=== PATIENT | female | born 1950 | race Caucasian/White ===

== ENCOUNTER → 2018-05-23 15:34 | Outpatient (CLI) | payer MEDICARE, OTHER, SELFPAY ==
--- NOTE | 2018-05-23 15:44 | RAD_ITS ---
STUDY: X-RAY CHEST REASON FOR EXAM: Female, 68 years old. Cough. Chest tightness since pneumonia in November. TECHNIQUE: PA and lateral views of the chest. COMPARISON: March 22, 2015. FINDINGS: The lungs are hyperexpanded. There is linear scarring versus atelectasis along the horizontal fissure. There is a stable scar in the lingula. No new infiltrate or mass is seen. There is no demonstrated pleural abnormality. Normal size heart. Normal mediastinum and subha. Normal visualized pulmonary arteries. Normal visualized aortic arch and descending thoracic aorta. Normal visualized thoracic spine. Normal visualized ribs, clavicles, and shoulders. There is no demonstrated abnormality of the visualized soft tissue structures of the upper abdomen. RAD/Chest PA and Lateral IMPRESSION: Atelectasis versus scarring along the horizontal fissure. There is no other change from March 22, 2015. Electronically Signed: Willie Fisher DO at 8:52 EDT Tel [phone], Service support ,
[2018-05-23 17:31] LABS: Absolute Lymphocyte Count 2.42 X10^3/ul (0.83-4.51); Absolute Neutrophil Count 5.6 X10^3/uL (2.0-7.7); Basophil# 0.03 X10^3/uL; Basophil% 0.3 % (0-1); Eosinophil# 0.29 X10^3/uL; Eosinophils% 3.2 % (0-5); Hematocrit 42.1 % (37-47); Hemoglobin 14.3 g/dl (12.0-15.0); Lymphocyte # 2.42 X10^3/ul (4.0); Lymphocyte % 26.5 % (19-41); Mean Corpuscular Hgb 32.9 pg (27.0-32.0); Mean Platelet Vol. 9.6 fl (6.2-12.0); Monocyte# 0.72 X10^3/uL; Monocyte% 7.9 % (0-10); Neutrophil # 5.64 X10^3/uL (2.7-7.7); Neutrophil % 61.9 % (47-70); Platelet Count 327 K/mm3 (150-450); RBC Distribution Width CV 12.9 % (11.6-14.6); RBC Distribution Width SD 44.8 fl (35.1-43.9); Red Blood Count 4.34 M/mm3 (4.2-5.4); White Blood Count 9.1 K/mm3 (4.4-11.0)
[2018-05-23 17:39] LABS: POSITIVE COUNT NO; POSITIVE DIFFERENTIAL NO; POSITIVE MORPHOLOGY NO
[2018-05-23 17:52] LABS: Anion Gap 6 (5-15); BUN 14 mg/dL (7-18); BUN/Creat Ratio 19.3 RATIO (10-20); Calcium,Total 9.2 mg/dL (8.5-10.1); Chloride 108 mmol/L (98-107); Creatinine, Serum 0.72 mg/dL (0.55-1.02); EST Glomerular Filtration Rate 84 mL/min (>60); Est Glom Filt Rate - Afr Amer 102 mL/min (>60); Glucose 93 mg/dL (74-106); Potassium 4.3 mmol/L (3.5-5.1); Sodium Level 140 mmol/L (136-145)
== END ==
LOC: MFPLAB 15:36 → MTRAD 15:40
PROVIDERS: Family Provider Family Medicine; PCP Family Medicine; Visit Provider Family Medicine
DX: Z01.818 Encounter for other preprocedural examination (principal)
CPT/HCPCS: 36415; 71046; 80048; 85025

== ENCOUNTER → 2018-05-30 08:57 | Outpatient (CLI) | payer MEDICARE, OTHER, SELFPAY ==
--- NOTE | 2018-05-30 09:03 | RAD_ITS ---
STUDY: X-RAY - ESOPHAGUS (BARIUM SWALLOW) WITH FLUOROSCOPY REASON FOR EXAM: Female, 68 years old. Lump in throat. TECHNIQUE: 18 view(s) of the esophagus were obtained following swallowing of barium. FLUOROSCOPY TIME (if supplied): (0:30) minutes/seconds COMPARISON: None. FINDINGS: There is no demonstrated esophageal foreign body. There is no demonstrated stricture or mucosal abnormality. Normal gastroesophageal junction, without a demonstrated hiatal hernia. The patient ingested a 12 mm tablet of barium without difficult. Normal visualized aortic arch and descending thoracic aorta. Thickening of the right minor fissure and increased markings at the right lung base. There are diffuse degenerative changes of the visualized thoracic spine. RAD/Esophagus Only IMPRESSION: Normal plain film x-ray examination (barium swallow) of the esophagus. Electronically Signed: Emanuel Escobedo MD at 12:28 EDT Tel [phone], Service support ,
== END ==
PROVIDERS: Family Provider Family Medicine; PCP Family Medicine; Visit Provider Family Medicine
DX: R13.10 Dysphagia, unspecified (principal)
CPT/HCPCS: 74220

== ENCOUNTER 2018-06-21 08:21 | Day surgery (SDC) | payer MEDICARE, OTHER, SELFPAY ==
--- NOTE | 2018-06-17 12:08 | RAD_ITS ---
STUDY: X-RAY CHEST REASON FOR EXAM: Female, 68 years old. Preoperative clearance. TECHNIQUE: PA and lateral views of the chest. COMPARISON: Comparison is made with prior study dated May 23, 2018. FINDINGS: Elevation of the right hemidiaphragm. Increased linear markings at the lung bases. This has progressed as compared to prior study and is suggestive bibasilar atelectasis superimposed on scarring. There is also evidence of blunting of both costophrenic angles. Normal size heart. Normal mediastinum and subha. Normal visualized pulmonary arteries. There is atherosclerotic calcification of the aortic arch with tortuosity. There is demineralization of the osseous structures. Normal visualized ribs, clavicles, and shoulders. There is no demonstrated abnormality of the visualized soft tissue structures of the upper abdomen. RAD/Chest PA and Lateral IMPRESSION: Progressive increased markings at the lung bases suggestive of atelectasis superimposed on scarring. Blunting of both costophrenic angles. Electronically Signed: Emanuel Escobedo MD at 12:42 EDT Tel [phone], Service support ,
[2018-06-17 12:32] LABS: Anion Gap 7 (5-15); BUN 16 mg/dL (7-18); BUN/Creat Ratio 20.2 RATIO (10-20); Calcium,Total 9.9 mg/dL (8.5-10.1); Chloride 102 mmol/L (98-107); Creatinine, Serum 0.79 mg/dL (0.55-1.02); EST Glomerular Filtration Rate 76 mL/min (>60); Est Glom Filt Rate - Afr Amer 92 mL/min (>60); Glucose 115 mg/dL (74-106); Potassium 4.3 mmol/L (3.5-5.1); Sodium Level 136 mmol/L (136-145)
[2018-06-21] VITALS (13 sets, daily range): BP systolic 126–178; BP diastolic 74–105; PULSE 67–83; RESP 16–24; TEMP 36.3–36.9; O2SAT 89–100; BMI 32.3
--- NOTE | 2018-06-21 08:30 | EKG12_ITS ---
Test Reason : PRE OP Blood Pressure : / mmHG Vent. Rate : 073 BPM Atrial Rate : 073 BPM P-R Int : 178 ms QRS Dur : 084 ms QT Int : 382 ms P-R-T Axes : 018 072 050 degrees QTc Int : 420 ms Sinus rhythm with Fusion complexes Otherwise normal ECG When compared with ECG of 22-MAR-2015 11:21, Fusion complexes are now Present Confirmed by HERIBERTO COON ([id number]), visual effects editor EREN PEREZ ([id number]) on 06/23/2018 12:33:05 PM Referred By: Dimas Davidson Confirmed By:HERIBERTO COON
--- NOTE | 2018-06-21 11:07 | PCM.DC ---
You will use the following diet at home:: No restrictions Discharge Activity: Return to Normal Activity Call your doctor if your incision/area has: Increased Pain/ Swelling Allergies/Adverse Reactions: Allergies Sulfa (Sulfonamide Antibiotics) Allergy (Verified 06/17/18 11:44) Hives Medications to take at Discharge Albuterol Inhaler [Ventolin Hfa (SP)] 2 puff INHALATION Q6H PRN PRN 06/17/18 Azithromycin [Zithromax Z-Lorenzo] 250 mg PO UD 06/17/18 Calcium Carb/Mag Ox/Zinc Sulf [Aaanljx-Dlbtwvpzk-Vzga Tablet] 1 each PO BID 06/17/18 Cholecalciferol (Vitamin D3) [Vitamin D3] 10,000 unit PO DAILY 06/17/18 Fluticasone 0.05% [Flonase Nasal [place]] 1 spray NASAL BID 06/17/18 Gabapentin [Neurontin] 300 mg PO BID 06/17/18 Glucosamine Sulf/Chondroitin A [Glucosamine-Chondroitin Cap] 1 each PO DAILY 06/17/18 Guaifenesin [Mucinex] 600 mg PO BID 06/17/18 Multivitamin [Multiple Vitamins] 1 each PO DAILY 06/17/18 [place]-3 Fatty Acids/Fish Oil [Fish Oil 1,000 mg Capsule] 1 each PO DAILY 06/17/18 Vitamin B Complex 1 each PO DAILY 06/17/18 Vitamin E 400 unit PO DAILY 06/17/18 Primary Care Physician: Lai Meadows MD [Primary Care Provider] - Test Results: Test results from this visit will be discussed in further detail at your follow-up appointment, if applicable. Please Follow Up With: Allan Davidson MD When: 2 weeks
--- NOTE | 2018-06-21 11:09 | PCM.OPRPT ---
Problem List (1) Vocal cord paralysis, unilateral complete Status: Acute Report of Operation Date of Procedure: 06/21/18 Pre-Operative Diagnosis: right vocal cord immobility Post-Operative Diagnosis: right vocal cord immobility Surgery/Procedure Performed:: right vocal cord injection with the operative telescope Type of Anesthesia:: General Description of Procedure: on the day of the procedure, after appropriate informed consent was obtained, the patient was brought to the operating room and placed in supine position on the operating table. she was placed under general endotracheal anesthesia by the anesthesiologist. the endotracheal tube was secured, the eyes were taped. the table was rotated 90 degrees toward the surgeon. the fiona laryngoscope was first used with a tooth guard. given the patient's dentition and inability to depress the mandible adequately, a good view of the mid and anterior cords could not be obtained. the dido laryngoscope was used and the same problems arose. i did not want to put significant pressure on her incisors. at this time, given her aspiration symptoms, it was deemed necessary to attempt an injection using the glide scope. a good view was obtained and the injection needle for prolaryn plus was bent in the same fashion as a transoral office injection. the needle was inserted just lateral to the right true cord at the junction of the anterior 2/3 and posterior 1/3 in the paraglottic space. 0.6cc of prolaryn plus was used. it was difficult to obtain a great view given secretions and the resolution of the glide scope, but significant bulk of the right cord was acheived. the patient was awoken from anesthesia and transferred to the PACU in stable condition.
== END 2018-06-21 14:02 | disposition home or self-care (01) ==
LOC: SDC 08:23 → AC 08:23
PROVIDERS: Family Provider Family Medicine; PCP Family Medicine; Visit Provider Otolaryngology
PROC: (CPT 31571; principal; 2018-06-21 09:50)
DX: J38.01 Paralysis of vocal cords and larynx, unilateral (principal); R22.1 Localized swelling, mass and lump, neck; Z87.891 Personal history of nicotine dependence
CPT/HCPCS: 00320; 31571; 36415; 71046; 80048; 93005; 94640; J7120; J2405

== ENCOUNTER → 2018-06-22 13:41 | Outpatient (CLI) | payer MEDICARE, OTHER, SELFPAY ==
--- NOTE | 2018-06-22 13:43 | CT_ITS ---
STUDY: CT SOFT TISSUE NECK WITH CONTRAST REASON FOR EXAM: Female, 68 years old. Immobile right vocal cord. RADIATION DOSAGE (If Supplied By Facility): CTDIvol = ( 12.05 ) mGy, DLP = ( 347.61 ) mGycm TECHNIQUE: The patient was scanned in a multi-detector CT scanner. High resolution transaxial imaging was performed following intravenous administration of 100ML ml of Isovue 300 contrast material. Sagittal and coronal images were reconstructed. Individualized dose optimization techniques were used for this CT. COMPARISON: Barium esophagram 05/30/2018. X-ray chest 06/17/2018. FINDINGS: Apical lungs: Clear. Apical thoracic cage: Normal. Apical thoracic body wall soft tissues: Normal. Superior mediastinum and supraclavicular: Extensive lymphadenopathy. Tracheal, prevascular change, extending upward through the thoracic inlet, right greater than left supraclavicular. The largest lymph node in the superior mediastinum adjacent to the trachea and esophagus measures approximately 30 x 17 mm. The largest lymph node in the thoracic inlet likely represents multiple confluent lymph nodes, spanning approximately 4.5 x 3.4 cm. The largest right-sided supraclavicular lymph node lying just anterior to the subclavian vessels measures approximately 2.4 x 2.5 cm, and another adjacent 1.9 x 2.7 cm. Left supraclavicular, a few lymph nodes, the largest of which measure about 13 mm and 15 mm respectively. There is asymmetric thickening of the anterior and right-sided wall of the esophagus at the thoracic inlet, difficult to discern if this represents intimately adjacent enlarged lymph nodes or true esophageal wall thickening. There is a complex heterogeneously hypoechoic lesion involving the entirety of the thyroid isthmus, the medial portions of the left gland, and much of the right gland inferior pole and mid polar, sparing the apex, highly suspicious for neoplasia. Larynx: There is dense calcification within the right-sided false vocal cord, mild asymmetry in the cords. This could potentially reflect cord paralysis and could involve the recurrent laryngeal nerve due to the mediastinal and supraclavicular lymphadenopathy. Nasopharynx and oropharynx: Normal. Cervical soft tissues: A few shotty lymph nodes cervical chains, jugulodigastric, not pathologically enlarged. Normal submandibular and parotid glands. Facial soft tissues: Unremarkable. Sinuses: Clear. Craniofacial osseous structures: Normal. Cervical spine: Moderate degenerative disc disease C4-C5, C5-C6 without significant stenosis. Vasculature: Unremarkable. CT/Soft Tissue Neck WITH Contrast IMPRESSION: Thyroid mass. Biopsy recommended. Biopsy of adjacent supraclavicular lymph nodes is also recommended. Extensive superior mediastinal lymphadenopathy, extensive right supraclavicular lymphadenopathy, with more mild left supraclavicular lymphadenopathy. Asymmetry of the vocal folds/cords with dense chronic ossifications involving the right fold. The asymmetry may reflect focal cord paralysis in the setting of recurrent laryngeal nerve involvement in the malignant neoplastic process of the superior mediastinum and supraclavicular soft tissues. Asymmetric thickening along the wall of the proximal esophagus at the thoracic inlet may reflect intimately adjacent enlarged lymph nodes rather than true esophageal wall thickening. It is difficult to discern on this study. Follow-up CT chest with contrast is recommended for further characterization. Electronically Signed: Gutierrez Vidal, at 17:21 EDT Tel , Service support ,
== END ==
PROVIDERS: Family Provider Family Medicine; PCP Family Medicine; Visit Provider Otolaryngology
DX: J38.00 Paralysis of vocal cords and larynx, unspecified (principal)
CPT/HCPCS: 70491

== ENCOUNTER → 2018-07-07 09:13 | Outpatient (CLI) | payer MEDICARE, OTHER, SELFPAY ==
--- NOTE | 2018-07-07 | IMM_PTH ---
PATIENT: CRISTOPHER SOSA LOC: LAB U#:[id number] AGE/SX: 75/F ROOM: RE07/07/[address]: Dr. Daniel Davidson MD : 1950 BED: DIS: SPEC #: [id number] RECD: 07/08/18 12:52 STATUS: SU REQ #: [id number] BRITTA: 07/07/18 00:[address]: Daniel Davidson DEPT: IMMUNOHISTOCHEMISTRY RECD BY: Elinor Vee ENTERED: 07/08/18 12:53 SP TYPE: IMMUNO OTHR DR: Dr. Lai Meadows MD Tissues: Supraclavicular region of neck Procedures: RCC (add) NAPSIN A (add) CK20 (add) CK5-6 (add) CK7 (add) CK8 (add) HEP PAR (add) WY (add) TTF1 (add) P40 (add) ER (initial) PHYSICIAN & INSTITUTION [address] [address] SPECIMEN INFORMATION: Tissue Source: Right supraclavicular mass Clinical Info: Right supraclavicular mass Specimen Number: [id number] CPT code: 67860, 45077 x10 METHODOLOGY: Deparaffinized sections of prefer/formalin-fixed tissue or PAP/DQ stained slides are incubated with monoclonal/polyclonal antibodies/oligonucleotide probes. Localization is made via biotin free immunoperoxidase method. Appropriate controls are performed and reacted as expected. Results on target cell population are indicated in the following table: RESULTS: ANTIBODY / CLONE RESULT ER (6F11) negative WY (1E2) negative CK7 (OV-TL12/30) negative CK8 (32recmB72) negative CK20 (KS20.8) negative TTF-1 (8G7G3/1) negative Napsin A (Rabbit Polyclonal) negative HepPar (OCh1E5) negative RCC (PN-15) negative CK5-6 (D5 & 1684) positive P40 (BC28) positive These tests were developed and their performance characteristics determined by [facility]. They may not have been cleared or approved by the U.S. Food and Drug Administration. The FDA has determined that such clearance or approval is not necessary. INTERPRETATION: Right supraclavicular mass, FNA: Consistent with metastatic non-small cell carcinoma, favor squamous cell carcinoma. Clinical correlation necessary. LEONARDA:gt 07/11/18 Case has been reviewed in consultation with Dr. Gaitan who concurs with the above diagnosis. IDC:AM
--- NOTE | 2018-07-07 | ASPOS_PTH ---
PATIENT: CRISTOPHER SOSA LOC: LAB U#:[id number] AGE/SX: 75/F ROOM: RE07/07/[address]: Dr. Daniel Davidson MD : 1950 BED: DIS: SPEC #: [id number] RECD: 07/07/18 10:51 STATUS: SU KATE #: [id number] BRITTA: 07/07/18 00:[address]: Daniel Davidson DEPT: CYTOLOGY RECD BY: Gutierrez Gamboa ENTERED: 07/07/18 10:52 SP TYPE: ASP HERE OTHR DR: Dr. Lai Meadows MD Tissues: Supraclavicular region of neck Procedures: Pap Stain (control) Surgery Specimen Level IV Diff Quik Stain (control) Cell Block Cytology Other Fine Needle Asp on Site HEADER OPERATION: FNA right supraclavicular mass PRE-OP DIAGNOSIS: Right supraclavicular mass TISSUE SUBMITTED: Right supraclavicular mass, smear and fluid for cytology and cell block (4 DQ, 2?pap) DIAGNOSIS CYTOLOGY Right supraclavicular mass, FNA (smears and cell block): Consistent with metastatic non-small cell carcinoma, favor squamous cell carcinoma. See comment. LEONARDA:gt 07/08/18 COMMENT The specimen is evaluated at the time of FNA by Dr. Gaitan. Immediate Evaluation = Positive for malignant cells, consistent with non-small cell carcinoma. Immunohistochemistry ([id number]) supports the above diagnosis. Lymph node tissue is not identified in the submitted specimen. Clinical correlation and appropriate follow up are necessary. Case has been reviewed in consultation with Dr. Gaitan who concurs with the above diagnosis. IDC:AM CYTOLOGY STUDY Slides are reviewed. CYTOLOGY GROSS Received is 0.2 ml of reddish fluid labeled with the patient's name, and designated right supraclavicular mass. Four imprints and two paps are made from the submitted fluid and the rest is added to CytoLyt for cell block preparation. Submitted for cytology study. / AM:gt 07/07/18 TC:0 CPT: 21874, 01344, 28755, 33705 ADDENDUM ADDENDUM ADDENDUM ADDENDUM ADDENDUM ADDENDUM ADDENDUM 08/02/2018 10:28 ADDENDUM 08/02/2018 10:28 ADDENDUM 08/02/2018 10:28 ADDENDUM 08/02/2018 10:28 ADDENDUM 08/02/2018 10:28 PD-L1 (KEYTRUDA) [facility] INTERPRETATION: No expression Tumor proportion score: 0% Please see complete report in e-chart or EMR for complete details
== END ==
PROVIDERS: Family Provider Family Medicine; PCP Family Medicine; Visit Provider Otolaryngology
DX: R22.1 Localized swelling, mass and lump, neck (principal)
CPT/HCPCS: 10021; 88161; 88305; 88341; 88342

== ENCOUNTER → 2018-07-18 10:21 | Outpatient (CLI) | payer MEDICARE, OTHER, SELFPAY | PROVIDERS: Family Provider Family Medicine; PCP Family Medicine; Visit Provider Otolaryngology | DX: C77.0 Secondary and unspecified malignant neoplasm of lymph nodes of head, face and neck (principal); C80.1 Malignant (primary) neoplasm, unspecified | CPT/HCPCS: 78815; A9552 ==

== ENCOUNTER 2018-08-03 20:42 | Emergency (ER) | payer MEDICARE, OTHER, SELFPAY ==
[2018-08-03 20:43] VITALS: BP 132/75; PULSE 98; RESP 20; TEMP 36.3; O2SAT 92; BMI 32.4
--- NOTE | 2018-08-03 23:07 | EKG12_ITS ---
Test Reason : NAUSEA Blood Pressure : / mmHG Vent. Rate : 086 BPM Atrial Rate : 086 BPM P-R Int : 172 ms QRS Dur : 094 ms QT Int : 352 ms P-R-T Axes : 016 052 055 degrees QTc Int : 421 ms Normal sinus rhythm Normal ECG Confirmed by HERIBERTO COON ([id number]), marketing editor EREN PEREZ ([id number]) on 08/09/2018 1:37:38 PM Referred By: ALEX Confirmed By:HERIBERTO COON
[2018-08-03] MEDS: Ondansetron 4 MG/2 ML Vial IV (23:32)
[2018-08-03] MEDS: 0.9% Normal Saline 1,000 ML 1000 ML IV (23:32)
[2018-08-03 23:44] LABS: Absolute Lymphocyte Count 0.67 X10^3/ul (0.83-4.51); Absolute Neutrophil Count 7.6 X10^3/uL (2.0-7.7); Basophil# 0.02 X10^3/uL; Basophil% 0.2 % (0-1); Eosinophil# 0.07 X10^3/uL; Eosinophils% 0.8 % (0-5); Hematocrit 40.4 % (37-47); Lymphocyte # 0.67 X10^3/ul (4.0); Lymphocyte % 7.5 % (19-41); Mean Corp Hgb Conc 34.7 g/gl (32-36); Mean Corpuscular Hgb 33.5 pg (27.0-32.0); Mean Corpuscular Volume 96.7 fL (81-99); Monocyte# 0.63 X10^3/uL; Neutrophil # 7.57 X10^3/uL (2.7-7.7); Neutrophil % 84.3 % (47-70); Platelet Count 336 K/mm3 (150-450); RBC Distribution Width CV 12.2 % (11.6-14.6); RBC Distribution Width SD 41.9 fl (35.1-43.9); Red Blood Count 4.18 M/mm3 (4.2-5.4)
[2018-08-03 23:45] LABS: POSITIVE COUNT NO; POSITIVE DIFFERENTIAL NO; POSITIVE MORPHOLOGY NO
[2018-08-03] MEDS: traMADol 50 MG Tablet PO (23:49)
[2018-08-03 23:51] LABS: ALB/GLOB Ratio 0.8 RATIO (0.9-2.4); AST(SGOT) 30 U/L (15-37); Alanine Aminotransfer ALT/SGPT 80 U/L (13-56); Albumin, Serum 3.3 g/dL (3.2-5.0); Alkaline Phosphatase 77 U/L (45-117); Anion Gap 8 (5-15); BUN 7 mg/dL (7-18); BUN/Creat Ratio 10.5 RATIO (10-20); Calcium,Total 9.1 mg/dL (8.5-10.1); Chloride 97 mmol/L (98-107); Creatinine, Serum 0.67 mg/dL (0.55-1.02); EST Glomerular Filtration Rate 93 mL/min (>60); Est Glom Filt Rate - Afr Amer 112 mL/min (>60); Globulin 4.2 g/dL (2.2-4.2); Glucose 126 mg/dL (74-106); Lipase 118 U/L (73-393); Potassium 4.3 mmol/L (3.5-5.1); Protein, Total 7.5 g/dL (6.4-8.2); Sodium Level 131 mmol/L (136-145)
[2018-08-04 00:34] LABS: Bacteria 0 SEEN /hpf (None Seen); Red Blood Cells-Urine 0 SEEN /hpf (0-5); Squamous Epithelial Cells - UA 0 SEEN /hpf (5-10); White Blood Cells 0 SEEN /hpf (0-5)
[2018-08-04 00:35] LABS: Color, Urine Yellow (Yellow); Glucose, Dipstick Normal (Normal); Ketone-Dipstick 50 mg/dl (Negative); Leukocyte Esterase-Dipstick 100 /ul (Negative); Nitrite-Dipstick Negative (Negative); Occult Blood-Urine Negative /ul (Negative); Protein-Dipstick 15 mg/dl (Negative); Urine Bilirubin Dipstick Negative (Negative); Urine Clarity Clear (Clear); Urine Urobilinogen Normal (Normal); Urine pH 6.5 (5.0 - 8.0)
[2018-08-04 00:45] LABS: Mucous, Urine 2+ /hpf (<or=2+)
[2018-08-04] MEDS: proMETHazine 25 MG/ML Syringe 12.5 MG IV (00:51)
[2018-08-04 01:28] VITALS: BP 152/79; PULSE 83; RESP 16; O2SAT 96
--- NOTE | 2018-08-04 02:17 | ED.VISSUMM ---
- ER Visit Summary Date of Service: 08/04/18 Chief Complaint: [Nausea and dry heaves] History of Present Illness: The patient is a 68 F [presents the emergency department complaint of nausea and dry heaves that started earlier today. Patient has not actually had any emesis, up but has had dry heaves. She denies any diarrhea. She denies any chest pain or shortness of breath. She has had some mild epigastric discomfort. Patient currently being treated for lung cancer and is undergoing radiation therapy. Patient's not had a fever. She denies urinary symptoms. She denies any new medications.] Physical Examination: [HEENT-PERRLA, EOMI. Cranial nerves II through XII grossly intact. TMs clear. Mucous membranes moist. No adenopathy. Cardiovascular-regular rate and rhythm without murmur or ectopy Lungs-clear to auscultation, chest wall stable without crepitus or subcu emphysema Abdomen-normoactive bowel sounds, soft. Patient has some mild epigastric tenderness to palpation. There is no rebound, rigidity, or perineal signs. Extremities-intact ?4, normal range of motion, normal pulses, atraumatic] Test Results: [EKG obtained on arrival shows sinus rhythm with a ventricular rate of 86 bpm with no acute ST segment changes. CBC with differential obtained was unremarkable. Chemistries unremarkable. LFTs unremarkable. Lipase was normal. Urinalysis was normal. Troponin was less than 0.015.] Emergency Department Course and Treatment: [Patient was given IV fluids and given Zofran for nausea. Patient continued to complain of nausea and was given Phenergan 12.5 mg IV. Patient did feel significantly improved after treatment and she no longer complains of abdominal pain. Patient was able to fall asleep. Patient was able to tolerate p.o. fluids.] Treatment Plan: [Patient will be given a prescription for Phenergan. Patient advised to push fluids. Patient follow-up with primary care physician 3-5 days.] Disposition: [Discharged home in stable condition] Impression: [Nausea-etiology uncertain] This note was generated with [facility] software. It may contain incorrect words, spelling, and punctuation that were not noted in review of the chart prior to signing ED Disposition - Plan for ED Patient: Chief Complaint: Nausea/Vomiting Referrals: Lai Meadows MD [Primary Care Provider] -
--- NOTE | 2018-08-04 02:19 | ED.DEP ---
ED Disposition - Plan for ED Patient: Chief Complaint: Nausea/Vomiting Instructions: ED Nausea Vomiting Prescriptions: proMETHazine tablet [Phenergan] 25 mg PO Q6H PRN PRN #10 tab PRN Reason: Nausea Referrals: Lai Meadows MD [Primary Care Provider] - 3-5 Days
[2018-08-04] MEDS: proMETHazine 25 MG Tablet PO (02:30)
[2018-08-04 02:40] VITALS: BP 148/84; PULSE 90; RESP 16; O2SAT 89
--- NOTE | 2018-08-04 02:41 | ED.RN ---
PT GIVEN WRITTEN AND VERBAL DISCHARGE INSTRUCTIONS, HOME PACK AND HOME GOING PRESCRIPTIONS. PT EDUCATED ON MEDICATION AND INSTRUCTIONS AND VERBALIZES UNDERSTANDING. PT IV D/C AND COVERED WITH 2X2 GAUZE DRESSING. PT PULSE OX 89% ON RA. PT REPORTS THAT SHE DOES NOT WEAR HOME 02 AND THAT SHE DOES NOT FEEL SOB. PT HAS FOLLOW UP WITH ONCOLOGIST LATER THIS AM. DR. GALICIA INFORMED AND CLEARED PT FOR DISCHARGE. PT AMBULATES OUT OF DEPT WITH .
== END 2018-08-04 02:43 | disposition home or self-care (01) ==
LOC: ED 23:43
PROVIDERS: Emergency Provider Emergency Medicine; Family Provider Family Medicine; PCP Family Medicine
DX: R11.0 Nausea (principal); C34.90 Malignant neoplasm of unspecified part of unspecified bronchus or lung; Z87.891 Personal history of nicotine dependence; Z79.899 Other long term (current) drug therapy
CPT/HCPCS: 80053; 81001; 83605; 83690; 84484; 85025; 93005; 96361; 96374; 96375; 99283; J7030; A4216; J2405

== ENCOUNTER 2018-08-09 22:32 | Emergency (ER) | payer MEDICARE, OTHER, SELFPAY ==
[2018-08-09 22:34] VITALS: BP 132/78; PULSE 113; RESP 18; TEMP 37.5; O2SAT 92; BMI 31.1
--- NOTE | 2018-08-09 22:39 | ED.VISSUMM ---
- ER Visit Summary Date of Service: 08/09/18 Chief Complaint: Nausea, vomiting, abdominal pain History of Present Illness: The patient is a 68 F with history of lung cancer who is undergoing radiation presents with nausea and vomiting. Patient had her treatment today. She states a few hours later, she began have a lot of burning in her mid chest. She has been nauseated with a few bouts of vomiting. She states she has a difficult time eating because of pain in her throat. She was diagnosed with radiation esophagitis. She has been taking Magic mouthwash mix, and states it does help, but then the pain comes back. She denies any fevers or chills. She denies any shortness of breath over baseline. She states that she gets a lot of abdominal cramping and is having dry heaves. The patient was actually seen here for the same complaints just about a week ago after her last treatment. Physical Examination: Vital signs reviewed General: Well-nourished, well-developed Head: Normocephalic, atraumatic Eyes: Pupils equal and reactive, extraocular muscles intact Neck, supple, no lymphadenopathy Heart: Regular rate and rhythm Respiratory: No distress, clear bilaterally Abdomen: Soft, nontender, nondistended, no peritoneal signs Back: Nontender Extremities: Nontender, no edema, no cords Skin: Normal color no rash Neuro: Alert and oriented, no focal or lateralizing deficits Test Results: [] Emergency Department Course and Treatment: The patient presents with nausea, vomiting, and burning her throat status post radiation. She is Wilfredo been diagnosed with radiation esophagitis. In review, the patient had very similar presentation about a week ago. IV was established. She was given fluids, Zofran, morphine. She had improvement of her pain but still had mild nausea. Her labs are relatively unremarkable. The patient was given IV Phenergan. On reevaluation she is resting comfortably. Her nausea had abated. She is able to drink without issue. At this time, due to the patient is safe for outpatient therapy. She is comfortable this plan of care. She does have follow-up in place with her oncologist. She was counseled on concerning symptoms and reasons to return. Treatment Plan: [] Disposition: Discharge Impression: 1. Nausea and vomiting 2. Radiation esophagitis This note was generated with [employer] software. It may contain incorrect words, spelling, and punctuation that were not noted in review of the chart prior to signing ED Disposition - Plan for ED Patient: Disposition: Home or Assisted Living Chief Complaint: Nausea/Vomiting Instructions: ED Nausea Vomiting Referrals: Lai Meadows MD [Primary Care Provider] -
[2018-08-09] MEDS: Morphine 4 MG/ML Syringe IV (22:53)
[2018-08-09] MEDS: 0.9% Normal Saline 1,000 ML 1000 ML IV (22:53)
[2018-08-09] MEDS: Ondansetron 4 MG/2 ML Vial IV (22:53)
[2018-08-09 23:14] LABS: Absolute Lymphocyte Count 0.54 X10^3/ul (0.83-4.51); Absolute Neutrophil Count 7.3 X10^3/uL (2.0-7.7); Basophil# 0.03 X10^3/uL; Basophil% 0.3 % (0-1); Eosinophil# 0.13 X10^3/uL; Eosinophils% 1.5 % (0-5); Hematocrit 45.6 % (37-47); Hemoglobin 15.4 g/dl (12.0-15.0); Lymphocyte # 0.54 X10^3/ul (4.0); Lymphocyte % 6.2 % (19-41); Mean Corp Hgb Conc 33.8 g/gl (32-36); Mean Corpuscular Hgb 32.5 pg (27.0-32.0); Mean Corpuscular Volume 96.2 fL (81-99); Mean Platelet Vol. 9.1 fl (6.2-12.0); Monocyte# 0.69 X10^3/uL; Neutrophil # 7.26 X10^3/uL (2.7-7.7); Neutrophil % 83.9 % (47-70); Platelet Count 259 K/mm3 (150-450); RBC Distribution Width CV 12.7 % (11.6-14.6); RBC Distribution Width SD 44.8 fl (35.1-43.9); Red Blood Count 4.74 M/mm3 (4.2-5.4); White Blood Count 8.7 K/mm3 (4.4-11.0)
[2018-08-09 23:18] LABS: Differential Indicated SCAN CRITERIA MET; POSITIVE COUNT NO; POSITIVE DIFFERENTIAL YES; POSITIVE MORPHOLOGY NO
[2018-08-09 23:26] LABS: ALB/GLOB Ratio 0.8 RATIO (0.9-2.4); AST(SGOT) 43 U/L (15-37); Alanine Aminotransfer ALT/SGPT 116 U/L (13-56); Albumin, Serum 3.2 g/dL (3.2-5.0); Alkaline Phosphatase 78 U/L (45-117); Anion Gap 11 (5-15); BUN 16 mg/dL (7-18); BUN/Creat Ratio 17.7 RATIO (10-20); Calcium,Total 8.9 mg/dL (8.5-10.1); Chloride 96 mmol/L (98-107); EST Glomerular Filtration Rate 66 mL/min (>60); Est Glom Filt Rate - Afr Amer 79 mL/min (>60); Estimated Creatinine Clearance 52.34 ml/min; Globulin 4.2 g/dL (2.2-4.2); Glucose 154 mg/dL (74-106); Lipase 78 U/L (73-393); Potassium 4.2 mmol/L (3.5-5.1); Protein, Total 7.4 g/dL (6.4-8.2); Sodium Level 130 mmol/L (136-145)
[2018-08-10] MEDS: proMETHazine 25 MG/ML Syringe 12.5 MG IV (00:10)
[2018-08-10 01:32] VITALS: BP 119/76; PULSE 84; RESP 22; O2SAT 97
--- NOTE | 2018-08-10 01:33 | ED.RN ---
THIS NURSE REVIEWED D/C INSTRUCTIONS WITH PT. PT VERBALIZED UNDERSTANDING OF INSTRUCTIONS. IV D/C. IV CATHETER INTACT. PT TOLERATED WELL. PT DENIES FURTHER NEEDS OR QUESTIONS AT THIS TIME. PT AMBULATES FROM ROOM ON OWN WITHOUT ASSISTANCE FROM STAFF
== END 2018-08-10 01:34 | disposition home or self-care (01) ==
LOC: ED 23:00
PROVIDERS: Emergency Provider Emergency Medicine; Family Provider Family Medicine; PCP Family Medicine
DX: R11.2 Nausea with vomiting, unspecified (principal); K20.8 Other esophagitis; C34.90 Malignant neoplasm of unspecified part of unspecified bronchus or lung; Z87.891 Personal history of nicotine dependence
CPT/HCPCS: 80053; 83690; 85025; 96374; 96375; 99285; J7030; A4216; J2405

== ENCOUNTER 2018-08-11 13:06 | Inpatient (IN) | payer MEDICARE, OTHER, SELFPAY ==
[2018-08-11 13:07] VITALS: BP 117/76; PULSE 93; RESP 20; TEMP 37.3; O2SAT 94; BMI 31.1
[2018-08-11] MEDS: Morphine 4 MG/ML Syringe IV ×3 (14:17→20:33)
[2018-08-11] MEDS: 0.9% Normal Saline 1,000 ML 150 ML IV ×2 (14:17→17:00)
[2018-08-11] MEDS: Ondansetron 4 MG/2 ML Vial IV (14:17)
[2018-08-11 14:22] LABS: Absolute Lymphocyte Count 0.68 X10^3/ul (0.83-4.51); Absolute Neutrophil Count 5.3 X10^3/uL (2.0-7.7); Basophil# 0.03 X10^3/uL; Basophil% 0.4 % (0-1); Eosinophil# 0.08 X10^3/uL; Eosinophils% 1.2 % (0-5); Hematocrit 40.9 % (37-47); Hemoglobin 13.9 g/dl (12.0-15.0); Lymphocyte # 0.68 X10^3/ul (4.0); Lymphocyte % 10.2 % (19-41); Mean Corpuscular Hgb 32.6 pg (27.0-32.0); Mean Corpuscular Volume 95.8 fL (81-99); Mean Platelet Vol. 8.8 fl (6.2-12.0); Neutrophil # 5.29 X10^3/uL (2.7-7.7); Neutrophil % 79.1 % (47-70); Platelet Count 251 K/mm3 (150-450); RBC Distribution Width CV 12.5 % (11.6-14.6); RBC Distribution Width SD 42.8 fl (35.1-43.9); Red Blood Count 4.27 M/mm3 (4.2-5.4); White Blood Count 6.7 K/mm3 (4.4-11.0)
[2018-08-11 14:23] LABS: POSITIVE COUNT NO; POSITIVE DIFFERENTIAL NO; POSITIVE MORPHOLOGY NO
[2018-08-11 14:56] LABS: AST(SGOT) 44 U/L (15-37); Alanine Aminotransfer ALT/SGPT 124 U/L (13-56); Albumin, Serum 2.7 g/dL (3.2-5.0); Alkaline Phosphatase 77 U/L (45-117); Anion Gap 7 (5-15); BUN 11 mg/dL (7-18); BUN/Creat Ratio 17.5 RATIO (10-20); Bilirubin, Direct 0.17 mg/dL (0.00-0.30); Calcium,Total 8.4 mg/dL (8.5-10.1); Chloride 100 mmol/L (98-107); Creatinine, Serum 0.63 mg/dL (0.55-1.02); EST Glomerular Filtration Rate 99 mL/min (>60); Est Glom Filt Rate - Afr Amer 120 mL/min (>60); Globulin 4.2 g/dL (2.2-4.2); Glucose 106 mg/dL (74-106); Lipase 66 U/L (73-393); Protein, Total 6.9 g/dL (6.4-8.2); Sodium Level 134 mmol/L (136-145)
--- NOTE | 2018-08-11 15:30 | ED.DCSUM_ITS ---
- ER Visit Summary Date of Service: 08/11/18 Chief Complaint: Nausea and vomiting History of Present Illness: The patient is a 68 F currently undergoing therapy for lung cancer. Patient had her last chemotherapy treatment on August 09. She has problems with nausea, vomiting, and radiation esophagitis. Patient was seen in the ED earlier this week. She has been getting IV fluids and the oncologist office for the past 2 days, but not making significant improvement in her symptoms. I spoke Dr. Luna who asked the patient be admitted for pain control as well as nystatin swish and swallow. Physical Examination: Vital signs significant only for temperature 99.1. Patient sitting upright in bed. She appears uncomfortable but no acute distress. Head neck examination reveals dry mucous membranes. Heart is regular rate and rhythm. Lung sounds are clear. Abdomen is soft with focal tenderness in epigastrium. There is no guarding or rebound. Hypoactive bowel sounds are noted throughout. Test Results: CBC reveals normal white count with 79% neutrophils. Chemistry studies normal. LFTs revealed ALT of 124 and AST of 44. Lipase is normal. Emergency Department Course and Treatment: Patient is given IV fluids, morphine , Zofran. She was discussed with hospitalist for admission. Treatment Plan: [] Disposition: Admit Impression: 1. Nausea vomiting 2. Radiation esophagitis This note was generated with [employer] dictation software. It may contain incorrect words, spelling, and punctuation that were not noted in review of the chart prior to signing ED Disposition - Plan for ED Patient: Chief Complaint: Nausea/Vomiting Referrals: Lai Meadows MD [Primary Care Provider] -
--- NOTE | 2018-08-11 15:44 | PCM.HP.STD ---
Problem List (1) Radiation-induced esophagitis Status: Acute (2) Metastatic primary lung cancer Status: Chronic Qualifiers: Laterality: unspecified laterality Qualified Code(s): C34.90 - Malignant neoplasm of unspecified part of unspecified bronchus or lung (3) History of tobacco use Status: Chronic (4) Obesity (BMI 30.0-34.9) Status: Chronic History of Present Illness Date of Admission: 08/11/18 Chief Complaint: Poor intake, odynophagia The patient is a 68 y/o F w/ PMHx: Former Tobacco use (Cigarette-->cigar 5/day, quit 03/2017), Daily EtOH 1-2 drink consumption, Obesity who presents to the [facility] ED on 08/11/18 with history of ongoing radiation treatments for metastatic non-small cell carcinoma of the lung most recent radiation treatment this past Wednesday, #10 of 10 with ongoing progressively worsening odynophagia, inability to take oral pills as well as medications and unable to eat with outpatient oncology office IV fluid administration intermittently without improvement. Patient was referred to the emergency room per her oncologist, Dr. Luna secondary to her ongoing severe pain and inability to tolerate any oral intake. In the emergency room workup included T 99.1, heart rate 87, BP 140/83, respiratory rate 13, 95% on room air, CBC with WBC 6.7, hemoglobin 13.9, platelet 251, CMP with sodium 134, AST/ALT 44/124, lipase 66. In the ED patient administered normal saline, Zofran, morphine 4 mg IV x1. In the emergency room upon evaluation patient with increased respiratory rate and desaturations into the low 90s on supplemental oxygen. She denies wearing home oxygen and states that she has had dyspnea, worse with exertion since diagnosis of her lung cancer. Past Medical History Past Medical History (Chronic Problems): Chronic Problems Metastatic primary lung cancer (Chronic) History of tobacco use (Chronic) Obesity (BMI 30.0-34.9) (Chronic) Allergies Sulfa (Sulfonamide Antibiotics) Allergy (Verified 08/11/18 13:09) Hives Home Medications: Ambulatory Orders Medication Instructions Recorded Albuterol Inhaler [Ventolin Hfa 2 puff INHALATION Q6H PRN PRN 06/17/18 (SP)] Calcium Carb/Mag Ox/Zinc Sulf 1 each PO BID 06/17/18 [Wehjbqr-Acguwjfsg-Jryj Tablet] Cholecalciferol (Vitamin D3) 10,000 unit PO DAILY 06/17/18 [Vitamin D3] Fluticasone 0.05% [Flonase Nasal 1 spray NASAL BID 06/17/18 [place]] Gabapentin [Neurontin] 300 mg PO BID 06/17/18 Glucosamine Sulf/Chondroitin A 1 capsule PO DAILY 06/17/18 [Glucosamine-Chondroitin Cap] Multivitamin [Multiple Vitamins] 1 each PO DAILY 06/17/18 [place]-3 Fatty Acids/Fish Oil [Fish 1 each PO DAILY 06/17/18 Oil 1,000 mg Capsule] Vitamin B Complex 1 capsule PO DAILY 06/17/18 Vitamin E 400 unit PO DAILY 06/17/18 proMETHazine tablet [Phenergan] 25 mg PO Q6H PRN PRN #10 tab 08/04/18 traMADol [Ultram] 50 mg PO Q6H PRN PRN 08/11/18 Surgical History: - - Lymph node biopsy, lumbar back surgery with hardware, tonsillectomy, bilateral tubal ligation. 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 Tobacco Use: Non-smoker Alcohol: Occasional - Patient notes 1-2 cocktail drinks after work daily. Drugs: None - *Family History Maternal History Items: - - Patient notes a maternal family history of hypertension, bladder cancer as well as lung cancer with tobacco use history. Paternal History Items: - - Patient notes a paternal family history of colon cancer. Review of Systems Constitutional: Reports: Anorexia, Malaise, Weakness, Fatigue. Denies: Chills, Fever, Weight Change HEENT: Reports: Difficulty Swallowing, Dysphasia. Denies: Head Aches, Sinus Congestion, Sinus Drainage Cardiovascular: Denies: Chest Pain, Palpitations Respiratory: Reports: Shortness of Breath, Shortness of breath at rest, Shortness of breath upon exertion. Denies: Cough, Sputum production Gastrointestinal: Reports: Abdominal Pain, Melena. Denies: Nausea, Vomiting Genitourinary: Denies: Dysuria Musculoskeletal: Denies: Joint Pain, Joint Tenderness Skin: Denies: Rash, Wounds Neurological: Denies: Numbness, Tingling, Focal weakness Psychiatric: Denies: Anxiety, Depression, Homicidal Ideations, Suicidal Ideations Hematologic/ Lymphatic: Denies: Easy Bruising, Easy Bleeding VTE Information - Inpt Only VTE Present on Admission: No VTE Mechan Device Prophylaxis: SCD's VTE Pharm Prophylaxis ordered?: Yes Patient Problems: Active and Suspected Problems Radiation-induced esophagitis (Acute) Subjective: Seated upright in the ED bed, mildly uncomfortable appearing with increased respiratory rate. Objective: Physical Examination: General: awake, alert, oriented x 3 and cooperative, seated upright in the ED bed in no apparent distress but does have mildly increased RR rate, notes chronic with lung CA dx. Skin: normal color, turgor, no icterus, cyanosis. HEENT: AT/NC, EOMI, PERRLA, dry MM, no carotid bruits or JVD noted. Lungs: Diminished BS BL, > R base specifically, increased RR, no rales, ronchi or wheezing. Heart: Regular rate and rhythm; no gallop, rub audible. Abdomen: soft, obese, NTTP, ND, normal BS, no HSM. Extremities: no cyanosis, clubbing, or edema. Neurological: patient awake, alert, oriented x 3; cognitive function intact; pupils equally reactive to light and accomodation; cranial nerves II-XII grossly normal, moving all 4 extremities, no focal deficits, strength moderately globally decreased secondary to acute presentation. Psychiatric: affect appears fatigued, no acute evidence of depressive or anxiety feelings. - Physical Exam Vital Signs Temp Pulse Resp BP Pulse Ox 99.1 F 93 20 H 117/76 94 08/11/18 13:07 08/11/18 13:07 08/11/18 13:07 08/11/18 13:07 08/11/18 13:07 Oxygen Delivery Method Room Air Weight: 187 lb Body Mass Index (BMI) 31.1 Laboratory Tests Past 24 Hrs 08/11/18 08/11/18 14:10 14:10 WBC 6.7 RBC 4.27 Hgb 13.9 Hct 40.9 MCV 95.8 MCH 32.6 H MCHC 34.0 RDW 12.5 RDW Differential 42.8 Plt Count 251 MPV 8.8 Immature Gran % (Auto) 0.100 Neut % (Auto) 79.1 H Lymph % (Auto) 10.2 L [place] % (Auto) 9.0 Eos % (Auto) 1.2 Baso % (Auto) 0.4 Absolute Neuts (auto) 5.3 Absolute Lymphs (auto) 0.68 L Total Counted Not Reportable Sodium 134 L Potassium 4.0 Chloride 100 Carbon Dioxide 27.0 Anion Gap 7 BUN 11 Creatinine 0.63 Estim Creat Clear Calc 47.10 Est GFR (MDRD) Af Amer 120 Est GFR (MDRD) Non-Af 99 BUN/Creatinine Ratio 17.5 Glucose 106 Calcium 8.4 L Total Bilirubin 0.40 Direct Bilirubin 0.17 AST 44 H ALT 124 H Alkaline Phosphatase 77 Total Protein 6.9 Albumin 2.7 L Globulin 4.2 Lipase 66 L Assessment/Plan All Active Problems Vocal cord paralysis, unilateral complete (Acute) Radiation-induced esophagitis (Acute) The patient is a 68 y/o F w/ PMHx: Former Tobacco use, Daily EtOH 1-2 drink consumption, Obesity who presents to the [facility] ED on 08/11/18 with history of ongoing radiation treatments for metastatic non-small cell carcinoma of the lung most recent radiation treatment this past Wednesday, # with ongoing progressively worsening odynophagia, inability to take oral pills as well as medications and unable to eat with outpatient oncology office IV fluid administration intermittently without improvement. (1) Odynophagia, poor oral intake, dehydration suspected secondary to Radiation Esophagitis: Will admit to MS, maintain on IVFs, initiate oral PRN viscous lidocaine, administer IV toradol x 5 to assist w/ inflammation, PRN morphine, scheduled oral nystatin, once improving allow clears if able to tolerate and advance as able, nutrition consulted. Dr. Luna consulted. Given acute presentation will defer consultation with surgery but will need to be considered for endoscopy to also evaluate for complications for radiation, i.e. strictures. Mag, Phos pending. (2) Dyspnea, Worse w/ Exertion w/ Suspected Chronic COPD: Ongoing, worsening w/ radiation treatment, increased RR upon evaluation, diminished BS BL, > R base, pending CXR PA and Lateral, Supplemental Oxygen, ATC duoneb, PRN albuterol, HOB, IS. (3) Metastatic Lung Cancer: Metastatic non-small cell carcinoma of the lung to regional lymph nodes, now completed 09/07 radiation treatments w/ next step possible chemotherapy route versus trial route, Dr. Luna consulted and will evaluate patient, mag and phos pending. (4) Daily EtOH Intake: Notes 1-2 cocktails daily following work, but less recently with start of treatments. Mag, phos pending. (5) Former Tobacco Abuse: Encouraged continued cessation. (6) GERD: IV PPI. (7) Obesity: Once oral intake improved and clinically improved, encourage lifestyle changes. (8) DVT Prophylaxis: SCDs, lovenox. Code Visit OBSV E&M: [id number] Initial observation care L3
--- NOTE | 2018-08-11 15:49 | HP.PCM_ITS ---
Problem List (1) Radiation-induced esophagitis Status: Acute (2) Metastatic primary lung cancer Status: Chronic Qualifiers: Laterality: unspecified laterality Qualified Code(s): C34.90 - Malignant neoplasm of unspecified part of unspecified bronchus or lung (3) History of tobacco use Status: Chronic (4) Obesity (BMI 30.0-34.9) Status: Chronic History of Present Illness Date of Admission: 08/11/18 Chief Complaint: Poor intake, odynophagia The patient is a 68 y/o F w/ PMHx: Former Tobacco use (Cigarette-->cigar 5/day, quit 03/2017), Daily EtOH 1-2 drink consumption, Obesity who presents to the [facility] ED on 08/11/18 with history of ongoing radiation treatments for metastatic non- small cell carcinoma of the lung most recent radiation treatment this past Wednesday, #10 of 10 with ongoing progressively worsening odynophagia, inability to take oral pills as well as medications and unable to eat with outpatient oncology office IV fluid administration intermittently without improvement. Patient was referred to the emergency room per her oncologist, Dr. Luna secondary to her ongoing severe pain and inability to tolerate any oral intake. In the emergency room workup included T 99.1, heart rate 87, BP 140/83, respiratory rate 13, 95% on room air, CBC with WBC 6.7, hemoglobin 13.9, platelet 251, CMP with sodium 134, AST/ALT 44/124, lipase 66. In the ED patient administered normal saline, Zofran, morphine 4 mg IV x1. In the emergency room upon evaluation patient with increased respiratory rate and desaturations into the low 90s on supplemental oxygen. She denies wearing home oxygen and states that she has had dyspnea, worse with exertion since diagnosis of her lung cancer. Past Medical History Past Medical History (Chronic Problems): Chronic Problems Metastatic primary lung cancer (Chronic) History of tobacco use (Chronic) Obesity (BMI 30.0-34.9) (Chronic) Allergies Sulfa (Sulfonamide Antibiotics) Allergy (Verified 08/11/18 13:09) Hives Home Medications: Ambulatory Orders Medication Instructions Recorded Albuterol Inhaler [Ventolin Hfa 2 puff INHALATION Q6H PRN PRN 06/17/18 (SP)] Calcium Carb/Mag Ox/Zinc Sulf 1 each PO BID 06/17/18 [Tfewmtm-Bmgrulfkw-Wovz Tablet] Cholecalciferol (Vitamin D3) 10,000 unit PO DAILY 06/17/18 [Vitamin D3] Fluticasone 0.05% [Flonase Nasal 1 spray NASAL BID 06/17/18 [place]] Gabapentin [Neurontin] 300 mg PO BID 06/17/18 Glucosamine Sulf/Chondroitin A 1 capsule PO DAILY 06/17/18 [Glucosamine-Chondroitin Cap] Multivitamin [Multiple Vitamins] 1 each PO DAILY 06/17/18 [place]-3 Fatty Acids/Fish Oil [Fish 1 each PO DAILY 06/17/18 Oil 1,000 mg Capsule] Vitamin B Complex 1 capsule PO DAILY 06/17/18 Vitamin E 400 unit PO DAILY 06/17/18 proMETHazine tablet [Phenergan] 25 mg PO Q6H PRN PRN #10 tab 08/04/18 traMADol [Ultram] 50 mg PO Q6H PRN PRN 08/11/18 Surgical History: - - Lymph node biopsy, lumbar back surgery with hardware, tonsillectomy, bilateral tubal ligation. 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 Tobacco Use: Non-smoker Alcohol: Occasional - Patient notes 1-2 cocktail drinks after work daily. Drugs: None - *Family History Maternal History Items: - - Patient notes a maternal family history of hypertension, bladder cancer as well as lung cancer with tobacco use history. Paternal History Items: - - Patient notes a paternal family history of colon cancer. Review of Systems Constitutional: Reports: Anorexia, Malaise, Weakness, Fatigue. Denies: Chills, Fever, Weight Change HEENT: Reports: Difficulty Swallowing, Dysphasia. Denies: Head Aches, Sinus Congestion, Sinus Drainage Cardiovascular: Denies: Chest Pain, Palpitations Respiratory: Reports: Shortness of Breath, Shortness of breath at rest, Shortness of breath upon exertion. Denies: Cough, Sputum production Gastrointestinal: Reports: Abdominal Pain, Melena. Denies: Nausea, Vomiting Genitourinary: Denies: Dysuria Musculoskeletal: Denies: Joint Pain, Joint Tenderness Skin: Denies: Rash, Wounds Neurological: Denies: Numbness, Tingling, Focal weakness Psychiatric: Denies: Anxiety, Depression, Homicidal Ideations, Suicidal Ideations Hematologic/ Lymphatic: Denies: Easy Bruising, Easy Bleeding VTE Information - Inpt Only VTE Present on Admission: No VTE Mechan Device Prophylaxis: SCD's VTE Pharm Prophylaxis ordered?: Yes Patient Problems: Active and Suspected Problems Radiation-induced esophagitis (Acute) Subjective: Seated upright in the ED bed, mildly uncomfortable appearing with increased respiratory rate. Objective: Physical Examination: General: awake, alert, oriented x 3 and cooperative, seated upright in the ED bed in no apparent distress but does have mildly increased RR rate, notes chronic with lung CA dx. Skin: normal color, turgor, no icterus, cyanosis. HEENT: AT/NC, EOMI, PERRLA, dry MM, no carotid bruits or JVD noted. Lungs: Diminished BS BL, > R base specifically, increased RR, no rales, ronchi or wheezing. Heart: Regular rate and rhythm; no gallop, rub audible. Abdomen: soft, obese, NTTP, ND, normal BS, no HSM. Extremities: no cyanosis, clubbing, or edema. Neurological: patient awake, alert, oriented x 3; cognitive function intact; pupils equally reactive to light and accomodation; cranial nerves II-XII grossly normal, moving all 4 extremities, no focal deficits, strength moderately globally decreased secondary to acute presentation. Psychiatric: affect appears fatigued, no acute evidence of depressive or anxiety feelings. - Physical Exam Vital Signs Temp Pulse Resp BP Pulse Ox 99.1 F 93 20 H 117/76 94 08/11/18 13:07 08/11/18 13:07 08/11/18 13:07 08/11/18 13:07 08/11/18 13:07 Oxygen Delivery Method Room Air Weight: 187 lb Body Mass Index (BMI) 31.1 Laboratory Tests Past 24 Hrs 08/11/18 08/11/18 14:10 14:10 WBC 6.7 RBC 4.27 Hgb 13.9 Hct 40.9 MCV 95.8 MCH 32.6 H MCHC 34.0 RDW 12.5 RDW Differential 42.8 Plt Count 251 MPV 8.8 Immature Gran % (Auto) 0.100 Neut % (Auto) 79.1 H Lymph % (Auto) 10.2 L [place] % (Auto) 9.0 Eos % (Auto) 1.2 Baso % (Auto) 0.4 Absolute Neuts (auto) 5.3 Absolute Lymphs (auto) 0.68 L Total Counted Not Reportable Sodium 134 L Potassium 4.0 Chloride 100 Carbon Dioxide 27.0 Anion Gap 7 BUN 11 Creatinine 0.63 Estim Creat Clear Calc 47.10 Est GFR (MDRD) Af Amer 120 Est GFR (MDRD) Non-Af 99 BUN/Creatinine Ratio 17.5 Glucose 106 Calcium 8.4 L Total Bilirubin 0.40 Direct Bilirubin 0.17 AST 44 H ALT 124 H Alkaline Phosphatase 77 Total Protein 6.9 Albumin 2.7 L Globulin 4.2 Lipase 66 L Assessment/Plan All Active Problems Vocal cord paralysis, unilateral complete (Acute) Radiation-induced esophagitis (Acute) The patient is a 68 y/o F w/ PMHx: Former Tobacco use, Daily EtOH 1-2 drink consumption, Obesity who presents to the [facility] ED on 08/11/18 with history of ongoing radiation treatments for metastatic non-small cell carcinoma of the lung most recent radiation treatment this past Wednesday, # with ongoing progressively worsening odynophagia, inability to take oral pills as well as medications and unable to eat with outpatient oncology office IV fluid administration intermittently without improvement. (1) Odynophagia, poor oral intake, dehydration suspected secondary to Radiation Esophagitis: Will admit to MS, maintain on IVFs, initiate oral PRN viscous lidocaine, administer IV toradol x 5 to assist w/ inflammation, PRN morphine, scheduled oral nystatin, once improving allow clears if able to tolerate and advance as able, nutrition consulted. Dr. Luna consulted. Given acute presentation will defer consultation with surgery but will need to be considered for endoscopy to also evaluate for complications for radiation, i.e. strictures. Mag, Phos pending. (2) Dyspnea, Worse w/ Exertion w/ Suspected Chronic COPD: Ongoing, worsening w/ radiation treatment, increased RR upon evaluation, diminished BS BL, > R base, pending CXR PA and Lateral, Supplemental Oxygen, ATC duoneb, PRN albuterol, HOB , IS. (3) Metastatic Lung Cancer: Metastatic non-small cell carcinoma of the lung to regional lymph nodes, now completed 09/07 radiation treatments w/ next step possible chemotherapy route versus trial route, Dr. Luna consulted and will evaluate patient, mag and phos pending. (4) Daily EtOH Intake: Notes 1-2 cocktails daily following work, but less recently with start of treatments. Mag, phos pending. (5) Former Tobacco Abuse: Encouraged continued cessation. (6) GERD: IV PPI. (7) Obesity: Once oral intake improved and clinically improved, encourage lifestyle changes. (8) DVT Prophylaxis: SCDs, lovenox. Code Visit OBSV E&M: [id number] Initial observation care L3
[2018-08-11 15:53] VITALS: BP 140/83; PULSE 87; RESP 13; O2SAT 95
[2018-08-11 16:00] VITALS: O2SAT 76
[2018-08-11 16:14] VITALS: O2SAT 94
--- NOTE | 2018-08-11 16:22 | US_ITS ---
STUDY: ABDOMINAL ULTRASOUND - RIGHT UPPER QUADRANT REASON FOR VISIT: Female, 68 years old. Abnormal labs. TECHNIQUE: Ultrasound evaluation of the right upper quadrant was performed with real-time and static foster-scale imaging. TECHNICAL QUALITY: Adequate. COMPARISON: None. FINDINGS: Liver: The liver measures 19.4 cm. There is normal echogenicity of the liver. The bile ducts are within normal limits. There is hepatic color flow. The direction of portal flow is hepatopetal. There is no demonstrated mass lesion. Gallbladder: Normal distended gallbladder. The gallbladder wall measures 2 mm. There is a negative sonographic Lane's sign. There is no pericholecystic fluid. Mild dependent sludge is noted. Common Bile Duct (C.B.D.): The common bile duct measures 4 mm. Pancreas: Demonstrated portions of the pancreas are unremarkable. The tail is poorly seen. Right Kidney: Normal size of the right kidney. The right kidney measures 9.5 x 5 x 4.9 cm. Normal renal cortex. The right cortex measures 1.8 cm. There is no demonstrated renal mass or cyst. There is no right hydronephrosis. US/Liver IMPRESSION: 1. Gallbladder sludge. No evidence of acute cholecystitis. Electronically Signed: Bhavana Rosen MD at 19:21 EDT Tel , Service support ,
[2018-08-11 16:38] VITALS: BMI 31.4
[2018-08-11 16:57] VITALS: BP 138/95; PULSE 85; RESP 22; TEMP 37.1; O2SAT 97
[2018-08-11] MEDS: 0.9% Normal Saline 1,000 ML 999 ML IV (17:00)
[2018-08-11] MEDS: proMETHazine 25 MG/ML Syringe 12.5 MG IV (17:00)
[2018-08-11 17:48] LABS: ALB/GLOB Ratio 0.7 RATIO (0.9-2.4); AST(SGOT) 49 U/L (15-37); Alanine Aminotransfer ALT/SGPT 112 U/L (13-56); Albumin, Serum 2.3 g/dL (3.2-5.0); Alkaline Phosphatase 65 U/L (45-117); Anion Gap 7 (5-15); BUN 10 mg/dL (7-18); BUN/Creat Ratio 22.5 RATIO (10-20); Calcium,Total 7.6 mg/dL (8.5-10.1); Chloride 104 mmol/L (98-107); Creatinine, Serum 0.44 mg/dL (0.55-1.02); EST Glomerular Filtration Rate 149 mL/min (>60); Est Glom Filt Rate - Afr Amer 180 mL/min (>60); Globulin 3.4 g/dL (2.2-4.2); Glucose 98 mg/dL (74-106); Magnesium 1.9 mg/dL (1.6-2.6); Phosphorus 2.4 mg/dL (2.5-4.9); Protein, Total 5.7 g/dL (6.4-8.2); Sodium Level 137 mmol/L (136-145)
--- NOTE | 2018-08-11 18:20 | RAD_ITS ---
STUDY: X-RAY CHEST REASON FOR EXAM: Female, 68 years old. SOB. History of lung cancer status post radiation. TECHNIQUE: PA and lateral views. COMPARISON: 06/17/2018. 05/23/2018. FINDINGS: Mild fibrotic changes are noted in the right suprahilar region and right lung base. These appear new compared to the prior studies. In the appropriate clinical setting, these are consistent with post radiation changes. The lungs are otherwise clear. Normal size heart. Normal mediastinum and subha. Normal visualized pulmonary arteries. Normal visualized aortic arch and descending thoracic aorta. Normal visualized thoracic spine. Normal visualized ribs, clavicles, and shoulders. There is no demonstrated abnormality of the visualized soft tissue structures of the upper abdomen. RAD/Chest PA and Lateral IMPRESSION: 1. Mild fibrotic changes on the right. If the patient has received radiation to the right hilar region, this may represent post radiation scarring. Otherwise, pneumonia or recurrence should be considered. Electronically Signed: Bhavana Rosen MD at 18:46 EDT Tel , Service support ,
[2018-08-11] MEDS: NYSTATIN 500,000 UNIT/5 ML UDC 500000 UNIT PO (21:03)
[2018-08-11] MEDS: Ketorolac 30 MG/ML Syringe IV (21:03)
[2018-08-11 22:00] VITALS: BP 135/79; PULSE 102; RESP 20; TEMP 37.3; O2SAT 96
[2018-08-12] VITALS (10 sets, daily range): BP systolic 112–131; BP diastolic 64–79; PULSE 78–84; RESP 16–24; TEMP 36.7–37.2; O2SAT 96–99
[2018-08-12] MEDS: Morphine 4 MG/ML Syringe IV ×5 (00:28→20:53)
[2018-08-12] MEDS: 0.9% Normal Saline 1,000 ML 150 ML IV ×2 (00:30→08:17)
[2018-08-12] MEDS: Ketorolac 30 MG/ML Syringe IV ×2 (05:14→13:56)
[2018-08-12] MEDS: proMETHazine 25 MG/ML Syringe 12.5 MG IV (05:15)
[2018-08-12] MEDS: Albuterol 2.5 MG/3 ML VIAL.NEB. INHALATION (05:53)
[2018-08-12 06:12] LABS: Absolute Lymphocyte Count 0.86 X10^3/ul (0.83-4.51); Absolute Neutrophil Count 4.7 X10^3/uL (2.0-7.7); Basophil# 0.03 X10^3/uL; Basophil% 0.5 % (0-1); Eosinophils% 3.2 % (0-5); Hematocrit 37.4 % (37-47); Hemoglobin 12.3 g/dl (12.0-15.0); Lymphocyte # 0.86 X10^3/ul (4.0); Lymphocyte % 13.6 % (19-41); Mean Corp Hgb Conc 32.9 g/gl (32-36); Mean Corpuscular Hgb 32.5 pg (27.0-32.0); Mean Corpuscular Volume 98.9 fL (81-99); Mean Platelet Vol. 9.1 fl (6.2-12.0); Monocyte# 0.58 X10^3/uL; Monocyte% 9.1 % (0-10); Neutrophil # 4.65 X10^3/uL (2.7-7.7); Neutrophil % 73.3 % (47-70); Platelet Count 219 K/mm3 (150-450); RBC Distribution Width CV 12.8 % (11.6-14.6); RBC Distribution Width SD 45.4 fl (35.1-43.9); Red Blood Count 3.78 M/mm3 (4.2-5.4); White Blood Count 6.3 K/mm3 (4.4-11.0)
[2018-08-12 06:28] LABS: POSITIVE COUNT NO; POSITIVE DIFFERENTIAL NO; POSITIVE MORPHOLOGY NO
--- NOTE | 2018-08-12 09:10 | CON.PCM_ITS ---
- Problem List (1) Radiation-induced esophagitis Status: Acute (2) Metastatic primary lung cancer Status: Chronic Qualifiers: Laterality: right Qualified Code(s): C34.91 - Malignant neoplasm of unspecified part of right bronchus or lung Consult Referring Physician: Pedro Subjective Chief Complaint: n/v History of Present Illness: Diagnoses: 1) metastatic non-small cell lung cancer, squamous histology 2) radiation esophagitis ? HPI:~The patient is a 68 yo female with a previous unremarkable PMH. ? Previously smoked ~1 ppd for about 50 years. Last few years prior to presentation had smoked about 5 cigarellos daily. ? She'd~been undergoing workup for vocal cord dysfunction and neck pain. ? CT neck: Superior mediastinum and supraclavicular: Extensive lymphadenopathy. Tracheal, prevascular change, extending upward through the thoracic inlet, right greater than left supraclavicular. The largest lymph node in the superior mediastinum adjacent to the trachea and esophagus measures approximately 30 x 17 mm. The largest lymph node in the thoracic inlet likely represents multiple confluent lymph nodes, spanning approximately 4.5 x 3.4 cm. The largest right-sided supraclavicular lymph node lying just anterior to the subclavian vessels measures approximately 2.4 x 2.5 cm, and another adjacent 1.9 x 2.7 cm. Left supraclavicular, a few lymph nodes, the largest of which measure about 13 mm and 15 mm respectively. ? There is asymmetric thickening of the anterior and right-sided wall of the esophagus at the thoracic inlet, difficult to discern if this represents intimately adjacent enlarged lymph nodes or true esophageal wall thickening. ? There is a complex heterogeneously hypoechoic lesion involving the entirety of the thyroid isthmus, the medial portions of the left gland, and much of the right gland inferior pole and mid polar, sparing the apex, highly suspicious for neoplasia. ? Larynx: There is dense calcification within the right-sided false vocal cord, mild asymmetry in the cords. This could potentially reflect cord paralysis and could involve the recurrent laryngeal nerve due to the mediastinal and supraclavicular lymphadenopathy. ? Nasopharynx and oropharynx: Normal. ? Cervical soft tissues: A few shotty lymph nodes cervical chains, jugulodigastric, not pathologically enlarged. Normal submandibular and parotid glands. ? Facial soft tissues: Unremarkable. ? Sinuses: Clear. ? Craniofacial osseous structures: Normal. ? Cervical spine: Moderate degenerative disc disease C4-C5, C5-C6 without significant stenosis. ? Vasculature: Unremarkable. ? IMPRESSION: Thyroid mass. Biopsy recommended. Biopsy of adjacent supraclavicular lymph nodes is also recommended. Extensive superior mediastinal lymphadenopathy, extensive right supraclavicular lymphadenopathy, with more mild left supraclavicular lymphadenopathy. Asymmetry of the vocal folds/cords with dense chronic ossifications involving the right fold. The asymmetry may reflect focal cord paralysis in the setting of recurrent laryngeal nerve involvement in the malignant neoplastic process of the superior mediastinum and supraclavicular soft tissues. Asymmetric thickening along the wall of the proximal esophagus at the thoracic inlet may reflect intimately adjacent enlarged lymph nodes rather than true esophageal wall thickening. It is difficult to discern on this study. Follow-up CT chest with contrast is recommended for further characterization. ? PET 07/18/2018: IMPRESSION: 1. ABNORMAL EXAMINATION INDICATIVE OF MALIGNANT VIABLE NEOPLASM. 2. Increased glucose concentration noted in the superior-subcarinal mediastinum, left thoracic perihilum and aorticopulmonary window, multifocal in presentation fulfills quantitative criteria for viable neoplasm. (Khalida et al, Journal of Clinical Oncology 16:2142, 1998). 3. Facilitated FDG uptake multifocally apparent in the anterior neck to include levels -VII extending to the right and left lobe of the thyroid gland, laryngeal structures and right supraclavicular region fulfills quantitative criteria for viable neoplasm. 4. The mild increase in glucose concentration demonstrated in the right hemithorax corresponding to pleural effusion does not fulfill quantitative criteria for viable neoplasm. (Carter, et al, Chest 122:1918, 2002). ? Biopsy FNA right supralevator lymph node: Right supraclavicular mass, FNA: ~ Consistent with metastatic non-small cell carcinoma, favor squamous cell carcinoma. Clinical correlation necessary. Completed palliative radiation for pain control right neck/superventricular region on Wednesday. began having throat pain last Wednesday. He has progressively worsened. Over the last 2 days she's had more nausea vomiting associated with epigastric pain and odynophagia in the upper part of the chest. She was not able to get down any fluids. She had 2 days of consecutive hydration in the office along with antiemetic therapy. Symptoms did not tumor control so she was admitted for further therapy. Past Medical History: Chronic Problems Metastatic primary lung cancer (Chronic) History of tobacco use (Chronic) Obesity (BMI 30.0-34.9) (Chronic) Past Medical/Surgical History: Past Medical History - Most Recent Inpatient Visit Past Medical History Start: 08/11/18 16: 38 Text: Status: Complete Freq: ONCE Protocol: Document 08/11/18 16:38 NOEL (Rec: 08/11/18 16:52 NOEL [id number]) BMI Required to complete PMH What is Patient's BMI 31.4 Past Medical History Unable History Recalled No Query Text:Pt Unable/Family Not Present Neurologic Medical History Hx Stroke/TIA No Hx Dementia/Alzheimer's No Hx Parkinson's Disease No Hx Seizures No Hx Multiple Sclerosis No Hx Migraines No Cardiac Medical History VTE Present on Admission No Hx of Deep Vein Thrombosis/VTE/PE No Hx Hypertension No Hx Chest Pain/Angina Yes: related to breathing difficulties since vocal cord inflammation Hx Heart Attack No Hx Cardiac Surgery/Stents/Etc. No Hx Heart Failure No Hx Pacemaker/AICD No Hx Irregular Heartbeat and/or Afib No: heart murmur Hx Anticoagulant Therapy No Query Text:(Coumadin, Aspirin, Plavix, Xarelto, etc.) Hx Pain in Legs when Walking/Leg Cramps Yes: feet cramps Respiratory Medical History Hx COPD No: prn inhaler for allergy symptoms Hx Emphysema No Hx Smoking Yes Smoking Status Former smoker Tobacco Use Non-smoker Hx Tobacco Use in last 12 months Yes Sent to [facility] Yes Hx Sleep Apnea No Do you snore loudly (louder than talking No or can be heard through closed doors)? Do you often feel tired/ fatigued/ No sleepy during daytime? Has anyone observed you stop breathing No during sleep? STOP Results Negative GI Medical History Hx Ulcer No Hx Hepatitis No Hx Cirrhosis No Hx GI Bleed No Hx Unplanned Weight Loss No Genitourinary Medical History Indwelling Catheter in Place on Arrival/ No Admission Hx Renal Disease No Musculoskeletal History Hx Arthritis Yes Hx Rheumatoid Arthritis No Endocrine Medical History Hx Diabetes No Hx Thyroid Disease No Hematologic Medical History Hx of Blood Transfusion No Hx of Transfusion in last 3 Months No Ever experience any problems with No transfusion(s)? Hx of Preganancy in last 3 Months N/A Nurse Filling Out Transfusion & RKARPER Questions: Date: 08/11/18 Time: 16:42 Psycho/Social Medical History Hx Depression Yes: no medications Hx Anxiety No Hx Alcohol Use Yes Hx Substance Use No Comments sometimes- wine sometimes a cocktail, sometimes a beer- states nothing recent d/t n/v Other Medical History Hx Blood Disorders No Hx Anemia No Hx Cancer Yes: LUNG CANCER Hx Drug Resistant Organism No Wound/Pressure Injury Present on Arrival No /Admission Query Text:If yes, chart assessment in Shift/Clinical Findings Central Line/PICC/VAD Present on Arrival No /Admission Antibiotics within last 7 days? No Risk for Readmission Number of Risk Factors 5 At Risk for Readmission Patient is At Risk For Readmission Patient is eligible for Call Back Y Maternal Family History: - - Patient notes a maternal family history of hypertension, bladder cancer as well as lung cancer with tobacco use history. Paternal Family History: - - Patient notes a paternal family history of colon cancer. - Social History Lives: Spouse/ Significant Other Smoking Status: Former smoker Tobacco Use: Non-smoker Alcohol: Occasional - Patient notes 1-2 cocktail drinks after work daily. Drugs: None Allergies/Adverse Reactions: Allergy/AdvReac Type Severity Reaction Status Date / Time Sulfa (Sulfonamide Allergy Hives Verified 08/11/18 13:09 Antibiotics) Review of Systems Respiratory: Reports: Cough, Shortness of Breath, Shortness of breath upon exertion Vital Signs Height 1.65 m Weight: 85.6 kg Weight in Pounds 188.7 lbs Pulse Ox 96 Temperature 98.8 F Pulse Rate 83 Respiratory Rate 18 Blood Pressure 126/66 Blood Pressure Position Semi-Fowlers - Physical Exam General: Alert, Oriented x3 Oropharynx:: Clear Neck:: - - diminishment in right supraclavicular lymph node mass Cardiac:: Regular rhythm Lungs: - - decreased air entry in all barajas. Particularly so right upper lobe. Subtle inspiratory wheezes. Abdomen:: - - tender in the epigastrium. Laboratory Data: Laboratory Tests 3 08/12/18 08/11/18 08/11/18 Range/Units 05:46 17:09 17:09 WBC 6.3 (4.4-11.0) K/mm3 RBC 3.78 L (4.2-5.4) M/mm3 Hgb 12.3 (12.0-15.0) g/dl Hct 37.4 (37-47) % MCV 98.9 (81-99) fL MCH 32.5 H (27.0-32.0) pg MCHC 32.9 (32-36) g/gl RDW 12.8 (11.6-14.6) % RDW Differential 45.4 H (35.1-43.9) fl Plt Count 219 (150-450) K/mm3 MPV 9.1 (6.2-12.0) fl Immature Gran % (Auto) 0.300 (0.0-0.9) % Neut % (Auto) 73.3 H (47-70) % Lymph % (Auto) 13.6 L (19-41) % Garza % (Auto) 9.1 (0-10) % Eos % (Auto) 3.2 (0-5) % Baso % (Auto) 0.5 (0-1) % Absolute Neuts (auto) 4.7 (2.0-7.7) X10^3/uL Absolute Lymphs (auto) 0.86 (0.83-4.51) X10^3/ul Total Counted Not Reportable Sodium 137 (136-145) mmol/L Potassium 4.0 (3.5-5.1) mmol/L Chloride 104 (98-107) mmol/L Carbon Dioxide 26.0 (21.0-32.0) mmol/L Anion Gap 7 (5-15) BUN 10 (7-18) mg/dL Creatinine 0.44 L (0.55-1.02) mg/dL Estim Creat Clear Calc 47.10 ml/min Est GFR (MDRD) Af Amer 180 (>60) mL/min Est GFR (MDRD) Non-Af 149 (>60) mL/min BUN/Creatinine Ratio 22.5 H (10-20) RATIO Glucose 98 (74-106) mg/dL Calcium 7.6 L (8.5-10.1) mg/dL Phosphorus 2.4 L (2.5-4.9) mg/dL Magnesium 1.9 (1.6-2.6) mg/dL Total Bilirubin 0.30 (0.20-1.00) mg/dL AST 49 H (15-37) U/L ALT 112 H (13-56) U/L Alkaline Phosphatase 65 (45-117) U/L Total Protein 5.7 L (6.4-8.2) g/dL Albumin 2.3 L (3.2-5.0) g/dL Globulin 3.4 (2.2-4.2) g/dL Albumin/Globulin Ratio 0.7 L (0.9-2.4) RATIO Diagnostic Data: Diagnostic Data Liver Ultrasound 08/11/18 16:22 IMPRESSION: 1. Gallbladder sludge. No evidence of acute cholecystitis. Electronically Signed: Bhavana Rosen MD at 19:21 EDT Tel , Service support , Chest X-Ray 08/11/18 18:20 IMPRESSION: 1. Mild fibrotic changes on the right. If the patient has received radiation to the right hilar region, this may represent post radiation scarring. Otherwise, pneumonia or recurrence should be considered. Electronically Signed: Bhavana Rosen MD at 18:46 EDT Tel , Service support , Assessment and Plan 1) Radiation esophagitis. Assessment: -Responding well to current pain medication. -She is able to get down more sips of water this morning. -Not able to eat as of yet. Plan: -Continue IV hydration. -Continue empiric nystatin swish and swallow. -Continue morphine sulfate via IV on an as-needed basis. -Continue to encourage oral intake. 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 -PD-L1 0% expression. Analysis done [facility] dated 07/28/2018. -KPS is 70%. -Presented her with standard option of chemotherapy/immunotherapy utilizing paclitaxel/carboplatin and pembrolizumab. -I previously presented her with the [id number]: Exploratory study of the biologic effects and biomarkers of nivolumab in combination with ipilimumab in subjects with treatment na?ve stage IV recurrent non-small cell lung cancer. Sponsored protocol ([id number]). Discussed the rationale and overall treatment schema. Plan: -Plan repeat bronchoscopy with biopsy for tumor tissue collection for research protocol at [facility] after discharge. Anticipate discharge home tomorrow she is able to get in a liquid diet. Medications: Prescriptions This Visit Medication Instructions Recorded traMADol [Ultram] 50 mg PO Q6H PRN PRN 08/11/18 Medications Added to Medication List This Visit Category Date Time Status MethylPREDNISolone [Solu-Medrol] Med 08/12/18 14:00 Active 40 mg IV Q8 Primary Care Provider: Lai Meadows Referring Provider:
[2018-08-12] MEDS: NYSTATIN 500,000 UNIT/5 ML UDC 500000 UNIT PO ×4 (09:42→20:53)
[2018-08-12] MEDS: Enoxaparin 40 MG/0.4 ML Syringe SC (10:01)
--- NOTE | 2018-08-12 10:02 | PCM.PN.HOSP ---
Patient Problems: Active and Suspected Problems Radiation-induced esophagitis (Acute) Subjective: Patient seen and examined. She was admitted with a complaint of worsening pain and difficulty with swallowing. She was referred to the emergency room by her oncologist. She has been having radiation treatment for recently diagnosed metastatic non-small cell carcinoma of the lung, and had her last radiation 3 days ago. She was also found to be hypoxic in [facility] ED with saturation in the low 90s, even with supplemental oxygen. Patient seen and examined. She still complains of shortness of breath but states the pain and difficulty with swallowing has improved after she was given oral lidocaine and nystatin. She denies any fever or chills and has cough which is nonproductive. She denies any chest pain, abdominal pain, diarrhea vomiting. 12 point review of systems otherwise negative. Labs and vitals reviewed. Vitals/I&O's: Vital Signs Temp Pulse Resp BP Pulse Ox 98.8 F 83 18 126/66 H 96 08/12/18 04:00 08/12/18 05:54 08/12/18 05:54 08/12/18 04:00 08/12/18 04:00 Oxygen Flow Rate (L/min) 2 Oxygen Delivery Method Nasal Cannula Weight: 188 lb 11.451 oz Body Mass Index (BMI) 31.4 Intake and Output for Last 24 Hours 08/10/18 08/11/18 08/12/18 23:59 23:59 23:59 Intake Total 2044 Balance 2044 General: Alert, Oriented x3, Cooperative, Lethargic, - - moderate distress HEENT: Atraumatic, PERRLA, EOMI, Normocephalic Oral: Moist Mucosa Neck: Supple, No JVD, Negative Carotid Bruits, No Nodes Lungs: - - on 3L of oxygen. Has coarse rhonchi and wheezing in all lung barajas. Breath sounds diminished in righ lower lung barajas, wth caorse crackles bibasally Cardiovascular: Regular rate, Regular Rhythm, Normal S1, Normal S2, No murmurs Abdomen: Bowel Sounds Present, Soft, Non Tender, Non-Distended, No Hepato-splenomegaly Extremities: No clubbing, No cyanosis, No edema, Capillary Refill Less than 3 Seconds Skin: No rashes, No breakdown Musculoskeletal: No Tenderness to Palpation of Joints or Extremities Lymphatic: No Cervical, Supraclavicular, or Inguinal Adenopathy Neurological: Cranial nerves II-XII grossly intact, Motor Exam 5/5 strength throughout Psych/Mental Status: Normal Affect, Appropriate, Alert and oriented to time, place, person, mood and affect Laboratory Results 08/11/18 17:09: Sodium 137, Potassium 4.0, Chloride 104, Carbon Dioxide 26.0, Anion Gap 7, BUN 10, Creatinine 0.44 L, Estim Creat Clear Calc 47.10, Est GFR (MDRD) Af Amer 180, Est GFR (MDRD) Non-Af 149, BUN/Creatinine Ratio 22.5 H, Glucose 98, Calcium 7.6 L, Magnesium 1.9, Total Bilirubin 0.30, AST 49 H, ALT 112 H, Alkaline Phosphatase 65, Total Protein 5.7 L, Albumin 2.3 L, Globulin 3.4, Albumin/Globulin Ratio 0.7 L 08/11/18 17:09: Phosphorus 2.4 L 08/11/18 17:09: Hepatitis A IgM Ab Pending, Hepatitis A Ab Total Pending, Hep Bs Antigen Pending, Hep B Core Total Ab Pending, Hep B Core IgM Ab Pending 08/12/18 05:46: WBC 6.3, RBC 3.78 L, Hgb 12.3, Hct 37.4, MCV 98.9, MCH 32.5 H, MCHC 32.9, RDW 12.8, RDW Differential 45.4 H, Plt Count 219, MPV 9.1, Immature Gran % (Auto) 0.300, Neut % (Auto) 73.3 H, Lymph % (Auto) 13.6 L, [place] % (Auto) 9.1, Eos % (Auto) 3.2, Baso % (Auto) 0.5, Absolute Neuts (auto) 4.7, Absolute Lymphs (auto) 0.86, Total Counted Not Reportable Current Medications Al Hydroxide/Mg Hydroxide (Mylanta Ii) 30 ml PO Q6H PRN PRN PRN Reason: Gastric burning Albuterol Sulfate (Ventolin Aerosols) 2.5 mg INHALATION Q2H PRN PRN PRN Reason: dyspnea, wheezing Last Admin: 08/12/18 05:53 Dose: 2.5 mg Albuterol/Ipratropium (Duoneb) 3 ml INHALATION Q4HWA.RT SHELBY Enoxaparin Sodium (Lovenox) 40 mg SC DAILY@1000 [facility] Last Admin: 08/12/18 10:01 Dose: 40 mg Sodium Chloride () 1,000 mls @ 150 mls/hr IV .Q6H40M [facility] Last Admin: 08/12/18 08:17 Dose: 150 mls/hr Pantoprazole Sodium 40 mg/ (Sodium Chloride) 110 mls @ 330 mls/hr IV Q12 [facility] Last Admin: 08/12/18 09:42 Dose: 330 mls/hr Ketorolac Tromethamine (Toradol) 30 mg IV Q8 [facility] Stop: 08/13/18 06:01 Last Admin: 08/12/18 05:14 Dose: 30 mg Lidocaine HCl (Xylocaine Viscous) 10 ml PO Q3H PRN PRN Reason: SORE THROAT Magnesium Hydroxide (Milk Of Magnesia) 30 ml PO DAILY PRN PRN PRN Reason: Constipation Methylprednisolone (Solu-Medrol) 40 mg IV Q8 [facility] Last Admin: 08/12/18 08:39 Dose: 40 mg Morphine Sulfate () 2 - 4 mg IV Q3H PRN PRN PRN Reason: PAIN Morphine Sulfate () 2 - 4 mg IV Q3H PRN PRN PRN Reason: PAIN Last Admin: 08/12/18 06:37 Dose: 4 mg Nystatin (Nystatin) 500,000 unit PO 4X/DAY [facility] Last Admin: 08/12/18 09:42 Dose: 500,000 unit Ondansetron HCl (Zofran) 4 mg IV Q8H PRN PRN PRN Reason: NAUSEA Promethazine HCl (Phenergan) 12.5 mg IV Q6H PRN PRN PRN Reason: NAUSEA/VOMITING Last Admin: 08/12/18 05:15 Dose: 12.5 mg Sodium Chloride () 5 - 30 ml IV UD PRN PRN Reason: SALINE FLUSH Medical Necessity - Tobacco Use Smoking Status: Former smoker Tobacco Use: Non-smoker Assessment/Plan All Active Problems Vocal cord paralysis, unilateral complete (Acute) Radiation-induced esophagitis (Acute) 1. Radiation esophagitis admitted with difficulty and pain drinking and eating. was dehydrated on admission symptoms improving with oral lidocaine and nystatin on IVF, oral viscous lidocaine continue nystatin swish and swallow. 2. Acute hypoxic reaspiratory failure due to radiation pneumonitis and COPD Oxygen at home. Requiring 3 L of oxygen to maintain saturation above 92%. He has diminished breath sounds in right lower lung base and coarse wheezing and rhonchi as well as crackles bilaterally. CXR: mild fibrotic changes in right suprahilar region and right lung base, which are new and consistent with post radiation changes. Started IV Solu-Medrol 40mg q8 and breathing treatments. 3. Metastatic nonsmall cell lung cancer has metastasised to regional lymph nodes and she has completed 10 radiation treatments. Next step is possibly chemotherapy. Oncology consulted. 4. Radiation pneumonitis: as documented under 2. Continue breathing treatments and steroids. Titrate oxygen to maintain saturation >92%. 5. GERD: on IV pantoprazole 6. Elevated liver enzymes AST and ALT were elevated. Liver ultrasound obtained showed liver measuring 19.4 cm with normal echogenicity of the liver and bile ducts within normal limits. No demonstrated mass lesion. Gallbladder normal with a wall measuring 2 mm and negative [address]ographic Lane sign no pericholecystic fluid. Mild dependent sludge noted. may be due to effects of cancer. patient currently asymptomatic; will continue to monitor DVT prophylaxis: lovenox Code status: full code This note was generated with Vionic dictation software. It may contain incorrect words, spelling, and punctuation that were not noted in checking the note before signing. Code Visit Inpatient E&M: 411[address] [facility] L3
--- NOTE | 2018-08-12 10:06 | PN_ITS ---
Patient Problems: Active and Suspected Problems Radiation-induced esophagitis (Acute) Subjective: Patient seen and examined. She was admitted with a complaint of worsening pain and difficulty with swallowing. She was referred to the emergency room by her oncologist. She has been having radiation treatment for recently diagnosed metastatic non-small cell carcinoma of the lung, and had her last radiation 3 days ago. She was also found to be hypoxic [facility] with saturation in the low 90s, even with supplemental oxygen. Patient seen and examined. She still complains of shortness of breath but states the pain and difficulty with swallowing has improved after she was given oral lidocaine and nystatin. She denies any fever or chills and has cough which is nonproductive. She denies any chest pain, abdominal pain, diarrhea vomiting. 12 point review of systems otherwise negative. Labs and vitals reviewed. Vitals/I&O's: Vital Signs Temp Pulse Resp BP Pulse Ox 98.8 F 83 18 126/66 H 96 08/12/18 04:00 08/12/18 05:54 08/12/18 05:54 08/12/18 04:00 08/12/18 04:00 Oxygen Flow Rate (L/min) 2 Oxygen Delivery Method Nasal Cannula Weight: 188 lb 11.451 oz Body Mass Index (BMI) 31.4 Intake and Output for Last 24 Hours 08/10/18 08/11/18 08/12/18 23:59 23:59 23:59 Intake Total 2044 Balance 2044 General: Alert, Oriented x3, Cooperative, Lethargic, - - moderate distress HEENT: Atraumatic, PERRLA, EOMI, Normocephalic Oral: Moist Mucosa Neck: Supple, No JVD, Negative Carotid Bruits, No Nodes Lungs: - - on 3L of oxygen. Has coarse rhonchi and wheezing in all lung barajas. Breath sounds diminished in righ lower lung barajas, wth caorse crackles bibasally Cardiovascular: Regular rate, Regular Rhythm, Normal S1, Normal S2, No murmurs Abdomen: Bowel Sounds Present, Soft, Non Tender, Non-Distended, No Hepato- splenomegaly Extremities: No clubbing, No cyanosis, No edema, Capillary Refill Less than 3 Seconds Skin: No rashes, No breakdown Musculoskeletal: No Tenderness to Palpation of Joints or Extremities Lymphatic: No Cervical, Supraclavicular, or Inguinal Adenopathy Neurological: Cranial nerves II-XII grossly intact, Motor Exam 5/5 strength throughout Psych/Mental Status: Normal Affect, Appropriate, Alert and oriented to time, place, person, mood and affect Laboratory Results 08/11/18 17:09: Sodium 137, Potassium 4.0, Chloride 104, Carbon Dioxide 26.0, Anion Gap 7, BUN 10, Creatinine 0.44 L, Estim Creat Clear Calc 47.10, Est GFR ( MDRD) Af Amer 180, Est GFR (MDRD) Non-Af 149, BUN/Creatinine Ratio 22.5 H, Glucose 98, Calcium 7.6 L, Magnesium 1.9, Total Bilirubin 0.30, AST 49 H, ALT 112 H, Alkaline Phosphatase 65, Total Protein 5.7 L, Albumin 2.3 L, Globulin 3.4 , Albumin/Globulin Ratio 0.7 L 08/11/18 17:09: Phosphorus 2.4 L 08/11/18 17:09: Hepatitis A IgM Ab Pending, Hepatitis A Ab Total Pending, Hep Bs Antigen Pending, Hep B Core Total Ab Pending, Hep B Core IgM Ab Pending 08/12/18 05:46: WBC 6.3, RBC 3.78 L, Hgb 12.3, Hct 37.4, MCV 98.9, MCH 32.5 H, MCHC 32.9, RDW 12.8, RDW Differential 45.4 H, Plt Count 219, MPV 9.1, Immature Gran % (Auto) 0.300, Neut % (Auto) 73.3 H, Lymph % (Auto) 13.6 L, [place] % (Auto) 9.1, Eos % (Auto) 3.2, Baso % (Auto) 0.5, Absolute Neuts (auto) 4.7, Absolute Lymphs (auto) 0.86, Total Counted Not Reportable Current Medications Al Hydroxide/Mg Hydroxide (Mylanta Ii) 30 ml PO Q6H PRN PRN PRN Reason: Gastric burning Albuterol Sulfate (Ventolin Aerosols) 2.5 mg INHALATION Q2H PRN PRN PRN Reason: dyspnea, wheezing Last Admin: 08/12/18 05:53 Dose: 2.5 mg Albuterol/Ipratropium (Duoneb) 3 ml INHALATION Q4HWA.RT [facility] Enoxaparin Sodium (Lovenox) 40 mg SC DAILY@1000 [facility] Last Admin: 08/12/18 10:01 Dose: 40 mg Sodium Chloride () 1,000 mls @ 150 mls/hr IV .Q6H40M [facility] Last Admin: 08/12/18 08:17 Dose: 150 mls/hr Pantoprazole Sodium 40 mg/ (Sodium Chloride) 110 mls @ 330 mls/hr IV Q12 [facility] Last Admin: 08/12/18 09:42 Dose: 330 mls/hr Ketorolac Tromethamine (Toradol) 30 mg IV Q8 [facility] Stop: 08/13/18 06:01 Last Admin: 08/12/18 05:14 Dose: 30 mg Lidocaine HCl (Xylocaine Viscous) 10 ml PO Q3H PRN PRN Reason: SORE THROAT Magnesium Hydroxide (Milk Of Magnesia) 30 ml PO DAILY PRN PRN PRN Reason: Constipation Methylprednisolone (Solu-Medrol) 40 mg IV Q8 [facility] Last Admin: 08/12/18 08:39 Dose: 40 mg Morphine Sulfate () 2 - 4 mg IV Q3H PRN PRN PRN Reason: PAIN Morphine Sulfate () 2 - 4 mg IV Q3H PRN PRN PRN Reason: PAIN Last Admin: 08/12/18 06:37 Dose: 4 mg Nystatin (Nystatin) 500,000 unit PO 4X/DAY [facility] Last Admin: 08/12/18 09:42 Dose: 500,000 unit Ondansetron HCl (Zofran) 4 mg IV Q8H PRN PRN PRN Reason: NAUSEA Promethazine HCl (Phenergan) 12.5 mg IV Q6H PRN PRN PRN Reason: NAUSEA/VOMITING Last Admin: 08/12/18 05:15 Dose: 12.5 mg Sodium Chloride () 5 - 30 ml IV UD PRN PRN Reason: SALINE FLUSH Medical Necessity - Tobacco Use Smoking Status: Former smoker Tobacco Use: Non-smoker Assessment/Plan All Active Problems Vocal cord paralysis, unilateral complete (Acute) Radiation-induced esophagitis (Acute) 1. Radiation esophagitis * admitted with difficulty and pain drinking and eating. * was dehydrated on admission * symptoms improving with oral lidocaine and nystatin * on IVF, oral viscous lidocaine * continue nystatin swish and swallow. * 2. Acute hypoxic reaspiratory failure due to radiation pneumonitis and COPD * Oxygen at home. Requiring 3 L of oxygen to maintain saturation above 92%. He has diminished breath sounds in right lower lung base and coarse wheezing and rhonchi as well as crackles bilaterally. * CXR: mild fibrotic changes in right suprahilar region and right lung base, which are new and consistent with post radiation changes. * Started IV Solu-Medrol 40mg q8 and breathing treatments. * * 3. Metastatic nonsmall cell lung cancer * has metastasised to regional lymph nodes and she has completed 10 radiation treatments. Next step is possibly chemotherapy. * Oncology consulted. 4. Radiation pneumonitis: as documented under 2. Continue breathing treatments and steroids. Titrate oxygen to maintain saturation >92%. 5. GERD: on IV pantoprazole 6. Elevated liver enzymes * AST and ALT were elevated. Liver ultrasound obtained showed liver measuring 19.4 cm with normal echogenicity of the liver and bile ducts within normal limits. No demonstrated mass lesion. Gallbladder normal with a wall measuring 2 mm and negative sonographic Lane sign no pericholecystic fluid. Mild dependent sludge noted. * may be due to effects of cancer. * patient currently asymptomatic; will continue to monitor * DVT prophylaxis: lovenox Code status: full code This note was generated with [employer] dictation software. It may contain incorrect words, spelling, and punctuation that were not noted in checking the note before signing. Code Visit Inpatient E&M: 61360 Subs Hosp L3
[2018-08-12] MEDS: Ipratropium/Albuterol Sulfate 3 ML AMPUL.NEB INHALATION ×3 (10:12→19:39)
[2018-08-12] MEDS: 0.9% NaCl Peripheral Flush Adult/Peds IV ×2 (10:13→10:44)
--- NOTE | 2018-08-12 10:21 | NURSING ---
0830 pt with mod distress noted in bed and rr 30. lungs more dim rt side and spo2 on 4l 98%. charge histotechnologist aware. pt sat up at bedside and fan to room. cps called for treatment and dr. cruz notified.
--- NOTE | 2018-08-12 10:22 | NURSING ---
pt given 1st dose iv solumedrol per new order. breathing slower since fan to room. pt reports that unable to lay on back and was half laying on it when got very sob. will monitor
--- NOTE | 2018-08-12 12:00 | CASEMGMT ---
TORITO HUNT Face to Face with patient for initial transition planning/care coordination assessment. RN GILBERT introduced self and role at [facility]. Patient lying in bed, alert and oriented. Patient willing to participate in assessment and is able to answer all questions appropriately. Care providers, pharmacy, and demographics verified. See link attached. Patient wishes to discharge home, denies need for home health at this time. Will monitor for need for home oxygen. Patient states she has no further needs or concerns at this time. CM to follow for discharge planning needs that may arise. Disposition Plan: Patient to discharge home with family support and follow-up plans in place. Will monitor for need for home oxygen and nebulizer. Sherin MARC, RN, CM
[2018-08-12] MEDS: Mag Hydrox/Al Hydrox/Simeth 30 ML UDC PO (14:01)
[2018-08-12] MEDS: 0.9% Normal Saline 1,000 ML 100 ML IV (15:29)
[2018-08-12] MEDS: Ondansetron 4 MG/2 ML Vial IV (20:54)
[2018-08-13] VITALS (9 sets, daily range): BP systolic 132–152; BP diastolic 76–96; PULSE 56–94; RESP 16–21; TEMP 36.6–37.1; O2SAT 97–98
[2018-08-13] MEDS: Ketorolac 30 MG/ML Syringe IV ×2 (01:57→05:07)
[2018-08-13] MEDS: 0.9% Normal Saline 1,000 ML 100 ML IV ×2 (02:05→13:39)
[2018-08-13] MEDS: Ipratropium/Albuterol Sulfate 3 ML AMPUL.NEB INHALATION ×3 (06:53→19:34)
--- NOTE | 2018-08-13 06:54 | CT_ITS ---
STUDY: CT CHEST WITHOUT CONTRAST REASON FOR EXAM: Female, 68 years old. Wheezing. History of shortness of breath RADIATION DOSAGE (If Supplied By Facility): CTDIvol = ( 20.05 ) mGy, DLP = ( 708.5 ) mGycm TECHNIQUE: Transaxial imaging was performed without the administration of intravenous contrast material. Individualized dose optimization techniques were used for this CT. COMPARISON: PET/CT dated 07/18/2018 FINDINGS: Lungs are adequately inflated. Right lower lobe and right middle lobe airspace disease is noted with small right effusion and right lower lobe consolidation. Mild diffuse interstitial edema is noted. There is no demonstrated pleural abnormality. There is mild cardiac enlargement. Grossly stable unenhanced appearance of numerous mediastinal and hilar lymph nodes which demonstrated FDG activity on recent PET/CT. Also noted is right supraclavicular lymphadenopathy. Normal unenhanced pulmonary arteries. Normal aorta arch and descending thoracic aorta. There are multi-level degenerative changes of the thoracic spine. There is no demonstrated abnormality of the visualized upper abdomen. CT/Chest without Contrast IMPRESSION: Right middle lower lobe airspace disease with consolidation and effusions. Mild interstitial edema. Cardiomegaly. Elevated right hemidiaphragm. Stable mediastinal and hilar lymphadenopathy Electronically Signed: Sergio Willis DO at 9:29 EDT Tel , Service support ,
--- NOTE | 2018-08-13 06:55 | PCM.PN.HOSP ---
Patient Problems: Active and Suspected Problems Radiation-induced esophagitis (Acute) Subjective: Extremely short of breath, notable wheezing, worse with any exertion with increased supplementation needs. Patient also notes ongoing discomfort and burning sensation in the throat as well as into the midsternal region but this improves with morphine administration. Patient states with current intervention she has been able to tolerate clear liquids and is amenable to transitioning to full liquid therapy. Given patient ongoing respiratory complaints obtain CT of the chest which was evaluated with pulmonary medicine via phone and agreed that at this time notable right-sided pleural effusion but given notable motion artifact difficult to assess for radiation pneumonitis. Discussed these findings and plan given ongoing symptoms to perform right-sided thoracentesis on Wednesday with continuation of IV steroids for acute on chronic COPD exacerbation in addition to possible radiation pneumonitis. Patient denies fevers, chills, nausea, emesis, abdominal pain, chest pain aside reflux sensation. Objective: Physical Examination: General: awake, alert, oriented x 3 and cooperative, seated upright in the bed, ongoing mildly increased RR rate, notes also reflux discomfort currently. Skin: normal color, turgor, no icterus, cyanosis. HEENT: AT/NC, EOMI, PERRLA, improved MMM. Lungs: Diminished BS BL, > R base, increased RR, no rales, ronchi or wheezing. Heart: Regular rate and rhythm; no gallop, rub audible. Abdomen: soft, obese, NTTP, ND, normal BS. Extremities: no cyanosis, clubbing, or edema. Neurological: patient awake, alert, oriented x 3; cognitive function intact; pupils equally reactive to light and accomodation; cranial nerves II-XII grossly normal, moving all 4 extremities, no focal deficits, strength moderately globally decreased secondary to acute presentation. Psychiatric: affect appears fatigued, no acute evidence of depressive or anxiety feelings. Vitals/I&O's: Vital Signs Temp Pulse Resp BP Pulse Ox 98.7 F 79 16 152/78 H 97 08/13/18 04:00 08/13/18 04:00 08/13/18 04:00 08/13/18 04:00 08/13/18 04:00 Oxygen Flow Rate (L/min) 4 Oxygen Delivery Method Nasal Cannula Intake and Output for Last 24 Hours 08/11/18 08/12/18 08/13/18 23:59 23:59 23:59 Intake Total 1187 / 5964 758 / 758 Output Total 225 / 225 Balance 1187 / 5734 533 / 533 Current Medications Al Hydroxide/Mg Hydroxide (Mylanta Ii) 30 ml PO Q6H PRN PRN PRN Reason: Gastric burning Last Admin: 08/12/18 14:01 Dose: 30 ml Albuterol Sulfate (Ventolin Aerosols) 2.5 mg INHALATION Q2H PRN PRN PRN Reason: dyspnea, wheezing Last Admin: 08/12/18 05:53 Dose: 2.5 mg Albuterol/Ipratropium (Duoneb) 3 ml INHALATION Q4HWA.RT [facility] Last Admin: 08/13/18 06:53 Dose: 3 ml Enoxaparin Sodium (Lovenox) 40 mg SC DAILY@1000 [facility] Last Admin: 08/12/18 10:01 Dose: 40 mg Pantoprazole Sodium 40 mg/ (Sodium Chloride) 110 mls @ 330 mls/hr IV Q12 [facility] Last Admin: 08/12/18 20:55 Dose: 330 mls/hr Sodium Chloride () 1,000 mls @ 100 mls/hr IV .Q10H [facility] Last Admin: 08/13/18 02:05 Dose: 100 mls/hr Lidocaine HCl (Xylocaine Viscous) 10 ml PO Q3H PRN PRN Reason: SORE THROAT Last Admin: 08/12/18 20:52 Dose: 10 ml Magnesium Hydroxide (Milk Of Magnesia) 30 ml PO DAILY PRN PRN PRN Reason: Constipation Methylprednisolone (Solu-Medrol) 40 mg IV Q8 [facility] Last Admin: 08/13/18 05:06 Dose: 40 mg Morphine Sulfate () 2 - 4 mg IV Q3H PRN PRN PRN Reason: PAIN Morphine Sulfate () 2 - 4 mg IV Q3H PRN PRN PRN Reason: PAIN Last Admin: 08/12/18 20:53 Dose: 4 mg Nystatin (Nystatin) 500,000 unit PO 4X/DAY [facility] Last Admin: 08/12/18 20:53 Dose: 500,000 unit Ondansetron HCl (Zofran) 4 mg IV Q8H PRN PRN PRN Reason: NAUSEA Last Admin: 08/12/18 20:54 Dose: 4 mg Promethazine HCl (Phenergan) 12.5 mg IV Q6H PRN PRN PRN Reason: NAUSEA/VOMITING Last Admin: 08/12/18 05:15 Dose: 12.5 mg Sodium Chloride () 5 - 30 ml IV UD PRN PRN Reason: SALINE FLUSH Last Admin: 08/12/18 10:44 Dose: 20 ml Medical Necessity - Tobacco Use Smoking Status: Former smoker Tobacco Use: Non-smoker Assessment/Plan All Active Problems Vocal cord paralysis, unilateral complete (Acute) Radiation-induced esophagitis (Acute) The patient is a 68 y/o F w/ PMHx: Former Tobacco use, Daily EtOH 1-2 drink consumption, Obesity who presents to the [facility] ED on 08/11/18 with history of ongoing radiation treatments for metastatic non-small cell carcinoma of the lung most recent radiation treatment this past Wednesday, #10 of 10 with ongoing progressively worsening odynophagia, inability to take oral pills as well as medications and unable to eat with outpatient oncology office IV fluid administration intermittently without improvement. (1) Odynophagia, poor oral intake, dehydration suspected secondary to Radiation Esophagitis: Will admit to [facility], maintain on IVFs, initiate oral PRN viscous lidocaine, administer IV toradol x 5 to assist w/ inflammation, PRN morphine, scheduled oral nystatin, once improving allow clears if able to tolerate and advance as able, nutrition consulted. Dr. Luna consulted. Given acute presentation will defer consultation with surgery but will need to be considered for endoscopy to also evaluate for complications for radiation, i.e. strictures. Mag 1.2, phos 2.4 w/ supplementation being administered. Dr. Luna noted amenable for discharge once patient able to take liquid diet. (2) Dyspnea, Worse w/ Exertion w/ Suspected Acute on Chronic COPD Exacerbation and possible Subacute Pneumonitis from recent Radiation: Ongoing, worsening w/ radiation treatment, increased RR upon evaluation, diminished BS BL, > R base, CXR w/ mild fibrotic changes on the right with suspected scarring possibly secondary to radiation. Patient w/ increased supplemental Oxygen, ATC duoneb, IV solumedrol initiated 08/12/18, PRN albuterol, HOB, IS. Given ongoing worsening symptoms, obtained high resolution CT chest and noted chronic appearing changes w/ notable motion artifact and notable R sided pleural effusion. Pending respiratory viral panel and sputum cx requested. If improved may consider discharge w/ outpatient thoracentesis but if ongoing dyspnea will plan 08/15/18 thoracentesis, suspect likely cancerous given history. (3) Metastatic Lung Cancer: Metastatic non-small cell carcinoma of the lung to regional lymph nodes, now completed 09/07 radiation treatments, mag and phos obtained with phos supplementation. Dr. Luna consulted and noted option of chemotherapy/immunotherapy utilizing paclitaxel/carboplatin and pembrolizumab versus [id number] which is an exploratory study of the biologic effects and biomarkers of nivolumab in combination with ipilimumab in subjects with treatment na?ve stage IV recurrent non-small cell lung cancer. Noted further plan for repeat bronchoscopy with biopsy for tumor tissue collection for research protocol at [facility] after discharge. As noted, CT chest and noted chronic appearing changes w/ notable motion artifact and notable R sided pleural effusion. If improved may consider discharge w/ outpatient thoracentesis but if ongoing dyspnea will plan 08/15/18 thoracentesis, suspect likely cancerous given history. (4) Daily EtOH Intake: Notes 1-2 cocktails daily following work, but less recently with start of treatments. Mag, phos pending. (5) Former Tobacco Abuse: Encouraged continued cessation. (6) GERD: IV PPI. (7) Obesity: Once oral intake improved and clinically improved, encourage lifestyle changes. (8) DVT Prophylaxis: SCDs, lovenox. Code Visit Inpatient E&M: 59694 [facility] Hosp L3
--- NOTE | 2018-08-13 07:02 | PN_ITS ---
Patient Problems: Active and Suspected Problems Radiation-induced esophagitis (Acute) Subjective: Extremely short of breath, notable wheezing, worse with any exertion with increased supplementation needs. Patient also notes ongoing discomfort and burning sensation in the throat as well as into the midsternal region but this improves with morphine administration. Patient states with current intervention she has been able to tolerate clear liquids and is amenable to transitioning to full liquid therapy. Given patient ongoing respiratory complaints obtain CT of the chest which was evaluated with pulmonary medicine via phone and agreed that at this time notable right-sided pleural effusion but given notable motion artifact difficult to assess for radiation pneumonitis. Discussed these findings and plan given ongoing symptoms to perform right-sided thoracentesis on Wednesday with continuation of IV steroids for acute on chronic COPD exacerbation in addition to possible radiation pneumonitis. Patient denies fevers, chills, nausea, emesis, abdominal pain, chest pain aside reflux sensation. Objective: Physical Examination: General: awake, alert, oriented x 3 and cooperative, seated upright in the bed, ongoing mildly increased RR rate, notes also reflux discomfort currently. Skin: normal color, turgor, no icterus, cyanosis. HEENT: AT/NC, EOMI, PERRLA, improved MMM. Lungs: Diminished BS BL, > R base, increased RR, no rales, ronchi or wheezing. Heart: Regular rate and rhythm; no gallop, rub audible. Abdomen: soft, obese, NTTP, ND, normal BS. Extremities: no cyanosis, clubbing, or edema. Neurological: patient awake, alert, oriented x 3; cognitive function intact; pupils equally reactive to light and accomodation; cranial nerves II-XII grossly normal, moving all 4 extremities, no focal deficits, strength moderately globally decreased secondary to acute presentation. Psychiatric: affect appears fatigued, no acute evidence of depressive or anxiety feelings. Vitals/I&O's: Vital Signs Temp Pulse Resp BP Pulse Ox 98.7 F 79 16 152/78 H 97 08/13/18 04:00 08/13/18 04:00 08/13/18 04:00 08/13/18 04:00 08/13/18 04:00 Oxygen Flow Rate (L/min) 4 Oxygen Delivery Method Nasal Cannula Intake and Output for Last 24 Hours 08/11/18 08/12/18 08/13/18 23:59 23:59 23:59 Intake Total 1187 / 5964 758 / 758 Output Total 225 / 225 Balance 1187 / 5791 533 / 533 Current Medications Al Hydroxide/Mg Hydroxide (Mylanta Ii) 30 ml PO Q6H PRN PRN PRN Reason: Gastric burning Last Admin: 08/12/18 14:01 Dose: 30 ml Albuterol Sulfate (Ventolin Aerosols) 2.5 mg INHALATION Q2H PRN PRN PRN Reason: dyspnea, wheezing Last Admin: 08/12/18 05:53 Dose: 2.5 mg Albuterol/Ipratropium (Duoneb) 3 ml INHALATION Q4HWA.RT [facility] Last Admin: 08/13/18 06:53 Dose: 3 ml Enoxaparin Sodium (Lovenox) 40 mg SC DAILY@1000 [facility] Last Admin: 08/12/18 10:01 Dose: 40 mg Pantoprazole Sodium 40 mg/ (Sodium Chloride) 110 mls @ 330 mls/hr IV Q12 [facility] Last Admin: 08/12/18 20:55 Dose: 330 mls/hr Sodium Chloride () 1,000 mls @ 100 mls/hr IV .Q10H [facility] Last Admin: 08/13/18 02:05 Dose: 100 mls/hr Lidocaine HCl (Xylocaine Viscous) 10 ml PO Q3H PRN PRN Reason: SORE THROAT Last Admin: 08/12/18 20:52 Dose: 10 ml Magnesium Hydroxide (Milk Of Magnesia) 30 ml PO DAILY PRN PRN PRN Reason: Constipation Methylprednisolone (Solu-Medrol) 40 mg IV Q8 [facility] Last Admin: 08/13/18 05:06 Dose: 40 mg Morphine Sulfate () 2 - 4 mg IV Q3H PRN PRN PRN Reason: PAIN Morphine Sulfate () 2 - 4 mg IV Q3H PRN PRN PRN Reason: PAIN Last Admin: 08/12/18 20:53 Dose: 4 mg Nystatin (Nystatin) 500,000 unit PO 4X/DAY [facility] Last Admin: 08/12/18 20:53 Dose: 500,000 unit Ondansetron HCl (Zofran) 4 mg IV Q8H PRN PRN PRN Reason: NAUSEA Last Admin: 08/12/18 20:54 Dose: 4 mg Promethazine HCl (Phenergan) 12.5 mg IV Q6H PRN PRN PRN Reason: NAUSEA/VOMITING Last Admin: 08/12/18 05:15 Dose: 12.5 mg Sodium Chloride () 5 - 30 ml IV UD PRN PRN Reason: SALINE FLUSH Last Admin: 08/12/18 10:44 Dose: 20 ml Medical Necessity - Tobacco Use Smoking Status: Former smoker Tobacco Use: Non-smoker Assessment/Plan All Active Problems Vocal cord paralysis, unilateral complete (Acute) Radiation-induced esophagitis (Acute) The patient is a 68 y/o F w/ PMHx: Former Tobacco use, Daily EtOH 1-2 drink consumption, Obesity who presents to the [facility] ED on 08/11/18 with history of ongoing radiation treatments for metastatic non-small cell carcinoma of the lung most recent radiation treatment this past Wednesday, #10 of 10 with ongoing progressively worsening odynophagia, inability to take oral pills as well as medications and unable to eat with outpatient oncology office IV fluid administration intermittently without improvement. (1) Odynophagia, poor oral intake, dehydration suspected secondary to Radiation Esophagitis: Will admit to [facility], maintain on IVFs, initiate oral PRN viscous lidocaine, administer IV toradol x 5 to assist w/ inflammation, PRN morphine, scheduled oral nystatin, once improving allow clears if able to tolerate and advance as able, nutrition consulted. Dr. Luna consulted. Given acute presentation will defer consultation with surgery but will need to be considered for endoscopy to also evaluate for complications for radiation, i.e. strictures. Mag 1.2, phos 2.4 w/ supplementation being administered. Dr. Luna noted amenable for discharge once patient able to take liquid diet. (2) Dyspnea, Worse w/ Exertion w/ Suspected Acute on Chronic COPD Exacerbation and possible Subacute Pneumonitis from recent Radiation: Ongoing, worsening w/ radiation treatment, increased RR upon evaluation, diminished BS BL, > R base, CXR w/ mild fibrotic changes on the right with suspected scarring possibly secondary to radiation. Patient w/ increased supplemental Oxygen, ATC duoneb, IV solumedrol initiated 08/12/18, PRN albuterol, HOB, IS. Given ongoing worsening symptoms, obtained high resolution CT chest and noted chronic appearing changes w/ notable motion artifact and notable R sided pleural effusion. Pending respiratory viral panel and sputum cx requested. If improved may consider discharge w/ outpatient thoracentesis but if ongoing dyspnea will plan 08/15/18 thoracentesis, suspect likely cancerous given history. (3) Metastatic Lung Cancer: Metastatic non-small cell carcinoma of the lung to regional lymph nodes, now completed 09/07 radiation treatments, mag and phos obtained with phos supplementation. Dr. Luna consulted and noted option of chemotherapy/immunotherapy utilizing paclitaxel/carboplatin and pembrolizumab versus [id number] which is an exploratory study of the biologic effects and biomarkers of nivolumab in combination with ipilimumab in subjects with treatment na?ve stage IV recurrent non-small cell lung cancer. Noted further plan for repeat bronchoscopy with biopsy for tumor tissue collection for research protocol at [facility] after discharge. As noted, CT chest and noted chronic appearing changes w/ notable motion artifact and notable R sided pleural effusion. If improved may consider discharge w/ outpatient thoracentesis but if ongoing dyspnea will plan 08/15/18 thoracentesis , suspect likely cancerous given history. (4) Daily EtOH Intake: Notes 1-2 cocktails daily following work, but less recently with start of treatments. Mag, phos pending. (5) Former Tobacco Abuse: Encouraged continued cessation. (6) GERD: IV PPI. (7) Obesity: Once oral intake improved and clinically improved, encourage lifestyle changes. (8) DVT Prophylaxis: SCDs, lovenox. Code Visit Inpatient E&M: 73961 [facility] Hosp L3
[2018-08-13] MEDS: Ondansetron 4 MG/2 ML Vial IV ×2 (07:15→16:30)
[2018-08-13 07:56] LABS: BUN 6 mg/dL (7-18); Creatinine, Serum 0.52 mg/dL (0.55-1.02); Glucose 141 mg/dL (74-106)
[2018-08-13 07:57] LABS: Anion Gap 7 (5-15); BUN/Creat Ratio 11.6 RATIO (10-20); Calcium,Total 8.3 mg/dL (8.5-10.1); Chloride 105 mmol/L (98-107); EST Glomerular Filtration Rate 125 mL/min (>60); Est Glom Filt Rate - Afr Amer 151 mL/min (>60); Potassium 4.3 mmol/L (3.5-5.1); Sodium Level 140 mmol/L (136-145)
[2018-08-13 08:08] LABS: Absolute Lymphocyte Count 0.46 X10^3/ul (0.83-4.51); Absolute Neutrophil Count 3.1 X10^3/uL (2.0-7.7); Basophil# 0.01 X10^3/uL; Basophil% 0.3 % (0-1); Hematocrit 37.3 % (37-47); Hemoglobin 12.1 g/dl (12.0-15.0); Lymphocyte # 0.46 X10^3/ul (4.0); Lymphocyte % 12.1 % (19-41); Mean Corp Hgb Conc 32.4 g/gl (32-36); Mean Corpuscular Hgb 31.8 pg (27.0-32.0); Mean Corpuscular Volume 97.9 fL (81-99); Mean Platelet Vol. 9.2 fl (6.2-12.0); Monocyte# 0.22 X10^3/uL; Monocyte% 5.8 % (0-10); Neutrophil # 3.12 X10^3/uL (2.7-7.7); Neutrophil % 81.8 % (47-70); Platelet Count 239 K/mm3 (150-450); RBC Distribution Width CV 12.6 % (11.6-14.6); RBC Distribution Width SD 45.4 fl (35.1-43.9); Red Blood Count 3.81 M/mm3 (4.2-5.4); White Blood Count 3.8 K/mm3 (4.4-11.0)
[2018-08-13 08:10] LABS: Differential Indicated SCAN CRITERIA MET; POSITIVE COUNT NO; POSITIVE DIFFERENTIAL YES; POSITIVE MORPHOLOGY NO
[2018-08-13 09:00] LABS: Differential Comment SCANNED
[2018-08-13] MEDS: Morphine 2 MG/ML Syringe IV (10:07)
[2018-08-13] MEDS: Mag Hydrox/Al Hydrox/Simeth 30 ML UDC PO (10:07)
[2018-08-13] MEDS: Na Biphos/Potassium Phosphate PACKET 1 PACKET PO ×3 (10:13→21:10)
[2018-08-13] MEDS: NYSTATIN 500,000 UNIT/5 ML UDC 500000 UNIT PO ×3 (10:14→21:10)
[2018-08-13] MEDS: Enoxaparin 40 MG/0.4 ML Syringe SC (10:14)
[2018-08-13] MEDS: Morphine 4 MG/ML Syringe IV ×3 (13:48→20:40)
[2018-08-13] MEDS: proMETHazine 25 MG/ML Syringe 12.5 MG IV (18:06)
[2018-08-13] MEDS: 0.9% NaCl Peripheral Flush Adult/Peds IV ×2 (18:08→20:41)
[2018-08-14] VITALS (9 sets, daily range): BP systolic 114–157; BP diastolic 57–86; PULSE 86–108; RESP 20–28; TEMP 36.6–36.9; O2SAT 96–99
[2018-08-14] MEDS: Morphine 4 MG/ML Syringe IV ×3 (00:07→07:30)
[2018-08-14] MEDS: 0.9% Normal Saline 1,000 ML 100 ML IV ×2 (00:08→10:54)
[2018-08-14] MEDS: 0.9% NaCl Peripheral Flush Adult/Peds IV ×7 (04:22→22:42)
[2018-08-14 06:46] LABS: Absolute Neutrophil Count 5.1 X10^3/uL (2.0-7.7); Basophil# 0.01 X10^3/uL; Basophil% 0.2 % (0-1); Hematocrit 37.4 % (37-47); Hemoglobin 12.3 g/dl (12.0-15.0); Lymphocyte % 10.7 % (19-41); Mean Corp Hgb Conc 32.9 g/gl (32-36); Mean Corpuscular Hgb 32.3 pg (27.0-32.0); Mean Corpuscular Volume 98.2 fL (81-99); Mean Platelet Vol. 9.2 fl (6.2-12.0); Monocyte# 0.66 X10^3/uL; Monocyte% 10.1 % (0-10); Neutrophil # 5.14 X10^3/uL (2.7-7.7); Neutrophil % 78.7 % (47-70); Platelet Count 334 K/mm3 (150-450); RBC Distribution Width CV 12.6 % (11.6-14.6); Red Blood Count 3.81 M/mm3 (4.2-5.4); White Blood Count 6.5 K/mm3 (4.4-11.0)
[2018-08-14 06:48] LABS: POSITIVE COUNT NO; POSITIVE DIFFERENTIAL NO; POSITIVE MORPHOLOGY NO
[2018-08-14] MEDS: Ipratropium/Albuterol Sulfate 3 ML AMPUL.NEB INHALATION (06:51)
[2018-08-14 06:52] LABS: International Normalized Ratio 1.2; Prothrombin Time (Protime)PT. 14.9 SECONDS (11.7-14.9)
[2018-08-14 07:05] LABS: ALB/GLOB Ratio 0.7 RATIO (0.9-2.4); AST(SGOT) 92 U/L (15-37); Alanine Aminotransfer ALT/SGPT 329 U/L (13-56); Albumin, Serum 2.5 g/dL (3.2-5.0); Alkaline Phosphatase 131 U/L (45-117); Anion Gap 5 (5-15); BUN 8 mg/dL (7-18); BUN/Creat Ratio 18.3 RATIO (10-20); Calcium,Total 7.8 mg/dL (8.5-10.1); Chloride 107 mmol/L (98-107); Creatinine, Serum 0.44 mg/dL (0.55-1.02); EST Glomerular Filtration Rate 151 mL/min (>60); Est Glom Filt Rate - Afr Amer 183 mL/min (>60); Globulin 3.7 g/dL (2.2-4.2); Glucose 137 mg/dL (74-106); Potassium 4.4 mmol/L (3.5-5.1); Protein, Total 6.2 g/dL (6.4-8.2); Sodium Level 139 mmol/L (136-145)
--- NOTE | 2018-08-14 07:24 | PCM.PN.HOSP ---
Patient Problems: Active and Suspected Problems Radiation-induced esophagitis (Acute) Subjective: Patient with increased work of breathing and increased wheezing since day prior. She also notes inability to tolerate transition from clears to full liquids with episode of emesis this morning. She also noting that she has not pooped in several days and filling near to bloating and some mild cramping abdominal discomfort. Patient also has been taking morphine nearly scheduled secondary to esophagitis discomfort but having less relief. Patient denies fevers, chills, chest pain. Objective: Physical Examination: General: awake, alert, oriented x 3 and cooperative, seated upright on the bedside, more fatigued appearing, despite recent events appears more calm than day prior, notes ongoing dyspnea, worsened in addition to nausea and emesis episodes this AM. Skin: normal color, turgor, no icterus, cyanosis. HEENT: AT/NC, EOMI, PERRLA, worsened, mildly dry MM. Lungs: Worsened BS, diffusely wheezing inspiratory and expiratory, improved effort despite current state, reduced R bases > L bases, no markedly noted rales or rhochi. Heart: Regular rate and rhythm; no gallop, rub audible. Abdomen: soft, obese, not marked TTP, mildly distended, decreased BS. Extremities: no cyanosis, clubbing, or edema. Neurological: patient awake, alert, oriented x 3; cognitive function intact; pupils equally reactive to light and accomodation; cranial nerves II-XII grossly normal, moving all 4 extremities, no focal deficits, strength remains, moderately globally decreased secondary to acute presentation. Psychiatric: affect appears fatigued, no acute evidence of depressive or anxiety feelings. Vitals/I&O's: Vital Signs Temp Pulse Resp BP Pulse Ox 98.2 F 86 20 H 130/79 H 97 08/14/18 02:40 08/14/18 02:40 08/14/18 02:40 08/14/18 02:40 08/14/18 02:40 Oxygen Flow Rate (L/min) 4 Oxygen Delivery Method Nasal Cannula Intake and Output for Last 24 Hours 08/12/18 08/13/18 08/14/18 23:59 23:59 23:59 Intake Total 1187 / 5964 2203 / 2203 2011 Output Total 1025 / 1025 1450 / 1450 Balance 1187 / 5714 1178 / 1178 562 / 562 Microbiology Past 72 Hours 08/13/18 09:28 Mucosa - Nasopharyngeal Respiratory Panel (PCR) - Final Laboratory Results 08/13/18 06:25: WBC 3.8 L, RBC 3.81 L, Hgb 12.1, Hct 37.3, MCV 97.9, MCH 31.8, MCHC 32.4, RDW 12.6, RDW Differential 45.4 H, Plt Count 239, MPV 9.2, Immature Gran % (Auto) 0.000, Neut % (Auto) 81.8 H, Lymph % (Auto) 12.1 L, [place] % (Auto) 5.8, Eos % (Auto) 0.0, Baso % (Auto) 0.3, Absolute Neuts (auto) 3.1, Absolute Lymphs (auto) 0.46 L, Total Counted Not Reportable, Differential Comment SCANNED 08/13/18 06:25: Sodium 140, Potassium 4.3, Chloride 105, Carbon Dioxide 28.0, Anion Gap 7, BUN 6 L, Creatinine 0.52 L, Estim Creat Clear Calc 47.10, Est GFR (MDRD) Af Amer 151, Est GFR (MDRD) Non-Af 125, BUN/Creatinine Ratio 11.6, Glucose 141 H, Calcium 8.3 L 08/14/18 06:15: WBC 6.5, RBC 3.81 L, Hgb 12.3, Hct 37.4, MCV 98.2, MCH 32.3 H, MCHC 32.9, RDW 12.6, RDW Differential 44.0 H, Plt Count 334, MPV 9.2, Immature Gran % (Auto) 0.300, Neut % (Auto) 78.7 H, Lymph % (Auto) 10.7 L, [place] % (Auto) 10.1 H, Eos % (Auto) 0.0, Baso % (Auto) 0.2, Absolute Neuts (auto) 5.1, Absolute Lymphs (auto) 0.70 L, Total Counted Not Reportable 08/14/18 06:15: Sodium 139, Potassium 4.4, Chloride 107, Carbon Dioxide 27.0, Anion Gap 5, BUN 8, Creatinine 0.44 L, Estim Creat Clear Calc 47.10, Est GFR (MDRD) Af Amer 183, Est GFR (MDRD) Non-Af 151, BUN/Creatinine Ratio 18.3, Glucose 137 H, Calcium 7.8 L, Total Bilirubin 0.30, AST 92 H, ALT 329 H, Alkaline Phosphatase 131 H, Total Protein 6.2 L, Albumin 2.5 L, Globulin 3.7, Albumin/Globulin Ratio 0.7 L 08/14/18 06:15: PT 14.9, INR 1.2, APTT 31.0 Current Medications Al Hydroxide/Mg Hydroxide (Mylanta Ii) 30 ml PO Q6H PRN PRN PRN Reason: Gastric burning Last Admin: 08/13/18 10:07 Dose: 30 ml Albuterol Sulfate (Ventolin Aerosols) 2.5 mg INHALATION Q2H PRN PRN PRN Reason: dyspnea, wheezing Last Admin: 08/12/18 05:53 Dose: 2.5 mg Albuterol/Ipratropium (Duoneb) 3 ml INHALATION Q4HWA.RT [facility] Last Admin: 08/14/18 06:51 Dose: 3 ml Enoxaparin Sodium (Lovenox) 40 mg SC DAILY@1000 [facility] Last Admin: 08/13/18 10:14 Dose: 40 mg Pantoprazole Sodium 40 mg/ (Sodium Chloride) 110 mls @ 330 mls/hr IV Q12 [facility] Last Admin: 08/13/18 21:15 Dose: 330 mls/hr Sodium Chloride () 1,000 mls @ 100 mls/hr IV .Q10H [facility] Last Admin: 08/14/18 00:08 Dose: 100 mls/hr Lidocaine HCl (Xylocaine Viscous) 10 ml PO Q3H PRN PRN Reason: SORE THROAT Last Admin: 08/13/18 07:14 Dose: 10 ml Magnesium Hydroxide (Milk Of Magnesia) 30 ml PO DAILY PRN PRN PRN Reason: Constipation Methylprednisolone (Solu-Medrol) 40 mg IV Q8 [facility] Last Admin: 08/14/18 06:46 Dose: 40 mg Morphine Sulfate () 2 - 4 mg IV Q3H PRN PRN PRN Reason: PAIN Last Admin: 08/13/18 10:07 Dose: 2 mg Morphine Sulfate () 2 - 4 mg IV Q3H PRN PRN PRN Reason: PAIN Last Admin: 08/14/18 04:21 Dose: 4 mg Nystatin (Nystatin) 500,000 unit PO 4X/DAY [facility] Last Admin: 08/13/18 21:10 Dose: 500,000 unit Ondansetron HCl (Zofran) 4 mg IV Q8H PRN PRN PRN Reason: NAUSEA Last Admin: 08/13/18 16:30 Dose: 4 mg Potassium Phos/Sodium Phos (Neutra-Phos Packet) 1 packet PO 4X/DAYCM [facility] Last Admin: 08/13/18 21:10 Dose: 1 packet Promethazine HCl (Phenergan) 12.5 mg IV Q6H PRN PRN PRN Reason: NAUSEA/VOMITING Last Admin: 08/13/18 18:06 Dose: 12.5 mg Sodium Chloride () 5 - 30 ml IV UD PRN PRN Reason: SALINE FLUSH Last Admin: 08/14/18 06:46 Dose: 10 ml Medical Necessity - Tobacco Use Smoking Status: Former smoker Tobacco Use: Non-smoker Assessment/Plan All Active Problems Vocal cord paralysis, unilateral complete (Acute) Radiation-induced esophagitis (Acute) The patient is a 68 y/o F w/ PMHx: Former Tobacco use, Daily EtOH 1-2 drink consumption, Obesity who presents to the [facility] ED on 08/11/18 with history of ongoing radiation treatments for metastatic non-small cell carcinoma of the lung most recent radiation treatment this past Wednesday, #10 of 10 with ongoing progressively worsening odynophagia, inability to take oral pills as well as medications and unable to eat with outpatient oncology office IV fluid administration intermittently without improvement. (1) Odynophagia, poor oral intake, dehydration suspected secondary to Radiation Esophagitis: Admitted to [facility], maintained on IVFs, initiated oral PRN viscous lidocaine but has been declining secondary to now worsened nausea and emesis, administered IV toradol x 5 to assist w/ inflammation, PRN morphine, scheduled oral nystatin, clears-->fulls trial given improvement 08/13/18, failed, will transition back to clears, nutrition following, Oncology following. Given acute presentation, deferred consultation with surgery but will need to be considered for endoscopy to also evaluate for complications for radiation at later date, i.e. strictures. Admission Mag 1.2, phos 2.4 w/ supplementation being administered. Dr. Luna noted amenable for discharge once patient able to take liquid diet; however, as noted planned thoracentesis Mauricio for R pleural effusion to assist w/ symptomatic dyspnea; however, may require earlier intervention per Pulmonary. Given worsened discomfort w/ fulls trial will alter pain regimen. Possibly constipation contributing, dulcolax [place] added. (2) Dyspnea, Worse w/ Exertion w/ Suspected Acute on Chronic COPD Exacerbation and possible Subacute Pneumonitis from recent Radiation: Ongoing, worsened w/ radiation treatment, admission evaluation w/ increased RR upon evaluation, diminished BS BL, > R base, CXR w/ mild fibrotic changes on the right with suspected scarring possibly secondary to radiation. Patient w/ increased supplemental Oxygen, ATC duoneb, IV solumedrol initiated 08/12/18, PRN albuterol, HOB, IS. CT chest and noted chronic appearing changes w/ notable motion artifact and notable R sided pleural effusion. Negative respiratory viral panel and sputum cx requested but none obtained. Plan 08/15/18 thoracentesis, suspect likely cancerous given history. 08/14/18 worsened status, more wheezing, remained on high dose steroids, aerosols, will trial albuterol serial x 3, Pulmonary evaluation being performed, repeat CXR ordered. Patient may benefit from thoracentesis today per Pulmonary if worsened effusion. (3) Metastatic Lung Cancer: Metastatic non-small cell carcinoma of the lung to regional lymph nodes, now completed 09/07 radiation treatments, mag and phos obtained with phos supplementation. Dr. Luna consulted and noted option of chemotherapy/immunotherapy utilizing paclitaxel/carboplatin and pembrolizumab versus [id number] which is an exploratory study of the biologic effects and biomarkers of nivolumab in combination with ipilimumab in subjects with treatment na?ve stage IV recurrent non-small cell lung cancer. Noted further plan for repeat bronchoscopy with biopsy for tumor tissue collection for research protocol at [facility] after discharge. As noted, CT chest and noted chronic appearing changes w/ notable motion artifact and notable R sided pleural effusion. Plan 08/15/18 thoracentesis;however, has noted may need earlier intervention per Pulmonary. (4) Elevated LFTs, Unclear Etiology, Possibly secondary to EtOH Intake Hx: Admission LFTs 44/124-->92/329, increasing, liver US w/ bladder sludge with no evidence of acute cholecystitis, unclear if possibly related to recent radiation treatments and metastatic CA, hepatitis panel pending. Oncology consulted, following. (5) Daily EtOH Intake: Notes 1-2 cocktails daily following work, but less recently with start of treatments. Mag normal, phos 2.4 with supplementation. (5) Former Tobacco Abuse: Encouraged continued cessation. (6) GERD: IV PPI. (7) Obesity: Encourage diet and lifestyle changes. (8) DVT Prophylaxis: SCDs, lovenox. Code Visit Inpatient E&M: 26964 Sub[facility] Hosp L3
[2018-08-14] MEDS: Na Biphos/Potassium Phosphate PACKET 1 PACKET PO ×4 (07:31→22:31)
--- NOTE | 2018-08-14 07:31 | PN_ITS ---
Patient Problems: Active and Suspected Problems Radiation-induced esophagitis (Acute) Subjective: Patient with increased work of breathing and increased wheezing since day prior. She also notes inability to tolerate transition from clears to full liquids with episode of emesis this morning. She also noting that she has not pooped in several days and filling near to bloating and some mild cramping abdominal discomfort. Patient also has been taking morphine nearly scheduled secondary to esophagitis discomfort but having less relief. Patient denies fevers, chills, chest pain. Objective: Physical Examination: General: awake, alert, oriented x 3 and cooperative, seated upright on the bedside, more fatigued appearing, despite recent events appears more calm than day prior, notes ongoing dyspnea, worsened in addition to nausea and emesis episodes this AM. Skin: normal color, turgor, no icterus, cyanosis. HEENT: AT/NC, EOMI, PERRLA, worsened, mildly dry MM. Lungs: Worsened BS, diffusely wheezing inspiratory and expiratory, improved effort despite current state, reduced R bases > L bases, no markedly noted rales or rhochi. Heart: Regular rate and rhythm; no gallop, rub audible. Abdomen: soft, obese, not marked TTP, mildly distended, decreased BS. Extremities: no cyanosis, clubbing, or edema. Neurological: patient awake, alert, oriented x 3; cognitive function intact; pupils equally reactive to light and accomodation; cranial nerves II-XII grossly normal, moving all 4 extremities, no focal deficits, strength remains, moderately globally decreased secondary to acute presentation. Psychiatric: affect appears fatigued, no acute evidence of depressive or anxiety feelings. Vitals/I&O's: Vital Signs Temp Pulse Resp BP Pulse Ox 98.2 F 86 20 H 130/79 H 97 08/14/18 02:40 08/14/18 02:40 08/14/18 02:40 08/14/18 02:40 08/14/18 02:40 Oxygen Flow Rate (L/min) 4 Oxygen Delivery Method Nasal Cannula Intake and Output for Last 24 Hours 08/12/18 08/13/18 08/14/18 23:59 23:59 23:59 Intake Total 1187 / 5964 2203 / 2203 2011 Output Total 1025 / 1025 1450 / 1450 Balance 1187 / 5714 1178 / 1178 562 / 562 Microbiology Past 72 Hours 08/13/18 09:28 Mucosa - Nasopharyngeal Respiratory Panel (PCR) - Final Laboratory Results 08/13/18 06:25: WBC 3.8 L, RBC 3.81 L, Hgb 12.1, Hct 37.3, MCV 97.9, MCH 31.8, MCHC 32.4, RDW 12.6, RDW Differential 45.4 H, Plt Count 239, MPV 9.2, Immature Gran % (Auto) 0.000, Neut % (Auto) 81.8 H, Lymph % (Auto) 12.1 L, [place] % (Auto) 5.8, Eos % (Auto) 0.0, Baso % (Auto) 0.3, Absolute Neuts (auto) 3.1, Absolute Lymphs (auto) 0.46 L, Total Counted Not Reportable, Differential Comment SCANNED 08/13/18 06:25: Sodium 140, Potassium 4.3, Chloride 105, Carbon Dioxide 28.0, Anion Gap 7, BUN 6 L, Creatinine 0.52 L, Estim Creat Clear Calc 47.10, Est GFR ( MDRD) Af Amer 151, Est GFR (MDRD) Non-Af 125, BUN/Creatinine Ratio 11.6, Glucose 141 H, Calcium 8.3 L 08/14/18 06:15: WBC 6.5, RBC 3.81 L, Hgb 12.3, Hct 37.4, MCV 98.2, MCH 32.3 H, MCHC 32.9, RDW 12.6, RDW Differential 44.0 H, Plt Count 334, MPV 9.2, Immature Gran % (Auto) 0.300, Neut % (Auto) 78.7 H, Lymph % (Auto) 10.7 L, [place] % (Auto) 10.1 H, Eos % (Auto) 0.0, Baso % (Auto) 0.2, Absolute Neuts (auto) 5.1, Absolute Lymphs (auto) 0.70 L, Total Counted Not Reportable 08/14/18 06:15: Sodium 139, Potassium 4.4, Chloride 107, Carbon Dioxide 27.0, Anion Gap 5, BUN 8, Creatinine 0.44 L, Estim Creat Clear Calc 47.10, Est GFR ( MDRD) Af Amer 183, Est GFR (MDRD) Non-Af 151, BUN/Creatinine Ratio 18.3, Glucose 137 H, Calcium 7.8 L, Total Bilirubin 0.30, AST 92 H, ALT 329 H, Alkaline Phosphatase 131 H, Total Protein 6.2 L, Albumin 2.5 L, Globulin 3.7, Albumin/Globulin Ratio 0.7 L 08/14/18 06:15: PT 14.9, INR 1.2, APTT 31.0 Current Medications Al Hydroxide/Mg Hydroxide (Mylanta Ii) 30 ml PO Q6H PRN PRN PRN Reason: Gastric burning Last Admin: 08/13/18 10:07 Dose: 30 ml Albuterol Sulfate (Ventolin Aerosols) 2.5 mg INHALATION Q2H PRN PRN PRN Reason: dyspnea, wheezing Last Admin: 08/12/18 05:53 Dose: 2.5 mg Albuterol/Ipratropium (Duoneb) 3 ml INHALATION Q4HWA.RT [facility] Last Admin: 08/14/18 06:51 Dose: 3 ml Enoxaparin Sodium (Lovenox) 40 mg SC DAILY@1000 [facility] Last Admin: 08/13/18 10:14 Dose: 40 mg Pantoprazole Sodium 40 mg/ (Sodium Chloride) 110 mls @ 330 mls/hr IV Q12 [facility] Last Admin: 08/13/18 21:15 Dose: 330 mls/hr Sodium Chloride () 1,000 mls @ 100 mls/hr IV .Q10H [facility] Last Admin: 08/14/18 00:08 Dose: 100 mls/hr Lidocaine HCl (Xylocaine Viscous) 10 ml PO Q3H PRN PRN Reason: SORE THROAT Last Admin: 08/13/18 07:14 Dose: 10 ml Magnesium Hydroxide (Milk Of Magnesia) 30 ml PO DAILY PRN PRN PRN Reason: Constipation Methylprednisolone (Solu-Medrol) 40 mg IV Q8 [facility] Last Admin: 08/14/18 06:46 Dose: 40 mg Morphine Sulfate () 2 - 4 mg IV Q3H PRN PRN PRN Reason: PAIN Last Admin: 08/13/18 10:07 Dose: 2 mg Morphine Sulfate () 2 - 4 mg IV Q3H PRN PRN PRN Reason: PAIN Last Admin: 08/14/18 04:21 Dose: 4 mg Nystatin (Nystatin) 500,000 unit PO 4X/DAY [facility] Last Admin: 08/13/18 21:10 Dose: 500,000 unit Ondansetron HCl (Zofran) 4 mg IV Q8H PRN PRN PRN Reason: NAUSEA Last Admin: 08/13/18 16:30 Dose: 4 mg Potassium Phos/Sodium Phos (Neutra-Phos Packet) 1 packet PO 4X/DAYCM SHELBY Last Admin: 08/13/18 21:10 Dose: 1 packet Promethazine HCl (Phenergan) 12.5 mg IV Q6H PRN PRN PRN Reason: NAUSEA/VOMITING Last Admin: 08/13/18 18:06 Dose: 12.5 mg Sodium Chloride () 5 - 30 ml IV UD PRN PRN Reason: SALINE FLUSH Last Admin: 08/14/18 06:46 Dose: 10 ml Medical Necessity - Tobacco Use Smoking Status: Former smoker Tobacco Use: Non-smoker Assessment/Plan All Active Problems Vocal cord paralysis, unilateral complete (Acute) Radiation-induced esophagitis (Acute) The patient is a 68 y/o F w/ PMHx: Former Tobacco use, Daily EtOH 1-2 drink consumption, Obesity who presents to the [facility] ED on 08/11/18 with history of ongoing radiation treatments for metastatic non-small cell carcinoma of the lung most recent radiation treatment this past Wednesday, #10 of 10 with ongoing progressively worsening odynophagia, inability to take oral pills as well as medications and unable to eat with outpatient oncology office IV fluid administration intermittently without improvement. (1) Odynophagia, poor oral intake, dehydration suspected secondary to Radiation Esophagitis: Admitted to [facility], maintained on IVFs, initiated oral PRN viscous lidocaine but has been declining secondary to now worsened nausea and emesis, administered IV toradol x 5 to assist w/ inflammation, PRN morphine, scheduled oral nystatin, clears-->fulls trial given improvement 08/13/18, failed, will transition back to clears, nutrition following, Oncology following. Given acute presentation, deferred consultation with surgery but will need to be considered for endoscopy to also evaluate for complications for radiation at later date, i.e. strictures. Admission Mag 1.2, phos 2.4 w/ supplementation being administered. Dr. Luna noted amenable for discharge once patient able to take liquid diet; however, as noted planned thoracentesis Mauricio for R pleural effusion to assist w/ symptomatic dyspnea; however, may require earlier intervention per Pulmonary. Given worsened discomfort w/ fulls trial will alter pain regimen. Possibly constipation contributing, dulcolax IA added. (2) Dyspnea, Worse w/ Exertion w/ Suspected Acute on Chronic COPD Exacerbation and possible Subacute Pneumonitis from recent Radiation: Ongoing, worsened w/ radiation treatment, admission evaluation w/ increased RR upon evaluation, diminished BS BL, > R base, CXR w/ mild fibrotic changes on the right with suspected scarring possibly secondary to radiation. Patient w/ increased supplemental Oxygen, ATC duoneb, IV solumedrol initiated 08/12/18, PRN albuterol , HOB, IS. CT chest and noted chronic appearing changes w/ notable motion artifact and notable R sided pleural effusion. Negative respiratory viral panel and sputum cx requested but none obtained. Plan 08/15/18 thoracentesis, suspect likely cancerous given history. 08/14/18 worsened status, more wheezing, remained on high dose steroids, aerosols, will trial albuterol serial x 3, Pulmonary evaluation being performed, repeat CXR ordered. Patient may benefit from thoracentesis today per Pulmonary if worsened effusion. (3) Metastatic Lung Cancer: Metastatic non-small cell carcinoma of the lung to regional lymph nodes, now completed 09/07 radiation treatments, mag and phos obtained with phos supplementation. Dr. Luna consulted and noted option of chemotherapy/immunotherapy utilizing paclitaxel/carboplatin and pembrolizumab versus [id number] which is an exploratory study of the biologic effects and biomarkers of nivolumab in combination with ipilimumab in subjects with treatment na?ve stage IV recurrent non-small cell lung cancer. Noted further plan for repeat bronchoscopy with biopsy for tumor tissue collection for research protocol at [facility] after discharge. As noted, CT chest and noted chronic appearing changes w/ notable motion artifact and notable R sided pleural effusion. Plan 08/15/18 thoracentesis;however, has noted may need earlier intervention per Pulmonary. (4) Elevated LFTs, Unclear Etiology, Possibly secondary to EtOH Intake Hx: Admission LFTs 44/124-->92/329, increasing, liver US w/ bladder sludge with no evidence of acute cholecystitis, unclear if possibly related to recent radiation treatments and metastatic CA, hepatitis panel pending. Oncology consulted, following. (5) Daily EtOH Intake: Notes 1-2 cocktails daily following work, but less recently with start of treatments. Mag normal, phos 2.4 with supplementation. (5) Former Tobacco Abuse: Encouraged continued cessation. (6) GERD: IV PPI. (7) Obesity: Encourage diet and lifestyle changes. (8) DVT Prophylaxis: SCDs, lovenox. Code Visit Inpatient E&M: 70562 Subs Hosp L3
[2018-08-14] MEDS: Ondansetron 4 MG/2 ML Vial IV (07:33)
[2018-08-14] MEDS: proMETHazine 25 MG/ML Syringe 12.5 MG IV (08:29)
[2018-08-14] MEDS: Albuterol 2.5 MG/3 ML VIAL.NEB. INHALATION ×3 (09:37→10:02)
--- NOTE | 2018-08-14 09:46 | RAD_ITS ---
STUDY: X-RAY CHEST REASON FOR EXAM: Female, 68 years old. Shortness of breath. Vomiting. Radiation esophagitis. TECHNIQUE: PA and lateral views of the chest. COMPARISON: CT of the chest, August 13, 2018. FINDINGS: There is elevation of the right hemidiaphragm. Again seen is the right pleural effusion with atelectasis. There is overall mildly increased density in the right lung thought to be due to mild interstitial infiltrate and atelectasis seen on the CT. Minimal left pleural effusion and left basilar atelectasis is also noted. The heart remains mildly enlarged. Normal mediastinum and subha. Normal visualized pulmonary arteries. Normal visualized aortic arch and descending thoracic aorta. There is demineralization of the osseous structures. There is degenerative osteoarthritis of the bilateral shoulders. There is no demonstrated abnormality of the visualized soft tissue structures of the upper abdomen. RAD/Chest PA and Lateral IMPRESSION: 1. Volume loss in the right lung with elevated hemidiaphragm, pleural effusion and atelectasis. 2. Small left pleural effusion and atelectasis. 3. Borderline cardiomegaly. Electronically Signed: Willie Fisher DO at 10:57 EDT Tel [phone], Service support ,
--- NOTE | 2018-08-14 09:51 | ECHOD_ITS ---
Reason For Study: dyspnea/SOB Procedure This was a 2D Doppler, Color Flow transthoracic echocardiogram. The study was technically difficult. Due to body habitus. Contrast injection was performed. Exam performed portable in patient room. Left Ventricle Normal LV size. The estimated ejection fraction is 40 %. Mild to moderate segmental systolic dysfunction (see wall motion). Transmitral diastolic flow velocities suggest mild (stage 1) diastolic dysfunction (reversed pattern). [place] : Severely Hypokinetic. The rest of the wall segments are normal. Right Ventricle Normal RV size. Normal systolic function. Atria Normal left atrium. Normal right atrium. Mitral Valve Normal mitral valve. Tricuspid Valve Normal tricuspid valve. Mild tricuspid valve insufficiency. Aortic Valve Trisinus/trileaflet aortic valve. Pulmonic Valve Normal pulmonic valve. Great Vessels Normal aortic root. The pulmonary artery is normal size. Normal inferior vena cava. Pericardium/Pleural Small pericardial effusion. Medication Diluted definity 4.0ml given slow IV push to enhance endocardial definition. MMode/2D Measurements & Calculations LVIDd: 5.1 cm IVSd: 1.1 cm Ao root diam: 3.0 cm LVIDs: 3.4 cm LVPWd: 1.2 cm LA dimension: 4.4 cm RVDd: 2.5 cm FS: 32.9 % LAV(MOD-bp): 68.3 ml LA A4 area: 18.1 cm2 RA A4 area: 11.9 cm2 LAV(MOD-bp) Indexed: 35.5 ml/m2 LAV(MOD-sp2): 73.3 ml LAV(MOD-sp4): 52.2 ml Doppler Measurements & Calculations MV E max damon: 83.9 cm/sec Lat Peak E' Damon: 4.5 cm/sec Med Peak E' Damon: 4.9 cm/sec MV A max damon: 115.4 cm/sec E/E' lat: 18.6 E/E' med: 17.1 MV E/A: 0.73 Ao V2 max: 105.3 cm/sec LV V1 max: 90.5 cm/sec PA V2 max: 79.2 cm/sec Ao max P.0 mmHg LV V1 max P.3 mmHg TR max damon: 213.8 cm/sec TR max P.3 mmHg Interpretation Summary Normal LV size. The estimated ejection fraction is 40 %. Mild to moderate segmental systolic dysfunction (see wall motion). Transmitral diastolic flow velocities suggest mild (stage 1) diastolic dysfunction (reversed pattern). Contrast injection was performed. Ordering Physician: Woody Zurita Referring Physician: Lai Meadows Performed By: Anna Mcnamara, VIK, RVT
--- NOTE | 2018-08-14 09:51 | PCM.CONS.GEN ---
Problem List (1) Vocal cord paralysis, unilateral complete Status: Acute (2) Metastatic primary lung cancer Status: Chronic Qualifiers: Laterality: right Qualified Code(s): C34.91 - Malignant neoplasm of unspecified part of right bronchus or lung (3) History of tobacco use Status: Chronic (4) Obesity (BMI 30.0-34.9) Status: Chronic (5) Radiation-induced esophagitis Status: Acute Reason for Consult Date of Consultation: 08/14/18 Reason for Consultation: Hypoxemia, worsening respiratory distress History of Present Illness: The patient is a 68 year old F, with past medical history listed below, who presented to [facility] on 08/11/2018 secondary to poor oral intake and odynophagia. Patient has been undergoing radiation therapy for squamous cell carcinoma stage IV and was unable to take any oral pills or medications. Patient was also reporting decreased ability to eat and had received IV fluids with oncology without improvement, so was sent to the emergency room for evaluation. Upon evaluation in the emergency room, patient was noted to have increased respiratory rate and desaturation into the low 90s while on supplemental oxygen. Patient does not wear home oxygen at baseline. Patient was admitted to the general medical floor and placed on supplemental oxygen. Patient's sore throat has improved to the point that she is on soft diet, but respiratory distress has progressed throughout the hospitalization. Patient does have a known pleural effusion on CT scan of the chest, but thoracentesis is planned for tomorrow. Patient states that she is subjectively unchanged compared to previous. Patient reports little to no improvement following inhaler therapy. Patient overall feels that she is swollen compared to normal. Patient reportedly was of good health until May when she presented to her primary care physician complaining of worsening cough with production. Patient was also diagnosed with pneumonia in November 2017. Patient states this led to an evaluation by ENT which was found to have a vocal cord paralysis. Patient had the vocal cord injected (May 2018) and over the course of 2-3 weeks respiratory distress improved. This was followed closely by a biopsy showing squamous cell carcinoma. Patient has received 10 episodes of radiation therapy and is to be initiated on chemotherapy per Dr. Luna. Patient reports a [id number] smoking history, but quit in 2017. Patient does report a history of hypertension, but denies any extensive cardiac workup including echocardiogram or stress test that she is aware of. Patient states that she can have some lower extremity swelling at home, but this typically improves with sleeping overnight. 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 Past Medical History Past Medical History (Chronic Problems): Chronic Problems Metastatic primary lung cancer (Chronic) History of tobacco use (Chronic) Obesity (BMI 30.0-34.9) (Chronic) Allergies Sulfa (Sulfonamide Antibiotics) Allergy (Verified 08/11/18 13:09) Hives Home Medications: Ambulatory Orders Medication Instructions Recorded Albuterol Inhaler [Ventolin Hfa 2 puff INHALATION Q6H PRN PRN 06/17/18 (SP)] Calcium Carb/Mag Ox/Zinc Sulf 1 each PO BID 06/17/18 [Jjtzyut-Xgihajgfw-Qlcu Tablet] Cholecalciferol (Vitamin D3) 10,000 unit PO DAILY 06/17/18 [Vitamin D3] Fluticasone 0.05% [Flonase Nasal 1 spray NASAL BID 06/17/18 [place]] Gabapentin [Neurontin] 300 mg PO BID 06/17/18 Glucosamine Sulf/Chondroitin A 1 capsule PO DAILY 06/17/18 [Glucosamine-Chondroitin Cap] Multivitamin [Multiple Vitamins] 1 each PO DAILY 06/17/18 [place]-3 Fatty Acids/Fish Oil [Fish 1 each PO DAILY 06/17/18 Oil 1,000 mg Capsule] Vitamin B Complex 1 capsule PO DAILY 06/17/18 Vitamin E 400 unit PO DAILY 06/17/18 proMETHazine tablet [Phenergan] 25 mg PO Q6H PRN PRN #10 tab 08/04/18 traMADol [Ultram] 50 mg PO Q6H PRN PRN 08/11/18 Surgical History: - - Lymph node biopsy, lumbar back surgery with hardware, tonsillectomy, bilateral tubal ligation. 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 Drugs: None - *Family History Maternal History Items: - - Patient notes a maternal family history of hypertension, bladder cancer as well as lung cancer with tobacco use history. Paternal History Items: - - Patient notes a paternal family history of colon cancer. Review of Systems Comment: See HPI, otherwise negative ?10 systems. Patient Problems: Active and Suspected Problems Radiation-induced esophagitis (Acute) Objective: CT chest was personally reviewed and I agree with the interpretation area patient does have an elevated right hemidiaphragm with stable mediastinal and hilar lymphadenopathy. Patient does have a right-sided pleural effusion with right middle lobe alveolar infiltrate. - Physical Exam General: Alert, Oriented x3, Cooperative, - - Mild conversational dyspnea. Obese. Appears stated age HEENT: Atraumatic, PERRLA, EOMI, Normocephalic, - - No scleral icterus or injection noted. Oral: Moist Mucosa, No Gingival or Mucosal Lesions/ Ulcerations Neck: Supple, No JVD, Trachea Midline, - - No stridor appreciated. Significant lymphadenopathy Lungs: No rhonchi, No rales, Diminished, Wheezes, - - Symmetric expansion. No dullness to percussion. Cardiovascular: Regular rate, Regular Rhythm, Normal S1, Normal S2, No murmurs, No rub noted, No Gallop Abdomen: Bowel Sounds Present, Soft, Non Tender, Non-Distended, Obese Extremities: No clubbing, No cyanosis, Edema - Anasarca 1+ Skin: No rashes, No breakdown Musculoskeletal: No Tenderness to Palpation of Joints or Extremities Lymphatic: No Cervical, Supraclavicular, or Inguinal Adenopathy Neurological: Cranial nerves II-XII grossly intact, Neuro grossly intact, Motor Exam 5/5 strength throughout Psych/Mental Status: Anxious, Restless Vital Signs Temp Pulse Resp BP Pulse Ox 36.6 C 90 22 H 157/57 H 96 08/14/18 07:39 08/14/18 07:39 08/14/18 07:39 08/14/18 07:39 08/14/18 07:39 Oxygen Flow Rate (L/min) 4 Oxygen Delivery Method Nasal Cannula Intake and Output for Last 24 Hours 08/12/18 08/13/18 08/14/18 23:59 23:59 23:59 Intake Total 1187 / 5964 2203 / 2203 2011 Output Total 1025 / 1025 1450 / 1450 Balance 1187 / 5714 1178 / 1178 562 / 562 Microbiology Past 72 Hours 08/13/18 09:28 Respiratory Panel (PCR) - Final Mucosa - Nasopharyngeal Laboratory Tests Past 24 Hrs 08/14/18 08/14/18 08/14/18 06:15 06:15 06:15 WBC 6.5 RBC 3.81 L Hgb 12.3 Hct 37.4 MCV 98.2 MCH 32.3 H MCHC 32.9 RDW 12.6 RDW Differential 44.0 H Plt Count 334 MPV 9.2 Immature Gran % (Auto) 0.300 Neut % (Auto) 78.7 H Lymph % (Auto) 10.7 L [place] % (Auto) 10.1 H Eos % (Auto) 0.0 Baso % (Auto) 0.2 Absolute Neuts (auto) 5.1 Absolute Lymphs (auto) 0.70 L Total Counted Not Reportable PT 14.9 INR 1.2 APTT 31.0 Sodium 139 Potassium 4.4 Chloride 107 Carbon Dioxide 27.0 Anion Gap 5 BUN 8 Creatinine 0.44 L Estim Creat Clear Calc 47.10 Est GFR (MDRD) Af Amer 183 Est GFR (MDRD) Non-Af 151 BUN/Creatinine Ratio 18.3 Glucose 137 H Calcium 7.8 L Total Bilirubin 0.30 AST 92 H ALT 329 H Alkaline Phosphatase 131 H Total Protein 6.2 L Albumin 2.5 L Globulin 3.7 Albumin/Globulin Ratio 0.7 L Clinical Impression(s) from Imaging Studies Liver Ultrasound 08/11/18 16:22 IMPRESSION: 1. Gallbladder sludge. No evidence of acute cholecystitis. Electronically Signed: Bhavana Rosen MD at 19:21 EDT Tel , Service support , Chest X-Ray 08/11/18 18:20 IMPRESSION: 1. Mild fibrotic changes on the right. If the patient has received radiation to the right hilar region, this may represent post radiation scarring. Otherwise, pneumonia or recurrence should be considered. Electronically Signed: Bhavana Rosen MD at 18:46 EDT Tel , Service support , Chest CT 08/13/18 06:54 IMPRESSION: Right middle lower lobe airspace disease with consolidation and effusions. Mild interstitial edema. Cardiomegaly. Elevated right hemidiaphragm. Stable mediastinal and hilar lymphadenopathy Electronically Signed: Sergio Willis DO at 9:29 EDT Tel , Service support , Assessment/Plan All Active Problems Vocal cord paralysis, unilateral complete (Acute) Radiation-induced esophagitis (Acute) RECOMMENDATIONS: 1. Obtain PA and lateral chest x-ray 2. Initiate diuretic therapy 3. Obtain echocardiogram 4. Wean oxygen as tolerated 5. Initiated on BiPAP 12/6 cm of water if respiratory distress worsens IMPRESSIONS: 1. Acute hypoxic respiratory failure Exact etiology is unclear at this time. Patient does not report a history of CHF, but is never had an echocardiogram before. Patient also has an extensive smoking history, but is never had a pulmonary function test to confirm COPD. Patient is on IV steroids at this time. Patient has received significant IV fluids with a positive fluid balance of 7-1/2 L, excluding that which was given at the oncology center. 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 PA and lateral chest x-ray will be ordered for evaluation. Patient is to have a thoracentesis tomorrow. Okay to continue steroids. Patient does not appear to be infected at this time, so no antibiotics would be indicated. Patient does have a history of paralyzed vocal cords status post probable Botox. This would be expected to last 3 months before causing occlusion. Patient does not appear to have a laryngeal wheeze at this time. 2. Vocal cord paralysis/squamous cell lung cancer/obesity/radiation induced esophagitis/seasonal allergies Complicates care, management, recovery and prognosis. Patient likely to have a bronchoscopy for additional tissue as an outpatient. Code Visit Inpatient E&M: 54062 Init Hosp L3
--- NOTE | 2018-08-14 09:59 | CON.PCM_ITS ---
Problem List (1) Vocal cord paralysis, unilateral complete Status: Acute (2) Metastatic primary lung cancer Status: Chronic Qualifiers: Laterality: right Qualified Code(s): C34.91 - Malignant neoplasm of unspecified part of right bronchus or lung (3) History of tobacco use Status: Chronic (4) Obesity (BMI 30.0-34.9) Status: Chronic (5) Radiation-induced esophagitis Status: Acute Reason for Consult Date of Consultation: 08/14/18 Reason for Consultation: Hypoxemia, worsening respiratory distress History of Present Illness: The patient is a 68 year old F, with past medical history listed below, who presented to [facility] [place] on 08/11/2018 secondary to poor oral intake and odynophagia. Patient has been undergoing radiation therapy for squamous cell carcinoma stage IV and was unable to take any oral pills or medications. Patient was also reporting decreased ability to eat and had received IV fluids with oncology without improvement, so was sent to the emergency room for evaluation. Upon evaluation in the emergency room, patient was noted to have increased respiratory rate and desaturation into the low 90s while on supplemental oxygen. Patient does not wear home oxygen at baseline. Patient was admitted to the general medical floor and placed on supplemental oxygen. Patient's sore throat has improved to the point that she is on soft diet, but respiratory distress has progressed throughout the hospitalization. Patient does have a known pleural effusion on CT scan of the chest, but thoracentesis is planned for tomorrow. Patient states that she is subjectively unchanged compared to previous. Patient reports little to no improvement following inhaler therapy. Patient overall feels that she is swollen compared to normal. Patient reportedly was of good health until May when she presented to her primary care physician complaining of worsening cough with production. Patient was also diagnosed with pneumonia in November 2017. Patient states this led to an evaluation by ENT which was found to have a vocal cord paralysis. Patient had the vocal cord injected (May 2018) and over the course of 2-3 weeks respiratory distress improved. This was followed closely by a biopsy showing squamous cell carcinoma. Patient has received 10 episodes of radiation therapy and is to be initiated on chemotherapy per Dr. Luna. Patient reports a [id number] smoking history, but quit in 2017. Patient does report a history of hypertension, but denies any extensive cardiac workup including echocardiogram or stress test that she is aware of. Patient states that she can have some lower extremity swelling at home, but this typically improves with sleeping overnight. 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 Past Medical History Past Medical History (Chronic Problems): Chronic Problems Metastatic primary lung cancer (Chronic) History of tobacco use (Chronic) Obesity (BMI 30.0-34.9) (Chronic) Allergies Sulfa (Sulfonamide Antibiotics) Allergy (Verified 08/11/18 13:09) Hives Home Medications: Ambulatory Orders Medication Instructions Recorded Albuterol Inhaler [Ventolin Hfa 2 puff INHALATION Q6H PRN PRN 06/17/18 (SP)] Calcium Carb/Mag Ox/Zinc Sulf 1 each PO BID 06/17/18 [Iuewgbf-Gtkycusvf-Gudx Tablet] Cholecalciferol (Vitamin D3) 10,000 unit PO DAILY 06/17/18 [Vitamin D3] Fluticasone 0.05% [Flonase Nasal 1 spray NASAL BID 06/17/18 [place]] Gabapentin [Neurontin] 300 mg PO BID 06/17/18 Glucosamine Sulf/Chondroitin A 1 capsule PO DAILY 06/17/18 [Glucosamine-Chondroitin Cap] Multivitamin [Multiple Vitamins] 1 each PO DAILY 06/17/18 [place]-3 Fatty Acids/Fish Oil [Fish 1 each PO DAILY 06/17/18 Oil 1,000 mg Capsule] Vitamin B Complex 1 capsule PO DAILY 06/17/18 Vitamin E 400 unit PO DAILY 06/17/18 proMETHazine tablet [Phenergan] 25 mg PO Q6H PRN PRN #10 tab 08/04/18 traMADol [Ultram] 50 mg PO Q6H PRN PRN 08/11/18 Surgical History: - - Lymph node biopsy, lumbar back surgery with hardware, tonsillectomy, bilateral tubal ligation. Psychiatric History: No pertinent psych hx [employer] History: No pertinent [employer] history Lives: Spouse/ Significant Other Smoking Status: Former smoker Tobacco Use: Non-smoker Alcohol: Occasional - Patient notes 1-2 cocktail drinks after work daily. Drugs: None - *Family History Maternal History Items: - - Patient notes a maternal family history of hypertension, bladder cancer as well as lung cancer with tobacco use history. Paternal History Items: - - Patient notes a paternal family history of colon cancer. Review of Systems Comment: See HPI, otherwise negative ?10 systems. Patient Problems: Active and Suspected Problems Radiation-induced esophagitis (Acute) Objective: CT chest was personally reviewed and I agree with the interpretation area patient does have an elevated right hemidiaphragm with stable mediastinal and hilar lymphadenopathy. Patient does have a right-sided pleural effusion with right middle lobe alveolar infiltrate. - Physical Exam General: Alert, Oriented x3, Cooperative, - - Mild conversational dyspnea. Obese. Appears stated age HEENT: Atraumatic, PERRLA, EOMI, Normocephalic, - - No scleral icterus or injection noted. Oral: Moist Mucosa, No Gingival or Mucosal Lesions/ Ulcerations Neck: Supple, No JVD, Trachea Midline, - - No stridor appreciated. Significant lymphadenopathy Lungs: No rhonchi, No rales, Diminished, Wheezes, - - Symmetric expansion. No dullness to percussion. Cardiovascular: Regular rate, Regular Rhythm, Normal S1, Normal S2, No murmurs, No rub noted, No Gallop Abdomen: Bowel Sounds Present, Soft, Non Tender, Non-Distended, Obese Extremities: No clubbing, No cyanosis, Edema - Anasarca 1+ Skin: No rashes, No breakdown Musculoskeletal: No Tenderness to Palpation of Joints or Extremities Lymphatic: No Cervical, Supraclavicular, or Inguinal Adenopathy Neurological: Cranial nerves II-XII grossly intact, Neuro grossly intact, Motor Exam 5/5 strength throughout Psych/Mental Status: Anxious, Restless Vital Signs Temp Pulse Resp BP Pulse Ox 36.6 C 90 22 H 157/57 H 96 08/14/18 07:39 08/14/18 07:39 08/14/18 07:39 08/14/18 07:39 08/14/18 07:39 Oxygen Flow Rate (L/min) 4 Oxygen Delivery Method Nasal Cannula Intake and Output for Last 24 Hours 08/12/18 08/13/18 08/14/18 23:59 23:59 23:59 Intake Total 1187 / 5964 2203 / 2203 2011 Output Total 1025 / 1025 1450 / 1450 Balance 1187 / 5714 1178 / 1178 562 / 562 Microbiology Past 72 Hours 08/13/18 09:28 Respiratory Panel (PCR) - Final Mucosa - Nasopharyngeal Laboratory Tests Past 24 Hrs 08/14/18 08/14/18 08/14/18 06:15 06:15 06:15 WBC 6.5 RBC 3.81 L Hgb 12.3 Hct 37.4 MCV 98.2 MCH 32.3 H MCHC 32.9 RDW 12.6 RDW Differential 44.0 H Plt Count 334 MPV 9.2 Immature Gran % (Auto) 0.300 Neut % (Auto) 78.7 H Lymph % (Auto) 10.7 L [place] % (Auto) 10.1 H Eos % (Auto) 0.0 Baso % (Auto) 0.2 Absolute Neuts (auto) 5.1 Absolute Lymphs (auto) 0.70 L Total Counted Not Reportable PT 14.9 INR 1.2 APTT 31.0 Sodium 139 Potassium 4.4 Chloride 107 Carbon Dioxide 27.0 Anion Gap 5 BUN 8 Creatinine 0.44 L Estim Creat Clear Calc 47.10 Est GFR (MDRD) Af Amer 183 Est GFR (MDRD) Non-Af 151 BUN/Creatinine Ratio 18.3 Glucose 137 H Calcium 7.8 L Total Bilirubin 0.30 AST 92 H ALT 329 H Alkaline Phosphatase 131 H Total Protein 6.2 L Albumin 2.5 L Globulin 3.7 Albumin/Globulin Ratio 0.7 L Clinical Impression(s) from Imaging Studies Liver Ultrasound 08/11/18 16:22 IMPRESSION: 1. Gallbladder sludge. No evidence of acute cholecystitis. Electronically Signed: Bhavana Rosen MD at 19:21 EDT Tel , Service support , Chest X-Ray 08/11/18 18:20 IMPRESSION: 1. Mild fibrotic changes on the right. If the patient has received radiation to the right hilar region, this may represent post radiation scarring. Otherwise, pneumonia or recurrence should be considered. Electronically Signed: Bhavana Rosen MD at 18:46 EDT Tel , Service support , Chest CT 08/13/18 06:54 IMPRESSION: Right middle lower lobe airspace disease with consolidation and effusions. Mild interstitial edema. Cardiomegaly. Elevated right hemidiaphragm. Stable mediastinal and hilar lymphadenopathy Electronically Signed: Sergio Willis DO at 9:29 EDT Tel , Service support , Assessment/Plan All Active Problems Vocal cord paralysis, unilateral complete (Acute) Radiation-induced esophagitis (Acute) RECOMMENDATIONS: 1. Obtain PA and lateral chest x-ray 2. Initiate diuretic therapy 3. Obtain echocardiogram 4. Wean oxygen as tolerated 5. Initiated on BiPAP 12/6 cm of water if respiratory distress worsens IMPRESSIONS: 1. Acute hypoxic respiratory failure Exact etiology is unclear at this time. Patient does not report a history of CHF, but is never had an echocardiogram before. Patient also has an extensive smoking history, but is never had a pulmonary function test to confirm COPD. Patient is on IV steroids at this time. Patient has received significant IV fluids with a positive fluid balance of 7-1/2 L, excluding that which was given at the oncology center. 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 PA and lateral chest x-ray will be ordered for evaluation. Patient is to have a thoracentesis tomorrow. Okay to continue steroids. Patient does not appear to be infected at this time, so no antibiotics would be indicated. Patient does have a history of paralyzed vocal cords status post probable Botox. This would be expected to last 3 months before causing occlusion. Patient does not appear to have a laryngeal wheeze at this time. 2. Vocal cord paralysis/squamous cell lung cancer/obesity/radiation induced esophagitis/seasonal allergies Complicates care, management, recovery and prognosis. Patient likely to have a bronchoscopy for additional tissue as an outpatient. Code Visit Inpatient E&M: 40351 Init Hosp L3
[2018-08-14] MEDS: morphine (oral solution) 10MG/0.5ML Syringe 10 MG SL/PO ×3 (10:40→22:31)
[2018-08-14] MEDS: Furosemide 20 MG/2 ML VIAL IV ×2 (10:58→16:58)
[2018-08-14] MEDS: NYSTATIN 500,000 UNIT/5 ML UDC 500000 UNIT PO ×3 (12:50→22:31)
[2018-08-14] MEDS: HYDROmorphone 1 MG/ML Syringe 0.5 MG IV (13:13)
[2018-08-14] MEDS: Bisacodyl 10 MG Suppository RECTAL (16:57)
[2018-08-14] MEDS: Mag Hydrox/Al Hydrox/Simeth 30 ML UDC PO (22:31)
[2018-08-14] MEDS: Magnesium Hydroxide 30 ML UDC PO (22:31)
[2018-08-14] MEDS: LORazepam 2 MG/ML Bottle 0.5 MG PO (23:17)
[2018-08-15] VITALS (20 sets, daily range): BP systolic 110–145; BP diastolic 41–104; PULSE 83–116; RESP 14–22; TEMP 36.4–37.1; O2SAT 94–98; BMI 31.4
--- NOTE | 2018-08-15 | FLU_PTH ---
PATIENT: CRISTOPHER SOSA LOC: MS3 U#:[id number] AGE/SX: 68/F [place] [facility] [place]: Dr. Ricki Meraz DO : 1950 BED: 1 DIS: 08/16/2018 SPEC #: [id number] RECD: 08/15/18 14:24 STATUS: SU REQ #: [id number] BRITTA: 08/15/18 00:[address]: Ricki Meraz DEPT: CYTOLOGY RECD BY: Jose Carbajal ENTERED: 08/15/18 14:24 SP TYPE: Fluid OTHR DR: MD Dr. Woody Gaming MD Dr. Lapman Lun, MD Dr. Paul Nielsen, MD Tissues: THORACIC FLUID Procedures: Pap Stain (control) Special Stain Group II Surgery Specimen Level IV Cell Block Cytospin Fluid HEADER OPERATION: Ultrasound-guided right thoracentesis PRE-OP DIAGNOSIS: Right pleural effusion TISSUE SUBMITTED: Thoracentesis fluid for cytology DIAGNOSIS CYTOLOGY Thoracentesis fluid for cytology (cytospin and cell block): Negative for malignant cells. See cytology study and comment. SJ:rg 08/17/18 COMMENT Immunohistochemistry ([id number]) supports the above diagnosis. Please make reference to previous specimen ([id number]) right supraclavicular mass, FNA with diagnosis of consistent with metastatic non-small cell carcinoma, favor squamous cell carcinoma. Case has been reviewed in consultation with Dr. Gaitan who concurs with the above diagnosis. IDC:AM CYTOLOGY STUDY Slides are reviewed. The specimen consists of macrophages, mesothelial cells and inflammatory cells. CYTOLOGY GROSS Received is 120 ml of yellow cloudy fluid labeled with the patient's name and and designated per the requisition as thoracentesis. Submitted for cytology preparation including cell block. 08/15/18 TC:5 CPT: 31883, 09951
--- NOTE | 2018-08-15 | IMM_PTH ---
PATIENT: CRISTOPHER SOSA LOC: MS3 U#:[id number] AGE/SX: 68/F ROOM: [facility] [place] RE08/12/[address]: Dr. Ricki Meraz DO : 1950 BED: 1 DIS: 08/16/2018 SPEC #: [id number] RECD: 08/16/18 12:45 STATUS: SOUT REQ #: [id number] BRITTA: 08/15/18 00:[address]: Ricki Meraz DEPT: IMMUNOHISTOCHEMISTRY RECD BY: Elinor Vee ENTERED: 08/16/18 12:46 SP TYPE: IMMUNO OTHR DR: MD Dr. Woody Gaming MD Dr. Christopher Wartmann, MD Dr. Lapman Lun, MD Dr. Paul Nielsen, MD Tissues: THORACIC FLUID Procedures: NAPSIN A (add) Jefry Ret (add) CK20 (add) CK5-6 (add) CK7 (add) CK8 (add) MACRO (add) TTF1 (add) P40 (add) Vimentin (initial) PHYSICIAN & [place] [phone] SPECIMEN INFORMATION: Tissue Source: Thoracentesis fluid Clinical Info: Right pleural effusion Specimen Number: [id number] CPT code: 05670, 04161 x9 METHODOLOGY: Deparaffinized sections of prefer/formalin-fixed tissue or PAP/DQ stained slides are incubated with monoclonal/polyclonal antibodies/oligonucleotide probes. Localization is made via biotin free immunoperoxidase method. Appropriate controls are performed and reacted as expected. Results on target cell population are indicated in the following table: RESULTS: ANTIBODY / CLONE RESULT Vimentin (V9) negative CK7 (OV-TL12/30) positive, in mesothelial cells CK8 (36yebwQ71) positive, in mesothelial cells CK20 (KS20.8) negative TTF-1 (8G7G3/1) negative Napsin A (Rabbit Polyclonal) negative Macro (HAM-56) positive, in macrophages CK5-6 (D5 & 1684) negative CALRET (polyclonal) positive, in mesothelial cells P40 (BC28) negative These tests were developed and their performance characteristics determined by [facility]. They may not have been cleared or approved by the [place]. Food and Drug Administration. The FDA has determined that such clearance or approval is not necessary. INTERPRETATION: Thoracentesis fluid: Negative for malignant cells. SJ:gt 08/17/18
--- NOTE | 2018-08-15 02:43 | NURSING ---
Pt is c/o having difficulty breathing. O2 on at 4L via n/c. Pt instructed to slow her breathing down and fan turned on. Zohra, primary RN, made aware and she called for breathing tmt and is going to administer Roxanol.
[2018-08-15] MEDS: morphine (oral solution) 10MG/0.5ML Syringe 10 MG SL/PO ×3 (02:46→14:15)
[2018-08-15] MEDS: Ipratropium/Albuterol Sulfate 3 ML AMPUL.NEB INHALATION ×5 (03:15→19:21)
[2018-08-15] MEDS: HYDROmorphone 1 MG/ML Syringe 0.5 MG IV ×4 (05:35→20:19)
[2018-08-15] MEDS: 0.9% NaCl Peripheral Flush Adult/Peds IV ×4 (05:35→22:05)
[2018-08-15 06:14] LABS: International Normalized Ratio 1.3; Prothrombin Time (Protime)PT. 16.1 SECONDS (11.7-14.9)
[2018-08-15 06:15] LABS: Partial Thromboplast Time 29.7 Seconds (24.1-36.2)
[2018-08-15 06:24] LABS: Absolute Neutrophil Count 5.8 X10^3/uL (2.0-7.7); Basophil% 0.1 % (0-1); Hematocrit 37.7 % (37-47); Hemoglobin 12.4 g/dl (12.0-15.0); Lymphocyte % 7.1 % (19-41); Mean Corp Hgb Conc 32.9 g/gl (32-36); Mean Corpuscular Hgb 32.6 pg (27.0-32.0); Mean Corpuscular Volume 99.2 fL (81-99); Mean Platelet Vol. 9.2 fl (6.2-12.0); Monocyte% 10.2 % (0-10); Neutrophil # 5.82 X10^3/uL (2.7-7.7); Neutrophil % 82.3 % (47-70); Platelet Count 313 K/mm3 (150-450); RBC Distribution Width CV 12.7 % (11.6-14.6); RBC Distribution Width SD 44.8 fl (35.1-43.9); White Blood Count 7.1 K/mm3 (4.4-11.0)
[2018-08-15 06:25] LABS: Basophil# 0.01 X10^3/uL; Monocyte# 0.72 X10^3/uL
[2018-08-15 06:27] LABS: ALB/GLOB Ratio 0.8 RATIO (0.9-2.4); AST(SGOT) 76 U/L (15-37); Alanine Aminotransfer ALT/SGPT 288 U/L (13-56); Albumin, Serum 2.7 g/dL (3.2-5.0); Alkaline Phosphatase 115 U/L (45-117); Anion Gap 6 (5-15); BUN 12 mg/dL (7-18); BUN/Creat Ratio 25.2 RATIO (10-20); Calcium,Total 8.6 mg/dL (8.5-10.1); Chloride 101 mmol/L (98-107); Creatinine, Serum 0.48 mg/dL (0.55-1.02); EST Glomerular Filtration Rate 137 mL/min (>60); Est Glom Filt Rate - Afr Amer 166 mL/min (>60); Globulin 3.4 g/dL (2.2-4.2); Glucose 131 mg/dL (74-106); LDH 346 U/L (84-246); Potassium 4.2 mmol/L (3.5-5.1); Protein, Total 6.1 g/dL (6.4-8.2); Sodium Level 141 mmol/L (136-145)
[2018-08-15 06:37] LABS: Differential Indicated SCAN CRITERIA MET; POSITIVE COUNT NO; POSITIVE DIFFERENTIAL YES; POSITIVE MORPHOLOGY NO
[2018-08-15] MEDS: LORazepam 2 MG/ML Bottle 0.5 MG PO ×2 (08:13→16:42)
--- NOTE | 2018-08-15 08:50 | PCM.PROGNOTE ---
Patient Problems: Active and Suspected Problems Radiation-induced esophagitis (Acute) Subjective: Patient did okay overnight. Patient did report coughing episodes leading to transient shortness of breath. Patient has noted more wheezing overnight and reports no real subjective change in overall condition. Patient continues to report albuterol being ineffective in helping her breathing. She currently n.p.o. for possible thoracentesis later today - Physical Exam General: Alert, Oriented x3, Cooperative, - - Mild respiratory distress. Obese. Appears stated age. HEENT: Atraumatic, PERRLA, EOMI, Normocephalic, - - No scleral icterus or injection noted. Oral: No Gingival or Mucosal Lesions/ Ulcerations, Dry Mucosa Neck: Supple, No JVD, No Nodes, Trachea Midline Lungs: No rhonchi, No rales, Diminished - Bilateral bases, Wheezes - More laryngeal wheeze today compared to previous Cardiovascular: Regular rate, Regular Rhythm, Normal S1, Normal S2, No murmurs, No rub noted, No Gallop Abdomen: Bowel Sounds Present, Soft, Non Tender, Non-Distended, Obese Extremities: No clubbing, No cyanosis, Capillary Refill Less than 3 Seconds, Edema Skin: No rashes, No breakdown Musculoskeletal: No Tenderness to Palpation of Joints or Extremities Lymphatic: No Cervical, Supraclavicular, or Inguinal Adenopathy Neurological: Cranial nerves II-XII grossly intact, Neuro grossly intact, Motor Exam 5/5 strength throughout Psych/Mental Status: Alert and oriented to time, place, person, mood and affect Vital Signs Temp Pulse Resp BP Pulse Ox 36.6 C 87 20 H 138/81 H 96 08/15/18 08:00 08/15/18 08:00 08/15/18 08:00 08/15/18 08:00 08/15/18 08:00 Oxygen Flow Rate (L/min) 4 Oxygen Delivery Method Nasal Cannula Intake and Output for Last 24 Hours 08/13/18 08/14/18 08/15/18 23:59 23:59 23:59 Intake Total 2203 / 2203 3014 / 3014 50 / 50 Output Total 1025 / 1025 3150 / 3150 Balance 1178 / 1178 -136 / -136 50 / 50 Microbiology Past 72 Hours 08/13/18 09:28 Respiratory Panel (PCR) - Final Mucosa - Nasopharyngeal Laboratory Tests Past 24 Hrs 08/15/18 08/15/18 08/15/18 05:26 05:26 05:26 WBC 7.1 RBC 3.80 L Hgb 12.4 Hct 37.7 MCV 99.2 H MCH 32.6 H MCHC 32.9 RDW 12.7 RDW Differential 44.8 H Plt Count 313 MPV 9.2 Immature Gran % (Auto) 0.300 Neut % (Auto) 82.3 H Lymph % (Auto) 7.1 L [place] % (Auto) 10.2 H Eos % (Auto) 0.0 Baso % (Auto) 0.1 Absolute Neuts (auto) 5.8 Absolute Lymphs (auto) 0.50 L Total Counted Not Reportable PT 16.1 H INR 1.3 APTT 29.7 Sodium 141 Potassium 4.2 Chloride 101 Carbon Dioxide 34.0 H Anion Gap 6 BUN 12 Creatinine 0.48 L Estim Creat Clear Calc 47.10 Est GFR (MDRD) Af Amer 166 Est GFR (MDRD) Non-Af 137 BUN/Creatinine Ratio 25.2 H Glucose 131 H Calcium 8.6 Total Bilirubin 0.40 AST 76 H ALT 288 H Alkaline Phosphatase 115 Lactate Dehydrogenase 346 H Total Protein 6.1 L Albumin 2.7 L Globulin 3.4 Albumin/Globulin Ratio 0.8 L Clinical Impression(s) from Imaging Studies Chest X-Ray 08/14/18 09:46 IMPRESSION: 1. Volume loss in the right lung with elevated hemidiaphragm, pleural effusion and atelectasis. 2. Small left pleural effusion and atelectasis. 3. Borderline cardiomegaly. Electronically Signed: Willie Fisher DO at 10:57 EDT Tel [phone], Service support , Medical Necessity - Tobacco Use Smoking Status: Former smoker Tobacco Use: Non-smoker Assessment/Plan All Active Problems Vocal cord paralysis, unilateral complete (Acute) Radiation-induced esophagitis (Acute) RECOMMENDATIONS: 1. Await thoracentesis 2. Continue diuretic therapy 3. Await echocardiogram 4. Wean oxygen as tolerated 5. Initiate on BiPAP 12/6 cm of water if respiratory distress worsens 6. Possible need for ENT evaluation IMPRESSIONS: 1. Acute hypoxic respiratory failure Exact etiology is unclear at this time. Patient with minimal diuresis overnight. Patient is to have a thoracentesis today. We will follow-up on lab work, but high clinical suspicion for malignant effusion. Patient is having much more laryngeal wheeze today compared to previous. If thoracentesis does not significantly improve dyspnea with removal of 500 cc or more, patient may benefit from an ENT evaluation to see if repeat Botox injection of paralyzed vocal cord would be appropriate. Wean oxygen as tolerated. Await echocardiogram, but patient appears to be tolerating diuretic therapy well. 2. Vocal cord paralysis/squamous cell lung cancer/obesity/radiation induced esophagitis/seasonal allergies Complicates care, management, recovery and prognosis. Patient likely to have a bronchoscopy for additional tissue as an outpatient. Code Visit Inpatient E&M: 50126 Subs Hosp L3
[2018-08-15] MEDS: Furosemide 20 MG/2 ML VIAL IV ×2 (09:24→18:06)
[2018-08-15] MEDS: NYSTATIN 500,000 UNIT/5 ML UDC 500000 UNIT PO ×4 (10:07→22:05)
--- NOTE | 2018-08-15 10:20 | US_ITS ---
PROCEDURE: ULTRASOUND GUIDED THORACENTESIS. DATE: August 15, 2018.. INDICATION: Female, 68 years old. Right pleural effusion. PHYSICIAN: Emanuel Escobedo M.D. PROCEDURE: The risks, benefits, and alternatives to the procedure were explained to the patient. The specific risks of bleeding, infection, and pneumothorax requiring chest tube insertion were discussed and accepted. Written informed consent was obtained. Ultrasonographic evaluation of the right lower pleural space was carried out. An adequate pocket was identified. The patient was placed in the sitting, upright position. The overlying skin was prepped and draped in sterile fashion. 1% lidocaine was administered subcutaneously for local anesthesia. Under ultrasound guidance, a 5French thoracentesis needle/catheter system was advanced into the right posterior lower pleural fluid collection. Approximately 320 mL of brooke-colored fluid was drained. The catheter was removed, and a sterile dressing was applied. A specimen was collected and sent to the laboratory for analysis, as requested by the referring clinician. The patient tolerated the procedure well. A chest x-ray was ordered. US/Thoracentesis W US IMPRESSION: Ultrasound-guided right thoracentesis. Electronically Signed: Emanuel Escobedo MD at 14:25 EDT Tel [phone], Service support ,
--- NOTE | 2018-08-15 12:18 | PCM.PN.HOSP ---
Patient Problems: Active and Suspected Problems Radiation-induced esophagitis (Acute) Subjective: Tolerating clears w/o vomiting. Vitals/I&O's: Vital Signs Temp Pulse Resp BP Pulse Ox 36.8 C 110 H 14 122/62 H 96 08/15/18 11:35 08/15/18 11:35 08/15/18 11:35 08/15/18 11:35 08/15/18 11:35 Oxygen Flow Rate (L/min) 4 Oxygen Delivery Method Nasal Cannula Intake and Output for Last 24 Hours 08/13/18 08/14/18 08/15/18 23:59 23:59 23:59 Intake Total 2203 / 2203 3014 / 3014 50 / 50 Output Total 1025 / 1025 3150 / 3150 Balance 1178 / 1178 -136 / -136 50 / 50 General: Alert, No apparent distress HEENT: Atraumatic, Normocephalic Oral: Moist Mucosa, No Gingival or Mucosal Lesions/ Ulcerations Neck: No Nodes, Thyroid Normal Size and Texture Lungs: Diminished, Wheezes Cardiovascular: Regular rate, Regular Rhythm, Normal S1, Normal S2, No murmurs Abdomen: Bowel Sounds Present, Soft, Non Tender, Non-Distended, No Hepato-splenomegaly Extremities: No edema, No Calf Tenderness Skin: No rashes, No breakdown Psych/Mental Status: Normal Affect, Appropriate Microbiology Past 72 Hours 08/13/18 09:28 Mucosa - Nasopharyngeal Respiratory Panel (PCR) - Final Laboratory Results 08/15/18 05:26: WBC 7.1, RBC 3.80 L, Hgb 12.4, Hct 37.7, MCV 99.2 H, MCH 32.6 H, MCHC 32.9, RDW 12.7, RDW Differential 44.8 H, Plt Count 313, MPV 9.2, Immature Gran % (Auto) 0.300, Neut % (Auto) 82.3 H, Lymph % (Auto) 7.1 L, [place] % (Auto) 10.2 H, Eos % (Auto) 0.0, Baso % (Auto) 0.1, Absolute Neuts (auto) 5.8, Absolute Lymphs (auto) 0.50 L, Total Counted Not Reportable 08/15/18 05:26: Sodium 141, Potassium 4.2, Chloride 101, Carbon Dioxide 34.0 H, Anion Gap 6, BUN 12, Creatinine 0.48 L, Estim Creat Clear Calc 47.10, Est GFR (MDRD) Af Amer 166, Est GFR (MDRD) Non-Af 137, BUN/Creatinine Ratio 25.2 H, Glucose 131 H, Calcium 8.6, Total Bilirubin 0.40, AST 76 H, ALT 288 H, Alkaline Phosphatase 115, Lactate Dehydrogenase 346 H, Total Protein 6.1 L, Albumin 2.7 L, Globulin 3.4, Albumin/Globulin Ratio 0.8 L 08/15/18 05:26: PT 16.1 H, INR 1.3, APTT 29.7 Current Medications Al Hydroxide/Mg Hydroxide (Mylanta Ii) 30 ml PO Q6H PRN PRN PRN Reason: Gastric burning Last Admin: 08/14/18 22:31 Dose: 30 ml Albuterol Sulfate (Ventolin Aerosols) 2.5 mg INHALATION Q2H PRN PRN PRN Reason: dyspnea, wheezing Last Admin: 08/14/18 09:37 Dose: 2.5 mg Albuterol/Ipratropium (Duoneb) 3 ml INHALATION Q4HWA.RT [facility] Last Admin: 08/15/18 11:22 Dose: 3 ml Bisacodyl (Dulcolax) 10 mg RECTAL DAILY PRN PRN Reason: Constipation Last Admin: 08/14/18 16:57 Dose: 10 mg Enoxaparin Sodium (Lovenox) 40 mg SC DAILY@1000 [facility] Last Admin: 08/15/18 07:47 Dose: Not Given Furosemide (Lasix) 20 mg IV BID@1000,1800 [facility] Last Admin: 08/15/18 09:24 Dose: 20 mg Hydromorphone HCl (Dilaudid Inj) 0.5 mg IV Q3H PRN PRN PRN Reason: SEVERE PAIN (6-10/10) Last Admin: 08/15/18 09:55 Dose: 0.5 mg Pantoprazole Sodium 40 mg/ (Sodium Chloride) 110 mls @ 330 mls/hr IV Q12 [facility] Last Admin: 08/15/18 10:09 Dose: 330 mls/hr Lidocaine HCl (Xylocaine Viscous) 10 ml PO Q3H PRN PRN Reason: SORE THROAT Last Admin: 08/13/18 07:14 Dose: 10 ml Lorazepam (Ativan Intensol) 0.5 mg PO Q8H PRN PRN PRN Reason: ANXIETY Last Admin: 08/15/18 08:13 Dose: 0.5 mg Magnesium Hydroxide (Milk Of Magnesia) 30 ml PO DAILY PRN PRN PRN Reason: Constipation Last Admin: 08/14/18 22:31 Dose: 30 ml Methylprednisolone (Solu-Medrol) 40 mg IV Q8 [facility] Last Admin: 08/15/18 05:37 Dose: 40 mg Morphine Sulfate (Roxanol (Ir Oral Solution)) 10 mg SL/PO Q4H PRN PRN PRN Reason: SEVERE PAIN (6-10/10) Last Admin: 08/15/18 08:09 Dose: 10 mg Nystatin (Nystatin) 500,000 unit PO 4X/DAY [facility] Last Admin: 08/15/18 10:07 Dose: 500,000 unit Ondansetron HCl (Zofran) 4 mg IV Q6H PRN PRN PRN Reason: nausea, emesis Potassium Phos/Sodium Phos (Neutra-Phos Packet) 1 packet PO 4X/DAYCM [facility] Last Admin: 08/15/18 12:12 Dose: Not Given Promethazine HCl (Phenergan) 12.5 mg IV Q4H PRN PRN PRN Reason: NAUSEA/VOMITING Sodium Chloride () 5 - 30 ml IV UD PRN PRN Reason: SALINE FLUSH Last Admin: 08/15/18 05:35 Dose: 20 ml Medical Necessity - Tobacco Use Smoking Status: Former smoker Tobacco Use: Non-smoker Assessment/Plan All Active Problems Vocal cord paralysis, unilateral complete (Acute) Radiation-induced esophagitis (Acute) 1. radiation esophagitis slightly improved today. IV PPI advance diet to fulls 2. Dyspnea etiology yet unclear on empiric lasix echo pending continue BDs wean steroids pulm following. thoracentesis ordered 3. Pleural effusion thoracentesis pending. transudative v exudative further mgmt pending thoracentesis studies 4. Stage IV lung cancer, NSCLC completed palliative XRT to undergo chemo v experimental treatment per Dr. Luna after discharge 5. DVT proph: LMWH. Code Visit Inpatient E&M: 89675 Subs Hosp L2
--- NOTE | 2018-08-15 12:25 | PN_ITS ---
Patient Problems: Active and Suspected Problems Radiation-induced esophagitis (Acute) Subjective: Tolerating clears w/o vomiting. Vitals/I&O's: Vital Signs Temp Pulse Resp BP Pulse Ox 36.8 C 110 H 14 122/62 H 96 08/15/18 11:35 08/15/18 11:35 08/15/18 11:35 08/15/18 11:35 08/15/18 11:35 Oxygen Flow Rate (L/min) 4 Oxygen Delivery Method Nasal Cannula Intake and Output for Last 24 Hours 08/13/18 08/14/18 08/15/18 23:59 23:59 23:59 Intake Total 2203 / 2203 3014 / 3014 50 / 50 Output Total 1025 / 1025 3150 / 3150 Balance 1178 / 1178 -136 / -136 50 / 50 General: Alert, No apparent distress HEENT: Atraumatic, Normocephalic Oral: Moist Mucosa, No Gingival or Mucosal Lesions/ Ulcerations Neck: No Nodes, Thyroid Normal Size and Texture Lungs: Diminished, Wheezes Cardiovascular: Regular rate, Regular Rhythm, Normal S1, Normal S2, No murmurs Abdomen: Bowel Sounds Present, Soft, Non Tender, Non-Distended, No Hepato- splenomegaly Extremities: No edema, No Calf Tenderness Skin: No rashes, No breakdown Psych/Mental Status: Normal Affect, Appropriate Microbiology Past 72 Hours 08/13/18 09:28 Mucosa - Nasopharyngeal Respiratory Panel (PCR) - Final Laboratory Results 08/15/18 05:26: WBC 7.1, RBC 3.80 L, Hgb 12.4, Hct 37.7, MCV 99.2 H, MCH 32.6 H , MCHC 32.9, RDW 12.7, RDW Differential 44.8 H, Plt Count 313, MPV 9.2, Immature Gran % (Auto) 0.300, Neut % (Auto) 82.3 H, Lymph % (Auto) 7.1 L, [place] % (Auto) 10.2 H, Eos % (Auto) 0.0, Baso % (Auto) 0.1, Absolute Neuts (auto) 5.8 , Absolute Lymphs (auto) 0.50 L, Total Counted Not Reportable 08/15/18 05:26: Sodium 141, Potassium 4.2, Chloride 101, Carbon Dioxide 34.0 H, Anion Gap 6, BUN 12, Creatinine 0.48 L, Estim Creat Clear Calc 47.10, Est GFR ( MDRD) Af Amer 166, Est GFR (MDRD) Non-Af 137, BUN/Creatinine Ratio 25.2 H, Glucose 131 H, Calcium 8.6, Total Bilirubin 0.40, AST 76 H, ALT 288 H, Alkaline Phosphatase 115, Lactate Dehydrogenase 346 H, Total Protein 6.1 L, Albumin 2.7 L , Globulin 3.4, Albumin/Globulin Ratio 0.8 L 08/15/18 05:26: PT 16.1 H, INR 1.3, APTT 29.7 Current Medications Al Hydroxide/Mg Hydroxide (Mylanta Ii) 30 ml PO Q6H PRN PRN PRN Reason: Gastric burning Last Admin: 08/14/18 22:31 Dose: 30 ml Albuterol Sulfate (Ventolin Aerosols) 2.5 mg INHALATION Q2H PRN PRN PRN Reason: dyspnea, wheezing Last Admin: 08/14/18 09:37 Dose: 2.5 mg Albuterol/Ipratropium (Duoneb) 3 ml INHALATION Q4HWA.RT [facility] Last Admin: 08/15/18 11:22 Dose: 3 ml Bisacodyl (Dulcolax) 10 mg RECTAL DAILY PRN PRN Reason: Constipation Last Admin: 08/14/18 16:57 Dose: 10 mg Enoxaparin Sodium (Lovenox) 40 mg SC DAILY@1000 [facility] Last Admin: 08/15/18 07:47 Dose: Not Given Furosemide (Lasix) 20 mg IV BID@1000,1800 [facility] Last Admin: 08/15/18 09:24 Dose: 20 mg Hydromorphone HCl (Dilaudid Inj) 0.5 mg IV Q3H PRN PRN PRN Reason: SEVERE PAIN (6-10/10) Last Admin: 08/15/18 09:55 Dose: 0.5 mg Pantoprazole Sodium 40 mg/ (Sodium Chloride) 110 mls @ 330 mls/hr IV Q12 [facility] Last Admin: 08/15/18 10:09 Dose: 330 mls/hr Lidocaine HCl (Xylocaine Viscous) 10 ml PO Q3H PRN PRN Reason: SORE THROAT Last Admin: 08/13/18 07:14 Dose: 10 ml Lorazepam (Ativan Intensol) 0.5 mg PO Q8H PRN PRN PRN Reason: ANXIETY Last Admin: 08/15/18 08:13 Dose: 0.5 mg Magnesium Hydroxide (Milk Of Magnesia) 30 ml PO DAILY PRN PRN PRN Reason: Constipation Last Admin: 08/14/18 22:31 Dose: 30 ml Methylprednisolone (Solu-Medrol) 40 mg IV Q8 [facility] Last Admin: 08/15/18 05:37 Dose: 40 mg Morphine Sulfate (Roxanol (Ir Oral Solution)) 10 mg SL/PO Q4H PRN PRN PRN Reason: SEVERE PAIN (6-10/10) Last Admin: 08/15/18 08:09 Dose: 10 mg Nystatin (Nystatin) 500,000 unit PO 4X/DAY [facility] Last Admin: 08/15/18 10:07 Dose: 500,000 unit Ondansetron HCl (Zofran) 4 mg IV Q6H PRN PRN PRN Reason: nausea, emesis Potassium Phos/Sodium Phos (Neutra-Phos Packet) 1 packet PO 4X/DAYCM [facility] Last Admin: 08/15/18 12:12 Dose: Not Given Promethazine HCl (Phenergan) 12.5 mg IV Q4H PRN PRN PRN Reason: NAUSEA/VOMITING Sodium Chloride () 5 - 30 ml IV UD PRN PRN Reason: SALINE FLUSH Last Admin: 08/15/18 05:35 Dose: 20 ml Medical Necessity - Tobacco Use Smoking Status: Former smoker Tobacco Use: Non-smoker Assessment/Plan All Active Problems Vocal cord paralysis, unilateral complete (Acute) Radiation-induced esophagitis (Acute) 1. radiation esophagitis * slightly improved today. * IV PPI * advance diet to fulls 2. Dyspnea * etiology yet unclear * on empiric lasix * echo pending * continue BDs * wean steroids * pulm following. * thoracentesis ordered 3. Pleural effusion * thoracentesis pending. * transudative v exudative * further mgmt pending thoracentesis studies 4. Stage IV lung cancer, NSCLC * completed palliative XRT * to undergo chemo v experimental treatment per Dr. Luna after discharge 5. DVT proph: LMWH. Code Visit Inpatient E&M: 12054 Subs Hosp L2
--- NOTE | 2018-08-15 12:55 | RAD_ITS ---
STUDY: X-RAY CHEST REASON FOR EXAM: Female, 68 years old. Status post right thoracentesis. TECHNIQUE: AP inspiration and expiration views. COMPARISON: Comparison is made with prior study dated August 14, 2018. FINDINGS: The patient is status post right thoracentesis. There is no evidence of pneumothorax. Persistent right hilar mass as well as left basilar atelectasis and/or infiltration. RAD/Chest Insp/Exp 2 View IMPRESSION: Status post right thoracentesis. There is no evidence of pneumothorax. Electronically Signed: Emanuel Escobedo MD at 13:49 EDT Tel [phone], Service support ,
--- NOTE | 2018-08-15 12:55 | NURSING ---
ATTEMPT TO CALL REPORT TO PROCEDURE NURSE UNSUCCESSFUL X2, LEFT MSG ON RECORDER WITH BRIEF REPORT AND NURSE DIRECT # IF QUESTIONS PT TAKE TO [place] REQUESTED @ 1212 FOR PROCEDURE
[2018-08-15 13:20] LABS: Cytology, Body Fluid / CSF SEE PATHOLOGY REPORT
[2018-08-15 13:33] LABS: Body Fluid Mononuclear WBC # 0.304 10^3/uL; Body Fluid Mononuclear WBC % 89.7 %; Body Fluid Polynuclear WBC # 0.035 10^3/uL; Body Fluid Polynuclear WBC % 10.3 %; Body Fluid Total Cells Counted 0.498 10^3/ul (0.000-0.000); White Blood Count/Body Fluid 0.339 10^3/uL
[2018-08-15 13:50] LABS: Glucose, Body Fluid 147 mg/dL (40-70); LDH,Body Fluid 120 Units/l (Not Establ.); Protein, Body Fluid 1.9 g/dL (Not Establ.)
[2018-08-15 13:54] LABS: Auto B Fluid Analyzer BKGD Ct COUNTS W/IN LIMITS (W/IN LIMITS); Source- Body Fluid THORACENTESIS
[2018-08-15 13:55] LABS: Appearance/Body Fluid SL CLDY; Color/Body Fluid LT YEL
[2018-08-15 14:35] LABS: Lymphocytes 52 %; Mesothelial Cells 21 %; Monocytes 12 %; Neutrophil (Segs) 15 %
[2018-08-15 14:37] LABS: Body Fluid QC Type(s) BF1Q; Red Cell Count/Body Fluid 50 /mm3
[2018-08-15] MEDS: Na Biphos/Potassium Phosphate PACKET 1 PACKET PO ×2 (16:40→22:05)
[2018-08-15] MEDS: Ondansetron 4 MG/2 ML Vial IV (20:20)
[2018-08-15] MEDS: Magnesium Hydroxide 30 ML UDC PO (22:05)
[2018-08-15] MEDS: Bisacodyl 10 MG Suppository RECTAL (22:05)
[2018-08-16] VITALS (8 sets, daily range): BP systolic 125–145; BP diastolic 63–78; PULSE 89–104; RESP 20–26; TEMP 36.2–36.7; O2SAT 85–99
[2018-08-16] MEDS: LORazepam 2 MG/ML Bottle 0.5 MG PO ×2 (01:07→10:11)
[2018-08-16] MEDS: Ipratropium/Albuterol Sulfate 3 ML AMPUL.NEB INHALATION ×2 (01:12→07:11)
[2018-08-16] MEDS: 0.9% NaCl Peripheral Flush Adult/Peds IV ×2 (05:25→08:10)
[2018-08-16 07:04] LABS: Absolute Lymphocyte Count 0.74 X10^3/ul (0.83-4.51); Hematocrit 36.5 % (37-47); Hemoglobin 11.8 g/dl (12.0-15.0); Lymphocyte # 0.74 X10^3/ul (4.0); Lymphocyte % 12.3 % (19-41); Mean Corp Hgb Conc 32.3 g/gl (32-36); Mean Corpuscular Hgb 32.3 pg (27.0-32.0); Mean Platelet Vol. 9.2 fl (6.2-12.0); Monocyte# 0.27 X10^3/uL; Monocyte% 4.5 % (0-10); Neutrophil # 5.01 X10^3/uL (2.7-7.7); Neutrophil % 82.9 % (47-70); Platelet Count 318 K/mm3 (150-450); RBC Distribution Width CV 12.9 % (11.6-14.6); RBC Distribution Width SD 47.1 fl (35.1-43.9); Red Blood Count 3.65 M/mm3 (4.2-5.4)
[2018-08-16 07:07] LABS: POSITIVE COUNT NO; POSITIVE DIFFERENTIAL NO; POSITIVE MORPHOLOGY NO
[2018-08-16 07:24] LABS: ALB/GLOB Ratio 0.8 RATIO (0.9-2.4); AST(SGOT) 70 U/L (15-37); Alanine Aminotransfer ALT/SGPT 271 U/L (13-56); Albumin, Serum 2.7 g/dL (3.2-5.0); Alkaline Phosphatase 99 U/L (45-117); Anion Gap 7 (5-15); BUN 15 mg/dL (7-18); BUN/Creat Ratio 29.1 RATIO (10-20); Calcium,Total 8.4 mg/dL (8.5-10.1); Chloride 94 mmol/L (98-107); Creatinine, Serum 0.52 mg/dL (0.55-1.02); EST Glomerular Filtration Rate 125 mL/min (>60); Est Glom Filt Rate - Afr Amer 151 mL/min (>60); Globulin 3.3 g/dL (2.2-4.2); Glucose 138 mg/dL (74-106); Potassium 3.9 mmol/L (3.5-5.1); Sodium Level 142 mmol/L (136-145)
[2018-08-16] MEDS: Na Biphos/Potassium Phosphate PACKET 1 PACKET PO (08:09)
[2018-08-16] MEDS: HYDROmorphone 1 MG/ML Syringe 0.5 MG IV (08:09)
--- NOTE | 2018-08-16 08:12 | PCM.PROGNOTE ---
Patient Problems: Active and Suspected Problems Radiation-induced esophagitis (Acute) Subjective: Patient did have thoracentesis yesterday but reports very little improvement in overall condition despite 350 cc removed. Patient continues to have wheezing. Patient is reporting significant tremor associated with aerosol therapy. Patient denies any current chest pain. Patient is able to take p.o. Objective: Thoracentesis completed yesterday with 320 cc removed of brooke colored fluid - Physical Exam General: Alert, Oriented x3, Cooperative, No apparent distress, - - Speaking in full sentences. Less conversational dyspnea today. HEENT: Atraumatic, PERRLA, EOMI, Normocephalic, - - No scleral icterus or injection noted. Oral: Moist Mucosa, No Gingival or Mucosal Lesions/ Ulcerations Neck: Supple, No JVD, No Nodes, Trachea Midline, - - Improved laryngeal wheeze Lungs: No rhonchi, No rales, Diminished, Wheezes, - - Symmetric expansion. No dullness to percussion. Cardiovascular: Regular rate, Regular Rhythm, Normal S1, Normal S2, No murmurs, No rub noted, No Gallop Abdomen: Bowel Sounds Present, Soft, Non Tender, Non-Distended Extremities: No clubbing, No cyanosis, No edema, Capillary Refill Less than 3 Seconds Skin: No rashes, No breakdown Musculoskeletal: No Tenderness to Palpation of Joints or Extremities Lymphatic: No Cervical, Supraclavicular, or Inguinal Adenopathy Neurological: Cranial nerves II-XII grossly intact, Neuro grossly intact, Motor Exam 5/5 strength throughout Psych/Mental Status: Alert and oriented to time, place, person, mood and affect Vital Signs Temp Pulse Resp BP Pulse Ox 36.2 C L 89 20 H 125/63 H 97 08/16/18 05:23 08/16/18 05:23 08/16/18 05:23 08/16/18 05:23 08/16/18 05:23 Oxygen Flow Rate (L/min) 3 Oxygen Delivery Method Nasal Cannula Weight: 85.6 kg Body Mass Index (BMI) 31.4 Intake and Output for Last 24 Hours 08/14/18 08/15/18 08/16/18 23:59 23:59 23:59 Intake Total 3014 / 3014 490 / 490 240 / 240 Output Total 3150 / 3150 1420 / 1420 Balance -136 / -136 -930 / -930 240 / 240 Microbiology Past 72 Hours 08/13/18 09:28 Respiratory Panel (PCR) - Final Mucosa - Nasopharyngeal Laboratory Tests Past 24 Hrs 08/15/18 08/15/18 08/15/18 12:45 12:45 12:45 WBC RBC Hgb Hct MCV MCH MCHC RDW RDW Differential Plt Count MPV Immature Gran % (Auto) Neut % (Auto) Lymph % (Auto) [place] % (Auto) Eos % (Auto) Baso % (Auto) Absolute Neuts (auto) Absolute Lymphs (auto) Total Counted Sodium Potassium Chloride Carbon Dioxide Anion Gap BUN Creatinine Estim Creat Clear Calc Est GFR (MDRD) Af Amer Est GFR (MDRD) Non-Af BUN/Creatinine Ratio Glucose Calcium Total Bilirubin AST ALT Alkaline Phosphatase Total Protein Albumin Globulin Albumin/Globulin Ratio Fluid Source THORACENTESIS Fluid Color LT YEL Fluid Appearance SL CLDY Fluid pH Pending Fluid WBC 0.339 Fluid RBC 50 Fluid Tot Cell Count 0.498 H Fld Polynuclear WBCs # 0.035 Fld Polynuclear WBCs % 10.3 Fluid Mononuclear WBCs 0.304 Fld Mononuclear WBCs % 89.7 Fluid Neutrophils 15 Fluid Lymphocytes 52 Fluid Monocytes 12 Fld Mesothelial Cells 21 Fl Pathologist Comment May follow Fluid Glucose 147 H Fluid Total Protein 1.9 Fluid LDH 120 Fluid Comment 2 SEE COMMENT Miscellaneous Cytology 08/15/18 08/15/18 08/15/18 12:45 12:45 12:45 WBC RBC Hgb Hct MCV MCH MCHC RDW RDW Differential Plt Count MPV Immature Gran % (Auto) Neut % (Auto) Lymph % (Auto) [place] % (Auto) Eos % (Auto) Baso % (Auto) Absolute Neuts (auto) Absolute Lymphs (auto) Total Counted Sodium Potassium Chloride Carbon Dioxide Anion Gap BUN Creatinine Estim Creat Clear Calc Est GFR (MDRD) Af Amer Est GFR (MDRD) Non-Af BUN/Creatinine Ratio Glucose Calcium Total Bilirubin AST ALT Alkaline Phosphatase Total Protein Albumin Globulin Albumin/Globulin Ratio Fluid Source Fluid Color Cancelled Cancelled Fluid Appearance Cancelled Cancelled Fluid pH Fluid WBC Cancelled Fluid RBC Cancelled Fluid Tot Cell Count Fld Polynuclear WBCs # Fld Polynuclear WBCs % Fluid Mononuclear WBCs Fld Mononuclear WBCs % Fluid Neutrophils Fluid Lymphocytes Fluid Monocytes Fld Mesothelial Cells Fl Pathologist Comment Fluid Glucose Fluid Total Protein Fluid LDH Fluid Comment 2 Miscellaneous Cytology Pending 08/16/18 08/16/18 05:35 05:35 WBC 6.0 RBC 3.65 L Hgb 11.8 L Hct 36.5 L MCV 100.0 H MCH 32.3 H MCHC 32.3 RDW 12.9 RDW Differential 47.1 H Plt Count 318 MPV 9.2 Immature Gran % (Auto) 0.300 Neut % (Auto) 82.9 H Lymph % (Auto) 12.3 L [place] % (Auto) 4.5 Eos % (Auto) 0.0 Baso % (Auto) 0.0 Absolute Neuts (auto) 5.0 Absolute Lymphs (auto) 0.74 L Total Counted Not Reportable Sodium 142 Potassium 3.9 Chloride 94 L Carbon Dioxide 41.0 H Anion Gap 7 BUN 15 Creatinine 0.52 L Estim Creat Clear Calc 47.10 Est GFR (MDRD) Af Amer 151 Est GFR (MDRD) Non-Af 125 BUN/Creatinine Ratio 29.1 H Glucose 138 H Calcium 8.4 L Total Bilirubin 0.50 AST 70 H ALT 271 H Alkaline Phosphatase 99 Total Protein 6.0 L Albumin 2.7 L Globulin 3.3 Albumin/Globulin Ratio 0.8 L Fluid Source Fluid Color Fluid Appearance Fluid pH Fluid WBC Fluid RBC Fluid Tot Cell Count Fld Polynuclear WBCs # Fld Polynuclear WBCs % Fluid Mononuclear WBCs Fld Mononuclear WBCs % Fluid Neutrophils Fluid Lymphocytes Fluid Monocytes Fld Mesothelial Cells Fl Pathologist Comment Fluid Glucose Fluid Total Protein Fluid LDH Fluid Comment 2 Miscellaneous Cytology Clinical Impression(s) from Imaging Studies Thoracentesis Ultrasound 08/15/18 10:20 IMPRESSION: Ultrasound-guided right thoracentesis. Electronically Signed: Emanuel Escobedo MD at 14:25 EDT Tel [phone], Service support , Chest X-Ray 08/15/18 12:55 IMPRESSION: Status post right thoracentesis. There is no evidence of pneumothorax. Electronically Signed: Emanuel Escobedo MD at 13:49 EDT Tel [phone], Service support , Medical Necessity - Tobacco Use Smoking Status: Former smoker Tobacco Use: Non-smoker Assessment/Plan All Active Problems Vocal cord paralysis, unilateral complete (Acute) Radiation-induced esophagitis (Acute) RECOMMENDATIONS: 1. Consult ENT for vocal cord evaluation 2. Continue diuretic therapy 3. Wean oxygen as tolerated 4. Increase mobility 5. Consider room air challenge IMPRESSIONS: 1. Acute hypoxic respiratory failure Exact etiology is unclear at this time. Patient did not report significant improvement in overall condition despite removal of over 300 cc of transudative fluid. Patient is reporting significant difficulty with aerosol use. Will consult ENT for evaluation. Patient does have a history of paralyzed vocal cord in the past. It is unclear if this is becoming a recurrent issue. If patient does have vocal cord paralysis, intervention would likely lead to significant improvement in overall condition. Increase activity as tolerated. No repeat imaging of the chest needed given transudate of thoracentesis labs. 2. Vocal cord paralysis/squamous cell lung cancer/obesity/radiation induced esophagitis/seasonal allergies Complicates care, management, recovery and prognosis. Patient likely to have a bronchoscopy for additional tissue as an outpatient. Code Visit Inpatient E&M: 10111 [facility] Hosp L3
[2018-08-16] MEDS: NYSTATIN 500,000 UNIT/5 ML UDC 500000 UNIT PO (10:04)
[2018-08-16] MEDS: Furosemide 20 MG/2 ML VIAL IV (10:05)
[2018-08-16] MEDS: morphine (oral solution) 10MG/0.5ML Syringe 10 MG SL/PO (10:10)
[2018-08-16 10:34] LABS: Pathologist Comment/Body Fluid Reviewed
--- NOTE | 2018-08-16 10:44 | PCM.PN.HOSP ---
Patient Problems: Active and Suspected Problems Radiation-induced esophagitis (Acute) Subjective: Tolerating clear diet well. No N/V. Gets short of breath at times, but breathing fine at this time. Vitals/I&O's: Vital Signs Temp Pulse Resp BP Pulse Ox 36.7 C 94 20 H 145/78 H 94 08/16/18 10:00 08/16/18 10:00 08/16/18 10:00 08/16/18 10:00 08/16/18 10:00 Oxygen Flow Rate (L/min) 3 Oxygen Delivery Method Nasal Cannula Weight: 85.6 kg Body Mass Index (BMI) 31.4 Intake and Output for Last 24 Hours 08/14/18 08/15/18 08/16/18 23:59 23:59 23:59 Intake Total 3014 / 3014 490 / 490 240 / 240 Output Total 3150 / 3150 1420 / 1420 Balance -136 / -136 -930 / -930 240 / 240 General: Alert, No apparent distress HEENT: Atraumatic, Normocephalic Oral: Moist Mucosa, No Gingival or Mucosal Lesions/ Ulcerations Neck: No Nodes, Thyroid Normal Size and Texture Lungs: Diminished, Wheezes - upper respiratory Cardiovascular: Regular rate, Regular Rhythm, Normal S1, Normal S2, No murmurs Abdomen: Bowel Sounds Present, Soft, Non Tender, Non-Distended, No Hepato-splenomegaly Extremities: No edema, No Calf Tenderness Psych/Mental Status: Normal Affect, Appropriate Microbiology Past 72 Hours 08/15/18 12:45 Fluid - Thoracentesis Fluid Gram Stain - Final 08/15/18 12:45 Fluid - Thoracentesis Fluid Body Fluid Culture - Preliminary No growth-Final to follow 08/13/18 09:28 Mucosa - Nasopharyngeal Respiratory Panel (PCR) - Final Laboratory Results 08/15/18 12:45: Fluid Glucose 147 H, Fluid Total Protein 1.9, Fluid LDH 120 08/15/18 12:45: Fluid pH Pending 08/15/18 12:45: Fluid Source THORACENTESIS, Fluid Color LT YEL, Fluid Appearance SL CLDY, Fluid WBC 0.339, Fluid RBC 50, Fluid Tot Cell Count 0.498 H, Fld Polynuclear WBCs # 0.035, Fld Polynuclear WBCs % 10.3, Fluid Mononuclear WBCs 0.304, Fld Mononuclear WBCs % 89.7, Fluid Neutrophils 15, Fluid Lymphocytes 52, Fluid Monocytes 12, Fld Mesothelial Cells 21, Fl Pathologist Comment Reviewed, Fluid Comment 2 SEE COMMENT 08/15/18 12:45: Miscellaneous Cytology Pending 08/15/18 12:45: Fluid Color Cancelled, Fluid Appearance Cancelled, Fluid RBC Cancelled 08/15/18 12:45: Fluid Color Cancelled, Fluid Appearance Cancelled, Fluid WBC Cancelled 08/16/18 05:35: WBC 6.0, RBC 3.65 L, Hgb 11.8 L, Hct 36.5 L, MCV 100.0 H, MCH 32.3 H, MCHC 32.3, RDW 12.9, RDW Differential 47.1 H, Plt Count 318, MPV 9.2, Immature Gran % (Auto) 0.300, Neut % (Auto) 82.9 H, Lymph % (Auto) 12.3 L, [place] % (Auto) 4.5, Eos % (Auto) 0.0, Baso % (Auto) 0.0, Absolute Neuts (auto) 5.0, Absolute Lymphs (auto) 0.74 L, Total Counted Not Reportable 08/16/18 05:35: Sodium 142, Potassium 3.9, Chloride 94 L, Carbon Dioxide 41.0 H, Anion Gap 7, BUN 15, Creatinine 0.52 L, Estim Creat Clear Calc 47.10, Est GFR (MDRD) Af Amer 151, Est GFR (MDRD) Non-Af 125, BUN/Creatinine Ratio 29.1 H, Glucose 138 H, Calcium 8.4 L, Total Bilirubin 0.50, AST 70 H, ALT 271 H, Alkaline Phosphatase 99, Total Protein 6.0 L, Albumin 2.7 L, Globulin 3.3, Albumin/Globulin Ratio 0.8 L Current Medications Al Hydroxide/Mg Hydroxide (Mylanta Ii) 30 ml PO Q6H PRN PRN PRN Reason: Gastric burning Last Admin: 08/14/18 22:31 Dose: 30 ml Albuterol Sulfate (Ventolin Aerosols) 2.5 mg INHALATION Q2H PRN PRN PRN Reason: dyspnea, wheezing Last Admin: 08/14/18 09:37 Dose: 2.5 mg Albuterol/Ipratropium (Duoneb) 3 ml INHALATION Q4H.RT PRN PRN Reason: SOB &/OR WHEEZING Bisacodyl (Dulcolax) 10 mg RECTAL DAILY PRN PRN Reason: Constipation Last Admin: 08/15/18 22:05 Dose: 10 mg Enoxaparin Sodium (Lovenox) 40 mg SC DAILY@1000 [facility] Last Admin: 08/16/18 10:22 Dose: Not Given Furosemide (Lasix) 20 mg IV BID@1000,1800 [facility] Last Admin: 08/16/18 10:05 Dose: 20 mg Hydromorphone HCl (Dilaudid Inj) 0.5 mg IV Q3H PRN PRN PRN Reason: SEVERE PAIN (6-10/10) Last Admin: 08/16/18 08:09 Dose: 0.5 mg Pantoprazole Sodium 40 mg/ (Sodium Chloride) 110 mls @ 330 mls/hr IV Q12 [facility] Last Admin: 08/16/18 10:04 Dose: 330 mls/hr Lidocaine HCl (Xylocaine Viscous) 10 ml PO Q3H PRN PRN Reason: SORE THROAT Last Admin: 08/13/18 07:14 Dose: 10 ml Lorazepam (Ativan Intensol) 0.5 mg PO Q8H PRN PRN PRN Reason: ANXIETY Last Admin: 08/16/18 10:11 Dose: 0.5 mg Magnesium Hydroxide (Milk Of Magnesia) 30 ml PO DAILY PRN PRN PRN Reason: Constipation Last Admin: 08/15/18 22:05 Dose: 30 ml Methylprednisolone (Solu-Medrol) 40 mg IV Q8 [facility] Last Admin: 08/16/18 05:25 Dose: 40 mg Morphine Sulfate (Roxanol (Ir Oral Solution)) 10 mg SL/PO Q4H PRN PRN PRN Reason: SEVERE PAIN (6-10/10) Last Admin: 08/16/18 10:10 Dose: 10 mg Nystatin (Nystatin) 500,000 unit PO 4X/DAY [facility] Last Admin: 08/16/18 10:04 Dose: 500,000 unit Ondansetron HCl (Zofran) 4 mg IV Q6H PRN PRN PRN Reason: nausea, emesis Last Admin: 08/15/18 20:20 Dose: 4 mg Potassium Phos/Sodium Phos (Neutra-Phos Packet) 1 packet PO 4X/DAYCM [facility] Last Admin: 08/16/18 08:09 Dose: 1 packet Promethazine HCl (Phenergan) 12.5 mg IV Q4H PRN PRN PRN Reason: NAUSEA/VOMITING Sodium Chloride () 5 - 30 ml IV UD PRN PRN Reason: SALINE FLUSH Last Admin: 08/16/18 08:10 Dose: 10 ml Medical Necessity - Tobacco Use Smoking Status: Former smoker Tobacco Use: Non-smoker Assessment/Plan All Active Problems Vocal cord paralysis, unilateral complete (Acute) Radiation-induced esophagitis (Acute) 1. radiation esophagitis slightly improved today. IV PPI advance diet to regular 2. Dyspnea etiology yet unclear on empiric lasix echo pending continue BDs wean steroids pulm following. known VCD, ENT on consult 3. Pleural effusion transudative treat the underlying process 4. HFrEF EF 40% change lasix to PO start coreg start ACEi 5. Stage IV lung cancer, NSCLC completed palliative XRT to undergo chemo v experimental treatment per Dr. Luna after discharge consider palliative care consultation. 6. DVT proph: LMWH. Code Visit Inpatient E&M: 92218 Subs Hosp L2
--- NOTE | 2018-08-16 10:49 | PN_ITS ---
Patient Problems: Active and Suspected Problems Radiation-induced esophagitis (Acute) Subjective: Tolerating clear diet well. No N/V. Gets short of breath at times, but breathing fine at this time. Vitals/I&O's: Vital Signs Temp Pulse Resp BP Pulse Ox 36.7 C 94 20 H 145/78 H 94 08/16/18 10:00 08/16/18 10:00 08/16/18 10:00 08/16/18 10:00 08/16/18 10:00 Oxygen Flow Rate (L/min) 3 Oxygen Delivery Method Nasal Cannula Weight: 85.6 kg Body Mass Index (BMI) 31.4 Intake and Output for Last 24 Hours 08/14/18 08/15/18 08/16/18 23:59 23:59 23:59 Intake Total 3014 / 3014 490 / 490 240 / 240 Output Total 3150 / 3150 1420 / 1420 Balance -136 / -136 -930 / -930 240 / 240 General: Alert, No apparent distress HEENT: Atraumatic, Normocephalic Oral: Moist Mucosa, No Gingival or Mucosal Lesions/ Ulcerations Neck: No Nodes, Thyroid Normal Size and Texture Lungs: Diminished, Wheezes - upper respiratory Cardiovascular: Regular rate, Regular Rhythm, Normal S1, Normal S2, No murmurs Abdomen: Bowel Sounds Present, Soft, Non Tender, Non-Distended, No Hepato- splenomegaly Extremities: No edema, No Calf Tenderness Psych/Mental Status: Normal Affect, Appropriate Microbiology Past 72 Hours 08/15/18 12:45 Fluid - Thoracentesis Fluid Gram Stain - Final 08/15/18 12:45 Fluid - Thoracentesis Fluid Body Fluid Culture - Preliminary No growth-Final to follow 08/13/18 09:28 Mucosa - Nasopharyngeal Respiratory Panel (PCR) - Final Laboratory Results 08/15/18 12:45: Fluid Glucose 147 H, Fluid Total Protein 1.9, Fluid LDH 120 08/15/18 12:45: Fluid pH Pending 08/15/18 12:45: Fluid Source THORACENTESIS, Fluid Color LT YEL, Fluid Appearance SL CLDY, Fluid WBC 0.339, Fluid RBC 50, Fluid Tot Cell Count 0.498 H , Fld Polynuclear WBCs # 0.035, Fld Polynuclear WBCs % 10.3, Fluid Mononuclear WBCs 0.304, Fld Mononuclear WBCs % 89.7, Fluid Neutrophils 15, Fluid Lymphocytes 52, Fluid Monocytes 12, Fld Mesothelial Cells 21, Fl Pathologist Comment Reviewed, Fluid Comment 2 SEE COMMENT 08/15/18 12:45: Miscellaneous Cytology Pending 08/15/18 12:45: Fluid Color Cancelled, Fluid Appearance Cancelled, Fluid RBC Cancelled 08/15/18 12:45: Fluid Color Cancelled, Fluid Appearance Cancelled, Fluid WBC Cancelled 08/16/18 05:35: WBC 6.0, RBC 3.65 L, Hgb 11.8 L, Hct 36.5 L, MCV 100.0 H, MCH 32.3 H, MCHC 32.3, RDW 12.9, RDW Differential 47.1 H, Plt Count 318, MPV 9.2, Immature Gran % (Auto) 0.300, Neut % (Auto) 82.9 H, Lymph % (Auto) 12.3 L, [place] % (Auto) 4.5, Eos % (Auto) 0.0, Baso % (Auto) 0.0, Absolute Neuts (auto) 5.0, Absolute Lymphs (auto) 0.74 L, Total Counted Not Reportable 08/16/18 05:35: Sodium 142, Potassium 3.9, Chloride 94 L, Carbon Dioxide 41.0 H , Anion Gap 7, BUN 15, Creatinine 0.52 L, Estim Creat Clear Calc 47.10, Est GFR (MDRD) Af Amer 151, Est GFR (MDRD) Non-Af 125, BUN/Creatinine Ratio 29.1 H, Glucose 138 H, Calcium 8.4 L, Total Bilirubin 0.50, AST 70 H, ALT 271 H, Alkaline Phosphatase 99, Total Protein 6.0 L, Albumin 2.7 L, Globulin 3.3, Albumin/Globulin Ratio 0.8 L Current Medications Al Hydroxide/Mg Hydroxide (Mylanta Ii) 30 ml PO Q6H PRN PRN PRN Reason: Gastric burning Last Admin: 08/14/18 22:31 Dose: 30 ml Albuterol Sulfate (Ventolin Aerosols) 2.5 mg INHALATION Q2H PRN PRN PRN Reason: dyspnea, wheezing Last Admin: 08/14/18 09:37 Dose: 2.5 mg Albuterol/Ipratropium (Duoneb) 3 ml INHALATION Q4H.RT PRN PRN Reason: SOB &/OR WHEEZING Bisacodyl (Dulcolax) 10 mg RECTAL DAILY PRN PRN Reason: Constipation Last Admin: 08/15/18 22:05 Dose: 10 mg Enoxaparin Sodium (Lovenox) 40 mg SC DAILY@1000 SHELBY Last Admin: 08/16/18 10:22 Dose: Not Given Furosemide (Lasix) 20 mg IV BID@1000,1800 SHELBY Last Admin: 08/16/18 10:05 Dose: 20 mg Hydromorphone HCl (Dilaudid Inj) 0.5 mg IV Q3H PRN PRN PRN Reason: SEVERE PAIN (6-10/10) Last Admin: 08/16/18 08:09 Dose: 0.5 mg Pantoprazole Sodium 40 mg/ (Sodium Chloride) 110 mls @ 330 mls/hr IV Q12 [facility] Last Admin: 08/16/18 10:04 Dose: 330 mls/hr Lidocaine HCl (Xylocaine Viscous) 10 ml PO Q3H PRN PRN Reason: SORE THROAT Last Admin: 08/13/18 07:14 Dose: 10 ml Lorazepam (Ativan Intensol) 0.5 mg PO Q8H PRN PRN PRN Reason: ANXIETY Last Admin: 08/16/18 10:11 Dose: 0.5 mg Magnesium Hydroxide (Milk Of Magnesia) 30 ml PO DAILY PRN PRN PRN Reason: Constipation Last Admin: 08/15/18 22:05 Dose: 30 ml Methylprednisolone (Solu-Medrol) 40 mg IV Q8 [facility] Last Admin: 08/16/18 05:25 Dose: 40 mg Morphine Sulfate (Roxanol (Ir Oral Solution)) 10 mg SL/PO Q4H PRN PRN PRN Reason: SEVERE PAIN (6-10/10) Last Admin: 08/16/18 10:10 Dose: 10 mg Nystatin (Nystatin) 500,000 unit PO 4X/DAY [facility] Last Admin: 08/16/18 10:04 Dose: 500,000 unit Ondansetron HCl (Zofran) 4 mg IV Q6H PRN PRN PRN Reason: nausea, emesis Last Admin: 08/15/18 20:20 Dose: 4 mg Potassium Phos/Sodium Phos (Neutra-Phos Packet) 1 packet PO 4X/DAYCM [facility] Last Admin: 08/16/18 08:09 Dose: 1 packet Promethazine HCl (Phenergan) 12.5 mg IV Q4H PRN PRN PRN Reason: NAUSEA/VOMITING Sodium Chloride () 5 - 30 ml IV UD PRN PRN Reason: SALINE FLUSH Last Admin: 08/16/18 08:10 Dose: 10 ml Medical Necessity - Tobacco Use Smoking Status: Former smoker Tobacco Use: Non-smoker Assessment/Plan All Active Problems Vocal cord paralysis, unilateral complete (Acute) Radiation-induced esophagitis (Acute) 1. radiation esophagitis * slightly improved today. * IV PPI * advance diet to regular 2. Dyspnea * etiology yet unclear * on empiric lasix * echo pending * continue BDs * wean steroids * pulm following. * known VCD, ENT on consult 3. Pleural effusion * transudative * treat the underlying process 4. HFrEF * EF 40% * change lasix to PO * start coreg * start ACEi 5. Stage IV lung cancer, NSCLC * completed palliative XRT * to undergo chemo v experimental treatment per Dr. Luna after discharge * consider palliative care consultation. 6. DVT proph: LMWH. Code Visit Inpatient E&M: 01027 Subs Hosp L2
--- NOTE | 2018-08-16 12:30 | PCM.CONS.GEN ---
Problem List (1) Vocal cord paralysis, unilateral complete Status: Acute Reason for Consult Date of Consultation: 08/16/18 History of Present Illness: The patient is a 68 year old F with metastatic lung cancer who presented to my office with dypnea/dysphagia in may of this year. laryngoscopy revealed right TVC paralysis, left mobile. roughly 7 weeks ago, she underwent medialization of her right vocal cord to improve voice and swallowing. she did well postoperatively. based on the notes, she had increased dyspnea and the staff wanted an evaluation of her airway. Past Medical History Past Medical History (Chronic Problems): Chronic Problems Metastatic primary lung cancer (Chronic) History of tobacco use (Chronic) Obesity (BMI 30.0-34.9) (Chronic) Allergies Sulfa (Sulfonamide Antibiotics) Allergy (Verified 08/11/18 13:09) Hives Home Medications: Ambulatory Orders Medication Instructions Recorded Albuterol Inhaler [Ventolin Hfa 2 puff INHALATION Q6H PRN PRN 06/17/18 (SP)] Calcium Carb/Mag Ox/Zinc Sulf 1 each PO BID 06/17/18 [Vqrwsqh-Vnxtkxzuy-Exzx Tablet] Cholecalciferol (Vitamin D3) 10,000 unit PO DAILY 06/17/18 [Vitamin D3] Fluticasone 0.05% [Flonase Nasal 1 spray NASAL BID 06/17/18 [place]] Gabapentin [Neurontin] 300 mg PO BID 06/17/18 Glucosamine Sulf/Chondroitin A 1 capsule PO DAILY 06/17/18 [Glucosamine-Chondroitin Cap] Multivitamin [Multiple Vitamins] 1 each PO DAILY 06/17/18 [place]-3 Fatty Acids/Fish Oil [Fish 1 each PO DAILY 06/17/18 Oil 1,000 mg Capsule] Vitamin B Complex 1 capsule PO DAILY 06/17/18 Vitamin E 400 unit PO DAILY 06/17/18 proMETHazine tablet [Phenergan] 25 mg PO Q6H PRN PRN #10 tab 08/04/18 traMADol [Ultram] 50 mg PO Q6H PRN PRN 08/11/18 Surgical History: - - Lymph node biopsy, lumbar back surgery with hardware, tonsillectomy, bilateral tubal ligation. Psychiatric History: No pertinent psych hx DIRECTOR TALENT ACQUISITION History: No pertinent DIRECTOR TALENT ACQUISITION history Lives: Spouse/ Significant Other Smoking Status: Former smoker Tobacco Use: Non-smoker Alcohol: Occasional - Patient notes 1-2 cocktail drinks after work daily. Drugs: None - *Family History Maternal History Items: - - Patient notes a maternal family history of hypertension, bladder cancer as well as lung cancer with tobacco use history. Paternal History Items: - - Patient notes a paternal family history of colon cancer. Review of Systems HEENT: Denies: Head Aches, Sinus Congestion, Sinus Drainage Cardiovascular: Denies: Chest Pain, Palpitations Patient Problems: Active and Suspected Problems Radiation-induced esophagitis (Acute) - Physical Exam General: Alert, Oriented x3, Cooperative HEENT: Atraumatic, PERRLA, EOMI, Normocephalic Neck: - - bilateral lymphadenopathy Vital Signs Temp Pulse Resp BP Pulse Ox 98.1 F 94 20 H 145/78 H 94 08/16/18 10:00 08/16/18 10:00 08/16/18 10:00 08/16/18 10:00 08/16/18 10:00 Oxygen Flow Rate (L/min) 3 Oxygen Delivery Method Nasal Cannula Weight: 85.6 kg Body Mass Index (BMI) 31.4 Intake and Output for Last 24 Hours 08/14/18 08/15/18 08/16/18 23:59 23:59 23:59 Intake Total 3014 / 3014 490 / 490 240 / 240 Output Total 3150 / 3150 1420 / 1420 Balance -136 / -136 -930 / -930 240 / 240 Microbiology Past 72 Hours 08/15/18 12:45 Gram Stain - Final Fluid - Thoracentesis Fluid Body Fluid Culture - Preliminary No growth-Final to follow 08/13/18 09:28 Respiratory Panel (PCR) - Final Mucosa - Nasopharyngeal Laboratory Tests Past 24 Hrs 08/15/18 08/15/18 08/15/18 12:45 12:45 12:45 WBC RBC Hgb Hct MCV MCH MCHC RDW RDW Differential Plt Count MPV Immature Gran % (Auto) Neut % (Auto) Lymph % (Auto) [place] % (Auto) Eos % (Auto) Baso % (Auto) Absolute Neuts (auto) Absolute Lymphs (auto) Total Counted Sodium Potassium Chloride Carbon Dioxide Anion Gap BUN Creatinine Estim Creat Clear Calc Est GFR (MDRD) Af Amer Est GFR (MDRD) Non-Af BUN/Creatinine Ratio Glucose Calcium Total Bilirubin AST ALT Alkaline Phosphatase Total Protein Albumin Globulin Albumin/Globulin Ratio Fluid Source THORACENTESIS Fluid Color LT YEL Fluid Appearance SL CLDY Fluid pH Pending Fluid WBC 0.339 Fluid RBC 50 Fluid Tot Cell Count 0.498 H Fld Polynuclear WBCs # 0.035 Fld Polynuclear WBCs % 10.3 Fluid Mononuclear WBCs 0.304 Fld Mononuclear WBCs % 89.7 Fluid Neutrophils 15 Fluid Lymphocytes 52 Fluid Monocytes 12 Fld Mesothelial Cells 21 Fl Pathologist Comment Reviewed Fluid Glucose 147 H Fluid Total Protein 1.9 Fluid LDH 120 Fluid Comment 2 SEE COMMENT Miscellaneous Cytology 08/15/18 08/15/18 08/15/18 12:45 12:45 12:45 WBC RBC Hgb Hct MCV MCH MCHC RDW RDW Differential Plt Count MPV Immature Gran % (Auto) Neut % (Auto) Lymph % (Auto) [place] % (Auto) Eos % (Auto) Baso % (Auto) Absolute Neuts (auto) Absolute Lymphs (auto) Total Counted Sodium Potassium Chloride Carbon Dioxide Anion Gap BUN Creatinine Estim Creat Clear Calc Est GFR (MDRD) Af Amer Est GFR (MDRD) Non-Af BUN/Creatinine Ratio Glucose Calcium Total Bilirubin AST ALT Alkaline Phosphatase Total Protein Albumin Globulin Albumin/Globulin Ratio Fluid Source Fluid Color Cancelled Cancelled Fluid Appearance Cancelled Cancelled Fluid pH Fluid WBC Cancelled Fluid RBC Cancelled Fluid Tot Cell Count Fld Polynuclear WBCs # Fld Polynuclear WBCs % Fluid Mononuclear WBCs Fld Mononuclear WBCs % Fluid Neutrophils Fluid Lymphocytes Fluid Monocytes Fld Mesothelial Cells Fl Pathologist Comment Fluid Glucose Fluid Total Protein Fluid LDH Fluid Comment 2 Miscellaneous Cytology Pending 08/16/18 08/16/18 05:35 05:35 WBC 6.0 RBC 3.65 L Hgb 11.8 L Hct 36.5 L MCV 100.0 H MCH 32.3 H MCHC 32.3 RDW 12.9 RDW Differential 47.1 H Plt Count 318 MPV 9.2 Immature Gran % (Auto) 0.300 Neut % (Auto) 82.9 H Lymph % (Auto) 12.3 L [place] % (Auto) 4.5 Eos % (Auto) 0.0 Baso % (Auto) 0.0 Absolute Neuts (auto) 5.0 Absolute Lymphs (auto) 0.74 L Total Counted Not Reportable Sodium 142 Potassium 3.9 Chloride 94 L Carbon Dioxide 41.0 H Anion Gap 7 BUN 15 Creatinine 0.52 L Estim Creat Clear Calc 47.10 Est GFR (MDRD) Af Amer 151 Est GFR (MDRD) Non-Af 125 BUN/Creatinine Ratio 29.1 H Glucose 138 H Calcium 8.4 L Total Bilirubin 0.50 AST 70 H ALT 271 H Alkaline Phosphatase 99 Total Protein 6.0 L Albumin 2.7 L Globulin 3.3 Albumin/Globulin Ratio 0.8 L Fluid Source Fluid Color Fluid Appearance Fluid pH Fluid WBC Fluid RBC Fluid Tot Cell Count Fld Polynuclear WBCs # Fld Polynuclear WBCs % Fluid Mononuclear WBCs Fld Mononuclear WBCs % Fluid Neutrophils Fluid Lymphocytes Fluid Monocytes Fld Mesothelial Cells Fl Pathologist Comment Fluid Glucose Fluid Total Protein Fluid LDH Fluid Comment 2 Miscellaneous Cytology Assessment/Plan All Active Problems Vocal cord paralysis, unilateral complete (Acute) Radiation-induced esophagitis (Acute) 68 year old female with metastatic lung cancer and subsequent right vocal cord paralysis, s/p right vocal cord medialization -repeat laryngoscopy demonstrates right medialized cord, left mobile - airway widely patent -patient denies significant dysphagia (drastic improvement after injection). if she is tolerating liquids without significant coughing spells, i would have her follow up in my office after discharge. if she has any aspiration symptoms, we can always perform a swallow study with potential re-injection. however, she was a difficult injection to begin with, and given her current diagnosis - taking her to the operating room should be on an as-needed basis given the risks at hand. -her vocal cords are not attributing to any dyspnea
--- NOTE | 2018-08-16 12:43 | PCM.OPRPT ---
Problem List (1) Vocal cord paralysis, unilateral complete Status: Acute Report of Operation Date of Procedure: 08/16/18 Pre-Operative Diagnosis: dyspnea, dysphagia Post-Operative Diagnosis: dyspnea, dysphagia Surgery/Procedure Performed:: flexible laryngoscopy Type of Anesthesia:: None Description of Procedure: the flexible laryngoscope was inserted transorally given the size of the scope. the right vocal cord is medialized and the left is mobile. there are no additional lesions or mucosal irregularities. the oropharynx, larynx, hypopharynx and visualized subglottis are otherwise normal.
--- NOTE | 2018-08-16 12:56 | NURSING ---
ent specialist saw pt at bedside
--- NOTE | 2018-08-16 14:41 | PCM.DC ---
- Discharge Diagnoses Current Active Problems: Current Active and Chronic Problems Metastatic primary lung cancer (Chronic) History of tobacco use (Chronic) Obesity (BMI 30.0-34.9) (Chronic) Radiation-induced esophagitis (Acute) You will use the following diet at home:: No restrictions Your food should be the consistency of: Regular Your liquids should be the consistency of: Regular/Thin Call your doctor if you observe: Fever of 101 or Higher, Inability to urinate, Shortness of breath Allergies/Adverse Reactions: Allergies Sulfa (Sulfonamide Antibiotics) Allergy (Verified 08/11/18 13:09) Hives Medications to take at Discharge Albuterol Inhaler [Ventolin Hfa] 2 puff INHALATION Q6H PRN PRN 06/17/18 Calcium Carb/Mag Ox/Zinc Sulf [Kjgqoeb-Ytclcmvrd-Jasu Tablet] 1 each PO BID 06/17/18 Cholecalciferol (Vitamin D3) [Vitamin D3] 10,000 unit PO DAILY 06/17/18 Fluticasone 0.05% [Flonase Nasal [place]] 1 spray NASAL BID 06/17/18 Gabapentin [Neurontin] 300 mg PO BID 06/17/18 Glucosamine Sulf/Chondroitin A [Glucosamine-Chondroitin Cap] 1 capsule PO DAILY 06/17/18 Multivitamin [Multiple Vitamins] 1 each PO DAILY 06/17/18 [place]-3 Fatty Acids/Fish Oil [Fish Oil 1,000 mg Capsule] 1 each PO DAILY 06/17/18 Vitamin B Complex 1 capsule PO DAILY 06/17/18 Vitamin E 400 unit PO DAILY 06/17/18 proMETHazine tablet [Phenergan tablet] 25 mg PO Q6H PRN PRN #10 tab 08/04/18 Albuterol Aerosols [Ventolin Aerosols] 2.5 mg INHALATION Q2H PRN PRN #30 vial.neb. 08/16/18 Carvedilol [Coreg (Beta Cisco)] 6.25 mg PO BID #60 tab 08/16/18 Furosemide [Lasix] 40 mg PO DAILY #30 tab 08/16/18 Lidocaine 2% Viscous [Xylocaine Viscous] 10 ml PO Q3H PRN #30 udc 08/16/18 Lisinopril [Zestril] 10 mg PO DAILY #30 tab 08/16/18 Lorazepam Intensol [Ativan Intensol] 0.5 mg PO Q8H PRN PRN 3 Days #1 bottle 08/16/18 Nystatin 500,000 unit PO 4X/DAY #20 udc 08/16/18 Pantoprazole Sodium [Protonix] 40 mg PO DAILY #30 tab 08/16/18 morphine solution (IR) [Roxanol (IR oral solution)] 10 mg SL/PO Q4H PRN PRN 3 Days #18 po.syringe 08/16/18 The following prescriptions were given: Albuterol Aerosols [Ventolin Aerosols] 2.5 mg INHALATION Q2H PRN PRN #30 vial.neb. PRN Reason: dyspnea, wheezing morphine solution (IR) [Roxanol (IR oral solution)] 10 mg SL/PO Q4H PRN PRN 3 Days #18 po.syringe PRN Reason: Severe Pain (-09/07) Lorazepam Intensol [Ativan Intensol] 0.5 mg PO Q8H PRN PRN 3 Days #1 bottle PRN Reason: ANXIETY Furosemide [Lasix] 40 mg PO DAILY #30 tab Lidocaine 2% Viscous [Xylocaine Viscous] 10 ml PO Q3H PRN #30 udc PRN Reason: SORE THROAT Lisinopril [Zestril] 10 mg PO DAILY #30 tab Pantoprazole Sodium [Protonix] 40 mg PO DAILY #30 tab Carvedilol [Coreg (Beta Cisco)] 6.25 mg PO BID #60 tab Nystatin 500,000 unit PO 4X/DAY #20 udc Primary Care Physician: Lai Meadows MD [Primary Care Provider] - Within 2 Weeks Test Results: Test results from this visit will be discussed in further detail at your follow-up appointment, if applicable. Please Follow Up With: Lai Luna DO When: 1 week Proposed Discharge Date: 08/16/18
--- NOTE | 2018-08-16 14:42 | PCM.DC.SUM ---
Discharge Date and Diagnosis - Problem List Patient Problems: Active and Suspected Problems Radiation-induced esophagitis (Acute) Date of Admission: 08/11/18 Date of Discharge: 08/16/18 - Primary Discharge Diagnosis Active and Suspected Problems Radiation-induced esophagitis (Acute) - Secondary Discharge Diagnosis Chronic Problems Metastatic primary lung cancer (Chronic) History of tobacco use (Chronic) Obesity (BMI 30.0-34.9) (Chronic) Hospital Course and Treatment Imaging Results: Clinical Impression(s) from Imaging Studies Liver Ultrasound 08/11/18 16:22 IMPRESSION: 1. Gallbladder sludge. No evidence of acute cholecystitis. Electronically Signed: Bhavana Rosen MD at 19:21 EDT Tel , Service support , Chest X-Ray 08/11/18 18:20 IMPRESSION: 1. Mild fibrotic changes on the right. If the patient has received radiation to the right hilar region, this may represent post radiation scarring. Otherwise, pneumonia or recurrence should be considered. Electronically Signed: Bhavana Rosen MD at 18:46 EDT Tel , Service support , Chest CT 08/13/18 06:54 IMPRESSION: Right middle lower lobe airspace disease with consolidation and effusions. Mild interstitial edema. Cardiomegaly. Elevated right hemidiaphragm. Stable mediastinal and hilar lymphadenopathy Electronically Signed: Sergio Willis DO at 9:29 EDT Tel , Service support , Chest X-Ray 08/14/18 09:46 IMPRESSION: 1. Volume loss in the right lung with elevated hemidiaphragm, pleural effusion and atelectasis. 2. Small left pleural effusion and atelectasis. 3. Borderline cardiomegaly. Electronically Signed: Willie Fisher DO at 10:57 EDT Tel [phone], Service support , Thoracentesis Ultrasound 08/15/18 10:20 IMPRESSION: Ultrasound-guided right thoracentesis. Electronically Signed: Emanuel Escobedo MD at 14:25 EDT Tel [phone], Service support , Chest X-Ray 08/15/18 12:55 IMPRESSION: Status post right thoracentesis. There is no evidence of pneumothorax. Electronically Signed: Emanuel Escobedo MD at 13:49 EDT Tel [phone], Service support , Mark Luna Procedures: 2-D Echocardiogram, - - flexible laryngoscopy Summary of Care Provided: The patient is a 68 year old F presents with shortness of breath. 1. radiation esophagitis slightly improved today. IV PPI advance diet to regular 2. Acute hypoxic respiratory failure etiology yet unclear on empiric lasix echo pending continue BDs wean steroids pulm following. known VCD, ENT saw and did flexible larygoscopy and showed no VCD at this time. May be due to pulmonary mass. Dr. Luna to refer to pulm as outpt and may require bronch and biopsy. Patient's pulse ox dropped to 87% on room. Will require oxygen continuously at 2-3 liters/min. 3. Pleural effusion transudative treat the underlying process, CHF s/p thoracentesis. 4. HFrEF EF 40% change lasix to PO start coreg start ACEi 5. Stage IV lung cancer, NSCLC completed palliative XRT to undergo chemo v experimental treatment per Dr. Luna after discharge consider palliative care consultation. [] Discharge Diet: Low fat/ Low Cholesterol, 6 Cup Fluid Restriction, 2000 mg Sodium Diet Discharge Activity: Return to Normal Activity Call your doctor if you observe: Fever of 101 or Higher, Inability to urinate, Shortness of breath Home Medications: Medications to take at Discharge Albuterol Inhaler [Ventolin Hfa] 2 puff INHALATION Q6H PRN PRN 06/17/18 Calcium Carb/Mag Ox/Zinc Sulf [Vhqvdkj-Psfdqeadm-Aydr Tablet] 1 each PO BID 06/17/18 Cholecalciferol (Vitamin D3) [Vitamin D3] 10,000 unit PO DAILY 06/17/18 Fluticasone 0.05% [Flonase Nasal [place]] 1 spray NASAL BID 06/17/18 Gabapentin [Neurontin] 300 mg PO BID 06/17/18 Glucosamine Sulf/Chondroitin A [Glucosamine-Chondroitin Cap] 1 capsule PO DAILY 06/17/18 Multivitamin [Multiple Vitamins] 1 each PO DAILY 06/17/18 [place]-3 Fatty Acids/Fish Oil [Fish Oil 1,000 mg Capsule] 1 each PO DAILY 06/17/18 Vitamin B Complex 1 capsule PO DAILY 06/17/18 Vitamin E 400 unit PO DAILY 06/17/18 proMETHazine tablet [Phenergan tablet] 25 mg PO Q6H PRN PRN #10 tab 08/04/18 Albuterol Aerosols [Ventolin Aerosols] 2.5 mg INHALATION Q2H PRN PRN #30 vial.neb. 08/16/18 Carvedilol [Coreg (Beta [employer])] 6.25 mg PO BID #60 tab 08/16/18 Furosemide [Lasix] 40 mg PO DAILY #30 tab 08/16/18 Lidocaine 2% Viscous [Xylocaine Viscous] 10 ml PO Q3H PRN #30 udc 08/16/18 Lisinopril [Zestril] 10 mg PO DAILY #30 tab 08/16/18 Lorazepam Intensol [Ativan Intensol] 0.5 mg PO Q8H PRN PRN 3 Days #1 bottle 08/16/18 Nystatin 500,000 unit PO 4X/DAY #20 udc 08/16/18 Pantoprazole Sodium [Protonix] 40 mg PO DAILY #30 tab 08/16/18 morphine solution (IR) [Roxanol (IR oral solution)] 10 mg SL/PO Q4H PRN PRN 3 Days #18 po.syringe 08/16/18 Following Prescrptions Were Given to Patient: Albuterol Aerosols [Ventolin Aerosols] 2.5 mg INHALATION Q2H PRN PRN #30 vial.neb. PRN Reason: dyspnea, wheezing morphine solution (IR) [Roxanol (IR oral solution)] 10 mg SL/PO Q4H PRN PRN 3 Days #18 po.syringe PRN Reason: Severe Pain (6-10/10) Lorazepam Intensol [Ativan Intensol] 0.5 mg PO Q8H PRN PRN 3 Days #1 bottle PRN Reason: ANXIETY Furosemide [Lasix] 40 mg PO DAILY #30 tab Lidocaine 2% Viscous [Xylocaine Viscous] 10 ml PO Q3H PRN #30 udc PRN Reason: SORE THROAT Lisinopril [Zestril] 10 mg PO DAILY #30 tab Pantoprazole Sodium [Protonix] 40 mg PO DAILY #30 tab Carvedilol [Coreg (Beta [employer])] 6.25 mg PO BID #60 tab Nystatin 500,000 unit PO 4X/DAY #20 udc Primary Care Physician: Lai Meadows MD [Primary Care Provider] - Within 2 Weeks Please Follow Up With: Lai Luna DO When: 1 week Disposition: Home Minutes spent on discharge:: 40 Patient Condition:: Stable Medical Necessity - Tobacco Use Smoking Status: Former smoker Tobacco Use: Non-smoker Meaningful Use Info Meaningful Use Diagnoses (Choose all that apply): CHF - CHF RICARDO/ARB ordered at discharge?: Yes Documented LVEF (%): 40 Code Visit Inpatient E&M: 19521 Disch Hosp
--- NOTE | 2018-08-16 14:47 | DS.PCM_ITS ---
Discharge Date and Diagnosis - Problem List Patient Problems: Active and Suspected Problems Radiation-induced esophagitis (Acute) Date of Admission: 08/11/18 Date of Discharge: 08/16/18 - Primary Discharge Diagnosis Active and Suspected Problems Radiation-induced esophagitis (Acute) - Secondary Discharge Diagnosis Chronic Problems Metastatic primary lung cancer (Chronic) History of tobacco use (Chronic) Obesity (BMI 30.0-34.9) (Chronic) Hospital Course and Treatment Imaging Results: Clinical Impression(s) from Imaging Studies Liver Ultrasound 08/11/18 16:22 IMPRESSION: 1. Gallbladder sludge. No evidence of acute cholecystitis. Electronically Signed: Bhavana Rosen MD at 19:21 EDT Tel , Service support , Chest X-Ray 08/11/18 18:20 IMPRESSION: 1. Mild fibrotic changes on the right. If the patient has received radiation to the right hilar region, this may represent post radiation scarring. Otherwise, pneumonia or recurrence should be considered. Electronically Signed: Bhavana Rosen MD at 18:46 EDT Tel , Service support , Chest CT 08/13/18 06:54 IMPRESSION: Right middle lower lobe airspace disease with consolidation and effusions. Mild interstitial edema. Cardiomegaly. Elevated right hemidiaphragm. Stable mediastinal and hilar lymphadenopathy Electronically Signed: Sergio Willis DO at 9:29 EDT Tel , Service support , Chest X-Ray 08/14/18 09:46 IMPRESSION: 1. Volume loss in the right lung with elevated hemidiaphragm, pleural effusion and atelectasis. 2. Small left pleural effusion and atelectasis. 3. Borderline cardiomegaly. Electronically Signed: Willie Fisher DO at 10:57 EDT Tel [phone], Service support , Thoracentesis Ultrasound 08/15/18 10:20 IMPRESSION: Ultrasound-guided right thoracentesis. Electronically Signed: Emanuel Escobedo MD at 14:25 EDT Tel [phone], Service support , Chest X-Ray 08/15/18 12:55 IMPRESSION: Status post right thoracentesis. There is no evidence of pneumothorax. Electronically Signed: Emanuel Escobedo MD at 13:49 EDT Tel [phone], Service support , Mark Luna Procedures: 2-D Echocardiogram, - - flexible laryngoscopy Summary of Care Provided: The patient is a 68 year old F presents with shortness of breath. 1. radiation esophagitis * slightly improved today. * IV PPI * advance diet to regular 2. Acute hypoxic respiratory failure * etiology yet unclear * on empiric lasix * echo pending * continue BDs * wean steroids * pulm following. * known VCD, ENT saw and did flexible larygoscopy and showed no VCD at this time. * May be due to pulmonary mass. Dr. Luna to refer to pulm as outpt and may require bronch and biopsy. * Patient's pulse ox dropped to 87% on room. Will require oxygen continuously at 2-3 liters/min. 3. Pleural effusion * transudative * treat the underlying process, CHF * s/p thoracentesis. 4. HFrEF * EF 40% * change lasix to PO * start coreg * start ACEi 5. Stage IV lung cancer, NSCLC * completed palliative XRT * to undergo chemo v experimental treatment per Dr. Luna after discharge * consider palliative care consultation. [] Discharge Diet: Low fat/ Low Cholesterol, 6 Cup Fluid Restriction, 2000 mg Sodium Diet Discharge Activity: Return to Normal Activity Call your doctor if you observe: Fever of 101 or Higher, Inability to urinate, Shortness of breath Home Medications: Medications to take at Discharge Albuterol Inhaler [Ventolin Hfa] 2 puff INHALATION Q6H PRN PRN 06/17/18 Calcium Carb/Mag Ox/Zinc Sulf [Sfalijj-Jybtpcooc-Fixi Tablet] 1 each PO BID Cholecalciferol (Vitamin D3) [Vitamin D3] 10,000 unit PO DAILY 06/17/18 Fluticasone 0.05% [Flonase Nasal Shanks] 1 spray NASAL BID 06/17/18 Gabapentin [Neurontin] 300 mg PO BID 06/17/18 Glucosamine Sulf/Chondroitin A [Glucosamine-Chondroitin Cap] 1 capsule PO DAILY 06/17/18 Multivitamin [Multiple Vitamins] 1 each PO DAILY 06/17/18 Phil Campbell-3 Fatty Acids/Fish Oil [Fish Oil 1,000 mg Capsule] 1 each PO DAILY Vitamin B Complex 1 capsule PO DAILY 06/17/18 Vitamin E 400 unit PO DAILY 06/17/18 proMETHazine tablet [Phenergan tablet] 25 mg PO Q6H PRN PRN #10 tab 08/04/18 Albuterol Aerosols [Ventolin Aerosols] 2.5 mg INHALATION Q2H PRN PRN #30 vial.neb. 08/16/18 Carvedilol [Coreg (Beta Cisco)] 6.25 mg PO BID #60 tab 08/16/18 Furosemide [Lasix] 40 mg PO DAILY #30 tab 08/16/18 Lidocaine 2% Viscous [Xylocaine Viscous] 10 ml PO Q3H PRN #30 udc 08/16/18 Lisinopril [Zestril] 10 mg PO DAILY #30 tab 08/16/18 Lorazepam Intensol [Ativan Intensol] 0.5 mg PO Q8H PRN PRN 3 Days #1 bottle Nystatin 500,000 unit PO 4X/DAY #20 udc 08/16/18 Pantoprazole Sodium [Protonix] 40 mg PO DAILY #30 tab 08/16/18 morphine solution (IR) [Roxanol (IR oral solution)] 10 mg SL/PO Q4H PRN PRN 3 Days #18 po.syringe 08/16/18 Following Prescrptions Were Given to Patient: Albuterol Aerosols [Ventolin Aerosols] 2.5 mg INHALATION Q2H PRN PRN #30 vial.neb. PRN Reason: dyspnea, wheezing morphine solution (IR) [Roxanol (IR oral solution)] 10 mg SL/PO Q4H PRN PRN 3 Days #18 po.syringe PRN Reason: Severe Pain (6-10/10) Lorazepam Intensol [Ativan Intensol] 0.5 mg PO Q8H PRN PRN 3 Days #1 bottle PRN Reason: ANXIETY Furosemide [Lasix] 40 mg PO DAILY #30 tab Lidocaine 2% Viscous [Xylocaine Viscous] 10 ml PO Q3H PRN #30 udc PRN Reason: SORE THROAT Lisinopril [Zestril] 10 mg PO DAILY #30 tab Pantoprazole Sodium [Protonix] 40 mg PO DAILY #30 tab Carvedilol [Coreg (Beta Cisco)] 6.25 mg PO BID #60 tab Nystatin 500,000 unit PO 4X/DAY #20 udc Primary Care Physician: Lai Meadows MD [Primary Care Provider] - Within 2 Weeks Please Follow Up With: Lai Luna DO When: 1 week Disposition: Home Minutes spent on discharge:: 40 Patient Condition:: Stable Medical Necessity - Tobacco Use Smoking Status: Former smoker Tobacco Use: Non-smoker Meaningful Use Info Meaningful Use Diagnoses (Choose all that apply): CHF - CHF RICARDO/ARB ordered at discharge?: Yes Documented LVEF (%): 40 Code Visit Inpatient E&M: 95944 Disch Hosp
[2018-08-16 16:09] LABS: Hepatitis A AB, Total Positive (Negative); Hepatitis A IgM Antibody Negative (Negative); Hepatitis B Core AB IgM Negative (Negative); Hepatitis B Core Ab Total Negative (Negative); Hepatitis C Ab 0.1 s/co ratio (0.0-0.9)
--- NOTE | 2018-08-16 16:15 | CASEMGMT ---
TORITO HUNT received update that patient qualified for home oxygen. Patient also requiring nebulizer. TORITO HUNT obtained script for oxygen and nebulizer from hospitalist. TORITO HUNT sent referral to [facility], patient's preferred DME. TORITO HUNT arranged for portable oxygen to be delivered to hospital.
[2018-08-17 15:01] LABS: pH, Body Fluid 11254 7.6 (Not Estab.)
--- NOTE | 2018-08-17 16:13 | CASEMGMT ---
RN CM Discharge Follow-up Phone Call: SURESH: Marco Strata: 4 Call Date: 08/17/18 Discharge Date: 08/16/18 Time of Call: 1618 Duration: 5 min Admitting Diagnosis: Vomiting, radiation esophagitis RN CM completed follow-up phone call regarding recent hospitalization. Patient states that it is touch and go. Oxygen and nebulizer were delivered to home without any issues. Patient preferred I speak with . asked question regarding Nystatin instructions and RN GILBERT answered his question. states that there was an issue with patient's morphine prescription and [facility] nurse took care of it. Patient has follow-up appts scheduled. has no further questions.
== END 2018-08-16 16:00 | disposition home or self-care (01) | DRG 391 ==
LOC: ED 15:46 → MS3 15:48
PROVIDERS: Student in an Organized Health Care Education/Training Program; Admitting Provider Family Medicine; Emergency Provider Emergency Medicine; Family Provider Family Medicine; PCP Family Medicine
DX: K20.8 Other esophagitis (principal); J96.01 Acute respiratory failure with hypoxia; I50.20 Unspecified systolic (congestive) heart failure; J91.8 Pleural effusion in other conditions classified elsewhere; C34.91 Malignant neoplasm of unspecified part of right bronchus or lung; C77.0 Secondary and unspecified malignant neoplasm of lymph nodes of head, face and neck; Y84.2 Radiological procedure and radiotherapy as the cause of abnormal reaction of the patient, or of later complication, without mention of misadventure at the time of the procedure; E66.9 Obesity, unspecified; Z68.31 Body mass index [BMI] 31.0-31.9, adult; Z87.891 Personal history of nicotine dependence; E86.0 Dehydration
CPT/HCPCS: 32555; 36415; 71046; 71250; 76705; 80048; 80053; 80076; 82945; 83615; 83690; 83735; 83986; 84100; 84156; 84157; 85025; 85610; 85730; 86704; 86705; 86706; 86708; 86709; 86803; 87070; 87075; 87205; 87340; 87633; 88108; 88305; 88313; 88341; 88342; 89050; 92507; 92526; 93306; 94640; 96374; 96375; 97802; 99283; 99285; J7030; Q9957; A4216; C8929; J1940; J2405

== ENCOUNTER 2018-08-18 17:56 | Inpatient (IN) | payer MEDICARE, OTHER, SELFPAY ==
[2018-08-18 17:57] VITALS: BP 108/42; PULSE 94; RESP 18; TEMP 36.9; O2SAT 94; BMI 29.9
[2018-08-18 18:07] VITALS: BP 134/67; PULSE 95; RESP 18; O2SAT 95
--- NOTE | 2018-08-18 18:55 | RAD_ITS ---
STUDY: X-RAY CHEST REASON FOR EXAM: Female, 68 years old. Increasing weakness, collapsed in shower today TECHNIQUE: AP COMPARISON: 08/15/2018 chest x-ray, 08/13/[address] FINDINGS: Persistent volume loss of the right upper and lower lobes with opacity extending from the right hilum up into the right upper lobe. Suspect small subpleural effusion evident on prior CT. Normal size heart. Normal mediastinum and subha. Normal visualized pulmonary arteries. There is atherosclerotic tortuosity of the aortic arch and descending thoracic aorta. No acute bony process. There is no demonstrated abnormality of the visualized soft tissue structures of the upper abdomen. RAD/Chest 1 View (Portable) IMPRESSION: 1. Stable exam. Right upper and lower lobe volume loss, possibly postobstructive atelectasis or pneumonia. 2. Similar volume right and left pleural effusions since prior chest CT (reaccumulated following thoracentesis). Electronically Signed: Gautam Loera MD at 19:18 EDT , Service support ,
[2018-08-18] MEDS: Ondansetron 4 MG/2 ML Vial IV (19:12)
[2018-08-18] MEDS: 0.9% Normal Saline 1,000 ML 1000 ML IV (19:12)
[2018-08-18] MEDS: Morphine 4 MG/ML Syringe IV (19:13)
[2018-08-18 19:38] LABS: Absolute Lymphocyte Count 0.67 X10^3/ul (0.83-4.51); Absolute Neutrophil Count 7.6 X10^3/uL (2.0-7.7); Basophil# 0.01 X10^3/uL; Basophil% 0.1 % (0-1); Eosinophil# 0.05 X10^3/uL; Eosinophils% 0.6 % (0-5); Hematocrit 42.3 % (37-47); Hemoglobin 13.9 g/dl (12.0-15.0); Lymphocyte # 0.67 X10^3/ul (4.0); Lymphocyte % 7.6 % (19-41); Mean Corp Hgb Conc 32.9 g/gl (32-36); Mean Corpuscular Hgb 31.6 pg (27.0-32.0); Mean Corpuscular Volume 96.1 fL (81-99); Monocyte# 0.54 X10^3/uL; Monocyte% 6.1 % (0-10); Neutrophil # 7.55 X10^3/uL (2.7-7.7); Neutrophil % 85.4 % (47-70); Platelet Count 343 K/mm3 (150-450); RBC Distribution Width CV 12.6 % (11.6-14.6); RBC Distribution Width SD 44.1 fl (35.1-43.9); White Blood Count 8.8 K/mm3 (4.4-11.0)
[2018-08-18 19:39] LABS: POSITIVE COUNT NO; POSITIVE DIFFERENTIAL NO; POSITIVE MORPHOLOGY NO
[2018-08-18 19:47] LABS: Anion Gap 8 (5-15); BUN 12 mg/dL (7-18); BUN/Creat Ratio 20.4 RATIO (10-20); Calcium,Total 8.6 mg/dL (8.5-10.1); Chloride 86 mmol/L (98-107); Creatinine, Serum 0.59 mg/dL (0.55-1.02); EST Glomerular Filtration Rate 107 mL/min (>60); Est Glom Filt Rate - Afr Amer 130 mL/min (>60); Glucose 119 mg/dL (74-106); Potassium 3.2 mmol/L (3.5-5.1); Sodium Level 133 mmol/L (136-145)
[2018-08-18 20:26] VITALS: BP 121/79; PULSE 83; RESP 16; O2SAT 92
--- NOTE | 2018-08-18 21:24 | HP.PCM_ITS ---
Problem List (1) Pneumonia Status: Acute (2) Vocal cord paralysis, unilateral complete Status: Acute (3) Metastatic primary lung cancer Status: Chronic Qualifiers: Laterality: right Qualified Code(s): C34.91 - Malignant neoplasm of unspecified part of right bronchus or lung History of Present Illness Date of Admission: 08/18/18 Chief Complaint: Syncope The patient is a 68 year old F with a significant history of metastatic lung cancer who presented with multiple complaints of this disorientation/ forgetfulness; weakness and passing out in the shower. Patient's reported that patient slept all day; and she had chills. Also patient reports of nausea. She denies any fever. Her reported that earlier on the day of admission patient had increased shortness of breath requiring a breathing treatment at home. Importantly patient was discharged from the hospital on 08/16 after being treated for radiation esophagitis. Patient had right lung thoracentesis 3 days ago Patient is on 3 L of oxygen at home but at emergency department his oxygen requirement had to increase to 4 L to maintain appropriate oxygenation. Emergency room doctor reported that on 3 L patient was started at 88% and on 4 L her oxygen saturation was in the lower 90s. Patient reported that because of a previous episode of wheezing she saw Dr. Flores, ENT where she had some kind of injection in her vocal cord . She reported that this led to an eventual diagnosis of lung cancer. Past Medical History Past Medical History (Chronic Problems): Chronic Problems Metastatic primary lung cancer (Chronic) History of tobacco use (Chronic) Obesity (BMI 30.0-34.9) (Chronic) Allergies Sulfa (Sulfonamide Antibiotics) Allergy (Verified 08/18/18 17:59) Hives Home Medications: Ambulatory Orders Medication Instructions Recorded Albuterol Inhaler [Ventolin Hfa] 2 puff INHALATION Q6H PRN PRN 06/17/18 proMETHazine tablet [Phenergan 25 mg PO Q6H PRN PRN #10 tab 08/04/18 tablet] Albuterol Aerosols [Ventolin 2.5 mg INHALATION Q2H PRN PRN #30 08/16/18 Aerosols] vial.neb. Lidocaine 2% Viscous [Xylocaine 10 ml PO Q3H PRN #30 udc 08/16/18 Viscous] Lorazepam Intensol [Ativan 0.5 mg PO Q8H PRN PRN 3 Days #1 08/16/18 Intensol] bottle morphine solution (IR) [Roxanol 10 mg SL/PO Q4H PRN PRN 3 Days #18 08/16/18 (IR oral solution)] po.syringe Carvedilol [Coreg (Beta Cisco)] 6.25 mg PO BID 08/18/18 Furosemide [Lasix] 40 mg PO DAILY 08/18/18 Lisinopril [Zestril] 10 mg PO DAILY 08/18/18 Nystatin 500,000 unit PO 4X/DAY 08/18/18 Pantoprazole Sodium [Protonix] 40 mg PO DAILY 08/18/18 Surgical History: - - Lymph node biopsy, lumbar back surgery with hardware, tonsillectomy, bilateral tubal ligation. 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 Paternal History Items: - - Patient notes a paternal family history of colon cancer. Review of Systems Constitutional: Reports: Anorexia, Chills, Weakness, Fatigue. Denies: Fever HEENT: Denies: Head Aches, Sinus Congestion, Sinus Drainage Cardiovascular: Reports: Syncope. Denies: Chest Pain, Palpitations Respiratory: Reports: Shortness of Breath Gastrointestinal: Denies: Abdominal Pain, Nausea, Vomiting Genitourinary: Denies: Dysuria Musculoskeletal: Reports: Back Pain - Chronic. Denies: Joint Pain, Joint Tenderness Skin: Denies: Rash, Wounds Neurological: Reports: Balance problems Psychiatric: Denies: Anxiety, Depression, Homicidal Ideations, Suicidal Ideations Hematologic/ Lymphatic: Denies: Easy Bruising, Easy Bleeding VTE Information - Inpt Only VTE Present on Admission: No VTE Mechan Device Prophylaxis: None VTE Pharm Prophylaxis ordered?: Yes Patient Problems: Active and Suspected Problems Pneumonia (Acute) - Physical Exam General: Alert, Oriented x3, Cooperative HEENT: Atraumatic, PERRLA, EOMI, Normocephalic Neck: Supple, No JVD, Negative Carotid Bruits Lungs: Wheezes - Diffused mild to moderate wheezing Cardiovascular: Regular rate, No murmurs Abdomen: Bowel Sounds Present, Soft, Non Tender Extremities: No clubbing Skin: No rashes, No breakdown Musculoskeletal: No Tenderness to Palpation of Joints or Extremities Neurological: Cranial nerves II-XII grossly intact Psych/Mental Status: Normal Affect, Appropriate Vital Signs Temp Pulse Resp BP Pulse Ox 98.4 F 83 16 121/79 H 92 08/18/18 17:57 08/18/18 20:26 08/18/18 20:26 08/18/18 20:26 08/18/18 20:26 Oxygen Flow Rate (L/min) 3 Oxygen Delivery Method Nasal Cannula Weight: 81.647 kg Body Mass Index (BMI) 29.9 Laboratory Tests Past 24 Hrs 08/18/18 08/18/18 19:10 19:10 WBC 8.8 RBC 4.40 Hgb 13.9 Hct 42.3 MCV 96.1 MCH 31.6 MCHC 32.9 RDW 12.6 RDW Differential 44.1 H Plt Count 343 MPV 9.0 Immature Gran % (Auto) 0.200 Neut % (Auto) 85.4 H Lymph % (Auto) 7.6 L [place] % (Auto) 6.1 Eos % (Auto) 0.6 Baso % (Auto) 0.1 Absolute Neuts (auto) 7.6 Absolute Lymphs (auto) 0.67 L Total Counted Not Reportable Sodium 133 L Potassium 3.2 L Chloride 86 L Carbon Dioxide 39.0 H Anion Gap 8 BUN 12 Creatinine 0.59 Estim Creat Clear Calc 47.10 Est GFR (MDRD) Af Amer 130 Est GFR (MDRD) Non-Af 107 BUN/Creatinine Ratio 20.4 H Glucose 119 H Calcium 8.6 Assessment/Plan All Active Problems Vocal cord paralysis, unilateral complete (Acute) Radiation-induced esophagitis (Acute) Pneumonia (Acute) The patient is a 68 year old F with a significant history of metastatic lung cancer who was discharged from a hospital 2 days ago after being treated with radiation esophagitis; and having a right-sided thoracentesis now presenting with multiple complaints of disorientation/forgetfulness; weakness; syncope and found to be hypoxic and with recommendation of pleural fluid concerning for acute on chronic hypoxic respiratory failure. Acute on chronic hypoxic respiratory failure Oxygen saturation of 88% on 3 L on arrival at emergency department. Likely due to bilateral pleural effusion; possibly early stages of post- operative pneumonia; progression of metastatic cancer; debility due to cancer. Patient has no objective fever. She does not report any productive cough However she has a neutrophilia in the setting of normal white count. Bilateral pleural effusion Ultrasound thoracentesis of right-sided thorax for now Postoperative pneumonia Received Levaquin at emergency departments Ceftriaxone and azithromycin ordered. Incentive spirometer DuoNeb scheduled and as needed albuterol Strep pneumonia antigen and Legionella antigen ordered. 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 Trend bmp Hypertension Failure controlled on admission. Lisinopril Coreg and Lasix continued. Metastatic lung cancer progression Patient sees Dr. Garcia Reportedly his last radiotherapy was 2 weeks ago. Family reported that patient has completed prednisone therapy Will consult oncology [facility] and morphine continued. Debility due to cancer The patient to work with PT and OT. Hypokalemia Replaced Magnesium ordered Trend BMP Radiation esophagitis Home Xylocaine viscous continued DVT prophylaxis Subcutaneous Lovenox. Code Visit Inpatient E&M: 26790 Init Hosp L3
[2018-08-18] MEDS: levoFLOXacin IV 500 MG/100 ML BAG 100 MG IV (21:56)
[2018-08-18 22:18] VITALS: BMI 30.4
[2018-08-18 22:19] VITALS: BMI 30.4
[2018-08-18 22:42] VITALS: RESP 22
[2018-08-18 22:50] VITALS: BP 114/63; PULSE 87; RESP 22; TEMP 37.3; O2SAT 96
[2018-08-18] MEDS: Ceftriaxone 1 GM/50 ML BAG IV (23:00)
[2018-08-18 23:52] LABS: Magnesium 2.3 mg/dL (1.6-2.6)
[2018-08-19] VITALS (10 sets, daily range): BP systolic 100–127; BP diastolic 62–69; PULSE 67–88; RESP 16–20; TEMP 36.6–37.1; O2SAT 94–99
[2018-08-19] MEDS: proMETHazine 25 MG Tablet PO ×2 (00:09→21:09)
--- NOTE | 2018-08-19 00:10 | ED.DCSUM_ITS ---
- ER Visit Summary Date of Service: 08/19/18 Chief Complaint: Headache nausea and lightheadedness with cough and shortness of breath History of Present Illness: The patient is a 68 F presenting for evaluation secondary to the symptoms above. Patient has a history of lung cancer, and was recently admitted secondary to radiation esophagitis. When she was discharged she felt somewhat improved, but over the course of the last couple of days especially today the patient has felt significantly worse. Patient states she was in the shower and felt as if she was almost going to pass out. She reports that she is having cough with some increasing short of breath as well as feelings of confusion lightheadedness and headache. Review of systems otherwise negative. Physical Examination: Vital signs are notable for pulse ox of 88% on the patient 's typical 3 L. Temperature is 99.2. Respiratory rate is 22. Head normocephalic, minimally dry mucous membranes, neck was supple. Heart was regular rate and rhythm. Patient was tachypneic, and had some minimal wheezes. Abdomen soft nontender. Extremities nontender. No skin rashes. Patient was alert and oriented. Test Results: Chest x-ray shows possible right-sided infiltrate. CBC shows a neutrophilic predominance of 85%, chemistry unremarkable Emergency Department Course and Treatment: Patient presented with generalized illness in the setting of lung cancer and recent admission. Patient does have some evidence of increased oxygen requirement and as a potential infiltrate on chest x-ray. Given her general constellation of symptoms and concern for the possibility of pneumonia. Patient was given a dose of Levaquin in the emergency department. I believe that she would benefit from admission I discussed this with hospitalist. Disposition: Admission Impression: 1. Pneumonia 2. Hypoxia 3. History of lung cancer This note was generated with [employer] dictation software. It may contain incorrect words, spelling, and punctuation that were not noted in review of the chart prior to signing ED Disposition - Plan for ED Patient: Disposition: Acute Care Hospital [facility] Chief Complaint: General Illness
[2018-08-19] MEDS: morphine (oral solution) 10MG/0.5ML Syringe 10 MG SL/PO ×4 (03:13→21:51)
[2018-08-19 06:22] LABS: Absolute Neutrophil Count 6.3 X10^3/uL (2.0-7.7); Eosinophil# 0.09 X10^3/uL; Eosinophils% 1.2 % (0-5); Hematocrit 39.8 % (37-47); Hemoglobin 12.9 g/dl (12.0-15.0); Lymphocyte % 6.5 % (19-41); Mean Corp Hgb Conc 32.4 g/gl (32-36); Mean Corpuscular Hgb 31.7 pg (27.0-32.0); Mean Corpuscular Volume 97.8 fL (81-99); Mean Platelet Vol. 8.9 fl (6.2-12.0); Monocyte# 0.79 X10^3/uL; Monocyte% 10.3 % (0-10); Neutrophil # 6.28 X10^3/uL (2.7-7.7); Neutrophil % 81.9 % (47-70); Platelet Count 284 K/mm3 (150-450); RBC Distribution Width CV 12.9 % (11.6-14.6); RBC Distribution Width SD 46.1 fl (35.1-43.9); Red Blood Count 4.07 M/mm3 (4.2-5.4); White Blood Count 7.7 K/mm3 (4.4-11.0)
[2018-08-19 06:23] LABS: Differential Indicated SCAN CRITERIA MET; POSITIVE COUNT NO; POSITIVE DIFFERENTIAL YES; POSITIVE MORPHOLOGY NO
[2018-08-19 06:34] LABS: Anion Gap 8 (5-15); BUN 9 mg/dL (7-18); BUN/Creat Ratio 18.4 RATIO (10-20); Chloride 92 mmol/L (98-107); Creatinine, Serum 0.49 mg/dL (0.55-1.02); EST Glomerular Filtration Rate 133 mL/min (>60); Est Glom Filt Rate - Afr Amer 160 mL/min (>60); Glucose 99 mg/dL (74-106); Potassium 3.7 mmol/L (3.5-5.1); Sodium Level 138 mmol/L (136-145)
[2018-08-19] MEDS: Ipratropium/Albuterol Sulfate 3 ML AMPUL.NEB INHALATION ×4 (06:43→19:35)
[2018-08-19 07:04] LABS: Differential Comment SCANNED
[2018-08-19] MEDS: Pantoprazole Sodium 40 MG Tablet PO (10:23)
[2018-08-19] MEDS: Furosemide 40 MG Tablet PO (10:23)
[2018-08-19] MEDS: Ceftriaxone 1 GM/50 ML BAG IV (10:23)
[2018-08-19] MEDS: NYSTATIN 500,000 UNIT/5 ML UDC 500000 UNIT PO ×2 (10:23→21:03)
--- NOTE | 2018-08-19 10:40 | PCM.PN.HOSP ---
Patient Problems: Active and Suspected Problems Pneumonia (Acute) Pleural effusion (Acute) Subjective: Still with shortness of breath. Vitals/I&O's: Vital Signs Temp Pulse Resp BP Pulse Ox 36.9 C 81 20 H 114/67 97 08/19/18 09:00 08/19/18 09:00 08/19/18 09:00 08/19/18 09:00 08/19/18 09:00 Oxygen Flow Rate (L/min) 3.5 Oxygen Delivery Method Nasal Cannula Weight: 82.9 kg Body Mass Index (BMI) 30.4 Intake and Output for Last 24 Hours 08/17/18 08/18/18 08/19/18 23:59 23:59 23:59 Intake Total 598 / 598 Output Total 500 / 500 Balance 98 / 98 General: Alert, No apparent distress HEENT: Atraumatic, Normocephalic Oral: Moist Mucosa, No Gingival or Mucosal Lesions/ Ulcerations Neck: No Nodes, Thyroid Normal Size and Texture Lungs: Diminished, - - coarse breath sounds. Cardiovascular: Regular rate, Regular Rhythm, Normal S1, Normal S2 Abdomen: Bowel Sounds Present, Soft, Non Tender, Non-Distended Extremities: No edema, No Calf Tenderness Skin: No rashes, No breakdown Musculoskeletal: No Tenderness to Palpation of Joints or Extremities, No Muscle Wasting Neurological: Sensory exam intact to light touch and pain, - - no clonus Psych/Mental Status: Normal Affect, Appropriate Microbiology Past 72 Hours 08/19/18 00:44 Urine, Clean Catch Streptococcus pneumoniae Antigen (M - Final 08/19/18 00:44 Urine, Clean Catch Legionella Antigen - Final Laboratory Results 08/19/18 05:55: WBC 7.7, RBC 4.07 L, Hgb 12.9, Hct 39.8, MCV 97.8, MCH 31.7, MCHC 32.4, RDW 12.9, RDW Differential 46.1 H, Plt Count 284, MPV 8.9, Immature Gran % (Auto) 0.100, Neut % (Auto) 81.9 H, Lymph % (Auto) 6.5 L, [place] % (Auto) 10.3 H, Eos % (Auto) 1.2, Baso % (Auto) 0.0, Absolute Neuts (auto) 6.3, Absolute Lymphs (auto) 0.50 L, Total Counted Not Reportable, Differential Comment SCANNED 08/19/18 05:55: Sodium 138, Potassium 3.7, Chloride 92 L, Carbon Dioxide 38.0 H, Anion Gap 8, BUN 9, Creatinine 0.49 L, Estim Creat Clear Calc 47.10, Est GFR (MDRD) Af Amer 160, Est GFR (MDRD) Non-Af 133, BUN/Creatinine Ratio 18.4, Glucose 99, Calcium 8.0 L Current Medications Albuterol Sulfate (Ventolin Aerosols) 2.5 mg INHALATION Q2H PRN PRN PRN Reason: SHORTNESS OF BREATH Albuterol/Ipratropium (Duoneb) 3 ml INHALATION Q4H.RT [facility] Last Admin: 08/19/18 06:43 Dose: 3 ml Carvedilol (Coreg) 6.25 mg PO BID [facility] Last Admin: 08/19/18 10:19 Dose: Not Given Enoxaparin Sodium (Lovenox) 40 mg SC DAILY@1000 [facility] Last Admin: 08/19/18 07:57 Dose: Not Given Furosemide (Lasix) 40 mg PO DAILY [facility] Last Admin: 08/19/18 10:23 Dose: 40 mg Azithromycin 500 mg/ Dextrose 255 mls @ 250 mls/hr IV Q24 [facility] Stop: 08/20/18 11:02 Last Admin: 08/19/18 00:09 Dose: 250 mls/hr Ceftriaxone Sodium (Rocephin) 1 gm in 50 mls @ 100 mls/hr IV Q24 [facility] Last Admin: 08/19/18 10:23 Dose: 100 mls/hr Lidocaine HCl (Xylocaine Viscous) 10 ml PO Q3H PRN PRN PRN Reason: SORE THROAT Lisinopril (Zestril) 10 mg PO DAILY [facility] Last Admin: 08/19/18 10:18 Dose: Not Given Lorazepam (Ativan Intensol) 0.5 mg PO Q8H PRN PRN PRN Reason: ANXIETY Magnesium Hydroxide (Milk Of Magnesia) 30 ml PO DAILY PRN PRN PRN Reason: Constipation Morphine Sulfate (Roxanol (Ir Oral Solution)) 10 mg SL/PO Q4H PRN PRN PRN Reason: SEVERE PAIN (6-10/10) Last Admin: 08/19/18 09:17 Dose: 10 mg Nutritional Formula (Lactose Free) (Ensure Enlive) 120 ml PO 4X/DAY [facility] Last Admin: 08/19/18 10:17 Dose: Not Given Nystatin (Nystatin) 500,000 unit PO 4X/DAY [facility] Last Admin: 08/19/18 10:23 Dose: 500,000 unit Ondansetron HCl (Zofran) 4 mg IV Q8H PRN PRN PRN Reason: Nausea Pantoprazole Sodium (Protonix) 40 mg PO DAILY [facility] Last Admin: 08/19/18 10:23 Dose: 40 mg Promethazine HCl (Phenergan Tablet) 25 mg PO Q6H PRN PRN PRN Reason: NAUSEA Last Admin: 08/19/18 00:09 Dose: 25 mg Sodium Chloride () 5 - 30 ml IV UD PRN PRN Reason: SALINE FLUSH Medical Necessity - Tobacco Use Smoking Status: Former smoker Tobacco Use: Cigarettes Assessment/Plan All Active Problems Pneumonia (Acute) Pleural effusion (Acute) 1. acute on chronic respiratory failure may be multifactorial: pleural effusion +/- PNA +/- obstruction +/- PE check CTA pulmonary toilet DW Dr. Luna who advised transfer to [facility] for potential interventional pulmonology (stent, laser). MANI Stafford at [facility] (oncology). He did not feel that there was any definitive etiology for his shortness of breath that was clearly obstructive. He advised further work up as inpatient. Therefore, patient will not be transferred at this time. 2. Pleural effusion previously transudative thoracentesis today 3. Possible gram negative pneumonia on CTX and Azithromycin strep and legionella antigen negative 4. Stage IV NSCLC completed XRT to be enrolled in a Phase 2 trial for immunotherapy 5. Radiation esophagitis viscous lidocaine. 6. HFrEF EF 40% continue lasix, coreg, lisinopril 7. DVT proph: LMWH Greater than 45 minutes, of which greater than 50% of the time was coordinating care in trying to procure a transfer. Code Visit Inpatient E&M: 77343 [facility] Hosp L3
--- NOTE | 2018-08-19 10:50 | PN_ITS ---
Patient Problems: Active and Suspected Problems Pneumonia (Acute) Pleural effusion (Acute) Subjective: Still with shortness of breath. Vitals/I&O's: Vital Signs Temp Pulse Resp BP Pulse Ox 36.9 C 81 20 H 114/67 97 08/19/18 09:00 08/19/18 09:00 08/19/18 09:00 08/19/18 09:00 08/19/18 09:00 Oxygen Flow Rate (L/min) 3.5 Oxygen Delivery Method Nasal Cannula Weight: 82.9 kg Body Mass Index (BMI) 30.4 Intake and Output for Last 24 Hours 08/17/18 08/18/18 08/19/18 23:59 23:59 23:59 Intake Total 598 / 598 Output Total 500 / 500 Balance 98 / 98 General: Alert, No apparent distress HEENT: Atraumatic, Normocephalic Oral: Moist Mucosa, No Gingival or Mucosal Lesions/ Ulcerations Neck: No Nodes, Thyroid Normal Size and Texture Lungs: Diminished, - - coarse breath sounds. Cardiovascular: Regular rate, Regular Rhythm, Normal S1, Normal S2 Abdomen: Bowel Sounds Present, Soft, Non Tender, Non-Distended Extremities: No edema, No Calf Tenderness Skin: No rashes, No breakdown Musculoskeletal: No Tenderness to Palpation of Joints or Extremities, No Muscle Wasting Neurological: Sensory exam intact to light touch and pain, - - no clonus Psych/Mental Status: Normal Affect, Appropriate Microbiology Past 72 Hours 08/19/18 00:44 Urine, Clean Catch Streptococcus pneumoniae Antigen (M - Final 08/19/18 00:44 Urine, Clean Catch Legionella Antigen - Final Laboratory Results 08/19/18 05:55: WBC 7.7, RBC 4.07 L, Hgb 12.9, Hct 39.8, MCV 97.8, MCH 31.7, MCHC 32.4, RDW 12.9, RDW Differential 46.1 H, Plt Count 284, MPV 8.9, Immature Gran % (Auto) 0.100, Neut % (Auto) 81.9 H, Lymph % (Auto) 6.5 L, [place] % (Auto) 10.3 H, Eos % (Auto) 1.2, Baso % (Auto) 0.0, Absolute Neuts (auto) 6.3, Absolute Lymphs (auto) 0.50 L, Total Counted Not Reportable, Differential Comment SCANNED 08/19/18 05:55: Sodium 138, Potassium 3.7, Chloride 92 L, Carbon Dioxide 38.0 H , Anion Gap 8, BUN 9, Creatinine 0.49 L, Estim Creat Clear Calc 47.10, Est GFR ( MDRD) Af Amer 160, Est GFR (MDRD) Non-Af 133, BUN/Creatinine Ratio 18.4, Glucose 99, Calcium 8.0 L Current Medications Albuterol Sulfate (Ventolin Aerosols) 2.5 mg INHALATION Q2H PRN PRN PRN Reason: SHORTNESS OF BREATH Albuterol/Ipratropium (Duoneb) 3 ml INHALATION Q4H.RT [facility] Last Admin: 08/19/18 06:43 Dose: 3 ml Carvedilol (Coreg) 6.25 mg PO BID [facility] Last Admin: 08/19/18 10:19 Dose: Not Given Enoxaparin Sodium (Lovenox) 40 mg SC DAILY@1000 [facility] Last Admin: 08/19/18 07:57 Dose: Not Given Furosemide (Lasix) 40 mg PO DAILY [facility] Last Admin: 08/19/18 10:23 Dose: 40 mg Azithromycin 500 mg/ Dextrose 255 mls @ 250 mls/hr IV Q24 [facility] Stop: 08/20/18 11:02 Last Admin: 08/19/18 00:09 Dose: 250 mls/hr Ceftriaxone Sodium (Rocephin) 1 gm in 50 mls @ 100 mls/hr IV Q24 [facility] Last Admin: 08/19/18 10:23 Dose: 100 mls/hr Lidocaine HCl (Xylocaine Viscous) 10 ml PO Q3H PRN PRN PRN Reason: SORE THROAT Lisinopril (Zestril) 10 mg PO DAILY [facility] Last Admin: 08/19/18 10:18 Dose: Not Given Lorazepam (Ativan Intensol) 0.5 mg PO Q8H PRN PRN PRN Reason: ANXIETY Magnesium Hydroxide (Milk Of Magnesia) 30 ml PO DAILY PRN PRN PRN Reason: Constipation Morphine Sulfate (Roxanol (Ir Oral Solution)) 10 mg SL/PO Q4H PRN PRN PRN Reason: SEVERE PAIN (6-10/10) Last Admin: 08/19/18 09:17 Dose: 10 mg Nutritional Formula (Lactose Free) (Ensure Enlive) 120 ml PO 4X/DAY [facility] Last Admin: 08/19/18 10:17 Dose: Not Given Nystatin (Nystatin) 500,000 unit PO 4X/DAY [facility] Last Admin: 08/19/18 10:23 Dose: 500,000 unit Ondansetron HCl (Zofran) 4 mg IV Q8H PRN PRN PRN Reason: Nausea Pantoprazole Sodium (Protonix) 40 mg PO DAILY [facility] Last Admin: 08/19/18 10:23 Dose: 40 mg Promethazine HCl (Phenergan Tablet) 25 mg PO Q6H PRN PRN PRN Reason: NAUSEA Last Admin: 08/19/18 00:09 Dose: 25 mg Sodium Chloride () 5 - 30 ml IV UD PRN PRN Reason: SALINE FLUSH Medical Necessity - Tobacco Use Smoking Status: Former smoker Tobacco Use: Cigarettes Assessment/Plan All Active Problems Pneumonia (Acute) Pleural effusion (Acute) 1. acute on chronic respiratory failure * may be multifactorial: pleural effusion +/- PNA +/- obstruction +/- PE * check CTA * pulmonary toilet * MANI Luna who advised transfer to [facility] for potential interventional pulmonology (stent, laser). MANI Stafford at [facility] (oncology). He did not feel that there was any definitive etiology for his shortness of breath that was clearly obstructive. He advised further work up as inpatient. Therefore, patient will not be transferred at this time. 2. Pleural effusion * previously transudative * thoracentesis today 3. Possible gram negative pneumonia * on CTX and Azithromycin * strep and legionella antigen negative 4. Stage IV NSCLC * completed XRT * to be enrolled in a Phase 2 trial for immunotherapy 5. Radiation esophagitis * viscous lidocaine. 6. HFrEF * EF 40% * continue lasix, coreg, lisinopril 7. DVT proph: LMWH Greater than 45 minutes, of which greater than 50% of the time was coordinating care in trying to procure a transfer. Code Visit Inpatient E&M: [id number] [facility] Hosp L3
--- NOTE | 2018-08-19 10:51 | CT_ITS ---
STUDY: CTA CHEST REASON FOR EXAM: Female, 68 years old. Shortness of breath. History of metastatic lung cancer. RADIATION DOSAGE (If Supplied By Facility): CTDIvol = ( 12.44 ) mGy, DLP = ( 624.42 ) mGycm TECHNIQUE: The examination was performed with the intravenous administration of 75mL ml of Isovue 370 contrast material. Post-processing of the angiographic images was performed, with multiplanar reformation and 3D reconstruction. Individualized dose optimization techniques were used for this CT. COMPARISON: Comparison is made with prior CT scan of the thorax dated August 13, 2018. FINDINGS: Normal enhancement of the main pulmonary artery and right and left pulmonary arteries. Normal enhancement of the bilateral peripheral pulmonary arteries. There is no demonstrated pulmonary embolism. Normal thoracic aorta and visualized great vessels. There is no demonstrated aortic dissection. Moderate size pericardial effusion. Stable appearance of the mediastinal and hilar lymphadenopathy. Normal visualized trachea and bronchi. There is collapse of the right upper lobe. Stable soft tissue masses in the right supraclavicular region extending into the right side of the lower cervical region adjacent to the right lobe of the thyroid. Small bilateral pleural effusions right greater than left. Normal chest wall structures. There are degenerative changes of thoracic spine. Small amount of sludge or gallstones along the dependent portion of the gallbladder lumen. CT/CTA Chest W/WO Contrast IMPRESSION: Bilateral pleural effusions right greater than left with underlying atelectasis and/or infiltrate. Collapse of the right upper lobe is likely secondary to a right hilar mass. Stable appearance of the soft tissue masses in the right supraclavicular region. Electronically Signed: Emanuel Escobedo MD at 15:04 EDT Tel [phone], Service support ,
--- NOTE | 2018-08-19 11:42 | NURSING ---
Off unit to CT
[2018-08-19] MEDS: 0.9% NaCl Peripheral Flush Adult/Peds IV (12:01)
[2018-08-19] MEDS: Ondansetron 4 MG/2 ML Vial IV (14:48)
[2018-08-19] MEDS: guaiFENesin 10 ML UDC (200MG/10ML) PO ×2 (15:28→21:03)
--- NOTE | 2018-08-19 22:33 | US_ITS ---
STUDY: SUPERFICIAL ULTRASOUND - LEFT and right pleural spaces. REASON FOR EXAM: Female, 68 years old. Assessment for pleural fluid and possible thoracentesis. TECHNIQUE: A superficial ultrasound was performed with real-time and static foster-scale imaging. COMPARISON: Comparison is made with prior examination of August 11, 2018. FINDINGS: There are small bilateral pleural effusions. These are too small for safe thoracentesis. US/Chest IMPRESSION: Small bilateral pleural effusions. The thoracentesis was not performed. Electronically Signed: Emanuel Escobedo MD at 7:55 EDT Tel [phone], Service support ,
[2018-08-20 03:17] VITALS: BP 137/74; PULSE 74; RESP 18; TEMP 37; O2SAT 100
[2018-08-20] MEDS: morphine (oral solution) 10MG/0.5ML Syringe 10 MG SL/PO ×3 (05:56→21:24)
[2018-08-20] MEDS: Ondansetron 4 MG/2 ML Vial IV ×2 (06:27→21:24)
[2018-08-20 06:53] VITALS: O2SAT 97
[2018-08-20 07:01] LABS: Absolute Lymphocyte Count 0.72 X10^3/ul (0.83-4.51); Absolute Neutrophil Count 8.2 X10^3/uL (2.0-7.7); Basophil# 0.02 X10^3/uL; Basophil% 0.2 % (0-1); Eosinophil# 0.23 X10^3/uL; Eosinophils% 2.3 % (0-5); Hematocrit 44.3 % (37-47); Hemoglobin 14.3 g/dl (12.0-15.0); Lymphocyte # 0.72 X10^3/ul (4.0); Lymphocyte % 7.1 % (19-41); Mean Corp Hgb Conc 32.3 g/gl (32-36); Mean Corpuscular Hgb 31.8 pg (27.0-32.0); Mean Corpuscular Volume 98.4 fL (81-99); Monocyte% 9.8 % (0-10); Neutrophil # 8.19 X10^3/uL (2.7-7.7); Neutrophil % 80.3 % (47-70); Platelet Count 337 K/mm3 (150-450); RBC Distribution Width CV 12.9 % (11.6-14.6); RBC Distribution Width SD 46.3 fl (35.1-43.9); White Blood Count 10.2 K/mm3 (4.4-11.0)
[2018-08-20 07:02] LABS: POSITIVE COUNT NO; POSITIVE DIFFERENTIAL NO; POSITIVE MORPHOLOGY NO
[2018-08-20 07:28] LABS: Anion Gap 10 (5-15); BUN 9 mg/dL (7-18); BUN/Creat Ratio 15.2 RATIO (10-20); Calcium,Total 8.8 mg/dL (8.5-10.1); Chloride 89 mmol/L (98-107); Creatinine, Serum 0.59 mg/dL (0.55-1.02); EST Glomerular Filtration Rate 106 mL/min (>60); Est Glom Filt Rate - Afr Amer 129 mL/min (>60); Glucose 115 mg/dL (74-106); Potassium 3.3 mmol/L (3.5-5.1); Sodium Level 136 mmol/L (136-145)
[2018-08-20 09:00] VITALS: BP 125/67; PULSE 82; RESP 16; TEMP 36.6; O2SAT 125
--- NOTE | 2018-08-20 09:33 | PCM.PN.HOSP ---
Patient Problems: Active and Suspected Problems Pneumonia (Acute) Subjective: Hoarse today. Concerned about being diagnosed with hypertension as she is taking hypertension medications. Vitals/I&O's: Vital Signs Temp Pulse Resp BP Pulse Ox 37.0 C 74 18 137/74 H 97 08/20/18 03:17 08/20/18 03:17 08/20/18 03:17 08/20/18 03:17 08/20/18 06:53 Oxygen Flow Rate (L/min) 3.5 Oxygen Delivery Method Nasal Cannula Weight: 82.9 kg Body Mass Index (BMI) 30.4 Intake and Output for Last 24 Hours 08/18/18 08/19/18 08/20/18 23:59 23:59 23:59 Intake Total 1005 / 1005 340 / 340 Output Total 500 / 500 400 / 400 Balance 505 / 505 -60 / -60 General: Alert, No apparent distress, - - hoarse voice. no respiratory distress. no conversational dyspnea. HEENT: Atraumatic, Normocephalic Oral: Moist Mucosa, No Gingival or Mucosal Lesions/ Ulcerations Neck: No Nodes, Thyroid Normal Size and Texture Lungs: Diminished, - - coarse BS bilaterally Cardiovascular: Regular rate, Regular Rhythm, Normal S1, Normal S2, No murmurs Abdomen: Bowel Sounds Present, Soft, Non Tender, Non-Distended Extremities: No edema, No Calf Tenderness Skin: No rashes, No breakdown Psych/Mental Status: Normal Affect, Appropriate Microbiology Past 72 Hours 08/19/18 00:44 Urine, Clean Catch Streptococcus pneumoniae Antigen (M - Final 08/19/18 00:44 Urine, Clean Catch Legionella Antigen - Final Laboratory Results 08/20/18 06:29: WBC 10.2, RBC 4.50, Hgb 14.3, Hct 44.3, MCV 98.4, MCH 31.8, MCHC 32.3, RDW 12.9, RDW Differential 46.3 H, Plt Count 337, MPV 9.0, Immature Gran % (Auto) 0.300, Neut % (Auto) 80.3 H, Lymph % (Auto) 7.1 L, [place] % (Auto) 9.8, Eos % (Auto) 2.3, Baso % (Auto) 0.2, Absolute Neuts (auto) 8.2 H, Absolute Lymphs (auto) 0.72 L, Total Counted Not Reportable 08/20/18 06:29: Sodium 136, Potassium 3.3 L, Chloride 89 L, Carbon Dioxide 37.0 H, Anion Gap 10, BUN 9, Creatinine 0.59, Estim Creat Clear Calc 47.10, Est GFR (MDRD) Af Amer 129, Est GFR (MDRD) Non-Af 106, BUN/Creatinine Ratio 15.2, Glucose 115 H, Calcium 8.8 Current Medications Albuterol Sulfate (Ventolin Aerosols) 2.5 mg INHALATION Q2H PRN PRN PRN Reason: SHORTNESS OF BREATH Albuterol/Ipratropium (Duoneb) 3 ml INHALATION Q4H.RT [facility] Last Admin: 08/20/18 06:53 Dose: Not Given Carvedilol (Coreg) 6.25 mg PO BID [facility] Last Admin: 08/19/18 21:02 Dose: Not Given Enoxaparin Sodium (Lovenox) 40 mg SC DAILY@1000 [facility] Last Admin: 08/19/18 07:57 Dose: Not Given Furosemide (Lasix) 40 mg PO DAILY [facility] Last Admin: 08/19/18 10:23 Dose: 40 mg Guaifenesin (Robitussin) 10 ml PO 4X/DAY [facility] Last Admin: 08/19/18 21:03 Dose: 10 ml Azithromycin 500 mg/ Dextrose 255 mls @ 250 mls/hr IV Q24 [facility] Stop: 08/20/18 11:02 Last Admin: 08/19/18 12:01 Dose: 250 mls/hr Ceftriaxone Sodium (Rocephin) 1 gm in 50 mls @ 100 mls/hr IV Q24 [facility] Last Admin: 08/19/18 10:23 Dose: 100 mls/hr Lidocaine HCl (Xylocaine Viscous) 10 ml PO Q3H PRN PRN PRN Reason: SORE THROAT Lisinopril (Zestril) 10 mg PO DAILY [facility] Last Admin: 08/19/18 10:18 Dose: Not Given Lorazepam (Ativan Intensol) 0.5 mg PO Q8H PRN PRN PRN Reason: ANXIETY Magnesium Hydroxide (Milk Of Magnesia) 30 ml PO DAILY PRN PRN PRN Reason: Constipation Morphine Sulfate (Roxanol (Ir Oral Solution)) 10 mg SL/PO Q4H PRN PRN PRN Reason: SEVERE PAIN (6-10/10) Last Admin: 08/20/18 05:56 Dose: 10 mg Nutritional Formula (Lactose Free) (Ensure Enlive) 120 ml PO 4X/DAY [facility] Last Admin: 08/19/18 21:03 Dose: Not Given Nystatin (Nystatin) 500,000 unit PO 4X/DAY [facility] Last Admin: 08/19/18 21:03 Dose: 500,000 unit Ondansetron HCl (Zofran) 4 mg IV Q8H PRN PRN PRN Reason: Nausea Last Admin: 08/20/18 06:27 Dose: 4 mg Pantoprazole Sodium (Protonix) 40 mg PO DAILY [facility] Last Admin: 08/19/18 10:23 Dose: 40 mg Promethazine HCl (Phenergan Tablet) 25 mg PO Q6H PRN PRN PRN Reason: NAUSEA Last Admin: 08/19/18 21:09 Dose: 25 mg Sodium Chloride () 5 - 30 ml IV UD PRN PRN Reason: SALINE FLUSH Last Admin: 08/19/18 12:01 Dose: 10 ml Medical Necessity - Tobacco Use Smoking Status: Former smoker Tobacco Use: Cigarettes Assessment/Plan All Active Problems Pneumonia (Acute) Pleural effusion (Acute) 1. acute on chronic respiratory failure may be multifactorial: pleural effusion +/- PNA +/- obstruction +/- PE CTA shows no PE, but collapse of RUL possibly due to right hilar mass pulmonary toilet MANI Luna who advised transfer to [facility] for potential interventional pulmonology (stent, laser). MANI Stafford at [facility] (oncology). He did not feel that there was any definitive etiology for his shortness of breath that was clearly obstructive. He advised further work up as inpatient. Therefore, patient will not be transferred at this time. 2. Pleural effusion previously transudative thoracentesis attempted 08/19, but was too little fluid to do safely. 3. Possible gram negative pneumonia Question if this is actual pneumonia versus just postobstructive changes on CTX and Azithromycin strep and legionella antigen negative BCx negative so far. 4. Stage IV NSCLC completed XRT to be enrolled in a Phase 2 trial for immunotherapy Declined by [facility] for transfer 08/19 for interventional pulmonology evaluation (stent, laser, etc.) Dr. Luna will try to facilitate an evaluation as outpt. 5. Radiation esophagitis viscous lidocaine. 6. HFrEF EF 40% pt concerned about medications. I explained that she does indeed have CHF. She is on Coreg and lisinopril for the CHF--not HTN. We discussed that I will DC the Coreg and lisinopril and use the lasix only PRN for SOB, edema, weight gain. I told her I will do this because palliation for her stage IV NSCLC. She was in agreement. 7. DVT proph: LMWH 8. Disposition: Plan to monitor the patient overnight to see how she does. Patient to remain stable or is improved then I would anticipate discharge to home possibly on the . Patient was just discharged on the going to return on the so the patient is to be discharged to sooner feel that she has a high likelihood of returning very quickly. Greater than 35 minutes, of which greater than 50% of the time was counseling the patient about CHF and medications for treatment. Code Visit Inpatient E&M: [id number] [facility] Hosp L3
[2018-08-20] MEDS: Ceftriaxone 1 GM/50 ML BAG IV (09:37)
[2018-08-20] MEDS: 0.9% NaCl Peripheral Flush Adult/Peds IV ×2 (09:38→21:24)
--- NOTE | 2018-08-20 09:41 | PN_ITS ---
Patient Problems: Active and Suspected Problems Pneumonia (Acute) Subjective: Hoarse today. Concerned about being diagnosed with hypertension as she is taking hypertension medications. Vitals/I&O's: Vital Signs Temp Pulse Resp BP Pulse Ox 37.0 C 74 18 137/74 H 97 08/20/18 03:17 08/20/18 03:17 08/20/18 03:17 08/20/18 03:17 08/20/18 06:53 Oxygen Flow Rate (L/min) 3.5 Oxygen Delivery Method Nasal Cannula Weight: 82.9 kg Body Mass Index (BMI) 30.4 Intake and Output for Last 24 Hours 08/18/18 08/19/18 08/20/18 23:59 23:59 23:59 Intake Total 1005 / 1005 340 / 340 Output Total 500 / 500 400 / 400 Balance 505 / 505 -60 / -60 General: Alert, No apparent distress, - - hoarse voice. no respiratory distress. no conversational dyspnea. HEENT: Atraumatic, Normocephalic Oral: Moist Mucosa, No Gingival or Mucosal Lesions/ Ulcerations Neck: No Nodes, Thyroid Normal Size and Texture Lungs: Diminished, - - coarse BS bilaterally Cardiovascular: Regular rate, Regular Rhythm, Normal S1, Normal S2, No murmurs Abdomen: Bowel Sounds Present, Soft, Non Tender, Non-Distended Extremities: No edema, No Calf Tenderness Skin: No rashes, No breakdown Psych/Mental Status: Normal Affect, Appropriate Microbiology Past 72 Hours 08/19/18 00:44 Urine, Clean Catch Streptococcus pneumoniae Antigen (M - Final 08/19/18 00:44 Urine, Clean Catch Legionella Antigen - Final Laboratory Results 08/20/18 06:29: WBC 10.2, RBC 4.50, Hgb 14.3, Hct 44.3, MCV 98.4, MCH 31.8, MCHC 32.3, RDW 12.9, RDW Differential 46.3 H, Plt Count 337, MPV 9.0, Immature Gran % (Auto) 0.300, Neut % (Auto) 80.3 H, Lymph % (Auto) 7.1 L, [place] % (Auto) 9.8, Eos % (Auto) 2.3, Baso % (Auto) 0.2, Absolute Neuts (auto) 8.2 H, Absolute Lymphs (auto) 0.72 L, Total Counted Not Reportable 08/20/18 06:29: Sodium 136, Potassium 3.3 L, Chloride 89 L, Carbon Dioxide 37.0 H, Anion Gap 10, BUN 9, Creatinine 0.59, Estim Creat Clear Calc 47.10, Est GFR ( MDRD) Af Amer 129, Est GFR (MDRD) Non-Af 106, BUN/Creatinine Ratio 15.2, Glucose 115 H, Calcium 8.8 Current Medications Albuterol Sulfate (Ventolin Aerosols) 2.5 mg INHALATION Q2H PRN PRN PRN Reason: SHORTNESS OF BREATH Albuterol/Ipratropium (Duoneb) 3 ml INHALATION Q4H.RT [facility] Last Admin: 08/20/18 06:53 Dose: Not Given Carvedilol (Coreg) 6.25 mg PO BID [facility] Last Admin: 08/19/18 21:02 Dose: Not Given Enoxaparin Sodium (Lovenox) 40 mg SC DAILY@1000 [facility] Last Admin: 08/19/18 07:57 Dose: Not Given Furosemide (Lasix) 40 mg PO DAILY [facility] Last Admin: 08/19/18 10:23 Dose: 40 mg Guaifenesin (Robitussin) 10 ml PO 4X/DAY [facility] Last Admin: 08/19/18 21:03 Dose: 10 ml Azithromycin 500 mg/ Dextrose 255 mls @ 250 mls/hr IV Q24 [facility] Stop: 08/20/18 11:02 Last Admin: 08/19/18 12:01 Dose: 250 mls/hr Ceftriaxone Sodium (Rocephin) 1 gm in 50 mls @ 100 mls/hr IV Q24 [facility] Last Admin: 08/19/18 10:23 Dose: 100 mls/hr Lidocaine HCl (Xylocaine Viscous) 10 ml PO Q3H PRN PRN PRN Reason: SORE THROAT Lisinopril (Zestril) 10 mg PO DAILY [facility] Last Admin: 08/19/18 10:18 Dose: Not Given Lorazepam (Ativan Intensol) 0.5 mg PO Q8H PRN PRN PRN Reason: ANXIETY Magnesium Hydroxide (Milk Of Magnesia) 30 ml PO DAILY PRN PRN PRN Reason: Constipation Morphine Sulfate (Roxanol (Ir Oral Solution)) 10 mg SL/PO Q4H PRN PRN PRN Reason: SEVERE PAIN (6-10/10) Last Admin: 08/20/18 05:56 Dose: 10 mg Nutritional Formula (Lactose Free) (Ensure Enlive) 120 ml PO 4X/DAY [facility] Last Admin: 08/19/18 21:03 Dose: Not Given Nystatin (Nystatin) 500,000 unit PO 4X/DAY [facility] Last Admin: 08/19/18 21:03 Dose: 500,000 unit Ondansetron HCl (Zofran) 4 mg IV Q8H PRN PRN PRN Reason: Nausea Last Admin: 08/20/18 06:27 Dose: 4 mg Pantoprazole Sodium (Protonix) 40 mg PO DAILY [facility] Last Admin: 08/19/18 10:23 Dose: 40 mg Promethazine HCl (Phenergan Tablet) 25 mg PO Q6H PRN PRN PRN Reason: NAUSEA Last Admin: 08/19/18 21:09 Dose: 25 mg Sodium Chloride () 5 - 30 ml IV UD PRN PRN Reason: SALINE FLUSH Last Admin: 08/19/18 12:01 Dose: 10 ml Medical Necessity - Tobacco Use Smoking Status: Former smoker Tobacco Use: Cigarettes Assessment/Plan All Active Problems Pneumonia (Acute) Pleural effusion (Acute) 1. acute on chronic respiratory failure * may be multifactorial: pleural effusion +/- PNA +/- obstruction +/- PE * CTA shows no PE, but collapse of RUL possibly due to right hilar mass * pulmonary toilet * DW Dr. Luna who advised transfer to [facility] for potential interventional pulmonology (stent, laser). DW Dr. Stafford at [facility] (oncology). He did not feel that there was any definitive etiology for his shortness of breath that was clearly obstructive. He advised further work up as inpatient. Therefore, patient will not be transferred at this time. 2. Pleural effusion * previously transudative * thoracentesis attempted 08/19, but was too little fluid to do safely. 3. Possible gram negative pneumonia * Question if this is actual pneumonia versus just postobstructive changes * on CTX and Azithromycin * strep and legionella antigen negative * BCx negative so far. 4. Stage IV NSCLC * completed XRT * to be enrolled in a Phase 2 trial for immunotherapy * Declined by [facility] for transfer 08/19 for interventional pulmonology evaluation ( stent, laser, etc.) Dr. Luna will try to facilitate an evaluation as outpt. 5. Radiation esophagitis * viscous lidocaine. 6. HFrEF * EF 40% * pt concerned about medications. I explained that she does indeed have CHF. She is on Coreg and lisinopril for the CHF--not HTN. * We discussed that I will DC the Coreg and lisinopril and use the lasix only PRN for SOB, edema, weight gain. I told her I will do this because palliation for her stage IV NSCLC. She was in agreement. 7. DVT proph: LMWH 8. Disposition: Plan to monitor the patient overnight to see how she does. Patient to remain stable or is improved then I would anticipate discharge to home possibly on the . Patient was just discharged on the going to return on the so the patient is to be discharged to sooner feel that she has a high likelihood of returning very quickly. Greater than 35 minutes, of which greater than 50% of the time was counseling the patient about CHF and medications for treatment. Code Visit Inpatient E&M: [id number] [facility] Hosp L3
[2018-08-20] MEDS: Pantoprazole Sodium 40 MG Tablet PO (09:47)
[2018-08-20] MEDS: guaiFENesin 10 ML UDC (200MG/10ML) PO ×3 (09:47→21:23)
[2018-08-20] MEDS: Enoxaparin 40 MG/0.4 ML Syringe SC (09:47)
--- NOTE | 2018-08-20 10:53 | NURSING ---
potassium order still not verified via pharmacy. pt aware
--- NOTE | 2018-08-20 11:40 | CASEMGMT ---
TORITO HUNT Face to Face with patient for initial transition planning/care coordination assessment. TORITO HUNT introduced self and role at [facility]. Patient lying in bed, alert and oriented. Patient willing to participate in assessment and is able to answer all questions appropriately. Care providers, pharmacy, and demographics verified. Patient lives with who assists with care. Patient is readmit from 08/16 discharge to home with oxygen and nebulizer setup with [facility]. Patient denied HHC. Patient had follow-up appointments scheduled prior to discharge. Patient wishes to discharge home and would like HHC with [facility] for senior care. TORITO HUNT stated the CM would follow-up on Wednesday to setup HHC. Patient states she has no further needs or concerns at this time. CM to follow for discharge planning needs that may arise. Disposition Plan: Patient to discharge home with HHC, family support, and follow-up plans in place. Sherin MARC, RN, CM
[2018-08-20] MEDS: proMETHazine 25 MG Tablet PO (13:08)
[2018-08-20 15:59] VITALS: BP 128/78; PULSE 72; RESP 18; TEMP 37.1; O2SAT 99
[2018-08-20 21:03] VITALS: BP 133/72; PULSE 72; RESP 18; TEMP 37.2; O2SAT 96
[2018-08-20] MEDS: NYSTATIN 500,000 UNIT/5 ML UDC 500000 UNIT PO (21:23)
[2018-08-21 02:38] VITALS: BP 119/70; PULSE 73; RESP 18; TEMP 37.3; O2SAT 97
[2018-08-21] MEDS: morphine (oral solution) 10MG/0.5ML Syringe 10 MG SL/PO (02:45)
[2018-08-21] MEDS: Ondansetron 4 MG/2 ML Vial IV (06:01)
[2018-08-21] MEDS: 0.9% NaCl Peripheral Flush Adult/Peds IV ×2 (06:05→09:30)
[2018-08-21 07:15] LABS: Anion Gap 6 (5-15); BUN 9 mg/dL (7-18); BUN/Creat Ratio 20.6 RATIO (10-20); Calcium,Total 8.3 mg/dL (8.5-10.1); Chloride 95 mmol/L (98-107); Creatinine, Serum 0.44 mg/dL (0.55-1.02); EST Glomerular Filtration Rate 151 mL/min (>60); Est Glom Filt Rate - Afr Amer 183 mL/min (>60); Glucose 99 mg/dL (74-106); Potassium 3.4 mmol/L (3.5-5.1); Sodium Level 138 mmol/L (136-145)
[2018-08-21 07:42] VITALS: PULSE 77; RESP 18; O2SAT 94
[2018-08-21] MEDS: Ipratropium/Albuterol Sulfate 3 ML AMPUL.NEB INHALATION (07:42)
--- NOTE | 2018-08-21 08:41 | PN_ITS ---
Patient Problems: Active and Suspected Problems Pneumonia (Acute) Vitals/I&O's: Vital Signs Temp Pulse Resp BP Pulse Ox 99.1 F 73 18 119/70 97 08/21/18 02:38 08/21/18 02:38 08/21/18 02:38 08/21/18 02:38 08/21/18 02:38 Oxygen Flow Rate (L/min) 3 Oxygen Delivery Method Nasal Cannula Weight: 182 lb 12.211 oz Body Mass Index (BMI) 30.4 Intake and Output for Last 24 Hours 08/19/18 08/20/18 08/21/18 23:59 23:59 23:59 Intake Total 1005 / 1005 340 / 340 380 / 380 Output Total 500 / 500 400 / 400 250 / 250 Balance 505 / 505 -60 / -60 130 / 130 Microbiology Past 72 Hours 08/18/18 23:04 Blood Culture (Wb) - Left Hand Blood Culture - Preliminary No growth in 48 hours. 08/18/18 22:58 Blood Culture (Wb) - Anticubital Right Blood Culture - Preliminary No growth in 48 hours. 08/19/18 00:44 Urine, Clean Catch Streptococcus pneumoniae Antigen (M - Final 08/19/18 00:44 Urine, Clean Catch Legionella Antigen - Final Laboratory Results 08/21/18 06:38: Sodium 138, Potassium 3.4 L, Chloride 95 L, Carbon Dioxide 37.0 H, Anion Gap 6, BUN 9, Creatinine 0.44 L, Estim Creat Clear Calc 47.10, Est GFR (MDRD) Af Amer 183, Est GFR (MDRD) Non-Af 151, BUN/Creatinine Ratio 20.6 H, Glucose 99, Calcium 8.3 L Current Medications Albuterol Sulfate (Ventolin Aerosols) 2.5 mg INHALATION Q2H PRN PRN PRN Reason: SHORTNESS OF BREATH Albuterol/Ipratropium (Duoneb) 3 ml INHALATION Q4H.RT COUNT INCLUDES THE [facility] Last Admin: 08/21/18 07:42 Dose: 3 ml Enoxaparin Sodium (Lovenox) 40 mg SC DAILY@1000 COUNT INCLUDES THE [facility] Last Admin: 08/20/18 09:47 Dose: 40 mg Furosemide (Lasix) 40 mg PO DAILY PRN PRN Reason: shortness of breath. edema. Guaifenesin (Robitussin) 10 ml PO 4X/DAY COUNT INCLUDES THE [facility] Last Admin: 08/20/18 21:23 Dose: 10 ml Ceftriaxone Sodium (Rocephin) 1 gm in 50 mls @ 100 mls/hr IV Q24 COUNT INCLUDES THE [facility] Last Admin: 08/20/18 09:37 Dose: 100 mls/hr Lidocaine HCl (Xylocaine Viscous) 10 ml PO Q3H PRN PRN PRN Reason: SORE THROAT Lorazepam (Ativan Intensol) 0.5 mg PO Q8H PRN PRN PRN Reason: ANXIETY Magnesium Hydroxide (Milk Of Magnesia) 30 ml PO DAILY PRN PRN PRN Reason: Constipation Morphine Sulfate (Roxanol (Ir Oral Solution)) 10 mg SL/PO Q4H PRN PRN PRN Reason: SEVERE PAIN (6-10/10) Last Admin: 08/21/18 02:45 Dose: 10 mg Nutritional Formula (Lactose Free) (Ensure Enlive) 120 ml PO 4X/DAY COUNT INCLUDES THE [facility] Last Admin: 08/20/18 21:16 Dose: Not Given Nystatin (Nystatin) 500,000 unit PO 4X/DAY COUNT INCLUDES THE [facility] Last Admin: 08/20/18 21:23 Dose: 500,000 unit Ondansetron HCl (Zofran) 4 mg IV Q8H PRN PRN PRN Reason: Nausea Last Admin: 08/21/18 06:01 Dose: 4 mg Pantoprazole Sodium (Protonix) 40 mg PO DAILY COUNT INCLUDES THE [facility] Last Admin: 08/20/18 09:47 Dose: 40 mg Promethazine HCl (Phenergan Tablet) 25 mg PO Q6H PRN PRN PRN Reason: NAUSEA Last Admin: 08/20/18 13:08 Dose: 25 mg Sodium Chloride () 5 - 30 ml IV UD PRN PRN Reason: SALINE FLUSH Last Admin: 08/21/18 06:05 Dose: 20 ml Medical Necessity - Tobacco Use Smoking Status: Former smoker Tobacco Use: Cigarettes Assessment/Plan All Active Problems Pneumonia (Acute) Pleural effusion (Acute) 1. acute on chronic respiratory failure * may be multifactorial: pleural effusion +/- PNA +/- obstruction +/- PE * CTA shows no PE, but collapse of RUL possibly due to right hilar mass * pulmonary toilet * MANI Luna who advised transfer to [facility] for potential interventional pulmonology (stent, laser). DW Dr. Stafford at [facility] (oncology). He did not feel that there was any definitive etiology for his shortness of breath that was clearly obstructive. He advised further work up as inpatient. Therefore, patient will not be transferred at this time. 2. Pleural effusion * previously transudative * thoracentesis attempted 08/19, but was too little fluid to do safely. 3. Possible gram negative pneumonia * Question if this is actual pneumonia versus just postobstructive changes * on CTX and Azithromycin * strep and legionella antigen negative * BCx negative so far. 4. Stage IV NSCLC * completed XRT * to be enrolled in a Phase 2 trial for immunotherapy * Declined by [facility] for transfer 08/19 for interventional pulmonology evaluation ( stent, laser, etc.) Dr. Luna will try to facilitate an evaluation as outpt. 5. Radiation esophagitis * viscous lidocaine. 6. HFrEF * EF 40% * pt concerned about medications. I explained that she does indeed have CHF. She is on Coreg and lisinopril for the CHF--not HTN. * We discussed that I will DC the Coreg and lisinopril and use the lasix only PRN for SOB, edema, weight gain. I told her I will do this because palliation for her stage IV NSCLC. She was in agreement. 7. DVT proph: LMWH
[2018-08-21 09:25] VITALS: BP 119/59; PULSE 82; RESP 16; TEMP 37.2; O2SAT 96
[2018-08-21] MEDS: guaiFENesin 10 ML UDC (200MG/10ML) PO (09:28)
[2018-08-21] MEDS: Pantoprazole Sodium 40 MG Tablet PO (09:28)
[2018-08-21] MEDS: Enoxaparin 40 MG/0.4 ML Syringe SC (09:28)
[2018-08-21] MEDS: NYSTATIN 500,000 UNIT/5 ML UDC 500000 UNIT PO (09:29)
[2018-08-21] MEDS: proMETHazine 25 MG Tablet PO (09:53)
--- NOTE | 2018-08-21 11:30 | PCM.DC ---
- Discharge Diagnoses Current Active Problems: Current Active and Chronic Problems Pneumonia (Acute) You will use the following diet at home:: Regular Discharge Activity: May Not Drive Additional Instructions: F/U Dr. Armstrong, F community marketing manager outpatient to evaluate for RUL bronchus stent or laser therapy Allergies/Adverse Reactions: Allergies Sulfa (Sulfonamide Antibiotics) Allergy (Verified 08/18/18 17:59) Hives Medications to take at Discharge Albuterol Inhaler [Ventolin Hfa] 2 puff INHALATION Q6H PRN PRN 06/17/18 proMETHazine tablet [Phenergan tablet] 25 mg PO Q6H PRN PRN #10 tab 08/04/18 Albuterol Aerosols [Ventolin Aerosols] 2.5 mg INHALATION Q2H PRN PRN #30 vial.neb. 08/16/18 Lidocaine 2% Viscous [Xylocaine Viscous] 10 ml PO Q3H PRN #30 udc 08/16/18 Lorazepam Intensol [Ativan Intensol] 0.5 mg PO Q8H PRN PRN 3 Days #1 bottle 08/16/18 morphine solution (IR) [Roxanol (IR oral solution)] 10 mg SL/PO Q4H PRN PRN 3 Days #18 po.syringe 08/16/18 Carvedilol [Coreg (Beta Cisco)] 6.25 mg PO BID 08/18/18 Furosemide [Lasix] 40 mg PO DAILY 08/18/18 Lisinopril [Zestril] 10 mg PO DAILY 08/18/18 Nystatin 500,000 unit PO 4X/DAY 08/18/18 Pantoprazole Sodium [Protonix] 40 mg PO DAILY 08/18/18 Levofloxacin [Levaquin] 500 mg PO DAILY #7 tab 08/21/18 The following prescriptions were given: Levofloxacin [Levaquin] 500 mg PO DAILY #7 tab Primary Care Physician: Lai Meadows MD [Primary Care Provider] - Please follow up with your Primary Care Physician in: in 1-2 weeks Test Results: Test results from this visit will be discussed in further detail at your follow-up appointment, if applicable. Please Follow Up With: Lai Luna DO When: in 1-2 days to fasciliate outpt evaluation for Stent RUL bronchus
--- NOTE | 2018-08-21 12:36 | DCINST_ITS ---
- Discharge Diagnoses Current Active Problems: Current Active and Chronic Problems Pneumonia (Acute) You will use the following diet at home:: Regular Discharge Activity: May Not Drive Additional Instructions: F/U Dr. Armstrong, F management manager outpatient to evaluate for RUL bronchus stent or laser therapy Allergies/Adverse Reactions: Allergies Sulfa (Sulfonamide Antibiotics) Allergy (Verified 08/18/18 17:59) Hives Medications to take at Discharge Albuterol Inhaler [Ventolin Hfa] 2 puff INHALATION Q6H PRN PRN 06/17/18 proMETHazine tablet [Phenergan tablet] 25 mg PO Q6H PRN PRN #10 tab 08/04/18 Albuterol Aerosols [Ventolin Aerosols] 2.5 mg INHALATION Q2H PRN PRN #30 vial.neb. 08/16/18 Lidocaine 2% Viscous [Xylocaine Viscous] 10 ml PO Q3H PRN #30 udc 08/16/18 Lorazepam Intensol [Ativan Intensol] 0.5 mg PO Q8H PRN PRN 3 Days #1 bottle morphine solution (IR) [Roxanol (IR oral solution)] 10 mg SL/PO Q4H PRN PRN 3 Days #18 po.syringe 08/16/18 Carvedilol [Coreg (Beta Cisco)] 6.25 mg PO BID 08/18/18 Furosemide [Lasix] 40 mg PO DAILY 08/18/18 Lisinopril [Zestril] 10 mg PO DAILY 08/18/18 Nystatin 500,000 unit PO 4X/DAY 08/18/18 Pantoprazole Sodium [Protonix] 40 mg PO DAILY 08/18/18 Levofloxacin [Levaquin] 500 mg PO DAILY #7 tab 08/21/18 The following prescriptions were given: Levofloxacin [Levaquin] 500 mg PO DAILY #7 tab Primary Care Physician: Lai Meadows MD [Primary Care Provider] - Please follow up with your Primary Care Physician in: in 1-2 weeks Test Results: Test results from this visit will be discussed in further detail at your follow- up appointment, if applicable. Please Follow Up With: Lai Luna DO When: in 1-2 days to fasciliate outpt evaluation for Stent RUL bronchus
--- NOTE | 2018-08-21 12:52 | DS.PCM_ITS ---
Discharge Date and Diagnosis Date of Admission: 08/18/18 Date of Discharge: 08/21/18 - Primary Discharge Diagnosis Active and Suspected Problems Acute on chronic hypoxic respiratory failure Bilateral pleural effusion, small not amenable for thoracocentesis. Probable postobstructive right upper lobe pneumonia Right upper lobe large hilar mass consistent with metastatic stage IV non-small cell lung cancer Right upper lobe collapse again due to mass, mentioned above - Secondary Discharge Diagnosis Chronic Problems Vocal cord paralysis, unilateral complete (Chronic) Metastatic primary lung cancer (Chronic) History of tobacco use (Chronic) Obesity (BMI 30.0-34.9) (Chronic) Radiation-induced esophagitis (Chronic) Hospital Course and Treatment Summary of Care Provided: The patient is a 68 year old F with history of metastatic lung cancer, non- small cell lung cancer stage IV with radiation esophagitis and chronic hypoxic respiratory failure was admitted with acute respiratory distress consistent with acute on chronic respiratory failure, right upper lobe collapse secondary to right hilar mass and possible pneumonia. [The patient was seen and examined today. She is on baseline oxygen requirement 2 L/min. General: Alert, Oriented x3, Cooperative HEENT: Atraumatic, PERRLA, EOMI, Normocephalic Neck: Supple, No JVD, Negative Carotid Bruits Lungs: Air entry diminished in the right site anteriorly. Mild wheezing bilaterally. Cardiovascular: Regular rate, No murmurs Abdomen: Bowel Sounds Present, Soft, Non Tender Extremities: No clubbing Skin: No rashes, No breakdown Musculoskeletal: No Tenderness to Palpation of Joints or Extremities Neurological: Cranial nerves II-XII grossly intact Psych/Mental Status: Normal Affect, Appropriate 1. acute on chronic oxygen respiratory failure * may be multifactorial: pleural effusion, possible postobstructive pneumonia, right upper lobe collapse secondary to right hilar mass. * CTA shows no PE, but collapse of RUL possibly due to right hilar mass * pulmonary toilet * DW Dr. Luna who earlier advised transfer to [facility] for potential interventional pulmonology (stent, laser). MANI Stafford at [facility] (oncology). He did not feel that there was any definitive etiology for his shortness of breath that was clearly obstructive. This was further discussed with Dr. Luna today and he agreed he will facilitate outpatient early follow-up with interventional wind plant manager probably on 08/22/2018. 2. Pleural effusion * previously transudative * thoracentesis attempted 08/19, but was too little fluid to do safely. 3. Possible gram negative postobstructive right upper lobe pneumonia * Dr. Luna thinks probably it is not pneumonia but most probably is postobstructive changes secondary to big right hilar mass. But he feels she will need empiric treatment for 5 more days of Levaquin. * She was treated with Rocephin and Azithromycin * strep and legionella antigen negative * BCx negative so far. 4. Stage IV NSCLC * completed XRT * to be enrolled in a Phase 2 trial for immunotherapy * Declined by [facility] for transfer 08/19 for interventional pulmonology evaluation ( stent, laser, etc.) Dr. Luna will try to facilitate an evaluation as outpt. 5. Radiation esophagitis * viscous lidocaine. 6. HFrEF; chronic in nature * EF 40% * pt concerned about medications. I explained that she does indeed have CHF. She is on Coreg and lisinopril for the CHF--not HTN. * We discussed that I will DC the Coreg and lisinopril and use the lasix only PRN for SOB, edema, weight gain. I told her I will do this because palliation for her stage IV NSCLC. She was in agreement. 7. DVT proph: LMWH The plan of outpatient follow-up with oncologist Dr. Luna tomorrow and interventional neurologist in [facility], Dr. Armstrong was discussed with the patient. She agrees the above plan. Discharge meds reconciliation done. Discharge follow-up instructions discussed with the patient. Total time spent, exact 35 minutes on discharge meds reconciliation, examination , review of imaging and blood test and discussion with the patient on follow-up instructions. Discharge Activity: May Not Drive Home Medications: Medications to take at Discharge Albuterol Inhaler [Ventolin Hfa] 2 puff INHALATION Q6H PRN PRN 06/17/18 proMETHazine tablet [Phenergan tablet] 25 mg PO Q6H PRN PRN #10 tab 08/04/18 Albuterol Aerosols [Ventolin Aerosols] 2.5 mg INHALATION Q2H PRN PRN #30 vial.neb. 08/16/18 Lidocaine 2% Viscous [Xylocaine Viscous] 10 ml PO Q3H PRN #30 udc 08/16/18 Lorazepam Intensol [Ativan Intensol] 0.5 mg PO Q8H PRN PRN 3 Days #1 bottle morphine solution (IR) [Roxanol (IR oral solution)] 10 mg SL/PO Q4H PRN PRN 3 Days #18 po.syringe 08/16/18 Carvedilol [Coreg (Beta Cisco)] 6.25 mg PO BID 08/18/18 Nystatin 500,000 unit PO 4X/DAY 08/18/18 Pantoprazole Sodium [Protonix] 40 mg PO DAILY 08/18/18 Furosemide [Lasix] 40 mg PO DAILY #2 08/21/18 Levofloxacin [Levaquin] 500 mg PO DAILY #5 tab 08/21/18 Lisinopril [Zestril] 10 mg PO DAILY #2 08/21/18 Following Prescrptions Were Given to Patient: Levofloxacin [Levaquin] 500 mg PO DAILY #5 tab Primary Care Physician: Lai Meadows MD [Primary Care Provider] - Please follow up with your Primary Care Physician in: in 1-2 weeks Please Follow Up With: Lai Luna DO When: in 1-2 days to fasciliate outpt evaluation for Stent RUL bronchus Medical Necessity - Tobacco Use Smoking Status: Former smoker Tobacco Use: Cigarettes Meaningful Use Info Meaningful Use Diagnoses (Choose all that apply): None applicable Code Visit Inpatient E&M: 76831 Disch Hosp
--- NOTE | 2018-08-22 16:39 | CASEMGMT ---
TORITO HUNT Discharge Follow-up Phone Call: JESSICADinora: Marco Strata: 4 Call Date: 08/22/18 Discharge Date: 08/21/18 Time of Call: 1630 Duration: 1 min Admitting Diagnosis: Pneumonia TORITO HUNT attempted to complete follow-up phone call after recent hospitalization. No answer, voice message left with return contact information. TORITO HUNT setup HHC with [facility] with planned start of care for today.
== END 2018-08-21 14:30 | disposition home health service (06) | DRG 177 ==
LOC: ED 19:11 → MS3 21:42
PROVIDERS: Admitting Provider Hospitalist; Emergency Provider Emergency Medicine; Family Provider Family Medicine; PCP Family Medicine; Visit Provider Internal Medicine
DX: J15.6 Pneumonia due to other Gram-negative bacteria (principal); J96.21 Acute and chronic respiratory failure with hypoxia; J98.19 Other pulmonary collapse; J90 Pleural effusion, not elsewhere classified; I50.22 Chronic systolic (congestive) heart failure; C34.01 Malignant neoplasm of right main bronchus; C79.9 Secondary malignant neoplasm of unspecified site; Z87.891 Personal history of nicotine dependence; E66.9 Obesity, unspecified; Z68.30 Body mass index [BMI] 30.0-30.9, adult; Y84.2 Radiological procedure and radiotherapy as the cause of abnormal reaction of the patient, or of later complication, without mention of misadventure at the time of the procedure; K20.8 Other esophagitis; J38.01 Paralysis of vocal cords and larynx, unilateral
CPT/HCPCS: 36415; 71045; 71275; 76604; 80048; 83735; 85025; 87040; 87449; 94640; 94667; 94668; 97802; 99251; 99283; J7030; Q9967; A4216; G0463; J2405

== ENCOUNTER 2018-09-12 10:56 | Inpatient (IN) | payer MEDICARE, OTHER, SELFPAY ==
[2018-09-12] VITALS (8 sets, daily range): BP systolic 104–165; BP diastolic 68–80; PULSE 57–85; RESP 16–21; TEMP 36.5–36.9; O2SAT 96–98; BMI 28.7
--- NOTE | 2018-09-12 11:13 | ED.VISSUMM ---
- ER Visit Summary Date of Service: 09/12/18 Chief Complaint: Nausea and vomiting History of Present Illness: The patient is a 68 F who states that she is being treated for non-small cell lung cancer with metastasis. Patient underwent radiation is believed to have radiation esophagitis. She started immunotherapy with Dr. Luna on Wednesday. Over the weekend she has had a significant amount of nausea and vomiting. She had been having some nausea and vomiting that was pretty well controlled with Zofran however this is not work this weekend. She states she pretty much has not had anything to eat or drink since Wednesday and feels very rundown and weak. She notes very little urination. She denies any sensation last week before chemotherapy that would be consistent with food impaction or stricture sensation. She has not the local general surgery or gastroenterology. She is currently on home oxygen following her recent hospitalizations. Dr. Luna did call the emergency room and speak with me requesting possibility of inpatient EGD. Physical Examination: Afebrile vital signs are stable Gen: Well-nourished well-developed Head: Normocephalic atraumatic Eyes: Perrl EOMI ENT: TMs clear no rhinorrhea moist mucous membranes Neck: Supple no lymphadenopathy no JVD nontender CVS: Regular rate rhythm no murmurs normal S1-S2 Respiratory: No distress clear to auscultation bilaterally chest nontender Abdomen: Soft nontender nondistended normal bowel sounds no masses Back: Nontender Extremity: Nontender no edema Skin: Normal color no rash Neuro: alert orientated ?3 CN II-XII intact normal strength sensation reflexes gait cerebellar Psych: Normal affect normal mood Emergency Department Course and Treatment: Basic labs were obtained. Patient received IV fluids and Phenergan. I spoke with Dr. Harden who is happy to see the patient in consultation and plan on endoscopy tomorrow. Dr. Washington will be admitting for the hospitalist service. Impression: 1. Nausea and vomiting 2. Dehydration This note was generated with [employer] dictation software. It may contain incorrect words, spelling, and punctuation that were not noted in review of the chart prior to signing ED Disposition - Plan for ED Patient: Chief Complaint: Nausea/Vomiting Referrals: Lai Meadows MD [Primary Care Provider] -
[2018-09-12] MEDS: 0.9% Normal Saline 1,000 ML 1000 ML IV (11:35)
[2018-09-12] MEDS: proMETHazine 25 MG/ML Syringe 12.5 MG IV (11:35)
[2018-09-12 11:47] LABS: Absolute Lymphocyte Count 0.49 X10^3/ul (0.83-4.51); Absolute Neutrophil Count 3.6 X10^3/uL (2.0-7.7); Basophil# 0.04 X10^3/uL; Basophil% 0.8 % (0-1); Eosinophil# 0.09 X10^3/uL; Eosinophils% 1.9 % (0-5); Hematocrit 37.4 % (37-47); Hemoglobin 12.3 g/dl (12.0-15.0); Lymphocyte # 0.49 X10^3/ul (4.0); Lymphocyte % 10.4 % (19-41); Mean Corp Hgb Conc 32.9 g/gl (32-36); Mean Corpuscular Hgb 31.7 pg (27.0-32.0); Mean Corpuscular Volume 96.4 fL (81-99); Mean Platelet Vol. 8.9 fl (6.2-12.0); Monocyte# 0.49 X10^3/uL; Monocyte% 10.4 % (0-10); Neutrophil # 3.61 X10^3/uL (2.7-7.7); Neutrophil % 76.3 % (47-70); Platelet Count 312 K/mm3 (150-450); RBC Distribution Width SD 41.6 fl (35.1-43.9); Red Blood Count 3.88 M/mm3 (4.2-5.4); White Blood Count 4.7 K/mm3 (4.4-11.0)
[2018-09-12 11:58] LABS: Differential Indicated SCAN CRITERIA MET; POSITIVE COUNT NO; POSITIVE DIFFERENTIAL YES; POSITIVE MORPHOLOGY NO
[2018-09-12 12:02] LABS: ALB/GLOB Ratio 0.6 RATIO (0.9-2.4); AST(SGOT) 30 U/L (15-37); Alanine Aminotransfer ALT/SGPT 30 U/L (13-56); Albumin, Serum 2.6 g/dL (3.2-5.0); Alkaline Phosphatase 71 U/L (45-117); Anion Gap 10 (5-15); BUN 7 mg/dL (7-18); BUN/Creat Ratio 13.9 RATIO (10-20); Calcium,Total 8.6 mg/dL (8.5-10.1); Chloride 97 mmol/L (98-107); EST Glomerular Filtration Rate 129 mL/min (>60); Est Glom Filt Rate - Afr Amer 156 mL/min (>60); Glucose 97 mg/dL (74-106); Lipase 47 U/L (73-393); Potassium 3.7 mmol/L (3.5-5.1); Protein, Total 6.6 g/dL (6.4-8.2); Sodium Level 136 mmol/L (136-145)
[2018-09-12 12:33] LABS: Bacteria 0 SEEN /hpf (None Seen); Mucous, Urine 0 SEEN /hpf (<or=2+); Red Blood Cells-Urine 0 SEEN /hpf (0-5); White Blood Cells 0 SEEN /hpf (0-5)
[2018-09-12 12:39] LABS: Color, Urine Yellow (Yellow); Glucose, Dipstick Normal (Normal); Ketone-Dipstick 50 mg/dl (Negative); Leukocyte Esterase-Dipstick Negative /ul (Negative); Nitrite-Dipstick Negative (Negative); Occult Blood-Urine Negative /ul (Negative); Protein-Dipstick 15 mg/dl (Negative); Urine Bilirubin Dipstick Negative (Negative); Urine Clarity Sl. Cloudy (Clear); Urine Urobilinogen Normal (Normal)
[2018-09-12 12:44] LABS: Squamous Epithelial Cells - UA 0-5 SEEN /hpf (5-10)
[2018-09-12] MEDS: 0.9% Normal Saline 1,000 ML 150 ML IV (12:44)
--- NOTE | 2018-09-12 14:08 | PCM.HP.STD ---
Problem List (1) Vocal cord paralysis, unilateral complete Status: Chronic (2) Metastatic primary lung cancer Status: Chronic Qualifiers: (3) History of tobacco use Status: Chronic (4) Obesity (BMI 30.0-34.9) Status: Chronic (5) Radiation-induced esophagitis Status: Chronic History of Present Illness Date of Admission: 09/12/18 Chief Complaint: Nausea and vomiting. The patient is a 68 year old F with past medical history as mentioned above presented to the emergency room because of nausea and vomiting. Her symptoms has been going on for several weeks after she received radiation therapy for metastatic non-small cell lung cancer. His symptoms worsened over the last 4 days after she received immunotherapy for her non-small cell lung cancer. Over the last 4 days, she has been complaining of intractable nausea, continuous, associated with intermittent vomiting as well as vague abdominal discomfort, could not keep down any food or liquids for the last 4-5 days, this nausea aggravated by laying flat and improved when she lay on her side. She mentioned that her urine output has been decreasing. She denied diarrhea, constipation or fever. Over the past several weeks, this nausea and vomiting has been fairly controlled with Zofran but over the last 4-5 days, Zofran has not been working anymore. Around 3 weeks ago, patient was admitted for pneumonia and she was discharged on oxygen at 3 L and she has been on it since then. In the emergency department, her vital signs were stable. Her routine blood work including CBC and BMP was unremarkable. LFT and lipase were normal. She is being admitted for intractable nausea and vomiting in context of history of radiation esophagitis as well as dehydration and probably patient will need upper EGD for evaluation. Past Medical History Past Medical History (Chronic Problems): Chronic Problems Vocal cord paralysis, unilateral complete (Chronic) Metastatic primary lung cancer (Chronic) History of tobacco use (Chronic) Obesity (BMI 30.0-34.9) (Chronic) Radiation-induced esophagitis (Chronic) Allergies Sulfa (Sulfonamide Antibiotics) Allergy (Verified 09/12/18 10:56) Hives Home Medications: Ambulatory Orders Medication Instructions Recorded Albuterol Inhaler [Ventolin Hfa] 2 puff INHALATION Q6H PRN PRN 06/17/18 proMETHazine tablet [Phenergan 25 mg PO Q6H PRN PRN #10 tab 08/04/18 tablet] Albuterol Aerosols [Ventolin 2.5 mg INHALATION Q2H PRN PRN #30 08/16/18 Aerosols] vial.neb. Lidocaine 2% Viscous [Xylocaine 10 ml PO Q3H PRN #30 udc 08/16/18 Viscous] Lorazepam Intensol [Ativan 0.5 mg PO Q8H PRN PRN 3 Days #1 08/16/18 Intensol] bottle morphine solution (IR) [Roxanol 10 mg SL/PO Q4H PRN PRN 3 Days #18 08/16/18 (IR oral solution)] po.syringe Carvedilol [Coreg (Beta [employer])] 6.25 mg PO BID 08/18/18 Nystatin 500,000 unit PO 4X/DAY 08/18/18 Pantoprazole Sodium [Protonix] 40 mg PO DAILY 08/18/18 Furosemide [Lasix] 40 mg PO DAILY #2 08/21/18 Levofloxacin [Levaquin] 500 mg PO DAILY #5 tab 08/21/18 Lisinopril [Zestril] 10 mg PO DAILY #2 08/21/18 Surgical History: - - Lymph node biopsy, lumbar back surgery with hardware, tonsillectomy, bilateral tubal ligation. 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 Paternal History Items: - - Patient notes a paternal family history of colon cancer. Review of Systems Constitutional: Reports: Anorexia, Weakness. Denies: Chills, Fever Eyes: Denies: Blurred vision, Double vision, Drainage, Redness, Vision Change HEENT: Denies: Difficulty Hearing, Ear Pain, Eye Pain, Nasal Congestion, Sore Throat Cardiovascular: Denies: Chest Pain, Chest Pressure, Heaviness, Palpitations, Syncope Respiratory: Reports: Cough. Denies: Pleuritic Pain, Shortness of Breath, Sputum production, Wheezing Gastrointestinal: Reports: Abdominal Pain, Nausea, Vomiting. Denies: Constipation, Diarrhea, Hematochezia, Melena Genitourinary: Denies: Dysuria, Frequency, Hematuria Musculoskeletal: Denies: Arm Pain, Back Pain, Foot Pain Skin: Denies: Dryness, Rash Neurological: Denies: Balance problems, Double vision, Change in Speech, Slurred speech, Headaches, Incoordination, Numbness Psychiatric: Denies: Anxiety, Depression Endocrine: Denies: Change in Body Habitus, Polydipsia VTE Information - Inpt Only VTE Present on Admission: No VTE Mechan Device Prophylaxis: None VTE Pharm Prophylaxis ordered?: Yes - Physical Exam General: Alert, Oriented x3, Cooperative, No apparent distress HEENT: Atraumatic, PERRLA, EOMI, Normocephalic Oral: Moist Mucosa, No Gingival or Mucosal Lesions/ Ulcerations Neck: Supple, No JVD, Negative Carotid Bruits, Trachea Midline, Thyroid Normal Size and Texture Lungs: Clear to auscultation, No rhonchi, No wheeze, No rales, Diminished, - - Decreased breath sounds on the right base, otherwise clear. Cardiovascular: Regular rate, Regular Rhythm, Normal S1, Normal S2, PMI Normal Abdomen: Bowel Sounds Present, Soft, Non Tender, Non-Distended, No Hepato-splenomegaly Extremities: No clubbing, No cyanosis, No edema Skin: No rashes, No breakdown Lymphatic: No Cervical, Supraclavicular, or Inguinal Adenopathy Neurological: Cranial nerves II-XII grossly intact, Motor Exam 5/5 strength throughout Psych/Mental Status: Normal Affect, Appropriate, Alert and oriented to time, place, person, mood and affect Vital Signs Temp Pulse Resp BP Pulse Ox 97.7 F L 74 17 143/68 H 98 09/12/18 10:58 09/12/18 13:04 09/12/18 13:04 09/12/18 12:24 09/12/18 13:04 Oxygen Delivery Method Room Air Weight: 172 lb 9.951 oz Body Mass Index (BMI) 28.7 Laboratory Tests Past 24 Hrs 09/12/18 09/12/18 09/12/18 11:40 11:40 12:30 WBC 4.7 RBC 3.88 L Hgb 12.3 Hct 37.4 MCV 96.4 MCH 31.7 MCHC 32.9 RDW 12.0 RDW Differential 41.6 Plt Count 312 MPV 8.9 Immature Gran % (Auto) 0.200 Neut % (Auto) 76.3 H Lymph % (Auto) 10.4 L [place] % (Auto) 10.4 H Eos % (Auto) 1.9 Baso % (Auto) 0.8 Absolute Neuts (auto) 3.6 Absolute Lymphs (auto) 0.49 L Total Counted Not Reportable Sodium 136 Potassium 3.7 Chloride 97 L Carbon Dioxide 29.0 Anion Gap 10 BUN 7 Creatinine 0.50 L Estim Creat Clear Calc 47.10 Est GFR (MDRD) Af Amer 156 Est GFR (MDRD) Non-Af 129 BUN/Creatinine Ratio 13.9 Glucose 97 Calcium 8.6 Total Bilirubin 0.40 AST 30 ALT 30 Alkaline Phosphatase 71 Total Protein 6.6 Albumin 2.6 L Globulin 4.0 Albumin/Globulin Ratio 0.6 L Lipase 47 L Urine Color Yellow Urine Clarity Sl. Cloudy Urine pH 7.0 Ur Specific [place] 1.010 Urine Protein 15 H Urine Glucose (UA) Normal Urine Ketones 50 H Urine Occult Blood Negative Urine Nitrite Negative Urine Bilirubin Negative Urine Urobilinogen Normal Ur Leukocyte Esterase Negative Urine RBC 0 SEEN Urine WBC 0 SEEN Ur Squamous Epith Cells 0-5 SEEN Urine Bacteria 0 SEEN Urine Mucus 0 SEEN Assessment/Plan This is a 68 years old female patient presented to the emergency room because of persistent intractable nausea and vomiting after she was started on immunotherapy for metastatic non-small cell lung cancer and she is being admitted for treatment and evaluation with upper EGD. #1 intractable persistent nausea and vomiting: Unclear etiology, it has been going on for several weeks after she was started on radiation therapy and worsened after she was started on immunotherapy 4 days ago. Her routine blood work including CBC, BMP as well as LFT and lipase were normal. Abdominal examination is benign. Her vital signs are stable. Plan: Admit to [facility] floor for observation, keep on clear liquids, IV fluids, IV Zofran as needed, IV Phenergan as needed, IV Protonix twice daily, IV morphine as needed for pain, general surgery consult for upper EGD, PT OT evaluation and treatment. #2 dehydration: As indicated by decreased urine output, poor appetite and anorexia. Her kidney function is normal. #3 suspected COPD: Patient is a longtime smoker, quit smoking 1 year ago. She has been using inhalers but never diagnosed with COPD according to the patient. 3 weeks ago, she was admitted for pneumonia and she was discharged on oxygen at 3 L. She has been on oxygen at 3 L since then. She denied any worsening shortness of breath. Plan: Chest x-ray, albuterol as needed, DuoNeb every 6 hours, incentive spirometer. #4 metastatic non-small cell lung cancer: Status post radiation therapy, started on immune therapy 4 days ago. She has been following up with Dr. Luna. Her CBC was unremarkable. #5 radiation induced esophagitis: Plan as above, IV Protonix twice daily, IV antiemetics, general surgery consult for upper EGD. #6 DVT prophylaxis: Subcu Lovenox. This note was generated with [employer] dictation software. It may contain incorrect words, spelling, and punctuation that were not noted in checking the note before signing. Code Visit OBSV E&M: 82595 Initial observation care L3
--- NOTE | 2018-09-12 14:33 | RAD_ITS ---
STUDY: X-RAY CHEST REASON FOR EXAM: Female, 68 years old. Increasing shortness of breath. TECHNIQUE: Single AP portable view of the chest. COMPARISON: Comparison is made with prior study dated August 18, 2018. FINDINGS: Persistent volume loss of the right upper lobe. A right hilar mass should be ruled out. Elevation of the right hemidiaphragm. Increased markings at the right lung base suggestive of atelectasis and/or early infiltrate. Normal size heart. Normal mediastinum and subha. Normal visualized pulmonary arteries. There is atherosclerotic calcification of the aortic arch with tortuosity. Normal visualized thoracic spine. Normal visualized ribs, clavicles, and shoulders. There is no demonstrated abnormality of the visualized soft tissue structures of the upper abdomen. RAD/Chest 1 View (Portable) IMPRESSION: Further volume loss in the right upper lobe with increased opacity and there are findings suggestive of mass in the right hilar region with postobstructive pneumonitis and/or atelectasis.. Electronically Signed: Emanuel Escobedo MD at 15:08 EDT Tel [phone], Service support ,
--- NOTE | 2018-09-12 15:35 | PCM.CONS.GEN ---
Problem List (1) Nausea and vomiting Status: Acute (2) Epigastric pain Status: Acute (3) Metastatic primary lung cancer Status: Chronic Qualifiers: Reason for Consult Date of Consultation: 09/12/18 Reason for Consultation: Nausea, vomiting, epigastric pain History of Present Illness: The patient is a 68 year old F who presents with nausea, vomiting and epigastric pain. Patient was recently diagnosed with metastatic lung cancer earlier this year. She follows with Dr. Luna. She has completed radiation in July. Since this time she has had difficulty with swallowing solid foods and liquids. She has to monitor the amount of liquid she drinks due to nausea. She notes when the nausea occurs she has epigastric pain. She denies hematemesis. She denies melena, bright red blood per rectum. She notes constipation. She notes she has been in and out of the hospital since radiation with dehydration. She denies previous EGD and PEG tube placement. Patient notes a 25 pound weight loss within 2 months. She is currently doing an experimental chemotherapy. She noted she was told that chemotherapy would likely kill her. She notes only previous surgery was back surgery last year. She is currently on 3 Liters of oxygen at home. She does not follow with a wine steward/stewardess. Past Medical History Past Medical History (Chronic Problems): Chronic Problems Vocal cord paralysis, unilateral complete (Chronic) Metastatic primary lung cancer (Chronic) History of tobacco use (Chronic) Obesity (BMI 30.0-34.9) (Chronic) Radiation-induced esophagitis (Chronic) Allergies Sulfa (Sulfonamide Antibiotics) Allergy (Verified 09/12/18 10:56) Hives Home Medications: Ambulatory Orders Medication Instructions Recorded Albuterol Inhaler [Ventolin Hfa] 2 puff INHALATION Q6H PRN PRN 06/17/18 Albuterol Aerosols [Ventolin 2.5 mg INHALATION Q2H PRN PRN #30 08/16/18 Aerosols] vial.neb. Pantoprazole Sodium [Protonix] 40 mg PO DAILY 08/18/18 Lorazepam Intensol [Ativan 0.25 ml PO Q8H PRN PRN 09/12/18 Intensol] Methadone HCl 2.5 mg PO BID 09/12/18 Ondansetron [Zofran Odt] 4 mg PO Q4H PRN PRN 09/12/18 Oxycodone [Oxyir] 5 mg PO Q4H PRN 09/12/18 Surgical History: - - Lymph node biopsy, lumbar back surgery with hardware, tonsillectomy, bilateral tubal ligation. 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 Paternal History Items: - - Patient notes a paternal family history of colon cancer. Review of Systems Constitutional: Reports: Anorexia, Weakness, Weight Change, Fatigue HEENT: Reports: Dysphasia Cardiovascular: Denies: Chest Pain, Palpitations Respiratory: Reports: Shortness of Breath Gastrointestinal: Reports: Abdominal Pain, Constipation, Nausea, Vomiting Genitourinary: Denies: Dysuria Musculoskeletal: Reports: Back Pain Skin: Denies: Rash, Wounds Neurological: Denies: Numbness, Tingling, Focal weakness Psychiatric: Denies: Anxiety, Depression, Homicidal Ideations, Suicidal Ideations Hematologic/ Lymphatic: Denies: Easy Bruising, Easy Bleeding Patient Problems: Active and Suspected Problems Nausea and vomiting (Acute) Epigastric pain (Acute) - Physical Exam General: Alert, Oriented x3, Cooperative HEENT: Atraumatic, PERRLA, EOMI, Normocephalic, Lymphadenopathy - Right clavicle Neck: Supple, No JVD, Negative Carotid Bruits Lungs: Clear to auscultation, Normal air movement Cardiovascular: Regular rate, No murmurs Abdomen: Soft, Hypoactive Bowel Sounds, Tender - epigastric region Extremities: No edema, Capillary Refill Less than 3 Seconds Skin: No rashes, No breakdown Musculoskeletal: No Tenderness to Palpation of Joints or Extremities Neurological: Neuro grossly intact Psych/Mental Status: Normal Affect, Appropriate Vital Signs Temp Pulse Resp BP Pulse Ox 98.3 F 77 16 146/71 H 97 09/12/18 14:34 09/12/18 14:34 09/12/18 14:34 09/12/18 14:34 09/12/18 14:34 Oxygen Flow Rate (L/min) 3 Oxygen Delivery Method Nasal Cannula Weight: 172 lb 9.951 oz Body Mass Index (BMI) 28.7 Laboratory Tests Past 24 Hrs 09/12/18 09/12/18 09/12/18 11:40 11:40 12:30 WBC 4.7 RBC 3.88 L Hgb 12.3 Hct 37.4 MCV 96.4 MCH 31.7 MCHC 32.9 RDW 12.0 RDW Differential 41.6 Plt Count 312 MPV 8.9 Immature Gran % (Auto) 0.200 Neut % (Auto) 76.3 H Lymph % (Auto) 10.4 L [place] % (Auto) 10.4 H Eos % (Auto) 1.9 Baso % (Auto) 0.8 Absolute Neuts (auto) 3.6 Absolute Lymphs (auto) 0.49 L Total Counted Not Reportable Sodium 136 Potassium 3.7 Chloride 97 L Carbon Dioxide 29.0 Anion Gap 10 BUN 7 Creatinine 0.50 L Estim Creat Clear Calc 47.10 Est GFR (MDRD) Af Amer 156 Est GFR (MDRD) Non-Af 129 BUN/Creatinine Ratio 13.9 Glucose 97 Calcium 8.6 Total Bilirubin 0.40 AST 30 ALT 30 Alkaline Phosphatase 71 Total Protein 6.6 Albumin 2.6 L Globulin 4.0 Albumin/Globulin Ratio 0.6 L Lipase 47 L Urine Color Yellow Urine Clarity Sl. Cloudy Urine pH 7.0 Ur Specific [place] 1.010 Urine Protein 15 H Urine Glucose (UA) Normal Urine Ketones 50 H Urine Occult Blood Negative Urine Nitrite Negative Urine Bilirubin Negative Urine Urobilinogen Normal Ur Leukocyte Esterase Negative Urine RBC 0 SEEN Urine WBC 0 SEEN Ur Squamous Epith Cells 0-5 SEEN Urine Bacteria 0 SEEN Urine Mucus 0 SEEN Assessment/Plan All Active Problems Nausea and vomiting (Acute) Epigastric pain (Acute) I have been consulted in conjunction with Dr. Harden. Impression: Stage IV metastatic lung cancer. Post-radiation nausea, vomiting, epigastric pain Plan: I have discussed this patient in conjunction with Dr. Harden. Dr. Harden will plan to perform an upper scope tomorrow. Procedure details, risks and benefits have been explained to the patient. Patient has had the opportunity to ask and have questions answered. Patient verbally understands and agrees with the plan. NPO after midnight. Thank you for allowing me to participate in this patient's care. My recommendations will be available via electronic medical records. Code Visit Office Visits / Consults: [id number] IP Consult L3
--- NOTE | 2018-09-12 15:41 | CON.PCM_ITS ---
Problem List (1) Nausea and vomiting Status: Acute (2) Epigastric pain Status: Acute (3) Metastatic primary lung cancer Status: Chronic Qualifiers: Reason for Consult Date of Consultation: 09/12/18 Reason for Consultation: Nausea, vomiting, epigastric pain History of Present Illness: The patient is a 68 year old F who presents with nausea, vomiting and epigastric pain. Patient was recently diagnosed with metastatic lung cancer earlier this year. She follows with Dr. Luna. She has completed radiation in July. Since this time she has had difficulty with swallowing solid foods and liquids. She has to monitor the amount of liquid she drinks due to nausea. She notes when the nausea occurs she has epigastric pain. She denies hematemesis. She denies melena, bright red blood per rectum. She notes constipation. She notes she has been in and out of the hospital since radiation with dehydration. She denies pr evious EGD and PEG tube placement. Patient notes a 25 pound weight loss within 2 months. She is currently doing an experimental chemotherapy. She noted she was told that chemotherapy would likely kill her. She notes only previous surgery was back surgery last year. She is currently on 3 Liters of oxygen at home. 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 Past Medical History Past Medical History (Chronic Problems): Chronic Problems Vocal cord paralysis, unilateral complete (Chronic) Metastatic primary lung cancer (Chronic) History of tobacco use (Chronic) Obesity (BMI 30.0-34.9) (Chronic) Radiation-induced esophagitis (Chronic) Allergies Sulfa (Sulfonamide Antibiotics) Allergy (Verified 09/12/18 10:56) Hives Home Medications: Ambulatory Orders Medication Instructions Recorded Albuterol Inhaler [Ventolin Hfa] 2 puff INHALATION Q6H PRN PRN 06/17/18 Albuterol Aerosols [Ventolin 2.5 mg INHALATION Q2H PRN PRN #30 08/16/18 Aerosols] vial.neb. Pantoprazole Sodium [Protonix] 40 mg PO DAILY 08/18/18 Lorazepam Intensol [Ativan 0.25 ml PO Q8H PRN PRN 09/12/18 Intensol] Methadone HCl 2.5 mg PO BID 09/12/18 Ondansetron [Zofran Odt] 4 mg PO Q4H PRN PRN 09/12/18 Oxycodone [Oxyir] 5 mg PO Q4H PRN 09/12/18 Surgical History: - - Lymph node biopsy, lumbar back surgery with hardware, tonsillectomy, bilateral tubal ligation. 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 Paternal History Items: - - Patient notes a paternal family history of colon cancer. Review of Systems Constitutional: Reports: Anorexia, Weakness, Weight Change, Fatigue HEENT: Reports: Dysphasia Cardiovascular: Denies: Chest Pain, Palpitations Respiratory: Reports: Shortness of Breath Gastrointestinal: Reports: Abdominal Pain, Constipation, Nausea, Vomiting Genitourinary: Denies: Dysuria Musculoskeletal: Reports: Back Pain Skin: Denies: Rash, Wounds Neurological: Denies: Numbness, Tingling, Focal weakness Psychiatric: Denies: Anxiety, Depression, Homicidal Ideations, Suicidal Ideations Hematologic/ Lymphatic: Denies: Easy Bruising, Easy Bleeding Patient Problems: Active and Suspected Problems Nausea and vomiting (Acute) Epigastric pain (Acute) - Physical Exam General: Alert, Oriented x3, Cooperative HEENT: Atraumatic, PERRLA, EOMI, Normocephalic, Lymphadenopathy - Right clavicle Neck: Supple, No JVD, Negative Carotid Bruits Lungs: Clear to auscultation, Normal air movement Cardiovascular: Regular rate, No murmurs Abdomen: Soft, Hypoactive Bowel Sounds, Tender - epigastric region Extremities: No edema, Capillary Refill Less than 3 Seconds Skin: No rashes, No breakdown Musculoskeletal: No Tenderness to Palpation of Joints or Extremities Neurological: Neuro grossly intact Psych/Mental Status: Normal Affect, Appropriate Vital Signs Temp Pulse Resp BP Pulse Ox 98.3 F 77 16 146/71 H 97 09/12/18 14:34 09/12/18 14:34 09/12/18 14:34 09/12/18 14:34 09/12/18 14:34 Oxygen Flow Rate (L/min) 3 Oxygen Delivery Method Nasal Cannula Weight: 172 lb 9.951 oz Body Mass Index (BMI) 28.7 Laboratory Tests Past 24 Hrs 09/12/18 09/12/18 09/12/18 11:40 11:40 12:30 WBC 4.7 RBC 3.88 L Hgb 12.3 Hct 37.4 MCV 96.4 MCH 31.7 MCHC 32.9 RDW 12.0 RDW Differential 41.6 Plt Count 312 MPV 8.9 Immature Gran % (Auto) 0.200 Neut % (Auto) 76.3 H Lymph % (Auto) 10.4 L [place] % (Auto) 10.4 H Eos % (Auto) 1.9 Baso % (Auto) 0.8 Absolute Neuts (auto) 3.6 Absolute Lymphs (auto) 0.49 L Total Counted Not Reportable Sodium 136 Potassium 3.7 Chloride 97 L Carbon Dioxide 29.0 Anion Gap 10 BUN 7 Creatinine 0.50 L Estim Creat Clear Calc 47.10 Est GFR (MDRD) Af Amer 156 Est GFR (MDRD) Non-Af 129 BUN/Creatinine Ratio 13.9 Glucose 97 Calcium 8.6 Total Bilirubin 0.40 AST 30 ALT 30 Alkaline Phosphatase 71 Total Protein 6.6 Albumin 2.6 L Globulin 4.0 Albumin/Globulin Ratio 0.6 L Lipase 47 L Urine Color Yellow Urine Clarity Sl. Cloudy Urine pH 7.0 Ur Specific [place] 1.010 Urine Protein 15 H Urine Glucose (UA) Normal Urine Ketones 50 H Urine Occult Blood Negative Urine Nitrite Negative Urine Bilirubin Negative Urine Urobilinogen Normal Ur Leukocyte Esterase Negative Urine RBC 0 SEEN Urine WBC 0 SEEN Ur Squamous Epith Cells 0-5 SEEN Urine Bacteria 0 SEEN Urine Mucus 0 SEEN Assessment/Plan All Active Problems Nausea and vomiting (Acute) Epigastric pain (Acute) I have been consulted in conjunction with Dr. Harden. Impression: Stage IV metastatic lung cancer. Post-radiation nausea, vomiting, epigastric pain Plan: I have discussed this patient in conjunction with Dr. Harden. Dr. Harden will plan to perform an upper scope tomorrow. Procedure details, risks and benefits have been explained to the patient. Patient has had the opportunity to ask and have questions answered. Patient verbally understands and agrees with the plan. NPO after midnight. Thank you for allowing me to participate in this patient's care. My recommendations will be available via electronic medical records. Code Visit Office Visits / Consults: [id number] IP Consult L3
[2018-09-12] MEDS: Morphine 2 MG/ML Syringe IV ×2 (16:50→21:01)
[2018-09-12] MEDS: 0.9% Normal Saline 1,000 ML 100 ML IV (16:50)
[2018-09-12] MEDS: Ondansetron 4 MG/2 ML Vial IV (17:33)
[2018-09-12] MEDS: proMETHazine 25 MG/ML Syringe 6.25 MG IV (20:51)
--- NOTE | 2018-09-12 21:13 | CPS ---
Addendum entered by Kimberly Bradley 09/13/18 05:08: Original Note: pt did not want aero tx at this time-pt still very nauseated-no resp distress noted at this time
[2018-09-12] MEDS: Ipratropium/Albuterol Sulfate 3 ML AMPUL.NEB INHALATION (23:05)
[2018-09-13] VITALS (12 sets, daily range): BP systolic 124–153; BP diastolic 49–73; PULSE 58–91; RESP 16–20; TEMP 36.7–37.4; O2SAT 95–100; BMI 28.8
--- NOTE | 2018-09-13 | IMM_PTH ---
PATIENT: CRISTOPHER SOSA LOC: MS3 U#:[id number] AGE/SX: 68/F ROOM: [facility] [place] RE09/13/[address]: Dr. Ricki Meraz DO : 1950 BED: 1 DIS: 09/14/2018 SPEC #: [id number] RECD: 09/13/18 14:47 STATUS: SOUT REQ #: [id number] BRITTA: 09/13/18 00:[address]: Tone Harden DEPT: IMMUNOHISTOCHEMISTRY RECD BY: Elinor Vee ENTERED: 09/13/18 14:48 SP TYPE: IMMUNO OTHR DR: DO Dr. Mariano Hines MD Dr. Paul Nielsen, MD Tissues: Stomach, NOS Procedures: H Pylori (initial) PHYSICIAN & INSTITUTION [place] [id number] SPECIMEN INFORMATION: Tissue Source: Antral biopsy Clinical Info: Nausea and vomiting Specimen Number: [id number] CPT code: 81732 METHODOLOGY: Deparaffinized sections of prefer/formalin-fixed tissue or PAP/DQ stained slides are incubated with monoclonal/polyclonal antibodies/oligonucleotide probes. Localization is made via biotin free immunoperoxidase method. Appropriate controls are performed and reacted as expected. Results on target cell population are indicated in the following table: RESULTS: ANTIBODY / CLONE RESULT H Pylori (polyclonal) negative These tests were developed and their performance characteristics determined by [facility]. They may not have been cleared or approved by the U.[place]. Food and Drug Administration. The FDA has determined that such clearance or approval is not necessary. INTERPRETATION: Antral biopsy: Negative for Helicobacter pylori organisms. SJ:gt 09/14/18
--- NOTE | 2018-09-13 | GASB_PTH ---
PATIENT: CRISTOPHER SOSA LOC: MS3 U#:[id number] AGE/SX: 68/F ROOM: [facility] [place] RE09/13/[address]: Dr. Ricki Meraz DO : 1950 BED: 1 DIS: 09/14/2018 SPEC #: [id number] RECD: 09/13/18 14:36 STATUS: SU RERod #: [id number] BRITTA: 09/13/18 00:[address]: Tone Harden DEPT: SURGICAL PATHOLOGY RECD BY: Jose Carbajal ENTERED: 09/13/18 14:38 SP TYPE: Gastric Bx OTHR DR: MD Dr. Ricki Bates DO Dr. Ghasem E Ashelfah, MD Dr. Paul Nielsen, MD Tissues: Gastric mucous membrane Procedures: Surgery Specimen Level IV Comments: @ Ordering doctor for SUIV edited from to @ jennifer GILL at 09/13/18 144 @ Submitting doctor edited from to @ by JAIRO at 09/13/18 1447 HEADER OPERATION: EGD ([facility] [place]) PRE-OP DIAGNOSIS: Nausea and vomiting TISSUE SUBMITTED: Antral biopsy for histo and H. pylori MICROSCOPIC DIAGNOSIS Antral biopsy: Mild gastritis. See microscopic description and comment. LEONARDA:gt 09/14/18 COMMENT The results of immunohistochemistry for Helicobacter pylori will be reported separately ([id number]). MICROSCOPIC DESCRIPTION Slides are reviewed. The specimen shows fragments of gastric mucosa with chronic inflammatory cell infiltrates in the lamina propria consisting of lymphocytes and plasma cells, consistent with mild chronic gastritis. GROSS DESCRIPTION Received in fixative is one container labeled with the patient's name and designated antral biopsy. The specimen consists of one irregular fragment of light ward soft tissue that measures 0.3 x 0.2 x 0.1 cm. The specimen is totally submitted in one cassette. / LEONARDA:gt 09/13/18 TC:3 [facility]: [id number]
[2018-09-13] MEDS: 0.9% Normal Saline 1,000 ML 100 ML IV (00:53)
[2018-09-13] MEDS: Morphine 2 MG/ML Syringe IV ×6 (01:04→22:37)
[2018-09-13] MEDS: Ondansetron 4 MG/2 ML Vial IV ×2 (01:04→09:32)
[2018-09-13] MEDS: proMETHazine 25 MG/ML Syringe 6.25 MG IV ×2 (04:46→14:39)
[2018-09-13] MEDS: 0.9% NaCl Peripheral Flush Adult/Peds IV ×5 (09:33→22:16)
--- NOTE | 2018-09-13 10:32 | PCM.PN.HOSP ---
Patient Problems: Active and Suspected Problems Nausea and vomiting (Acute) Epigastric pain (Acute) Subjective: has been having increasing nausea and vomiting. can only drink small sips, larger drinks lead to her vomiting immediately. unable to eat. +dry heaves. + abdominal pain. Vitals/I&O's: Vital Signs Temp Pulse Resp BP Pulse Ox 36.8 C 58 L 16 129/49 H 95 09/13/18 08:15 09/13/18 08:15 09/13/18 08:15 09/13/18 08:15 09/13/18 08:28 Oxygen Flow Rate (L/min) 3 Oxygen Delivery Method Nasal Cannula Weight: 78.3 kg Body Mass Index (BMI) 28.7 Intake and Output for Last 24 Hours 09/11/18 09/12/18 09/13/18 23:59 23:59 23:59 Intake Total 1650 / 1650 Output Total 400 / 400 Balance 1250 / 1250 General: Alert, - - uncomfortable. not writhing in pain. HEENT: Atraumatic, Normocephalic Oral: Moist Mucosa, No Gingival or Mucosal Lesions/ Ulcerations Neck: No Nodes, Thyroid Normal Size and Texture Lungs: Clear to auscultation, Normal air movement, No rhonchi, No wheeze Cardiovascular: Regular rate, Regular Rhythm, Normal S1, Normal S2, No murmurs Abdomen: Bowel Sounds Present, Soft, Non Tender, Non-Distended Extremities: No edema, No Calf Tenderness Skin: No rashes, No breakdown Musculoskeletal: No Tenderness to Palpation of Joints or Extremities, No Muscle Wasting Lymphatic: No Cervical, Supraclavicular, or Inguinal Adenopathy, Cervical Adenopathy Neurological: Cranial nerves II-XII grossly intact, Deep Tendon Reflexes 2+/4 and Symmetrical Psych/Mental Status: Normal Affect, Appropriate Laboratory Results 09/12/18 11:40: WBC 4.7, RBC 3.88 L, Hgb 12.3, Hct 37.4, MCV 96.4, MCH 31.7, MCHC 32.9, RDW 12.0, RDW Differential 41.6, Plt Count 312, MPV 8.9, Immature Gran % (Auto) 0.200, Neut % (Auto) 76.3 H, Lymph % (Auto) 10.4 L, [place] % (Auto) 10.4 H, Eos % (Auto) 1.9, Baso % (Auto) 0.8, Absolute Neuts (auto) 3.6, Absolute Lymphs (auto) 0.49 L, Total Counted Not Reportable 09/12/18 11:40: Sodium 136, Potassium 3.7, Chloride 97 L, Carbon Dioxide 29.0, Anion Gap 10, BUN 7, Creatinine 0.50 L, Estim Creat Clear Calc 47.10, Est GFR (MDRD) Af Amer 156, Est GFR (MDRD) Non-Af 129, BUN/Creatinine Ratio 13.9, Glucose 97, Calcium 8.6, Total Bilirubin 0.40, AST 30, ALT 30, Alkaline Phosphatase 71, Total Protein 6.6, Albumin 2.6 L, Globulin 4.0, Albumin/Globulin Ratio 0.6 L, Lipase 47 L 09/12/18 12:30: Urine Color Yellow, Urine Clarity Sl. Cloudy, Urine pH 7.0, Ur Specific [place] 1.010, Urine Protein 15 H, Urine Glucose (UA) Normal, Urine Ketones 50 H, Urine Occult Blood Negative, Urine Nitrite Negative, Urine Bilirubin Negative, Urine Urobilinogen Normal, Ur Leukocyte Esterase Negative, Urine RBC 0 SEEN, Urine WBC 0 SEEN, Ur Squamous Epith Cells 0-5 SEEN, Urine Bacteria 0 SEEN, Urine Mucus 0 SEEN Current Medications Albuterol Sulfate (Ventolin Aerosols) 2.5 mg INHALATION Q4H PRN PRN PRN Reason: Shortness of breath, wheezing Albuterol/Ipratropium (Duoneb) 3 ml INHALATION Q6H.RT [facility] Last Admin: 09/13/18 07:50 Dose: Not Given Enoxaparin Sodium (Lovenox) 40 mg SC DAILY@1000 SHELBY Sodium Chloride () 1,000 mls @ 100 mls/hr IV .Q10H [facility] Last Admin: 09/13/18 00:53 Dose: 100 mls/hr Pantoprazole Sodium 40 mg/ (Sodium Chloride) 110 mls @ 330 mls/hr IV Q12 [facility] Last Admin: 09/13/18 09:33 Dose: 330 mls/hr Magnesium Hydroxide (Milk Of Magnesia) 30 ml PO DAILY PRN PRN PRN Reason: Constipation Morphine Sulfate () 2 mg IV Q4H PRN PRN PRN Reason: SEVERE PAIN (6-10/10) Last Admin: 09/13/18 09:32 Dose: 2 mg Ondansetron HCl (Zofran) 4 mg IV Q6H PRN PRN PRN Reason: NAUSEA/VOMITING Last Admin: 09/13/18 09:32 Dose: 4 mg Promethazine HCl (Phenergan) 6.25 mg IV Q6H PRN PRN PRN Reason: NAUSEA/VOMITING Last Admin: 09/13/18 04:46 Dose: 6.25 mg Sodium Chloride () 5 - 30 ml IV UD PRN PRN Reason: SALINE FLUSH Last Admin: 09/13/18 09:33 Dose: 10 ml Medical Necessity - Tobacco Use Smoking Status: Former smoker Tobacco Use: Cigarettes Assessment/Plan All Active Problems Nausea and vomiting (Acute) Epigastric pain (Acute) 1. intractable nausea and vomiting. unclear etiology EGD today continue PPI for now improved with phenergan concerned about obstructive process. 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 stage IV NSCLC completed XRT undergoing a phase 2 trial for immunotherapy 3. HFrEF EF 40% compensated at this time. 4. DVT proph: LMWH. Code Visit Inpatient E&M: 46209 Subs Hosp L2
--- NOTE | 2018-09-13 10:37 | PN_ITS ---
Patient Problems: Active and Suspected Problems Nausea and vomiting (Acute) Epigastric pain (Acute) Subjective: has been having increasing nausea and vomiting. can only drink small sips, larger drinks lead to her vomiting immediately. unable to eat. +dry heaves. + abdominal pain. Vitals/I&O's: Vital Signs Temp Pulse Resp BP Pulse Ox 36.8 C 58 L 16 129/49 H 95 09/13/18 08:15 09/13/18 08:15 09/13/18 08:15 09/13/18 08:15 09/13/18 08:28 Oxygen Flow Rate (L/min) 3 Oxygen Delivery Method Nasal Cannula Weight: 78.3 kg Body Mass Index (BMI) 28.7 Intake and Output for Last 24 Hours 09/11/18 09/12/18 09/13/18 23:59 23:59 23:59 Intake Total 1650 / 1650 Output Total 400 / 400 Balance 1250 / 1250 General: Alert, - - uncomfortable. not writhing in pain. HEENT: Atraumatic, Normocephalic Oral: Moist Mucosa, No Gingival or Mucosal Lesions/ Ulcerations Neck: No Nodes, Thyroid Normal Size and Texture Lungs: Clear to auscultation, Normal air movement, No rhonchi, No wheeze Cardiovascular: Regular rate, Regular Rhythm, Normal S1, Normal S2, No murmurs Abdomen: Bowel Sounds Present, Soft, Non Tender, Non-Distended Extremities: No edema, No Calf Tenderness Skin: No rashes, No breakdown Musculoskeletal: No Tenderness to Palpation of Joints or Extremities, No Muscle Wasting Lymphatic: No Cervical, Supraclavicular, or Inguinal Adenopathy, Cervical Adenopathy Neurological: Cranial nerves II-XII grossly intact, Deep Tendon Reflexes 2+/4 and Symmetrical Psych/Mental Status: Normal Affect, Appropriate Laboratory Results 09/12/18 11:40: WBC 4.7, RBC 3.88 L, Hgb 12.3, Hct 37.4, MCV 96.4, MCH 31.7, MCHC 32.9, RDW 12.0, RDW Differential 41.6, Plt Count 312, MPV 8.9, Immature Gran % (Auto) 0.200, Neut % (Auto) 76.3 H, Lymph % (Auto) 10.4 L, [place] % (Auto) 10.4 H, Eos % (Auto) 1.9, Baso % (Auto) 0.8, Absolute Neuts (auto) 3.6, Absolute Lymphs (auto) 0.49 L, Total Counted Not Reportable 09/12/18 11:40: Sodium 136, Potassium 3.7, Chloride 97 L, Carbon Dioxide 29.0, Anion Gap 10, BUN 7, Creatinine 0.50 L, Estim Creat Clear Calc 47.10, Est GFR (MDRD) Af Amer 156, Est GFR (MDRD) Non-Af 129, BUN/Creatinine Ratio 13.9, Glucose 97, Calcium 8.6, Total Bilirubin 0.40, AST 30, ALT 30, Alkaline Phosphatase 71, Total Protein 6.6, Albumin 2.6 L, Globulin 4.0, Albumin/Globulin Ratio 0.6 L, Lipase 47 L 09/12/18 12:30: Urine Color Yellow, Urine Clarity Sl. Cloudy, Urine pH 7.0, Ur Specific [place] 1.010, Urine Protein 15 H, Urine Glucose (UA) Normal, Urine Ketones 50 H, Urine Occult Blood Negative, Urine Nitrite Negative, Urine Bilirubin Negative, Urine Urobilinogen Normal, Ur Leukocyte Esterase Negative, Urine RBC 0 SEEN, Urine WBC 0 SEEN, Ur Squamous Epith Cells 0-5 SEEN, Urine Bacteria 0 SEEN, Urine Mucus 0 SEEN Current Medications Albuterol Sulfate (Ventolin Aerosols) 2.5 mg INHALATION Q4H PRN PRN PRN Reason: Shortness of breath, wheezing Albuterol/Ipratropium (Duoneb) 3 ml INHALATION Q6H.RT [facility]1983 Last Admin: 09/13/18 07:50 Dose: Not Given Enoxaparin Sodium (Lovenox) 40 mg SC DAILY@1000 SHELBY Sodium Chloride () 1,000 mls @ 100 mls/hr IV .Q10H [facility] Last Admin: 09/13/18 00:53 Dose: 100 mls/hr Pantoprazole Sodium 40 mg/ (Sodium Chloride) 110 mls @ 330 mls/hr IV Q12 [facility] Last Admin: 09/13/18 09:33 Dose: 330 mls/hr Magnesium Hydroxide (Milk Of Magnesia) 30 ml PO DAILY PRN PRN PRN Reason: Constipation Morphine Sulfate () 2 mg IV Q4H PRN PRN PRN Reason: SEVERE PAIN (6-10/10) Last Admin: 09/13/18 09:32 Dose: 2 mg Ondansetron HCl (Zofran) 4 mg IV Q6H PRN PRN PRN Reason: NAUSEA/VOMITING Last Admin: 09/13/18 09:32 Dose: 4 mg Promethazine HCl (Phenergan) 6.25 mg IV Q6H PRN PRN PRN Reason: NAUSEA/VOMITING Last Admin: 09/13/18 04:46 Dose: 6.25 mg Sodium Chloride () 5 - 30 ml IV UD PRN PRN Reason: SALINE FLUSH Last Admin: 09/13/18 09:33 Dose: 10 ml Medical Necessity - Tobacco Use Smoking Status: Former smoker Tobacco Use: Cigarettes Assessment/Plan All Active Problems Nausea and vomiting (Acute) Epigastric pain (Acute) 1. intractable nausea and vomiting. * unclear etiology * EGD today * continue PPI for now * improved with phenergan * concerned about obstructive process. 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 stage IV NSCLC * completed XRT * undergoing a phase 2 trial for immunotherapy 3. HFrEF * EF 40% * compensated at this time. 4. DVT proph: LMWH. Code Visit Inpatient E&M: 38399 Subs Hosp L2
--- NOTE | 2018-09-13 11:00 | CASEMGMT ---
RN GILBERT Face to Face with patient for initial transition planning/care coordination assessment. RN CM introduced self and role at [facility]. Patient lying in bed, alert and oriented. Patient willing to participate in assessment and is able to answer all questions appropriately. Care providers, pharmacy, and demographics verified. Patient wishes to discharge home with resumption of [facility] HHC. Patient states she may need a shower chair at discharge. Patient states she has no further needs or concerns at this time. CM to follow for discharge planning needs that may arise. PCP: Abdiel Specialists: Jeremy, oncologist Preferred Pharmacy: [facility] Insurance: [employer], [place] Living Will/HPOA: None LNOK: Living Arrangements: Lives in 1 story home with . Transportation: to provide transportation DME/HHC: Patient has oxygen through [employer], nebulizer, cane, walker. Requesting shower chair. [facility] and wishes to resume services at discharge. Disposition Plan: Patient to discharge home with HHC, family support, and follow-up plans in place. Sherin MARC, RN, CM
--- NOTE | 2018-09-13 12:23 | NURSING ---
pt transported off of unit for EGD. report called to TORITO Patterson in AC at this time-
--- NOTE | 2018-09-13 13:27 | OP.ENDO_ITS ---
Patient Name: Belinda Waterman Procedure Date: 09/13/2018 1:01 PM Date of : 1950 Age: 68 Procedure: Upper GI endoscopy Indications: Nausea with vomiting, Persistent vomiting Providers: Tone Harden MD Medicines: See the Anesthesia note for documentation of the administered medications Complications: No immediate complications. Procedure: Pre-Anesthesia Assessment: - Prior to the procedure, a History and Physical was performed, and patient medications and allergies were reviewed. The patient's tolerance of previous anesthesia was also reviewed. The risks and benefits of the procedure and the sedation options and risks were discussed with the patient. All questions were answered, and informed consent was obtained. Prior Anticoagulants: The patient has taken Lovenox (enoxaparin), last dose was 1 day prior to procedure. ASA Grade Assessment: III - A patient with severe systemic disease. After reviewing the risks and benefits, the patient was deemed in satisfactory condition to undergo the procedure. After obtaining informed consent, the endoscope was passed under direct vision. Throughout the procedure, the patient's blood pressure, pulse, and oxygen saturations were monitored continuously. The gastroscope was introduced through the mouth, and advanced to the second part of duodenum. The upper GI endoscopy was accomplished without difficulty. The patient tolerated the procedure well. Scope In: 1:14:59 PM Scope Out: 1:18:32 PM Total Procedure Duration Time 0 hours 3 minutes 33 seconds Findings: The nasopharynx was normal. One benign-appearing, intrinsic stenosis was found 18 cm from the incisors. This stenosis was mildly severe (non-circumferential scarring) and measured 1.5 cm (inner diameter) x less than one cm (in length). The stenosis was traversed. The lesion was not amenable to dilation, and this was not attempted.Since the scope was able to go throught the area no dilatation was needed. There was no sgn of esophigitis. Localized minimal inflammation characterized by erythema was found in the prepyloric region of the stomach. Biopsies were taken with a cold forceps for Helicobacter pylori testing. The examined duodenum was normal. No biopsies or other specimens were collected for this exam. Impression: - Normal nasopharynx. - Benign-appearing esophageal stenosis. Lesion not amenable to dilation, and not attempted. - Gastritis. Biopsied. - Normal examined duodenum. No specimens collected. Recommendation: - Discharge patient to home. - Resume previous diet. - Continue present medications. - Await pathology results. - Repeat upper endoscopy PRN to assess disease activity. - Return to referring physician in 1 week. Procedure Code(s): --- Professional --- 00891, Esophagogastroduodenoscopy, flexible, transoral; with biopsy, single or multiple Diagnosis Code(s): --- Professional --- K22.2, Esophageal obstruction K29.70, Gastritis, unspecified, without bleeding R11.2, Nausea with vomiting, unspecified R11.10, Vomiting, unspecified CPT copyright 2017 [employer] [employer]. All rights reserved. The codes documented in this report are preliminary and upon fitter / welder review may be revised to meet current compliance requirements. MD Tone Louis MD 09/13/2018 1:27:27 PM This report has been signed electronically. Number of Addenda: 0 Note Initiated On: 09/13/2018 1:01 PM
--- NOTE | 2018-09-13 15:20 | CHAPLAIN ---
Type of Pastoral Visit ___ Initial Visit ___ Follow-up Visit ___ On-call Visit ___ General Patient Visit ___ Spiritual Assessment ___ Family Conference ___ Bereavement ___ Rapid Response ___ Code Blue _x__ Other (describe below) Pastoral Care Referral From ___ Patient ___ Family ___ Nurse ___ Physician ___ Plaster Mold Maker ___ Network Support Specialist ___ Other (describe below) Sacrament/Intervention ___ Active listening ___ Anointing ___ Judaism ___ Bereavement ___ Communion ___ Olivia exploration ___ ___ Life review ___ Prayer ___ Reconciliation ___ Sacrament of Sick ___ Supportive presence ___ Wedding ___ Other (describe below) Pastoral Comments patient is out of the room; calling card left there
[2018-09-13] MEDS: Haloperidol 1 MG Tablet PO ×2 (15:26→22:24)
[2018-09-13] MEDS: Sucralfate 1 GM Tablet PO ×2 (16:56→22:24)
--- NOTE | 2018-09-13 17:03 | NURSING ---
Pt attempted to swallow carafate pill at this time and immediately after swallowing pt began coughing and spitting into trash can. Pt had been sitting up on side of bed to swallow pill and was given cup of water, which she used to swallow pill. Pt verbalized that pill was stuck in her throat. This RN notified Meli rim fire charger operator of need for assistance in room and came in immediately. Pt again verbalized that pill went down and denies further issue regarding respiratory status. Pt remains sitting on side of bed and denies further needs. This RN called pharmacy and spoke with Sandip and asked if there was liquid carafate available. Sandip states that carafate tablet can be dissolved in water. Same added to special instructions on JAN.
[2018-09-13] MEDS: 0.9% NaCl IVPB Med Flush (250 mL) 15 ML IV (22:00)
[2018-09-14 02:38] VITALS: BP 139/53; PULSE 67; RESP 18; TEMP 36.9; O2SAT 100
[2018-09-14] MEDS: 0.9% NaCl Peripheral Flush Adult/Peds IV ×3 (02:40→09:39)
[2018-09-14] MEDS: Morphine 2 MG/ML Syringe IV ×3 (02:40→11:34)
[2018-09-14 02:49] VITALS: RESP 18; O2SAT 100
[2018-09-14] MEDS: Sucralfate 1 GM Tablet PO ×2 (06:39→11:38)
[2018-09-14] MEDS: Haloperidol 1 MG Tablet PO ×2 (06:39→14:11)
[2018-09-14 07:32] VITALS: O2SAT 96
[2018-09-14 08:40] VITALS: BP 125/72; PULSE 79; RESP 18; TEMP 36.5; O2SAT 98
--- NOTE | 2018-09-14 08:55 | PCM.PN.BLA ---
Progress Note Patient had upper scope yesterday with Dr. Harden which demonstrated mild stenosis of the esophagus most likely from radiation. No dilatation was performed due to the scope could pass through without difficulties. No erythema or esophagitis was noted. Biopsy was obtained for H. Pylori which we will have to wait on results for this. Questionable if experimental medication is the etiology. No further surgical intervention is being recommended at this time. Follow-up with our office as needed. Thank you for allowing us to participate in this patient's care. Code Visit Inpatient E&M: 91441 Subs Hosp L1
--- NOTE | 2018-09-14 09:00 | PN_ITS ---
Progress Note Patient had upper scope yesterday with Dr. Harden which demonstrated mild stenosis of the esophagus most likely from radiation. No dilatation was performed due to the scope could pass through without difficulties. No erythema or esophagitis was noted. Biopsy was obtained for H. Pylori which we will have to wait on results for this. Questionable if experimental medication is the etiology. No further surgical intervention is being recommended at this time. Follow-up with our office as needed. Thank you for allowing us to participate in this patient's care. Code Visit Inpatient E&M: 39947 Subs Hosp L1
[2018-09-14 09:26] VITALS: O2SAT 98
[2018-09-14] MEDS: Enoxaparin 40 MG/0.4 ML Syringe SC (09:39)
--- NOTE | 2018-09-14 10:54 | CASEMGMT ---
Script obtained for shower chair and provided to patient. Shower chair not covered by [facility]. Stafford of shower chair at [facility] approx. $50. TORITO HUNT updated patient.
--- NOTE | 2018-09-14 11:12 | DCINST_ITS ---
- Discharge Diagnoses Current Active Problems: Current Active and Chronic Problems Nausea and vomiting (Acute) Epigastric pain (Acute) You will use the following diet at home:: No restrictions Your food should be the consistency of: Regular Your liquids should be the consistency of: Regular/Thin Discharge Activity: Return to Normal Activity Call your doctor if you observe: Fever of 101 or Higher, Shortness of breath, - - intractable nausea and vomiting. Allergies/Adverse Reactions: Allergies Sulfa (Sulfonamide Antibiotics) Allergy (Verified 09/12/18 10:56) Hives Medications to take at Discharge Albuterol Inhaler [Ventolin Hfa] 2 puff INHALATION Q6H PRN PRN 06/17/18 Albuterol Aerosols [Ventolin Aerosols] 2.5 mg INHALATION Q2H PRN PRN #30 vial.neb. 08/16/18 Lorazepam Intensol [Ativan Intensol] 0.25 ml PO Q8H PRN PRN 09/12/18 Methadone HCl 2.5 mg PO BID 09/12/18 Ondansetron [Zofran Odt] 4 mg PO Q4H PRN PRN 09/12/18 Oxycodone [Oxyir] 5 mg PO Q4H PRN 09/12/18 Haloperidol [Haldol] 1 mg PO Q8H #42 tablet 09/14/18 Pantoprazole Sodium [Protonix] 40 mg PO BID #60 tablet 09/14/18 Sucralfate [Carafate] 1 gm PO 1HR_ACHS #30 tablet 09/14/18 The following prescriptions were given: Haloperidol [Haldol] 1 mg PO Q8H #42 tablet Sucralfate [Carafate] 1 gm PO 1HR_ACHS #30 tablet Pantoprazole Sodium [Protonix] 40 mg PO BID #60 tablet Primary Care Physician: Lai Meadwos MD [Primary Care Provider] - Within 2 Weeks Test Results: Test results from this visit will be discussed in further detail at your follow- up appointment, if applicable. Please Follow Up With: Lai Luna DO When: 1-2 weeks. Please Follow Up With: Tone Harden MD When: as needed. Proposed Discharge Date: 09/14/18
--- NOTE | 2018-09-14 11:12 | PCM.DC.SUM ---
Discharge Date and Diagnosis - Problem List Patient Problems: Active and Suspected Problems Gastritis (Acute) Nausea and vomiting (Acute) Epigastric pain (Acute) Date of Admission: 09/12/18 Date of Discharge: 09/14/18 - Primary Discharge Diagnosis Active and Suspected Problems Gastritis (Acute) Nausea and vomiting (Acute) Epigastric pain (Acute) 1. intractable nausea and vomiting. unclear etiology EGD today continue PPI for now improved with phenergan concerned about obstructive process. 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 Gastritis PPI and carafate follow up with Dr. Harden PRN 3. stage IV NSCLC completed XRT undergoing a phase 2 trial for immunotherapy 4. HFrEF EF 40% compensated at this time. - Secondary Discharge Diagnosis Chronic Problems Vocal cord paralysis, unilateral complete (Chronic) Metastatic primary lung cancer (Chronic) History of tobacco use (Chronic) Obesity (BMI 30.0-34.9) (Chronic) Radiation-induced esophagitis (Chronic) Hospital Course and Treatment Imaging Results: Clinical Impression(s) from Imaging Studies Chest X-Ray 09/12/18 14:33 IMPRESSION: Further volume loss in the right upper lobe with increased opacity and there are findings suggestive of mass in the right hilar region with postobstructive pneumonitis and/or atelectasis.. Electronically Signed: Emanuel Escobedo MD at 15:08 EDT Tel [phone], Service support , Lai Luna DO. Oncology Tone Harden MD. General Surgery. Operations: None Procedures: EGD Summary of Care Provided: The patient is a 68 year old F presents with intractable nausea and vomiting. Patient underwent an EGD that showed a benign-appearing, intrinsic stenosis from the incisors. Was mildly severe but the endoscope was able to be passed without issue. And it was not amenable to dilation. Patient was noted to have gastritis and biopsies were performed for H. pylori. Patient was on IV PPI and then at Carafate. Dr. Luna added scheduled Haldol which is really seem to have helped her. Patient's symptoms seem to be aggravated by certain smells. Patient will continue with the Haldol and will receive a 2-week prescription of that. Patient is overall doing well and did tolerate breakfast today. Patient will be discharged to home. [] Patient Problems: Active and Suspected Problems Gastritis (Acute) Nausea and vomiting (Acute) Epigastric pain (Acute) - Physical Exam General: Alert, No apparent distress HEENT: Atraumatic, Normocephalic Oral: Moist Mucosa, No Gingival or Mucosal Lesions/ Ulcerations Neck: No Nodes, Thyroid Normal Size and Texture Lungs: Clear to auscultation, Normal air movement, No rhonchi, No wheeze Cardiovascular: Regular rate, Regular Rhythm, Normal S1, Normal S2 Abdomen: Bowel Sounds Present, Soft, Non Tender, Non-Distended Extremities: No edema, No Calf Tenderness Vital Signs Temp Pulse Resp BP Pulse Ox 36.5 C L 79 18 125/72 H 98 09/14/18 08:40 09/14/18 08:40 09/14/18 08:40 09/14/18 08:40 09/14/18 09:26 Oxygen Flow Rate (L/min) 2 Oxygen Delivery Method Nasal Cannula Weight: 78.6 kg Body Mass Index (BMI) 28.8 Intake and Output for Last 24 Hours 09/12/18 09/13/18 09/14/18 23:59 23:59 23:59 Intake Total 3250 / 3250 670 / 670 Output Total 900 / 900 1950 / 1950 Balance 2350 / 2350 -1280 / -1280 Discharge Diet: No Restrictions Discharge Activity: Return to Normal Activity Call your doctor if you observe: Fever of 101 or Higher, Shortness of breath, - - intractable nausea and vomiting. Home Medications: Medications to take at Discharge Albuterol Inhaler [Ventolin Hfa] 2 puff INHALATION Q6H PRN PRN 06/17/18 Albuterol Aerosols [Ventolin Aerosols] 2.5 mg INHALATION Q2H PRN PRN #30 vial.neb. 08/16/18 Lorazepam Intensol [Ativan Intensol] 0.25 ml PO Q8H PRN PRN 09/12/18 Methadone HCl 2.5 mg PO BID 09/12/18 Ondansetron [Zofran Odt] 4 mg PO Q4H PRN PRN 09/12/18 Oxycodone [Oxyir] 5 mg PO Q4H PRN 09/12/18 Haloperidol [Haldol] 1 mg PO Q8H #42 tablet 09/14/18 Pantoprazole Sodium [Protonix] 40 mg PO BID #60 tablet 09/14/18 Sucralfate [Carafate] 1 gm PO 1HR_ACHS #30 tablet 09/14/18 Following Prescrptions Were Given to Patient: Haloperidol [Haldol] 1 mg PO Q8H #42 tablet Sucralfate [Carafate] 1 gm PO 1HR_ACHS #30 tablet Pantoprazole Sodium [Protonix] 40 mg PO BID #60 tablet Primary Care Physician: Lai Meadows MD [Primary Care Provider] - Within 2 Weeks Please Follow Up With: Lai Luna DO When: 1-2 weeks. Please Follow Up With: Tone Harden MD When: as needed. Disposition: Home Minutes spent on discharge:: 35 Patient Condition:: Fair Medical Necessity - Tobacco Use Smoking Status: Former smoker Tobacco Use: Cigarettes Meaningful Use Info Meaningful Use Diagnoses (Choose all that apply): None applicable Code Visit Inpatient E&M: 50064 Disch Hosp
--- NOTE | 2018-09-14 11:17 | DS.PCM_ITS ---
Discharge Date and Diagnosis - Problem List Patient Problems: Active and Suspected Problems Gastritis (Acute) Nausea and vomiting (Acute) Epigastric pain (Acute) Date of Admission: 09/12/18 Date of Discharge: 09/14/18 - Primary Discharge Diagnosis Active and Suspected Problems Gastritis (Acute) Nausea and vomiting (Acute) Epigastric pain (Acute) 1. intractable nausea and vomiting. * unclear etiology * EGD today * continue PPI for now * improved with phenergan * concerned about obstructive process. * does have h/o radiation esophagitis * improved with Haldol 2. Gastritis * PPI and carafate * follow up with Dr. Harden PRN 3. stage IV NSCLC * completed XRT * undergoing a phase 2 trial for immunotherapy 4. HFrEF * EF 40% * compensated at this time. - Secondary Discharge Diagnosis Chronic Problems Vocal cord paralysis, unilateral complete (Chronic) Metastatic primary lung cancer (Chronic) History of tobacco use (Chronic) Obesity (BMI 30.0-34.9) (Chronic) Radiation-induced esophagitis (Chronic) Hospital Course and Treatment Imaging Results: Clinical Impression(s) from Imaging Studies Chest X-Ray 09/12/18 14:33 IMPRESSION: Further volume loss in the right upper lobe with increased opacity and there are findings suggestive of mass in the right hilar region with postobstructive pneumonitis and/or atelectasis.. Electronically Signed: Emanuel Escobedo MD at 15:08 EDT Tel [phone], Service support , Lai Luna DO. Oncology Tone Harden MD. General Surgery. Operations: None Procedures: EGD Summary of Care Provided: The patient is a 68 year old F presents with intractable nausea and vomiting. Patient underwent an EGD that showed a benign-appearing, intrinsic stenosis from the incisors. Was mildly severe but the endoscope was able to be passed without issue. And it was not amenable to dilation. Patient was noted to have gastritis and biopsies were performed for H. pylori. Patient was on IV PPI and then at Carafate. Dr. Luna added scheduled Haldol which is really seem to have helped her. Patient's symptoms seem to be aggravated by certain smells. Patient will continue with the Haldol and will receive a 2-week prescription of that. Patient is overall doing well and did tolerate breakfast today. Patient will be discharged to home. [] Patient Problems: Active and Suspected Problems Gastritis (Acute) Nausea and vomiting (Acute) Epigastric pain (Acute) - Physical Exam General: Alert, No apparent distress HEENT: Atraumatic, Normocephalic Oral: Moist Mucosa, No Gingival or Mucosal Lesions/ Ulcerations Neck: No Nodes, Thyroid Normal Size and Texture Lungs: Clear to auscultation, Normal air movement, No rhonchi, No wheeze Cardiovascular: Regular rate, Regular Rhythm, Normal S1, Normal S2 Abdomen: Bowel Sounds Present, Soft, Non Tender, Non-Distended Extremities: No edema, No Calf Tenderness Vital Signs Temp Pulse Resp BP Pulse Ox 36.5 C L 79 18 125/72 H 98 09/14/18 08:40 09/14/18 08:40 09/14/18 08:40 09/14/18 08:40 09/14/18 09:26 Oxygen Flow Rate (L/min) 2 Oxygen Delivery Method Nasal Cannula Weight: 78.6 kg Body Mass Index (BMI) 28.8 Intake and Output for Last 24 Hours 09/12/18 09/13/18 09/14/18 23:59 23:59 23:59 Intake Total 3250 / 3250 670 / 670 Output Total 900 / 900 1950 / 1950 Balance 2350 / 2350 -1280 / -1280 Discharge Diet: No Restrictions Discharge Activity: Return to Normal Activity Call your doctor if you observe: Fever of 101 or Higher, Shortness of breath, - - intractable nausea and vomiting. Home Medications: Medications to take at Discharge Albuterol Inhaler [Ventolin Hfa] 2 puff INHALATION Q6H PRN PRN 06/17/18 Albuterol Aerosols [Ventolin Aerosols] 2.5 mg INHALATION Q2H PRN PRN #30 vial.neb. 08/16/18 Lorazepam Intensol [Ativan Intensol] 0.25 ml PO Q8H PRN PRN 09/12/18 Methadone HCl 2.5 mg PO BID 09/12/18 Ondansetron [Zofran Odt] 4 mg PO Q4H PRN PRN 09/12/18 Oxycodone [Oxyir] 5 mg PO Q4H PRN 09/12/18 Haloperidol [Haldol] 1 mg PO Q8H #42 tablet 09/14/18 Pantoprazole Sodium [Protonix] 40 mg PO BID #60 tablet 09/14/18 Sucralfate [Carafate] 1 gm PO 1HR_ACHS #30 tablet 09/14/18 Following Prescrptions Were Given to Patient: Haloperidol [Haldol] 1 mg PO Q8H #42 tablet Sucralfate [Carafate] 1 gm PO 1HR_ACHS #30 tablet Pantoprazole Sodium [Protonix] 40 mg PO BID #60 tablet Primary Care Physician: Lai Meadows MD [Primary Care Provider] - Within 2 Weeks Please Follow Up With: Lai Luna DO When: 1-2 weeks. Please Follow Up With: Tone Harden MD When: as needed. Disposition: Home Minutes spent on discharge:: 35 Patient Condition:: Fair Medical Necessity - Tobacco Use Smoking Status: Former smoker Tobacco Use: Cigarettes Meaningful Use Info Meaningful Use Diagnoses (Choose all that apply): None applicable Code Visit Inpatient E&M: 54001 Disch Hosp
--- NOTE | 2018-09-14 12:15 | CASEMGMT ---
Social Work Note HCPOA and Living Will on pt's chart. Sherin Love BACK END ARCHITECT, DESK OFFICER
--- NOTE | 2018-09-15 16:02 | CASEMGMT ---
TORITO HUNT Discharge Follow-up Phone Call: JESSICADinora: Armand Strata: 4 Call Date: 09/15/18 Discharge Date: 09/14/18 Time of Call: 1602 Duration: 3 min Admitting Diagnosis: Intractable nausea/vomiting, dehydration TORITO HUNT completed follow-up phone call after recent hospitalization. Patient states that she is doing much better. Patient had no questions regarding discharge instructions and was able to pickle processor prescriptions without any issues. Patient has follow-up appt scheduled.
== END 2018-09-14 14:30 | disposition home or self-care (01) | DRG 392 ==
LOC: ED 11:50 → MS3 14:12
PROVIDERS: Surgery; Admitting Provider Hospitalist; Emergency Provider Emergency Medicine; Family Provider Family Medicine; PCP Family Medicine
PROC: 0DJ08ZZ Inspection of Upper Intestinal Tract, Via Natural or Artificial Opening Endoscopic (ICD-10-PCS; CPT 43235; principal; 2018-09-13 13:25)
DX: R11.2 Nausea with vomiting, unspecified (principal); C34.90 Malignant neoplasm of unspecified part of unspecified bronchus or lung; C79.9 Secondary malignant neoplasm of unspecified site; I50.20 Unspecified systolic (congestive) heart failure; E86.0 Dehydration; K29.70 Gastritis, unspecified, without bleeding; J38.01 Paralysis of vocal cords and larynx, unilateral; E66.9 Obesity, unspecified; K22.2 Esophageal obstruction; K20.8 Other esophagitis; Y84.2 Radiological procedure and radiotherapy as the cause of abnormal reaction of the patient, or of later complication, without mention of misadventure at the time of the procedure; Z87.891 Personal history of nicotine dependence; Z68.28 Body mass index [BMI] 28.0-28.9, adult
CPT/HCPCS: 71045; 80053; 81001; 83690; 85025; 88305; 88342; 94640; 99285; J7030; J7040; J7050; A4216; J2405

== ENCOUNTER 2018-10-05 19:36 | Emergency (ER) | payer MEDICARE, OTHER, SELFPAY ==
[2018-10-05 19:39] VITALS: BP 154/107; PULSE 117; RESP 20; TEMP 36.4; O2SAT 95; BMI 27.9
[2018-10-05] MEDS: Ondansetron 4 MG/2 ML Vial IV (20:28)
[2018-10-05] MEDS: HYDROmorphone 1 MG/ML Syringe 0.5 MG IV (20:28)
[2018-10-05] MEDS: 0.9% Normal Saline 1,000 ML 1000 ML IV (20:28)
[2018-10-05 20:37] LABS: Absolute Lymphocyte Count 1.03 X10^3/ul (0.83-4.51); Absolute Neutrophil Count 4.6 X10^3/uL (2.0-7.7); Basophil# 0.03 X10^3/uL; Basophil% 0.5 % (0-1); Eosinophil# 0.07 X10^3/uL; Eosinophils% 1.1 % (0-5); Hematocrit 40.4 % (37-47); Hemoglobin 13.5 g/dl (12.0-15.0); Lymphocyte # 1.03 X10^3/ul (4.0); Lymphocyte % 16.1 % (19-41); Mean Corp Hgb Conc 33.4 g/gl (32-36); Mean Corpuscular Hgb 30.7 pg (27.0-32.0); Mean Corpuscular Volume 91.8 fL (81-99); Mean Platelet Vol. 9.5 fl (6.2-12.0); Monocyte# 0.69 X10^3/uL; Monocyte% 10.8 % (0-10); Neutrophil # 4.57 X10^3/uL (2.7-7.7); Neutrophil % 71.3 % (47-70); POSITIVE COUNT NO; POSITIVE DIFFERENTIAL NO; POSITIVE MORPHOLOGY NO; Platelet Count 316 K/mm3 (150-450); RBC Distribution Width CV 12.7 % (11.6-14.6); RBC Distribution Width SD 42.6 fl (35.1-43.9); White Blood Count 6.4 K/mm3 (4.4-11.0)
--- NOTE | 2018-10-05 20:55 | RAD_ITS ---
STUDY: X-RAY - ACUTE ABDOMINAL SERIES REASON FOR EXAM: Female, 68 years old. Upper abdominal pain, nausea and vomiting. History of metastatic cancer. TECHNIQUE: Single view of the chest. Supine and upright, 2 view(s) of the abdomen were obtained. COMPARISON: Prior chest radiograph of September 12, 2018 FINDINGS: The right upper lobe volume loss has improved somewhat. Atelectasis at the medial right lung base is also somewhat improved. There is still an elevated right diaphragm and an abnormal right hilum still with a component of volume loss in the right upper lung zone. The left lung remains unchanged. Normal size heart. Normal mediastinum and subha. Normal visualized pulmonary arteries. There is atherosclerotic calcification of the aortic arch with tortuosity. There is a diffuse mild increase in bowel gas which is occurring in small bowel and colon without distention of either. Grossly negative for organomegaly, significant abdominal or pelvic calcifications. Status post spinal fusion of L4 and L5 with posterior rods and transpedicular tethers. Disc space replacement at L4-5. RAD/Acute Abdomen Inc Chest IMPRESSION: Some improvement in atelectatic changes and infiltrates of the right upper lobe and medial right lung base since prior exam of September 12, 2018. Continued elevated right diaphragm and a hilar abnormality. No acute changes of the left lung. Mild nonspecific increase in bowel gas without distention of the colon or small bowel. Electronically Signed: Mary Ann Trejo MD at 21:15 EST , Service support ,
--- NOTE | 2018-10-05 21:16 | EKG12_ITS ---
Test Reason : EBS Blood Pressure : / mmHG Vent. Rate : 112 BPM Atrial Rate : 115 BPM P-R Int : 000 ms QRS Dur : 136 ms QT Int : 366 ms P-R-T Axes : 000 -82 077 degrees QTc Int : 499 ms Sinus tachycardia Left axis deviation Non-specific intra-ventricular conduction block Inferior infarct , age undetermined Cannot rule out Anteroseptal infarct , age undetermined T wave abnormality, consider lateral ischemia Abnormal ECG Confirmed by RM TROY, ALFREDO ([id number]), technical writer and editor EREN PEREZ ([id number]) on 10/06/2018 3:49:55 PM Referred By: DR MCCRAY Confirmed By:ALFREDO ABDALLA MD
[2018-10-05 21:43] VITALS: PULSE 104; RESP 17; O2SAT 98
[2018-10-05 21:45] LABS: ALB/GLOB Ratio 0.6 RATIO (0.9-2.4); AST(SGOT) 25 U/L (15-37); Alanine Aminotransfer ALT/SGPT 24 U/L (13-56); Albumin, Serum 2.7 g/dL (3.2-5.0); Alkaline Phosphatase 90 U/L (45-117); Anion Gap 8 (5-15); BUN 6 mg/dL (7-18); BUN/Creat Ratio 11.2 RATIO (10-20); Calcium,Total 8.5 mg/dL (8.5-10.1); Chloride 91 mmol/L (98-107); Creatinine, Serum 0.54 mg/dL (0.55-1.02); EST Glomerular Filtration Rate 119 mL/min (>60); Est Glom Filt Rate - Afr Amer 144 mL/min (>60); Globulin 4.6 g/dL (2.2-4.2); Glucose 106 mg/dL (74-106); Lipase 64 U/L (73-393); Potassium 3.4 mmol/L (3.5-5.1); Protein, Total 7.3 g/dL (6.4-8.2); Sodium Level 131 mmol/L (136-145)
[2018-10-05 22:13] VITALS: BP 149/77; PULSE 108; RESP 16; O2SAT 96
--- NOTE | 2018-10-05 22:30 | ED.VISSUMM ---
- ER Visit Summary Date of Service: 10/05/18 Chief Complaint: Nausea and vomiting upper abdominal pain History of Present Illness: The patient is a 68 F with history of metastatic lung cancer who is in palliative care presents because of upper bilateral abdominal pain with nausea and vomiting. Bowel movements have been hard. She denies hematemesis or melena. She has had intermittent vomiting since radiation therapy 1 month ago. She has vomited 4 times today. She denies fever or chills. She does report night sweats and weight loss of 35 pounds. She denies any ocular, visual or auditory symptoms. She denies earache, rhinorrhea, congestion or postnasal drainage. Denies sore throat or change in voice. She denies chest pain or palpitation. Does complain of shortness of breath and dyspnea on exertion. She denies cough. She denies orthopnea PND. She does complain of abdominal pain, nausea and vomiting without diarrhea. She denies black or maroon stool. He does report decreased urine output. She complains of myalgias and arthralgias. She also complains of generalized weakness. Review of systems otherwise negative. Physical Examination: Vital signs noted and remarkable for heart rate 117. Monitor reveals a rate dependent bundle branch block. Mechanism is sinus. HEENT exam is remarkable dry mucosa and tongue otherwise unremarkable. She does have palpable fullness supraclavicular area on the right and palpable fullness anterior left neck. There is no carotid bruit. Lungs reveal diminished breath sounds right upper lobe. Heart is regular without murmur, gallop or rub. Abdomen is soft nontender. There is no hepatosplenomegaly. Lower extremity exam reveals no swelling, discoloration, ligament distention, palpable coarseness on the distribution of deep venous system. Neuro exam is nonfocal. Test Results: White count H&H and differential are normal. Electro panel reveals mild hyponatremia 131 and potassium of 3.4. Hepatic profile and lipase are marked for low albumin. Emergency Department Course and Treatment: Clinically patient appears dehydrated. She received 1 L of normal saline. She was treated with 0.5 mg of Dilaudid for her pain. She was reassessed at 2229. She feels markedly better. Treatment Plan: Discharged home with pain medicine and antiemetic Disposition: Discharged home with spouse in stable improved condition Impression: 1. Bilateral upper abdominal pain with nausea and vomiting 2. Mild dehydration 3. Metastatic lung cancer This note was generated with [employer] dictation software. It may contain incorrect words, spelling, and punctuation that were not noted in review of the chart prior to signing ED Disposition - Plan for ED Patient: Disposition: Home or Assisted Living Chief Complaint: Nausea/Vomiting Instructions: ED Nausea Vomiting Prescriptions: HYDROmorphone tablet [Dilaudid] 2 mg PO Q4H PRN PRN 10 Days #60 tablet PRN Reason: Pain Ondansetron [Zofran Odt] 4 mg PO Q8H PRN PRN #10 tab.rapdis PRN Reason: Nausea/Vomiting Referrals: Lai Meadows MD [Primary Care Provider] - Lai Luna DO [STAFF PHYSICIAN] - 3-5 Days if not improving
[2018-10-05] MEDS: Ondansetron ODT 4 MG Tablet 16 MG PO (23:10)
[2018-10-05] MEDS: HYDROmorphone 2 MG TABLET PO (23:10)
[2018-10-05 23:14] VITALS: BP 132/78; PULSE 111; RESP 19; O2SAT 99
== END 2018-10-05 23:15 | disposition home or self-care (01) ==
PROVIDERS: Emergency Provider Emergency Medicine; Family Provider Family Medicine; PCP Family Medicine
DX: R10.12 Left upper quadrant pain (principal); R10.11 Right upper quadrant pain; R11.2 Nausea with vomiting, unspecified; E86.0 Dehydration; C34.90 Malignant neoplasm of unspecified part of unspecified bronchus or lung; C79.9 Secondary malignant neoplasm of unspecified site; Z79.899 Other long term (current) drug therapy; Z72.0 Tobacco use
CPT/HCPCS: 74022; 80053; 83690; 85025; 93005; 96361; 96374; 96375; 99285; J7030; A4216; J2405